=== PATIENT | male | born 1950 | race Caucasian/White ===

== ENCOUNTER → 2019-10-29 08:24 | Outpatient (BNVA) | payer MEDICARE, SELFPAY | PROVIDERS: Family Provider Nurse Practitioner Family; Visit Provider Nurse Practitioner | DX: F33.41 Major depressive disorder, recurrent, in partial remission (principal); G25.0 Essential tremor | CPT/HCPCS: 99213 ==

== ENCOUNTER → 2020-03-30 08:12 | Outpatient (BNVA) | payer MEDICARE, SELFPAY | PROVIDERS: Family Provider Nurse Practitioner Family; Visit Provider Psychiatry & Neurology Psychiatry | DX: G25.0 Essential tremor (principal); F33.41 Major depressive disorder, recurrent, in partial remission | CPT/HCPCS: 99213 ==

== ENCOUNTER → 2020-05-26 08:34 | Outpatient (BNVA) | payer MEDICARE, SELFPAY | PROVIDERS: Family Provider Nurse Practitioner Family; Visit Provider Nurse Practitioner | DX: G25.0 Essential tremor (principal); F33.41 Major depressive disorder, recurrent, in partial remission | CPT/HCPCS: 99213 ==

== ENCOUNTER → 2020-07-13 14:18 | Outpatient (BNVA) | payer MEDICARE, SELFPAY | PROVIDERS: Family Provider Nurse Practitioner Family; Referring Provider Physician Assistant Medical; Visit Provider Podiatrist Foot & Ankle Surgery | DX: M79.89 Other specified soft tissue disorders (principal) | CPT/HCPCS: 73630 ==

== ENCOUNTER 2020-07-13 15:03 | Outpatient (CLI) | payer MEDICARE, SELFPAY | END 2020-07-13 15:04 | disposition home or self-care (01) | LOC: SPT 15:04 | PROVIDERS: Family Provider Nurse Practitioner Family; Visit Provider Podiatrist Foot & Ankle Surgery | DX: Z46.89 Encounter for fitting and adjustment of other specified devices (principal); L97.514 Non-pressure chronic ulcer of other part of right foot with necrosis of bone | CPT/HCPCS: 97760; L4361 ==

== ENCOUNTER 2020-07-13 15:06 | Inpatient (IN) | payer MEDICARE, SELFPAY ==
[2020-07-13] VITALS (9 sets, daily range): BP systolic 120–195; BP diastolic 78–88; PULSE 54–76; RESP 14–18; TEMP 36.5–36.6; O2SAT 97–99; BMI 38.5
--- NOTE | 2020-07-13 16:00 | MR_ITS ---
WS: [id number] MRI RIGHT FOOT, NONCONTRAST COMPARISON: RIGHT foot radiograph 07/13/2020 Multiplanar, multisequence imaging is performed without contrast. Evaluation of the RIGHT foot is performed without IV contrast. There is extensive soft tissue edema s urrounding the distal ankle and RIGHT foot. Edema is predominantly over the dorsal surface of the toma t. Focal soft tissue protrusion along the dorsal surface of the foot at the level of proximal lateral metatarsals. Focal protrusion is edema. There is small amount of increased soft tissue edema along t he plantar surface of the proximal phalanges of the second and third toes. There is no focal collecti on or abscess identified. Marrow signal remains normal with no edema. On the T1 sequences the cortex is intact. No widening of the joint spaces. Distal Achilles tendon is normal. Plantar aponeurosis is normal. No osteochondral lesions along the t ibial plateau. There is no joint effusion at the ankle. Peroneus brevis and longus and the posterior tibialis tendon are negative. MR/MR foot RT wo con* [id number] IMPRESSION: 1. No evidence for osteomyelitis on this unenhanced study. Normal marrow signa l within the bones. Sensitivity is decreased without IV contrast. 2. Marked amount of soft tissue edema and cellulitis surrounding the foot. Gre atest along the dorsal surface of the foot. No focal abscess or collection.
--- NOTE | 2020-07-13 16:16 | W.ED.EXTPRO ---
HPI - Extremity Problem General: Chief complaint: Extremity Problem,Nontraumatic Stated complaint: POSS GANGRENE IN R FOOT/DR BAUM Time Seen by Provider: 07/13/20 15:47 History of Present Illness: HPI Narrative: Patient is a very pleasant 69-year-old male seen for worsening right foot infection. He was seen in the podiatry clinic earlier today where it was deemed necessary for him to be admitted and receive IV antibiotics in preparation for incision and drainage in the operating room. He states that he started to have a twinge of pain on the bottom of his right foot just proximal to the third and fourth toes roughly 1 week ago which has since extended to the dorsum of the foot and run proximally to the ankle. He was started on oral clindamycin, but this does not seem to be effective against his infection. He denies fever, shortness of breath, lightheadedness, confusion, and has no other acute complaints. Review of Systems General: Reports: 10 or more systems reviewed and unremarkable except in HPI and below PFSH ED PFSH: Medical History (Updated 07/13/20 @ 16:00 by Forest Acuña MD) Familial tremor GERD (gastroesophageal reflux disease) Hypertension Hyperthyroidism Major depressive disorder, recurrent, in partial remission Type 2 diabetes mellitus Surgical History (Updated 07/13/20 @ 14:48 by Brian Baum DPM) History of hernia surgery Social History (Updated 07/13/20 @ 14:07 by Chauncey Ayoub LPN) Smoking and tobacco status: never smoked Alcohol intake: never Current occupational status: retired Physical Exam Const: COMMON NORMALS: no acute distress, patient oriented x3 and alert HENMT: COMMON NORMALS: normocephalic and atraumatic HEAD & SCALP: normocephalic and atraumatic Eye: COMMON NORMALS: Equal, round and reactive pupils present, EOMs intact bilaterally and no scleral icterus PUPIL: Yes Equal, round and reactive pupils present Resp: COMMON NORMALS: normal respiratory effort and No retractions Cardio: COMMON NORMALS: regular rate, regular rhythm and No murmurs present (Cardio) RATE: regular rate RHYTHM: regular rhythm GI: COMMON NORMALS: Normal to inspection, nondistended, normoactive bowel sounds present, Soft to palpation and non-tender PALPATION: Yes Soft to palpation Extremity: OTHER: Right foot is red and swollen and tender consistent with infection. Neuro: COMMON NORMALS: patient oriented x3 SENSORIUM/ORIENTATION: Yes alert Skin: COMMON NORMALS: no rashes or lesions noted GENERAL SKIN EXAM: no rashes or lesions noted Course Vital Signs: Vital signs: Vital Signs Temperature 97.7 F 07/13/20 15:19 Pulse Rate 55 L 07/13/20 17:13 Respiratory Rate 18 07/13/20 16:44 Blood Pressure 160/82 07/13/20 16:44 Pulse Oximetry 97 07/13/20 16:44 MDM - Extremity (Nontraumatic) MDM Narrative: Medical decision making narrative: Patient was seen earlier in the day by podiatry. X-ray was performed at that time showing some gas concerning for advanced infection and muscle involvement. At podiatry's request, MRI of the foot with and without contrast was ordered. He will be started on IV vancomycin, metronidazole, and cefepime. He will be admitted to the hospitalist service for further observation and definitive care. Patient agrees the plan will be taken upstairs in stable condition. Lab Data: Labs: Lab Results 07/13/20 07/13/20 07/13/20 Range/Units 16:07 16:07 16:07 WBC 8.5 (4.0-10.0) 10^3/ uL RBC 4.30 (4.1-5.3) 10^6/u L Hgb 13.1 (11.7-16.6) g/dL Hct 38.7 L (42.0-52.0) % MCV 90.0 (80-94) fL MCH 30.5 (28.0-34.0) pg MCHC 33.9 (30.0-36.0) g/dL RDW 12.5 (12.1-15.1) % Plt Count 355 (130-400) 10^3/c mm MPV 9.1 (7.4-10.4) fL Neut % (Auto) 73.8 % Lymph % (Auto) 11.5 % [place] % (Auto) 8.9 % Eos % (Auto) 4.4 % Baso % (Auto) 0.9 % Neut # (Auto) 6.27 (1.8-7.7) 10^3/u L Lymph # (Auto) 1.0 (0.8-4.8) 10^3/u L [place] # (Auto) 0.8 (0.2-0.9) 10^3/u L Eos # (Auto) 0.4 (0.0-0.8) 10^3/u L Baso # (Auto) 0.1 (0.0-0.1) 10^3/u L Nucleated RBC % (a uto) 0 % Nucleated RBCs # 0.0 /100WBC ESR 74 H (0-10) mm/hr Sodium 140 (136-145) mmol/L Potassium 4.2 (3.5-5.1) mmol/L Chloride 102 (98-107) mmol/L Carbon Dioxide 28 (22-29) mmol/L Anion Gap 14.2 (5-19) Glucose 71 (65-115) mg/dL POC Glucose (70-110) mg/dL Lactic Acid (0.5-2.2) mmol/L Calcium 9.0 (8.5-10.5) mg/dL Total Bilirubin 0.4 (0.15-1.2) mg/dL AST 15 (0-40) U/L ALT 14 (0-41) U/L Alkaline Phosphata se 92 (40-130) IU/L Albumin 3.9 (3.5-5.2) g/dL Globulin 2.4 (1.3-4.6) g/dL 07/13/20 07/13/20 Range/Units 16:07 16:16 WBC (4.0-10.0) 10^3/ uL RBC (4.1-5.3) 10^6/u L Hgb (11.7-16.6) g/dL Hct (42.0-52.0) % MCV (80-94) fL MCH (28.0-34.0) pg MCHC (30.0-36.0) g/dL RDW (12.1-15.1) % Plt Count (130-400) 10^3/c mm MPV (7.4-10.4) fL Neut % (Auto) % Lymph % (Auto) % [place] % (Auto) % Eos % (Auto) % Baso % (Auto) % Neut # (Auto) (1.8-7.7) 10^3/u L Lymph # (Auto) (0.8-4.8) 10^3/u L [place] # (Auto) (0.2-0.9) 10^3/u L Eos # (Auto) (0.0-0.8) 10^3/u L Baso # (Auto) (0.0-0.1) 10^3/u L Nucleated RBC % (a uto) % Nucleated RBCs # /100WBC ESR (0-10) mm/hr Sodium (136-145) mmol/L Potassium (3.5-5.1) mmol/L Chloride (98-107) mmol/L Carbon Dioxide (22-29) mmol/L Anion Gap (5-19) Glucose (65-115) mg/dL POC Glucose 72 (70-110) mg/dL Lactic Acid 1.2 (0.5-2.2) mmol/L Calcium (8.5-10.5) mg/dL Total Bilirubin (0.15-1.2) mg/dL AST (0-40) U/L ALT (0-41) U/L Alkaline Phosphata se (40-130) IU/L Albumin (3.5-5.2) g/dL Globulin (1.3-4.6) g/dL Discharge Plan Discharge Patient Disposition: Admitted As Inpatient Clinical Impression: Non-pressure chronic ulcer of other part of right foot with necrosis of muscle, Diabetic peripheral neuropathy associated with type 2 diabetes mellitus, Gas gangrene Condition: Stable Coding Level of Care Code ED Ux Developer for Avis Fwd Exam Detailed
[2020-07-13 16:17] LABS: Basophils # 0.1 10^3/uL (0.0-0.1); Basophils % 0.9 %; Eosinophils # 0.4 10^3/uL (0.0-0.8); Eosinophils % 4.4 %; Hematocrit 38.7 % (42.0-52.0); Hemoglobin 13.1 g/dL (11.7-16.6); Lymphocytes % 11.5 %; Mean Corpuscular HGB Conc 33.9 g/dL (30.0-36.0); Mean Corpuscular Hemoglobin 30.5 pg (28.0-34.0); Mean Platelet Volume 9.1 fL (7.4-10.4); Monocytes # 0.8 10^3/uL (0.2-0.9); Monocytes % 8.9 %; Neutrophils # 6.27 10^3/uL (1.8-7.7); Neutrophils % 73.8 %; Nucleated Red Blood Cells % 0 %; Platelet Count 355 10^3/cmm (130-400); Red Cell Distribution Width 12.5 % (12.1-15.1); White Blood Count 8.5 10^3/uL (4.0-10.0)
[2020-07-13 16:20] LABS: Glucose Point of Care 72 mg/dL (70-110)
[2020-07-13] MEDS: cefepime 2,000 MG in sodium chloride 0.9% (plus) 50 ML 100 MG IV (16:20)
[2020-07-13] MEDS: metroNIDAZOLE IV 500 MG/100 ML PREMIX 100 MG IV (16:23)
[2020-07-13] MEDS: vancomycin 1,500 MG/300 ML PIGGYBACK 200 MG IV (16:31)
[2020-07-13 16:51] LABS: Lactic Sepsis W/Reflex 1.2 mmol/L (0.5-2.2)
[2020-07-13 17:25] LABS: Erythrocyte Sedimentation Rate 74 mm/hr (0-10)
[2020-07-13 17:38] LABS: Alanine Aminotransferase 14 U/L (0-41); Albumin Level 3.9 g/dL (3.5-5.2); Alkaline Phosphatase 92 IU/L (40-130); Anion Gap 14.2 (5-19); Aspartate Amino Transferase 15 U/L (0-40); Carbon Dioxide 28 mmol/L (22-29); Chloride 102 mmol/L (98-107); Globulin 2.4 g/dL (1.3-4.6); Glucose 71 mg/dL (65-115); Potassium 4.2 mmol/L (3.5-5.1); Sodium 140 mmol/L (136-145); Total Bilirubin 0.4 mg/dL (0.15-1.2)
[2020-07-13 17:55] LABS: Blood Urea Nitrogen 45 mg/dL (8-23); C Reactive Protein 89.5 mg/L (0.0-4.9); Glomerular Filtration Rate 25.8 mL/min (90-130); Osmolality Calculated 300 mOsm/kg (285-295)
[2020-07-13 17:56] LABS: Total Protein 6.3 g/dL (6.6-8.7)
--- NOTE | 2020-07-13 19:04 | PM.HP ---
Providers/Chief Complaint Admitting Physician: Joey Lemus MD Primary Care Provider: Rafa Call Chief Complaint: POSS GANGRENE IN R FOOT/DR BAUM History of Present Illness Brittny Londono is a 69 year old male with PMH of HTN,DM ,Hypothyroidism, MDD under remision was sent in by from Podiatry clinic his PCP referred him to podiatry clinic due to cellulitis of the right foot had a puncture wound approximately 1.5 weeks ago and approximately 4 days ago was started on clindamycin he has cellulitis at the foot and streaking to the level of the ankle. Patient is afebrile in clinic. Denies any nausea or vomiting. States he is taking clindamycin without difficulty. Does have some tenderness to the right foot. Patient denies any subjective nausea, vomiting, fever, chills, shortness of breath or chest pain. ECA Course : Xray : XR foot RT : No fractures or dislocations are seen. No bone destruction or erosion is noted. The joint spaces and soft tissues are normal. There is a plantar spur and an Achilles spur. MRI Rt feet ordered Patient was started on cefepime Review of Systems Const: Denies: fever(s), chills, body aches, change in appetite or diaphoresis Card: Denies: palpitations, dyspnea on exertion or orthopnea Resp: Denies: dyspnea, productive cough, wheezing or pain on inspiration GI: Denies: abdominal pain, nausea, vomiting, diarrhea or constipation : Denies: flank pain or difficulty urinating Musc: Denies: back pain, extremity pain or extremity swelling Neuro: Denies: headache(s) or confusion Medications/Allergies Home Medications Medication Instructions Recorded Confirmed Last Taken Type aspirin 325 mg tablet 325 mg PO DAILY@0000 10/28/19 07/13/20 07/13/20 History insulin degludec 100 unit/mL 60 unit SUBCUT BID@12,00 ml 05/26/20 07/13/20 07/13/20 History subcutaneous solution lorazepam 2 mg tablet See Rx Instructions PO DAILY PRN 05/26/20 07/13/20 07/13/20 Rx #35 tab CAM walker #1 ea 07/13/20 07/13/20 Unknown Rx Seroquel 200 mg PO BEDTIME@00 07/13/20 07/13/20 07/13/20 History clindamycin HCl 300 mg capsule 300 mg PO QID@12,18,00,06 07/13/20 07/13/20 07/13/20 History famotidine 40 mg PO DAILY@00 07/13/20 07/13/20 07/13/20 History furosemide 20 mg PO DAILY@00 07/13/20 07/13/20 07/13/20 History lansoprazole 15 mg capsule,delayed 15 mg PO DAILY@1200 07/13/20 07/13/20 Unknown History release levothyroxine 25 mcg capsule 25 mcg PO DAILY@00 07/13/20 07/13/20 07/13/20 History primidone 50 mg PO BID@00,12 07/13/20 07/13/20 07/13/20 History Allergies Allergy/AdvReac Type Severity Reaction Status Date / Time Penicillins Allergy Intermediate rash Verified 07/13/20 14:01 PFSH Acute PFSH: Medical History (Updated 07/13/20 @ 22:20 by Joey Lemus MD) Familial tremor GERD (gastroesophageal reflux disease) Hypertension Hyperthyroidism Major depressive disorder, recurrent, in partial remission Type 2 diabetes mellitus Surgical History (Updated 07/13/20 @ 14:48 by Brian Baum DPM) History of hernia surgery Social History (Updated 07/13/20 @ 14:07 by Chauncey Ayoub LPN) Smoking and tobacco status: never smoked Alcohol intake: never Current occupational status: retired Vitals/I&O/Wt Last Vital Signs Temp 97.7 F 07/13/20 15:19 Pulse 71 07/13/20 17:52 Resp 18 07/13/20 17:52 BP 169/88 07/13/20 17:52 Pulse Ox 99 07/13/20 17:52 07/13/20 07/13/20 07/13/20 06:59 14:59 22:59 Intake Total 150 / 150 Balance 150 / 150 Weight last 48 hrs Weight 136.078 kg Physical Exam Const: COMMON NORMALS: patient oriented x3 HENMT: COMMON NORMALS: normocephalic, atraumatic, hearing grossly normal bilaterally and external ears normal HEAD & SCALP: normocephalic and atraumatic EXTERNAL EAR: Yes external ears normal Eye: COMMON NORMALS: no scleral icterus GENERAL EYE: appearance normal, both eyes and all related structures Chest: COMMONS NORMALS: normal inspection of the chest and normal palpation of entire chest wall CHEST: Yes Symmetrical chest wall rise Resp: COMMON NORMALS: normal respiratory effort, No retractions, No use of accessory muscles and clear to auscultation bilaterally EFFORT & INSPECTION: Yes symmetric chest movement AUSCULTATION: clear to auscultation bilaterally Cardio: COMMON NORMALS: regular rate, regular rhythm, S1 normal heart sound present, S2 normal heart sound present, No gallops present (Cardio), No murmurs present (Cardio), No rub (Cardio) and Peripheral pulses 2+ throughout RATE: regular rate RHYTHM: regular rhythm HEART SOUNDS: S1 normal heart sound present and S2 normal heart sound present PERIPHERAL PULSES: Peripheral pulses 2+ throughout GI: COMMON NORMALS: Normal to inspection, nondistended, normoactive bowel sounds present, Soft to palpation, non-tender, No hepatosplenomegaly present and no masses AUSCULTATION: Yes normoactive bowel sounds PALPATION: Yes Soft to palpation and Yes No hepatosplenomegaly present RECTAL EXAM: Yes deferred Extremity: NARRATIVE EXTREMITY EXAM: Rt feet Dressing clean Neuro: COMMON NORMALS: patient oriented x3 Data : 07/13/20 16:07 07/13/20 16:07 A&P Assessment and plan (1) Cellulitis of right foot: Cellulitis of rt feet r/o osteomyelitis ESR : 74 MRI of the rt feet Follow wound culture Currently on Van and Imipenam Status: Acute (2) KINSEY (acute kidney injury): KINSEY V/S KINSEY ON CKD Current SCR: 2.5 Baseline SCR :Unknown Random urine:Na and Creatinine Hold Lasix Renal U/S I.V Hydration N.S @ 125 CC/HR Monitor BMP Status: Acute (3) Diabetic peripheral neuropathy associated with type 2 diabetes mellitus: Status: Acute (4) Hypertension: Status: Acute (5) Hypothyroidism: Status: Acute (6) Diabetes: Status: Acute (7) Major depressive disorder, recurrent, in partial remission: Status: Acute Additional A&P Information DVT PPX: On Heparin 5000 sc q12 h daily Code Status :Full code Disposition :Home Attestations Medical Necessity Statement*: Patinet needs to be in hospital for the management of RT Feet cellulitis r/o osteo.Anticipated LOS greater then 2 midnights Coding Level of Care Code Acute Experimental Machinist for g Fwd Diagnoses Cellulitis of right foot L03.115 KINSEY (acute kidney injury) N17.9 Diabetic peripheral neuropathy associated with type 2 diabetes mellitus E11.42 Hypertension I10 Hypothyroidism E03.9 Diabetes E11.9 Major depressive disorder, recurrent, in partial remission F33.41
--- NOTE | 2020-07-13 20:31 | PC.PHAR ---
Vancomycin is continued at 1500mg IVPB every 24 hours to produce a predicted trough level of 13.84 (population based pharmacokinetic analysis). A trough level has been ordered from the lab to be obtained before the fourth dose to confirm and adjust if needed.
[2020-07-13] MEDS: famotidine 20 mg/2 mL INJ IVP (20:54)
[2020-07-13] MEDS: sodium chloride 0.9% 1,000 ML 125 ML IV (20:54)
[2020-07-13] MEDS: heparin 5,000 unit/mL INJ 1 mL 5000 UNIT SUBCUT (20:55)
[2020-07-13] MEDS: quetiapine 100 mg Tablet 200 MG PO (23:05)
[2020-07-13] MEDS: famotidine 20 mg Tablet 40 MG PO (23:05)
[2020-07-13] MEDS: primidone 50 mg Tablet PO (23:05)
[2020-07-13] MEDS: LORazepam 2 mg Tablet PO (23:06)
--- NOTE | 2020-07-13 23:18 | PC.NURSE ---
Ativan/Seroquel Patient requested only 1mg of ativan, and 100mg of seroquel. Would not let me advance with less than ordered dose. Patient was given 1mg of ativan and 100mg of seroquel. Waste of ativan and return of 100mg of seroquel witnessed by charge nurse, JOVANNY Zaidi.
[2020-07-14] VITALS (20 sets, daily range): BP systolic 136–230; BP diastolic 60–100; PULSE 40–89; RESP 16–20; TEMP 36.4–37.4; O2SAT 94–99
[2020-07-14] MEDS: sodium chloride 0.9% 1,000 ML 125 ML IV (00:53)
[2020-07-14] MEDS: acetaminophen 325 mg Tablet 650 MG PO (05:07)
[2020-07-14 05:45] LABS: Basophils # 0.1 10^3/uL (0.0-0.1); Basophils % 0.8 %; Eosinophils # 0.4 10^3/uL (0.0-0.8); Eosinophils % 5.6 %; Hematocrit 36.2 % (42.0-52.0); Hemoglobin 12.1 g/dL (11.7-16.6); Lymphocytes # 1.3 10^3/uL (0.8-4.8); Lymphocytes % 17.4 %; Mean Corpuscular HGB Conc 33.4 g/dL (30.0-36.0); Mean Corpuscular Hemoglobin 30.6 pg (28.0-34.0); Mean Corpuscular Volume 91.6 fL (80-94); Mean Platelet Volume 8.9 fL (7.4-10.4); Monocytes # 0.7 10^3/uL (0.2-0.9); Monocytes % 9.3 %; Neutrophils # 4.77 10^3/uL (1.8-7.7); Neutrophils % 66.3 %; Nucleated Red Blood Cells % 0 %; Platelet Count 335 10^3/cmm (130-400); Red Blood Count 3.95 10^6/uL (4.1-5.3); Red Cell Distribution Width 12.6 % (12.1-15.1); White Blood Count 7.2 10^3/uL (4.0-10.0)
[2020-07-14] MEDS: dextrose 5%-sod chloride 0.9% 1,000 ML 125 ML IV ×2 (06:06→13:42)
[2020-07-14] MEDS: famotidine 20 mg/2 mL INJ IVP ×2 (06:07→17:07)
[2020-07-14] MEDS: heparin 5,000 unit/mL INJ 1 mL 5000 UNIT SUBCUT ×2 (06:08→17:07)
[2020-07-14 06:11] LABS: INR 1.03 (0.8-1.2)
[2020-07-14 06:23] LABS: Alanine Aminotransferase 11 U/L (0-41); Albumin Level 3.3 g/dL (3.5-5.2); Alkaline Phosphatase 77 IU/L (40-130); Anion Gap 13.9 (5-19); Aspartate Amino Transferase 13 U/L (0-40); Blood Urea Nitrogen 38 mg/dL (8-23); Calcium 9.1 mg/dL (8.5-10.5); Carbon Dioxide 27 mmol/L (22-29); Chloride 104 mmol/L (98-107); Globulin 3.1 g/dL (1.3-4.6); Glomerular Filtration Rate 31.6 mL/min (90-130); Glucose 90 mg/dL (65-115); Magnesium 2.2 mg/dL (1.7-2.3); Osmolality Calculated 301 mOsm/kg (285-295); Phosphorus 3.7 mg/dL (2.5-4.5); Potassium 3.9 mmol/L (3.5-5.1); Sodium 141 mmol/L (136-145); Total Bilirubin 0.3 mg/dL (0.15-1.2); Total Protein 6.4 g/dL (6.6-8.7)
[2020-07-14 06:24] LABS: Procalcitonin 0.11 ng/mL (0-0.5)
[2020-07-14 06:28] LABS: Lactic Sepsis W/Reflex 0.8 mmol/L (0.5-2.2)
[2020-07-14 06:41] LABS: Estmated Average Glucose 203; Hemoglobin A1C 8.7 % (4.0-6.0)
--- NOTE | 2020-07-14 07:00 | USCV_ITS ---
Bry Brittny Age: 69 Gender: M : 1950 Exam Date: 07/14/2020 06:05 Ordering Phys: Brian Gomez DPM Technologist: Exam Location: [facility] [place]_ Indication: PRE OP PLANNING RIGHT LEFT Brachial 169.00 mmHg Brachial 153.00 mmHg Pressure (mmHg) Waveform Pressure (mmHg) Waveform 196.00 DPA 169.00 1.16 Ankle/Brachial Index 1.00 147.00 Pre-Exercise Toe Pressure 162.00 0.87 Pre-Exercise Toe/Brachial Index 0.96 FINDINGS Could not obtain pressures above the RT and LT ankles. Normal resting ABIs and TBIs bilaterally Normal PVR waveforms CONCLUSIONS No evidence of any significant arterial obstruction, based on the above findings. Dr Len Jansen MD [facility] (Electronically Signed) Final Date: 14 July 2020 17:02 S
--- NOTE | 2020-07-14 07:00 | US_ITS ---
WS: [id number] RENAL ULTRASOUND HISTORY: KINSEY COMPARISON: None available. TECHNIQUE: 2-D and color Doppler imaging of the kidney submitted. Right kidney: 9.7 cm x 4.9 cm x 5.2 cm. Normal echogenicity with no hydronephrosis or mass. Left kidney: 12.1 cm x 4.3 cm x 5.3 cm. Normal size kidney. There is very slight dilatation of the LEFT renal pelvis. May be an extrarenal pe lvis. No calyceal dilatation. Aorta: Normal. Urinary Bladder: Minimally distended bladder. Increased soft tissue in the floor the bladder may be p rostate. US/US renal BI* [id number] IMPRESSION: 1. No renal obstruction or mass. 2. Increased soft tissue in the floor the urinary bladder. Consider dedicated follow-up bladder ultrasound with better distention to evaluate for possible ma ss.
--- NOTE | 2020-07-14 07:51 | P.CONIM_ITS ---
Providers/Reason For Consult Consulting Physican/Specialty*: Brian Gomez D.P.M. Reason for Consult*: Diabetic foot infection right foot Attending Physician: Joey Lemus MD Primary Care Provider: Rafa Call History of Present Illness History of Present Illness Patient is a 69-year-old diabetic male he reports A1c was drawn yesterday and was 8.9. His primary care provider is Kary Mejia who referred him to podiatry clinic due to cellulitis of the right foot had a puncture wound approximately 1.5 weeks ago and approximately 4 days ago was started on clindamycin he has cellulitis at the foot and streaking to the level of the ankle. Patient is afebrile in clinic. Denies any nausea or vomiting. States he is taking clindamycin without difficulty. Does have some tenderness to the right foot. Patient denies any subjective nausea, vomiting, fever, chills, shortness of breath or chest pain. Review of Systems Const: Denies: fever(s) or chills Card: Denies: chest pain or dyspnea on exertion Resp: Denies: dyspnea or productive cough GI: Denies: abdominal pain, nausea or vomiting Musc: Reports: extremity pain and extremity swelling; Denies: limited range of motion Skin/Breast: Reports: erythema, skin pain, skin tenderness, skin swelling, sores and nail changes; Denies: changes in skin color or dry skin Neuro: Denies: numbness in extremities or weakness in extremities Psych: Denies: anxiety Ryne/Lymph: Denies: easy bruising or easy bleeding Meds/Allergies Home Medications and Allergies Home Medications Medication Instructions Recorded Confirmed Last Taken Type aspirin 325 mg tablet 325 mg PO DAILY@0000 10/28/19 07/13/20 07/13/20 History insulin degludec 100 unit/mL 60 unit SUBCUT BID@12,00 ml 05/26/20 07/13/20 07/13/20 History subcutaneous solution lorazepam 2 mg tablet See Rx Instructions PO DAILY PRN 05/26/20 07/13/20 07/13/20 Rx #35 tab CAM walker #1 ea 07/13/20 07/13/20 Unknown Rx Seroquel 200 mg PO BEDTIME@00 07/13/20 07/13/20 07/13/20 History clindamycin HCl 300 mg capsule 300 mg PO QID@12,18,00,06 07/13/20 07/13/20 07/13/20 History famotidine 40 mg PO DAILY@00 07/13/20 07/13/20 07/13/20 History furosemide 20 mg PO DAILY@00 07/13/20 07/13/20 07/13/20 History lansoprazole 15 mg capsule,delayed 15 mg PO DAILY@1200 07/13/20 07/13/20 Unknown History release levothyroxine 25 mcg capsule 25 mcg PO DAILY@00 07/13/20 07/13/20 07/13/20 History primidone 50 mg PO BID@00,12 07/13/20 07/13/20 07/13/20 History Allergies Allergy/AdvReac Type Severity Reaction Status Date / Time Penicillins Allergy Intermediate rash Verified 07/13/20 14:01 Current Medications Current Medications Generic Name Dose Route Start Last Admin Trade Name Freq PRN Reason Stop Dose Admin Acetaminophen 650 mg 07/13/20 18:53 07/14/20 05:07 Acetaminophen 325 Mg Tablet PO 650 mg Q6H PRN Administration Mild/Mod Pain Or Temp >/= 101 Famotidine 20 mg 07/13/20 19:00 07/14/20 06:07 Famotidine 20 Mg/2 Ml Inj IVP 20 mg Q12H SPEEDY Administration Famotidine 40 mg 07/14/20 00:00 07/13/20 23:05 Famotidine 20 Mg Tablet PO 40 mg DAILY@00 SPEEDY Administration Heparin Sodium (Beef Lung) 5,000 unit 07/13/20 19:00 07/14/20 06:08 Heparin 5,000 Unit/Ml Inj 1 Ml SUBCUT 5,000 unit Q12H SPEEDY Administration Imipenem/Cilastatin Sodium 500 100 mls @ 200 mls/hr 07/13/20 19:00 07/14/20 06:08 mg/ Sodium Chloride IV 200 mls/hr Q6H SPEEDY Administration Protocol Dextrose/Sodium Chloride 1,000 mls @ 125 mls/hr 07/14/20 05:30 07/14/20 06:06 Dextrose 5%-Sod Chloride 0.9% IV 125 mls/hr .Q8H SPEEDY Administration Insulin Aspart 0 unit 07/13/20 21:00 07/13/20 23:10 Insulin Aspart 100 Unit/1 Ml SUBCUT Not Given WM&BEDTIME SPEEDY Protocol Insulin Aspart 0 unit 07/13/20 21:00 07/13/20 23:10 Insulin Aspart 100 Unit/1 Ml SUBCUT Not Given WM&BEDTIME SPEEDY Protocol Lorazepam 2 mg 07/13/20 18:59 07/13/20 23:06 Lorazepam 2 Mg Tablet PO 2 mg BID@0800,2100 PRN Administration anxiety Primidone 50 mg 07/14/20 00:00 07/13/20 23:05 Primidone 50 Mg Tablet PO 50 mg BID@00,12 SPEEDY Administration Quetiapine Fumarate 200 mg 07/14/20 00:00 07/13/20 23:05 Quetiapine 100 Mg Tablet PO 200 mg BEDTIME@00 SPEEDY Administration PFSH Acute PFSH: Medical History (Updated 07/13/20 @ 22:20 by Joey Lemus MD) Familial tremor GERD (gastroesophageal reflux disease) Hypertension Hyperthyroidism Major depressive disorder, recurrent, in partial remission Type 2 diabetes mellitus Surgical History (Updated 07/13/20 @ 14:48 by Brian Gomez DPM) History of hernia surgery Social History (Updated 07/13/20 @ 14:07 by Chauncey Ayoub LPN) Smoking and tobacco status: never smoked Alcohol intake: never Current occupational status: retired Vitals/I&O/Wt Last Vital Signs Temp 97.9 F 07/14/20 07:26 Pulse 47 L 07/14/20 07:26 Resp 18 07/14/20 07:26 BP 194/97 07/14/20 07:26 Pulse Ox 99 07/14/20 07:26 07/13/20 07/14/20 07/14/20 22:59 06:59 14:59 Intake Total 250 / 250 597.917 / 847.917 Balance 250 / 250 597.917 / 847.917 Weight last 48 hrs Weight 300 lb Physical Exam Narrative: EXAM NARRATIVE: Patient is alert and oriented ?3 and in no acute distress. The following is a focused bilateral lower extremity exam. Patient is accompanied by his ambulates without assistance. VASCULAR: Dorsalis pedis +2 posterior tibial arteries +2. Capillary refill time less than 3 seconds to the distal hallux bilaterally. Calf is supple and nontender proximally and distally. Pedal hair growth present to the level of the toes this is diminished. Edema to the right foot. Bilateral lower extremity edema +2 pitting. NEUROLOGICAL: Protective sensation intact 6/10 sites, tested with [facility] monofilament to bilateral feet. DERMATOLOGICAL: Puncture wound x2 right plantar forefoot. More proximal wound is subsecond metatarsal is limited to breakdown of skin. Puncture wound subthird metatarsal head at the right plantar forefoot probes 3 cm deep and is 3 mm x 3 mm portal of entry. Wound probes dorsally and is tenting the dorsum of the third toe base. There is erythema streaking to the level of the anterior right ankle. MUSCULOSKELETAL: Tenderness to palpation and with debridement. Muscle strength 5 out of 5 in all 3 cardinal planes of bilateral foot and ankle. A&P Assessment and plan (1) Diabetic peripheral neuropathy associated with type 2 diabetes mellitus: Status: Acute (2) Non-pressure chronic ulcer of other part of right foot with necrosis of muscle: Status: Acute (3) Gas gangrene: Status: Acute Additional A&P Information 69-year-old diabetic male with puncture wound to the right plantar forefoot and soft tissue emphysema at the right second webspace. -Soft tissue emphysema on right foot x-ray at the right third toe and second webspace -No obvious osteomyelitis on x-ray, no fracture or dislocation. -Aerobic and anaerobic wound culture taken of deep penetrating wound down to the level of muscle and fascial layer this will be sent to microbiology for Gram stain and culture with sensitivities. -Wound was packed with iodoform and dressed with Betadine wet-to-dry offload with cam boot. -I recommend no CT scan emergency department, MRI would be preferred, MRI with and without contrast of the right foot would be the diagnostic imaging of choice for acute early osteomyelitis to be ruled out. -Ordered LUIS/TBI/PVR, ordered Covid screening in preparation for I&D. -Patient scheduled for I&D of the right foot today at noon he is n.p.o. since midnight. This will likely be a staged procedure, will await MRI to rule out acute osteomyelitis. Coding Level of Care Code Acute Macadam Raker for Avis Orellana Diagnoses Diabetic peripheral neuropathy associated with type 2 diabetes mellitus E11.42 Non-pressure chronic ulcer of other part of right foot with necrosis of muscle L97.513 Gas gangrene A48.0
[2020-07-14] MEDS: levothyroxine 25 mcg Tablet PO (08:45)
--- NOTE | 2020-07-14 08:46 | PC.NURSE ---
patient took fingerstick at bedside with this nurse watching on personal accucheck result was 96.
--- NOTE | 2020-07-14 09:58 | PC.CHAP ---
Pastoral Care Encounter/Spiritual Assessment Type of Contact [] Declined roving department end finder visit [] Patient/Family/Request visit [] Outpatient visit [] Follow-up visit [] Physician referral [] Code/Alert [] Routine visit [] Staff referral [] Actively dying [] Patient sleeping [] Family support [] [] Out of room [] Palliative care [] [] Receiving care in room [] Pre-surgical visit [] Trauma [] Long length of stay [] ICU visit [x] Other:cCovid 19 Relational/Emotional Strength [] Patient feels connected with others/family/visitors/staff [] Distress [] Loneliness/isolation [] Abandonment Spirituality of Patient [] Person of Minnie [] Attends Yarsani of their Minnie [] Believes in Prayer [] Reads Bible or Caodaism materials [] There are Spiritual issues to be addressed Porcelain Enamel Repairer Interventions [] Prayer [] Active listening [] Non-anxious presence [] Spiritual/emotional support [] Crisis/trauma care [] Spiritual counseling [] Bereavement support [] Provided bereavement packet [] Provided Bible/devotional materials [] Provided toy/stuffed animal, coloring book to patient or family member [] Provided Communion [] Anointing/[place] [] Salvation [] Completed spiritual assessment [] Other: Impact on Illness or Injury [] Angry [] Fearful [] Anxious [] Often cries [] Exhaustion [] Unable to work [] Unable to attend gnosticist [] Unable to walk/stand [] Unable to read [] Unable to drive [] Unable to eat/drink [] Unable to sleep [] Unable to be with family [] Patient intubated [] Other: Summary Covid 19 Time spent with patient 5 mins
--- NOTE | 2020-07-14 11:12 | P.PN_ITS ---
Subjective Subjective: Interval history: S/P I.D with debridement of nonviable muscle, tendon and deep fascia of the right foot. Patient tolerated the procedure well. Vitals and labs reviewed Medications: Reviewed: Yes Vitals/I&O/Wt Last Vital Signs Temp 97.9 F 07/14/20 07:26 Pulse 47 L 07/14/20 07:26 Resp 18 07/14/20 07:26 BP 140/82 07/14/20 07:26 Pulse Ox 99 07/14/20 07:26 07/13/20 07/14/20 07/14/20 22:59 06:59 14:59 Intake Total 250 / 250 597.917 / 847.917 Balance 250 / 250 597.917 / 847.917 Weight last 48 hrs Weight 136.078 kg Physical Exam Const: COMMON NORMALS: patient oriented x3 HENMT: COMMON NORMALS: normocephalic, atraumatic, hearing grossly normal bilaterally and external ears normal HEAD & SCALP: normocephalic and atraumatic EXTERNAL EAR: Yes external ears normal Eye: COMMON NORMALS: no scleral icterus GENERAL EYE: appearance normal, both eyes and all related structures Chest: COMMONS NORMALS: normal inspection of the chest and normal palpation of entire chest wall CHEST: Yes Symmetrical chest wall rise Resp: COMMON NORMALS: normal respiratory effort, No retractions, No use of accessory muscles and clear to auscultation bilaterally EFFORT & INSPECTION: Yes symmetric chest movement AUSCULTATION: clear to auscultation bilaterally Cardio: COMMON NORMALS: regular rate, regular rhythm, S1 normal heart sound present, S2 normal heart sound present, No gallops present (Cardio), No murmurs present (Cardio), No rub (Cardio) and Peripheral pulses 2+ throughout RATE: regular rate RHYTHM: regular rhythm HEART SOUNDS: S1 normal heart sound present and S2 normal heart sound present PERIPHERAL PULSES: Peripheral pulses 2+ throughout GI: COMMON NORMALS: Normal to inspection, nondistended, normoactive bowel sounds present, Soft to palpation, non-tender, No hepatosplenomegaly present and no masses AUSCULTATION: Yes normoactive bowel sounds PALPATION: Yes Soft to palpation and Yes No hepatosplenomegaly present RECTAL EXAM: Yes deferred Extremity: NARRATIVE EXTREMITY EXAM: Rt feet Dressing clean Neuro: COMMON NORMALS: patient oriented x3 Data : 07/14/20 05:26 07/14/20 05:26 A&P Assessment and plan (1) Gas gangrene: Gas gangrene of the rt feet.Osteo r/o S/P I.D with debridement of nonviable muscle, tendon and deep fascia of the right foot. ESR : 74 Procal:0.11 Lactic acid: 0.8 MRI of the rt feet: No evidence for osteomyelitis on this unenhanced study. Normal marrow signal within the bones. Sensitivity is decreased without IV contrast.Marked amount of soft tissue edema and cellulitis surrounding the foot. Greatest along the dorsal surface of the foot. No focal abscess or collection. CV segpressure LE BI:No evidence of any significant arterial obstruction, wound culture : GNR Currently on Van and Imipenam Status: Acute (2) KINSEY (acute kidney injury): KINSEY V/S KINSEY ON CKD SCR: 2.5--> 2.1 Baseline SCR :Unknown Random urine:Na: Random Urine Creatinine: Renal US : No renal obstruction or mass Hold Lasix I.V Hydration N.S @ 125 CC/HR Monitor BMP Avoid Nephrotoxics medications Status: Acute (3) Diabetic peripheral neuropathy associated with type 2 diabetes mellitus: Status: Acute (4) Hypertension: Status: Acute (5) Hypothyroidism: Status: Acute (6) Diabetes: Status: Acute (7) Major depressive disorder, recurrent, in partial remission: Status: Acute Additional A&P Information DVT PPX: On Heparin 5000 sc q12 h daily Code Status :Full code Disposition :Home Attestations Medical Necessity Statement*: Patient needs to be in hospital for the management of gas gangrene. Coding Level of Care Code Acute [facility] for [facility] Fwd Exam Detailed Diagnoses Gas gangrene A48.0 KINSEY (acute kidney injury) N17.9 Diabetic peripheral neuropathy associated with type 2 diabetes mellitus E11.42 Hypertension I10 Hypothyroidism E03.9 Diabetes E11.9 Major depressive disorder, recurrent, in partial remission F33.41
[2020-07-14 11:46] LABS: Glucose Point of Care 67 mg/dL (70-110)
[2020-07-14] MEDS: dextrose 50% syringe 50 mL 25 ML IVP (11:51)
--- NOTE | 2020-07-14 11:54 | PC.NURSE ---
Dr. Lemus notified of decreased heart rate 40 checked by this nurse by auscultation, patient reports this is a normal finding for him, fingerstick 67, Dr. Lemus notified and new orders for 1/2 amp d50, see MAR for further details, given by this nurse and surgical nurse at bedside, report given, patient taken to surgery via stretcher. no distress noted.
--- NOTE | 2020-07-14 12:05 | P.ANESASSM_ITS ---
Pre-Anesthetic Assessment Pre-Anesthetic Assessment: Height/Weight: Height 1.88 m Weight 136.078 kg Temp Pulse Resp BP Pulse Ox 97.5 F L 40 L 18 136/80 99 07/14/20 11:44 07/14/20 11:44 07/14/20 11:44 07/14/20 11:44 07/14/20 07:26 Preop Diagnosis: gas gangrene Proposed Procedure: Operation Date: 07/14/20 12:00 Proposed Procedures p Incision And Drainage(Right) - Brian Gomez DPM Familial anesthetic complications: None Was Beta Cristopher taken within 24 hours: N/A Last intake: Intake Last Liquid Date 07/12/20 Last Liquid Time 00:00 Last Solid Date 07/12/20 Last Solid Time 00:00 Social: Social History: No alcohol and No tobacco Exam: Pre-Anes Outpt Exam: alert, oriented x 3, clear to auscultation bilaterally and regular rate & rhythm Airway: Cervical ROM: WNL MP: 4 Dentition: Other (missing teeth) CV/HEM: CV/HEM: HTN Comments: states he has skipped beats, asymptomatic, slow HR GI: GI: GERD Metabolic: Metabolic: DM, Morbid obesity and Thyroid Anesthetic Plan: ASA status: 3 Anesthesia: MAC Other: Patient prefers as little sedation as possible Risk of > 500 ml blood loss (7ml/kg in children): No Meds/Allergies Current Medications: Current Medications Generic Name Dose Route Start Last Admin Trade Name Freq PRN Reason Stop Dose Admin Acetaminophen 650 mg 07/13/20 18:53 07/14/20 05:07 Acetaminophen 32 5 Mg Tablet PO 650 mg Q6H PRN Administration Mild/Mod Pain Or Temp >/= 101 Aspirin 325 mg 07/14/20 09:00 07/14/20 08:46 Aspirin 325 Mg T ablet PO Not Given DAILY SPEEDY Dextrose 25 ml 07/13/20 19:00 07/14/20 11:51 Dextrose 50% Syr french 50 Ml IVP 25 ml ONCE PRN Administration hypoglycemia prot ocol Protocol Famotidine 20 mg 07/13/20 19:00 07/14/20 06:07 Famotidine 20 Mg /2 Ml Inj IVP 20 mg Q12H SPEEDY Administration Famotidine 40 mg 07/14/20 00:00 07/13/20 23:05 Famotidine 20 Mg Tablet PO 40 mg DAILY@00 SPEEDY Administration Heparin Sodium (Be ef Lung) 5,000 unit 07/13/20 19:00 07/14/20 06:08 Heparin 5,000 Un it/Ml Inj 1 Ml SUBCUT 5,000 unit Q12H SPEEDY Administration Imipenem/Cilastati n Sodium 500 100 mls @ 200 mls /hr 07/13/20 19:00 07/14/20 06:08 mg/ Sodium Chlor mati IV 200 mls/hr Q6H SPEEDY Administration Protocol Dextrose/Sodium Ch loride 1,000 mls @ 125 m ls/hr 07/14/20 05:30 07/14/20 06:06 Dextrose 5%-Sod Chloride 0.9% IV 125 mls/hr .Q8H SPEEDY Administration Insulin Aspart 0 unit 07/13/20 21:00 07/14/20 11:54 Insulin Aspart 1 00 Unit/1 Ml SUBCUT Not Given WM&BEDTIME SPEEDY Protocol Insulin Aspart 0 unit 07/13/20 21:00 07/14/20 11:54 Insulin Aspart 1 00 Unit/1 Ml SUBCUT Not Given WM&BEDTIME SPEEDY Protocol Levothyroxine Sodi um 25 mcg 07/14/20 09:00 07/14/20 08:45 Levothyroxine 25 Mcg Tablet PO 25 mcg DAILY SPEEDY Administration Lorazepam 2 mg 07/13/20 18:59 07/13/20 23:06 Lorazepam 2 Mg T ablet PO 2 mg BID@0800,2100 PRN Administration anxiety Primidone 50 mg 07/14/20 00:00 07/13/20 23:05 Primidone 50 Mg Tablet PO 50 mg BID@00,12 SPEEDY Administration Quetiapine Fumarat e 200 mg 07/14/20 00:00 07/13/20 23:05 Quetiapine 100 M g Tablet PO 200 mg BEDTIME@00 SPEEDY Administration PFSH Anesthesia PFSH: Medical History (Updated 07/13/20 @ 22:20 by Joey Lemus MD) Familial tremor GERD (gastroesophageal reflux disease) Hypertension Hyperthyroidism Major depressive disorder, recurrent, in partial remission Type 2 diabetes mellitus Surgical History (Updated 07/13/20 @ 14:48 by Brian Gomez DPM) History of hernia surgery Social History (Updated 07/13/20 @ 14:07 by Chauncey Ayoub LPN) Smoking and tobacco status: never smoked Alcohol intake: never Current occupational status: retired Data Anesthesia CBC & Chem 7: 07/14/20 05:26 07/14/20 05:26 Other Labs: Laboratory Results - last 48 hr 07/13/20 07/13/20 07/13/20 16:07 16:07 16:07 WBC 8.5 RBC 4.30 Hgb 13.1 Hct 38.7 L MCV 90.0 MCH 30.5 MCHC 33.9 RDW 12.5 Plt Count 355 MPV 9.1 Neut % (Auto) 73.8 Lymph % (Auto) 11.5 [place] % (Auto) 8.9 Eos % (Auto) 4.4 Baso % (Auto) 0.9 Neut # (Auto) 6.27 Lymph # (Auto) 1.0 [place] # (Auto) 0.8 Eos # (Auto) 0.4 Baso # (Auto) 0.1 Nucleated RBC % (auto) 0 Nucleated RBCs # 0.0 ESR 74 H PT INR Sodium 140 Potassium 4.2 Chloride 102 Carbon Dioxide 28 Anion Gap 14.2 BUN 45 H Creatinine 2.5 H GFR Calculation 25.8 L Glucose 71 POC Glucose Estimat Average Glucose Hemoglobin A1c Calculated Osmolality 300 H Lactic Acid Calcium 9.0 Phosphorus Magnesium Total Bilirubin 0.4 AST 15 ALT 14 Alkaline Phosphatase 92 C-Reactive Protein 89.5 H Total Protein 6.3 L Albumin 3.9 Globulin 2.4 Procalcitonin 07/13/20 07/13/20 07/14/20 16:07 16:16 05:26 WBC 7.2 RBC 3.95 L Hgb 12.1 Hct 36.2 L MCV 91.6 MCH 30.6 MCHC 33.4 RDW 12.6 Plt Count 335 MPV 8.9 Neut % (Auto) 66.3 Lymph % (Auto) 17.4 [place] % (Auto) 9.3 Eos % (Auto) 5.6 Baso % (Auto) 0.8 Neut # (Auto) 4.77 Lymph # (Auto) 1.3 [place] # (Auto) 0.7 Eos # (Auto) 0.4 Baso # (Auto) 0.1 Nucleated RBC % (auto) 0 Nucleated RBCs # 0.0 ESR PT INR Sodium Potassium Chloride Carbon Dioxide Anion Gap BUN Creatinine GFR Calculation Glucose POC Glucose 72 Estimat Average Glucose Hemoglobin A1c Calculated Osmolality Lactic Acid 1.2 Calcium Phosphorus Magnesium Total Bilirubin AST ALT Alkaline Phosphatase C-Reactive Protein Total Protein Albumin Globulin Procalcitonin 07/14/20 07/14/20 07/14/20 05:26 05:26 05:26 WBC RBC Hgb Hct MCV MCH MCHC RDW Plt Count MPV Neut % (Auto) Lymph % (Auto) [place] % (Auto) Eos % (Auto) Baso % (Auto) Neut # (Auto) Lymph # (Auto) [place] # (Auto) Eos # (Auto) Baso # (Auto) Nucleated RBC % (auto) Nucleated RBCs # ESR PT 13.90 INR 1.03 Sodium 141 Potassium 3.9 Chloride 104 Carbon Dioxide 27 Anion Gap 13.9 BUN 38 H Creatinine 2.1 H GFR Calculation 31.6 L Glucose 90 POC Glucose Estimat Average Glucose 203 Hemoglobin A1c 8.7 H Calculated Osmolality 301 H Lactic Acid Calcium 9.1 Phosphorus 3.7 Magnesium 2.2 Total Bilirubin 0.3 AST 13 ALT 11 Alkaline Phosphatase 77 C-Reactive Protein Total Protein 6.4 L Albumin 3.3 L Globulin 3.1 Procalcitonin 07/14/20 07/14/20 07/14/20 05:26 05:26 11:39 WBC RBC Hgb Hct MCV MCH MCHC RDW Plt Count MPV Neut % (Auto) Lymph % (Auto) [place] % (Auto) Eos % (Auto) Baso % (Auto) Neut # (Auto) Lymph # (Auto) [place] # (Auto) Eos # (Auto) Baso # (Auto) Nucleated RBC % (auto) Nucleated RBCs # ESR PT INR Sodium Potassium Chloride Carbon Dioxide Anion Gap BUN Creatinine GFR Calculation Glucose POC Glucose 67 L Estimat Average Glucose Hemoglobin A1c Calculated Osmolality Lactic Acid 0.8 Calcium Phosphorus Magnesium Total Bilirubin AST ALT Alkaline Phosphatase C-Reactive Protein Total Protein Albumin Globulin Procalcitonin 0.11 Cardiac Studies: No Data to Display
--- NOTE | 2020-07-14 12:09 | P.HPUD_ITS ---
Surgery/Procedure H&P Update DATE OF PROCEDURE: July 14, 2020 DATE H&P PERFORMED: 07/13/20 H&P UPDATE INFORMATION: I have reviewed H&P completed within last 30 days, I have examined patient prior to procedure, No changes to prior documentation and H&P is in [facility] EMR on date indicated PREOP DIAGNOSIS: gas gangrene PLANNED PROCEDURE: Operation Date: 07/14/20 12:00 Proposed Procedures p Incision And Drainage(Right) - Brian Gomez DPM
[2020-07-14] MEDS: sodium chloride 0.9% 1,000 ML 30 ML IV (12:14)
--- NOTE | 2020-07-14 12:57 | PM.OP ---
Operative Report Date of procedure: July 14, 2020 Pre-op Diagnosis: gas gangrene, deep penetrating puncture wound right foot Post-op diagnosis: same Post-op Findings: Deep penetrating puncture wound into the right second intermetatarsal space tracks from plantar to dorsal. Procedure Done: Incision and debridement with debridement of nonviable muscle, tendon and deep fascia of the right foot. Implants: 2-0 Vicryl, quarter inch Leah drain Specimens removed/disposition: Deep subcutaneous tissue and fascia sent to microbiology as culture for Gram stain and sensitivity, right foot penetrating wound. Pathology: none sent Surgeon: Brian Gomez D.P.M. Hydroelectric Operator: Jodi Anesthesia: MAC Estimated blood loss: 50 cc Tourniquet time: See intraoperative documentation IV fluids: None Urine output: None Complications: None Findings: See report Condition: stable Disposition: floor Brief History: Patient is 1.5 weeks out from penetrating puncture wound in the plantar aspect of his right forefoot with cellulitis to the proximal ankle right lower extremity, soft tissue emphysema on plain film x-ray all 3 views visible at the second intermetatarsal space right foot. MRI is negative for abscess or acute osteomyelitis. I recommended empiric IV antibiotics and surgical debridement patient is agreeable. Discussed risk of loss of limb and some level of amputation given the extent of the underlying infection and effort for limb salvage will perform debridement today at noon patient is agreeable wishes to proceed no guarantees written, expressed or implied. He was seen preoperatively all questions answered also spoke with his Amy over the phone. Informed consent signed and initialed his right foot. Procedure: Under mild sedation the patient was brought to the operating room and placed on the operating in supine position. A timeout was performed. Anesthesia was administered by the anesthesia service. Local anesthesia injected by myself consisting of 30 cc 0.5% Marcaine plain and a right posterior tibial nerve block, deep peroneal nerve block, superficial peroneal nerve block and ray block at the second and third intermetatarsal space right foot. Well-padded pneumatic tourniquet applied to the right ankle. The right lower extremity was scrubbed, prepped and draped utilizing normal aseptic technique. No Esmarch bandage was utilized for examination. Tourniquet was inflated to 250 mmHg. Attention was directed to the right plantar forefoot where a penetrating wound was identified subsecond metatarsal head which measured 4 mm x 4 mm in diameter and probed through the the second intermetatarsal space tenting the dorsum of the foot at the second webspace dorsally. Incision was made at the area of tenting dorsally this was 2 cm in length approximately with a #15 blade. The plantar portal of entry was extended distally and proximally approximately 3 cm in length with a #15 blade. Utilizing retraction sharp and blunt dissection was carried down through epidermis, dermis, subcutaneous tissue and deep fascial layer there was significantly devitalized soft tissues at a marr dusky appearance and purulence encountered. This was sharply excised, all bleeders were ligated and cauterized as necessary. Pulsatile bleeder was tied off utilizing 2-0 Vicryl. Incision site was flushed with copious months of sterile saline solution. The wound did not penetrate directly to bone however did penetrate from plantar to dorsal within the second intermetatarsal space. Cordage Leah drain was inserted from plantar to dorsal communicating through and through the intermetatarsal space noted. Incision site was dressed with 4 x 4's, Kerlix, ABD pad and Alex wrap followed by application of postop shoe. Tourniquet was deflated and a prompt hyperemic response was noted to the distal digits of the right foot. Patient tolerated the procedure and anesthesia well and was transferred to the PACU with vital signs stable and vascular status intact. He will be monitored for period of time and then transferred back to the floor may resume diabetic diet, resume empiric IV antibiotics until soft tissue cultures yield further information. Patient may weight-bear on his right heel only with a postop shoe, full weightbearing to the left lower extremity. He is to elevate his right foot while at rest. Will likely return to the operating room for second debridement and delayed closure. Return to the operating room will likely be on Saturday or Saturday next week. Will continue with antibiotic therapy until that time.
[2020-07-14] MEDS: primidone 50 mg Tablet PO ×2 (13:42→23:59)
[2020-07-14] MEDS: pantoprazole DR 40 mg Tablet PO (13:42)
--- NOTE | 2020-07-14 13:46 | PC.NURSE ---
patient returned from surgery, orders reviewed, vitals taken and documented, stable, patient checked fingerstick on personal accucheck 87 on result, Dr. Lemus notified new order received for Consistent carb diet, provided lunch tray and orange juice, denies pain, dressing to right foot clean dry and intact.
--- NOTE | 2020-07-14 14:49 | ANE.PACU2 ---
Inpatient post-anesthesia follow up: Airway intact: Yes Vital signs: Temperature 97.7 F Pulse Rate [Left] 55 Pulse Rate 52 Respiratory Rate 16 Blood Pressure [Le ft Arm] 195/79 Blood Pressure 160/80 Pulse Oximetry 95 Oxygen Delivery Me thod Room Air Oxygen Flow Rate Fraction of Inspir ed Oxygen Hydration adequate: Yes Nausea and vomiting: No Pain level: 2 Mental status: Baseline
[2020-07-14] MEDS: vancomycin 1,500 MG/300 ML PIGGYBACK 200 MG IV (15:39)
[2020-07-14 17:11] LABS: Glucose Point of Care 220 mg/dL (70-110)
[2020-07-14] MEDS: hyDRALAzine 20 mg/mL INJ 1 mL 5 MG IVP (19:35)
[2020-07-14] MEDS: amlodipine 10 mg Tablet PO (20:32)
[2020-07-14] MEDS: hyDRALAzine 20 mg/mL INJ 1 mL 10 MG IVP (20:32)
[2020-07-14] MEDS: nitroglycerin 1 gm/inch oint Pkt 1 INCH TOPICAL (21:44)
--- NOTE | 2020-07-14 22:58 | ECG_ITS ---
[facility] Test Date: 2020-07-14 Pat Name: Brittny Londono Department: Room: 252 Gender: Male Pond Supervisor: : 1950 Requested By: Glenroy Salvador Order Number: [id number] Reading MD: Len Jansen M.D. Measurements Intervals [place] Rate: 91 P: 42 CT: 166 QRS: -15 QRSD: 91 T: 29 QT: 360 QTc: 444 Interpretive Statements SINUS RHYTHM WITH FREQUENT VENTRICULAR PREMATURE COMPLEXES WITH OCCASIONAL SUPRAVENTRICULAR PREMATURE COMPLEXES ABNORMAL RHYTHM ECG No previous ECG available for comparison Electronically Signed On 07-15-2020 19:10:10 DEPUTY BUILDING GUARD by Len Jansen M.D. [email or web address]
[2020-07-14] MEDS: nitroglycerin drip 50 MG/250 ML PREMIX 10 MG IV (23:04)
[2020-07-14] MEDS: famotidine 20 mg Tablet 40 MG PO (23:59)
[2020-07-14] MEDS: quetiapine 100 mg Tablet 200 MG PO (23:59)
[2020-07-15] VITALS (28 sets, daily range): BP systolic 105–200; BP diastolic 49–103; PULSE 72–106; RESP 10–30; TEMP 36.7–37.6; O2SAT 92–100
--- NOTE | 2020-07-15 01:37 | PC.NURSE ---
When the HYDROMETEOROLOGICAL TECHNICIAN obtained 2200 vitals. She informed this nurse of the patients BP being elevated. This nurse verified BP and obtained orders from hospitalist. At first, the patient received Hydralazine 5mg, did not work. Then Hydralazine 10mg and Amlodipine, which didn't work. Then nitropaste 1 inch, which didn't work. By this time the patients BP was 236/100. At this time, hospitalist ordered a nitroglycerin drip of 10mcg/min. This brought the patient's BP down between 180-200. Hospitalist was informed of patient's drip needed to be titrated up and orders were given to transfer the patient in house to CSU. Patient will be transported to [facility].
--- NOTE | 2020-07-15 02:06 | PC.NURSE ---
Dr Salvador on the floor. Clarified orders with Dr Salvador. Received order to stop Nitro patch and fluids. Also to change Nitro drip to [facility]SU protocol for needed titration.
[2020-07-15] MEDS: nitroglycerin drip 50 MG/250 ML PREMIX 6 MG IV (02:18)
--- NOTE | 2020-07-15 02:22 | PC.NURSE ---
Addendum entered by Sharita Ramos RN 07/15/20 02:31: Informed Dr Salvador of current blood pressure and rate of nitro gtt which is at 20mcg/hr (6m/hr) Original Note: Patient received to 106 via wheelchair. Increased Nitro drip to 6ml/hr. BP on arrival to floor 155/83. Patient denies pain to right foot. Patient is s/p I&D to right foot. Boot in place. Patient denies any needs or complaints. No distress observed. Patient reports feeling much better with BP returning closer to his normal.
--- NOTE | 2020-07-15 03:03 | PC.NURSE ---
Patient current BP 121/54. Nitro gtt has been turn off. Dr Salvador has been informed.
[2020-07-15 05:50] LABS: Basophils # 0.1 10^3/uL (0.0-0.1); Basophils % 1.3 %; Eosinophils # 0.4 10^3/uL (0.0-0.8); Eosinophils % 5.4 %; Hematocrit 34.2 % (42.0-52.0); Hemoglobin 11.4 g/dL (11.7-16.6); Lymphocytes # 1.5 10^3/uL (0.8-4.8); Lymphocytes % 18.8 %; Mean Corpuscular HGB Conc 33.3 g/dL (30.0-36.0); Mean Platelet Volume 8.8 fL (7.4-10.4); Monocytes # 0.8 10^3/uL (0.2-0.9); Neutrophils # 5.06 10^3/uL (1.8-7.7); Neutrophils % 63.9 %; Nucleated Red Blood Cells % 0 %; Platelet Count 310 10^3/cmm (130-400); Red Cell Distribution Width 12.6 % (12.1-15.1); White Blood Count 7.9 10^3/uL (4.0-10.0)
[2020-07-15] MEDS: famotidine 20 mg/2 mL INJ IVP (06:06)
[2020-07-15] MEDS: heparin 5,000 unit/mL INJ 1 mL 5000 UNIT SUBCUT ×2 (06:06→19:14)
[2020-07-15 06:10] LABS: Alanine Aminotransferase 13 U/L (0-41); Albumin Level 3.1 g/dL (3.5-5.2); Alkaline Phosphatase 76 IU/L (40-130); Anion Gap 12.4 (5-19); Aspartate Amino Transferase 14 U/L (0-40); Blood Urea Nitrogen 30 mg/dL (8-23); Calcium 9.1 mg/dL (8.5-10.5); Carbon Dioxide 24 mmol/L (22-29); Chloride 105 mmol/L (98-107); Globulin 2.8 g/dL (1.3-4.6); Glomerular Filtration Rate 33.4 mL/min (90-130); Glucose 112 mg/dL (65-115); Osmolality Calculated 291 mOsm/kg (285-295); Potassium 4.4 mmol/L (3.5-5.1); Sodium 137 mmol/L (136-145); Total Bilirubin 0.3 mg/dL (0.15-1.2); Total Protein 5.9 g/dL (6.6-8.7)
[2020-07-15] MEDS: acetaminophen 325 mg Tablet 650 MG PO ×2 (06:13→15:02)
[2020-07-15 07:18] LABS: Glucose Point of Care 82 mg/dL (70-110)
[2020-07-15] MEDS: amlodipine 10 mg Tablet PO (09:19)
[2020-07-15] MEDS: aspirin 325 mg Tablet PO (09:19)
[2020-07-15] MEDS: levothyroxine 25 mcg Tablet PO (09:19)
[2020-07-15 10:51] LABS: Glucose Point of Care 100 mg/dL (70-110)
--- NOTE | 2020-07-15 12:08 | P.PN_ITS ---
Subjective Subjective: Interval history: Patient went into hypertensive urgency last night.Deny any complain,no chest pain, sob, nausea, vomitting, headache, dizziness, focal weakness in any body part. His vitals and labs have been reviewed. Medications: Reviewed: Yes Vitals/I&O/Wt Last Vital Signs Temp 98.2 F 07/15/20 10:00 Pulse 72 07/15/20 10:00 Resp 15 07/15/20 10:00 BP 123/82 07/15/20 10:00 Pulse Ox 100 07/15/20 10:00 07/14/20 07/15/20 07/15/20 22:59 06:59 14:59 Intake Total 1083.75 / 3033.75 102.975 / 3136.725 120 / 120 Output Total 400 / 405 400 / 805 Balance 683.75 / 2628.75 -297.025 / 2331.725 120 / 120 Weight last 48 hrs Weight 136.078 kg Physical Exam Const: COMMON NORMALS: patient oriented x3 HENMT: COMMON NORMALS: normocephalic, atraumatic, hearing grossly normal bilaterally and external ears normal HEAD & SCALP: normocephalic and atraumatic EXTERNAL EAR: Yes external ears normal Eye: COMMON NORMALS: no scleral icterus GENERAL EYE: appearance normal, both eyes and all related structures Chest: COMMONS NORMALS: normal inspection of the chest and normal palpation of entire chest wall CHEST: Yes Symmetrical chest wall rise Resp: COMMON NORMALS: normal respiratory effort, No retractions, No use of accessory muscles and clear to auscultation bilaterally EFFORT & INSPECTION: Yes symmetric chest movement AUSCULTATION: clear to auscultation bilaterally Cardio: COMMON NORMALS: regular rate, regular rhythm, S1 normal heart sound present, S2 normal heart sound present, No gallops present (Cardio), No murmurs present (Cardio), No rub (Cardio) and Peripheral pulses 2+ throughout RATE: regular rate RHYTHM: regular rhythm HEART SOUNDS: S1 normal heart sound present and S2 normal heart sound present PERIPHERAL PULSES: Peripheral pulses 2+ throughout GI: COMMON NORMALS: Normal to inspection, nondistended, normoactive bowel sounds present, Soft to palpation, non-tender, No hepatosplenomegaly present and no masses AUSCULTATION: Yes normoactive bowel sounds PALPATION: Yes Soft to palpation and Yes No hepatosplenomegaly present RECTAL EXAM: Yes deferred Extremity: NARRATIVE EXTREMITY EXAM: Rt feet Dressing clean Neuro: COMMON NORMALS: patient oriented x3 Data : 07/15/20 05:43 07/15/20 05:43 Micro: Microbiology 07/14/20 12:36 Gram Stain - Final Foot - #1 Tissue Culture - Preliminary Gram Negative Rods A&P Assessment and plan (1) Hypertensive urgency: Patient B/P shot upto 210/85 and was to be started on Nitro drip briefly.Which was later stopped. He was also started on Amlodipine 10 mg po daily. Blood Pressure is pretty well controlled in the morning Status: Acute (2) Gas gangrene: Gas gangrene of the rt feet.Osteo r/o S/P I.D with debridement of nonviable muscle, tendon and deep fascia of the right foot. ESR : 74 Procal:0.11 Lactic acid: 0.8 MRI of the rt feet: No evidence for osteomyelitis on this unenhanced study. Normal marrow signal within the bones. Sensitivity is decreased without IV contrast.Marked amount of soft tissue edema and cellulitis surrounding the foot. Greatest along the dorsal surface of the foot. No focal abscess or collection. CV segpressure LE BI:No evidence of any significant arterial obstruction, wound culture : GNR, Aeromonas Caviae (Singleton Sensitive ) Currently on Van and Imipenam Status: Acute (3) KINSEY (acute kidney injury): KINSEY V/S KINSEY ON CKD SCR: 2.5--> 2.1 -->2 Baseline SCR :Unknown Random urine:Na: Random Urine Creatinine: Renal US : No renal obstruction or mass Hold Lasix I.V Hydration N.S @ 125 CC/HR Monitor BMP Avoid Nephrotoxics medications Status: Acute (4) Diabetic peripheral neuropathy associated with type 2 diabetes mellitus: Status: Acute (5) Hypertension: Status: Acute (6) Hypothyroidism: Status: Acute (7) Diabetes: Status: Acute (8) Major depressive disorder, recurrent, in partial remission: Status: Acute Additional A&P Information DVT PPX: On Heparin 5000 sc q12 h daily Code Status :Full code Disposition :Home Attestations Medical Necessity Statement*: Patient needs to be in hospital for the management of HTN Urgency, KINSEY, Gas gangrene. Coding Level of Care Code Acute Slice Cutting Machine Operator for g Fwd Diagnoses Hypertensive urgency I16.0 Gas gangrene A48.0 KINSEY (acute kidney injury) N17.9 Diabetic peripheral neuropathy associated with type 2 diabetes mellitus E11.42 Hypertension I10 Hypothyroidism E03.9 Diabetes E11.9 Major depressive disorder, recurrent, in partial remission F33.41
[2020-07-15] MEDS: primidone 50 mg Tablet PO (12:56)
[2020-07-15] MEDS: sodium chloride 0.9% 1,000 ML 125 ML IV (12:57)
[2020-07-15 14:24] LABS: Coronavirus Test Green County Not Detected
--- NOTE | 2020-07-15 16:05 | PM.PN ---
Subjective Subjective: Interval history: Patient is 1 day status post I&D right foot doing well postoperatively. Denies any pain to the right foot. He did have an episode of hypertension postoperatively responding to medical intervention. He is afebrile, no leukocytosis. Patient denies any subjective nausea, vomiting, fever, chills, shortness of breath or chest pain. Vitals/I&O/Wt Last Vital Signs Temp 98.2 F 07/15/20 15:39 Pulse 85 07/15/20 15:39 Resp 10 L 07/15/20 15:39 BP 165/93 07/15/20 15:39 Pulse Ox 96 07/15/20 15:39 07/15/20 07/15/20 07/15/20 06:59 14:59 22:59 Intake Total 202.975 / 3236.725 120 / 120 100 / 220 Output Total 400 / 805 Balance -197.025 / 2431.725 120 / 120 100 / 220 Physical Exam Narrative: EXAM NARRATIVE: Patient is alert and oriented ?3 and in no acute distress. The following is a focused bilateral lower extremity exam. Patient is accompanied by his ambulates without assistance. VASCULAR: Dorsalis pedis +2 posterior tibial arteries +2. Capillary refill time less than 3 seconds to the distal hallux bilaterally. Calf is supple and nontender proximally and distally. Pedal hair growth present to the level of the toes this is diminished. Edema to the right foot. Bilateral lower extremity edema +2 pitting. NEUROLOGICAL: Protective sensation intact 6/10 sites, tested with [place] Erasto monofilament to bilateral feet. DERMATOLOGICAL: Subsided erythema at the line of demarcation this is improving. There is no purulence at the drain placed in the right forefoot. No strikethrough bleeding to the postoperative dressing. MUSCULOSKELETAL: Tenderness to palpation and with debridement. Muscle strength 5 out of 5 in all 3 cardinal planes of bilateral foot and ankle. Data : 07/15/20 05:43 07/15/20 05:43 Micro: Microbiology 07/14/20 12:36 Gram Stain - Final Foot - #1 Tissue Culture - Preliminary Gram Negative Rods A&P Assessment and plan (1) Diabetic peripheral neuropathy associated with type 2 diabetes mellitus: Status: Acute (2) Non-pressure chronic ulcer of other part of right foot with necrosis of muscle: Status: Acute (3) Gas gangrene: Status: Acute Additional A&P Information 69-year-old diabetic male with puncture wound to the right plantar forefoot and soft tissue emphysema at the right second webspace. -1 day status post I&D right forefoot doing well, patient is afebrile, no leukocytosis, improved cellulitis. -Aerobic and anaerobic cultures taken in clinic 07/13/2020 post debridement prior to being sent to the emergency department growing Aeromonas caviae, intraoperative culture taken of deep tissue 121 demonstrating gram-negative rods, these results are preliminary. -Recommend continuation of empiric IV antibiotics during this hospitalization will await finalized tissue cultures, plan for repeat debridement and primary delayed closure likely in the next 2 to 3 days. Will continue to monitor on a daily basis. -Patient may weight-bear with postop shoe heel touch on the right lower extremity for transfers. -Appreciate medical team management, podiatry will follow. I do not anticipate PICC line on discharge. Attestations Medical Necessity Statement*: Soft tissue emphysema right foot with deep puncture wound and diabetic foot infection Coding Level of Care Code Acute Lard Tub Washer for [facility] Fwd Diagnoses Diabetic peripheral neuropathy associated with type 2 diabetes mellitus E11.42 Non-pressure chronic ulcer of other part of right foot with necrosis of muscle L97.513 Gas gangrene A48.0
--- NOTE | 2020-07-15 16:10 | PC.NURSE ---
Placed call to Dr beck in regards to patients pressures elevating to 165/93 at this time instructions received to stop IV fluids encourage PO fluids; Hydralazine PO 25mg Q8H starting now
[2020-07-15] MEDS: hyDRALAzine 25 mg Tablet PO (16:17)
--- NOTE | 2020-07-15 16:26 | PC.NURSE ---
Dr. Gomez at bedside for assessment and discussion of plan of care with patient verbal instructions given to DC Isolation
[2020-07-15 16:39] LABS: Glucose Point of Care 65 mg/dL (70-110)
[2020-07-15] MEDS: vancomycin 1,500 MG/300 ML PIGGYBACK 200 MG IV (16:55)
[2020-07-15 20:16] LABS: Glucose Point of Care 132 mg/dL (70-110)
[2020-07-15] MEDS: oxyCODONE-APAP 5-325 mg Tablet 1 TAB PO (21:44)
[2020-07-15] MEDS: LORazepam 2 mg Tablet PO (22:36)
[2020-07-16] VITALS (9 sets, daily range): BP systolic 143–182; BP diastolic 64–96; PULSE 76–90; RESP 13–20; TEMP 36.2–37.1; O2SAT 96–99
[2020-07-16] MEDS: primidone 50 mg Tablet PO ×2 (00:29→11:41)
[2020-07-16] MEDS: hyDRALAzine 25 mg Tablet PO ×2 (00:29→08:37)
[2020-07-16] MEDS: quetiapine 100 mg Tablet 200 MG PO (00:29)
[2020-07-16] MEDS: oxyCODONE-APAP 5-325 mg Tablet 1 TAB PO ×2 (01:10→06:33)
[2020-07-16 03:50] LABS: Basophils # 0.1 10^3/uL (0.0-0.1); Basophils % 1.2 %; Eosinophils # 0.5 10^3/uL (0.0-0.8); Eosinophils % 7.1 %; Hematocrit 33.8 % (42.0-52.0); Hemoglobin 11.3 g/dL (11.7-16.6); Lymphocytes # 1.8 10^3/uL (0.8-4.8); Lymphocytes % 25.9 %; Mean Corpuscular HGB Conc 33.4 g/dL (30.0-36.0); Mean Corpuscular Volume 89.7 fL (80-94); Mean Platelet Volume 8.7 fL (7.4-10.4); Monocytes # 0.7 10^3/uL (0.2-0.9); Neutrophils # 3.79 10^3/uL (1.8-7.7); Neutrophils % 54.8 %; Nucleated Red Blood Cells % 0 %; Platelet Count 316 10^3/cmm (130-400); Red Blood Count 3.77 10^6/uL (4.1-5.3); Red Cell Distribution Width 12.3 % (12.1-15.1); White Blood Count 6.9 10^3/uL (4.0-10.0)
[2020-07-16 04:19] LABS: Alanine Aminotransferase 16 U/L (0-41); Albumin Level 3.1 g/dL (3.5-5.2); Alkaline Phosphatase 74 IU/L (40-130); Anion Gap 12.3 (5-19); Aspartate Amino Transferase 20 U/L (0-40); Blood Urea Nitrogen 25 mg/dL (8-23); Calcium 9.1 mg/dL (8.5-10.5); Carbon Dioxide 24 mmol/L (22-29); Chloride 105 mmol/L (98-107); Globulin 2.7 g/dL (1.3-4.6); Glomerular Filtration Rate 35.4 mL/min (90-130); Glucose 57 mg/dL (65-115); Osmolality Calculated 286 mOsm/kg (285-295); Potassium 4.3 mmol/L (3.5-5.1); Sodium 137 mmol/L (136-145); Total Bilirubin 0.3 mg/dL (0.15-1.2); Total Protein 5.8 g/dL (6.6-8.7)
[2020-07-16] MEDS: heparin 5,000 unit/mL INJ 1 mL 5000 UNIT SUBCUT ×2 (06:30→17:57)
[2020-07-16 07:13] LABS: Glucose Point of Care 47 mg/dL (70-110)
[2020-07-16 07:39] LABS: Glucose Point of Care 51 mg/dL (70-110)
[2020-07-16] MEDS: aspirin 325 mg Tablet PO (08:36)
[2020-07-16] MEDS: famotidine 20 mg Tablet 40 MG PO (08:36)
[2020-07-16] MEDS: amlodipine 10 mg Tablet PO (08:37)
[2020-07-16] MEDS: levothyroxine 25 mcg Tablet PO (08:37)
[2020-07-16 09:07] LABS: Glucose Point of Care 112 mg/dL (70-110)
--- NOTE | 2020-07-16 09:11 | P.PN_ITS ---
Subjective Subjective: Interval history: Patient denies any subjective nausea, vomiting, fever, chills, shortness of breath or chest pain. Vitals and labs have been reviewed. Medications: Reviewed: Yes Vitals/I&O/Wt Last Vital Signs Temp 97.6 F 07/16/20 07:31 Pulse 82 07/16/20 07:31 Resp 14 07/16/20 07:31 BP 170/87 07/16/20 07:31 Pulse Ox 99 07/16/20 07:31 07/15/20 07/16/20 07/16/20 22:59 06:59 14:59 Intake Total 860 / 980 100 / 1080 460 / 460 Balance 860 / 980 100 / 1080 460 / 460 Physical Exam Const: COMMON NORMALS: patient oriented x3 HENMT: COMMON NORMALS: normocephalic, atraumatic, hearing grossly normal bilaterally and external ears normal HEAD & SCALP: normocephalic and atraumatic EXTERNAL EAR: Yes external ears normal Eye: COMMON NORMALS: no scleral icterus GENERAL EYE: appearance normal, both eyes and all related structures Chest: COMMONS NORMALS: normal inspection of the chest and normal palpation of entire chest wall CHEST: Yes Symmetrical chest wall rise Resp: COMMON NORMALS: normal respiratory effort, No retractions, No use of accessory muscles and clear to auscultation bilaterally EFFORT & INSPECTION: Yes symmetric chest movement AUSCULTATION: clear to auscultation bilaterally Cardio: COMMON NORMALS: regular rate, regular rhythm, S1 normal heart sound present, S2 normal heart sound present, No gallops present (Cardio), No murmurs present (Cardio), No rub (Cardio) and Peripheral pulses 2+ throughout RATE: regular rate RHYTHM: regular rhythm HEART SOUNDS: S1 normal heart sound present and S2 normal heart sound present PERIPHERAL PULSES: Peripheral pulses 2+ throughout GI: COMMON NORMALS: Normal to inspection, nondistended, normoactive bowel sounds present, Soft to palpation, non-tender, No hepatosplenomegaly present and no masses AUSCULTATION: Yes normoactive bowel sounds PALPATION: Yes Soft to palpation and Yes No hepatosplenomegaly present RECTAL EXAM: Yes deferred Extremity: NARRATIVE EXTREMITY EXAM: Rt feet Dressing clean Neuro: COMMON NORMALS: patient oriented x3 Data : 07/16/20 03:28 07/16/20 03:28 Micro: Microbiology 07/14/20 12:36 Gram Stain - Final Foot - #1 Tissue Culture - Preliminary Gram Negative Rods A&P Assessment and plan (1) Hypertensive urgency: Resolved : Patient B/P shot upto 210/85 and was to be started on Nitro drip briefly.Which was later stopped. Currently on Nifedipine 60 mg po daily Hydralazine 50 mg po q8 h daily Status: Acute (2) Gas gangrene: Gas gangrene of the rt feet.Osteo r/o S/P I.D with debridement of nonviable muscle, tendon and deep fascia of the right foot. ESR : 74 Procal:0.11 Lactic acid: 0.8 MRI of the rt feet: No evidence for osteomyelitis on this unenhanced study. Normal marrow signal within the bones. Sensitivity is decreased without IV contrast.Marked amount of soft tissue edema and cellulitis surrounding the foot. Greatest along the dorsal surface of the foot. No focal abscess or collection. CV segpressure LE BI:No evidence of any significant arterial obstruction, wound culture : GNR, Aeromonas Caviae (Singleton Sensitive ) Currently on Van and Imipenam. is planning for primary delayed closure on 07/18/2020 patient likely ready for discharge after delayed closure or oral Abxs.He will prefer Levo and doxy for possibly 2 weeks. Status: Acute (3) KINSEY (acute kidney injury): KINSEY V/S KINSEY ON CKD SCR: 2.5--> 2.1 -->2-->1.9 Baseline SCR :Unknown Random urine:Na: Random Urine Creatinine: Renal US : No renal obstruction or mass Hold Lasix Promote oral intake Monitor BMP Avoid Nephrotoxics medications Status: Acute (4) Diabetic peripheral neuropathy associated with type 2 diabetes mellitus: Status: Acute (5) Hypertension: Status: Acute (6) Hypothyroidism: Status: Acute (7) Diabetes: Status: Acute (8) Major depressive disorder, recurrent, in partial remission: Status: Acute Additional A&P Information DVT PPX: On Heparin 5000 sc q12 h daily Code Status :Full code Disposition :Home Attestations Medical Necessity Statement*: patient needs to be in hospital for the management of gas gangrene rt feet. Coding Level of Care Code Acute Asphalt Tamper for [facility] Fwd Diagnoses Hypertensive urgency I16.0 Gas gangrene A48.0 KINSEY (acute kidney injury) N17.9 Diabetic peripheral neuropathy associated with type 2 diabetes mellitus E11.42 Hypertension I10 Hypothyroidism E03.9 Diabetes E11.9 Major depressive disorder, recurrent, in partial remission F33.41
[2020-07-16] MEDS: hyDRALAzine 50 mg Tablet PO ×2 (09:55→17:26)
--- NOTE | 2020-07-16 10:22 | P.PN_ITS ---
Subjective Subjective: Interval history: Patient is 2 days status post I&D right foot doing well postoperatively. Denies any pain to the right foot. He did have an episode of hypertension postoperatively responding to medical intervention. He is afebrile, no leukocytosis. Patient denies any subjective nausea, vomiting, fever, chills, shortness of breath or chest pain. Vitals/I&O/Wt Last Vital Signs Temp 97.6 F 07/16/20 07:31 Pulse 82 07/16/20 07:31 Resp 14 07/16/20 07:31 BP 170/87 07/16/20 07:31 Pulse Ox 99 07/16/20 07:31 07/15/20 07/16/20 07/16/20 22:59 06:59 14:59 Intake Total 860 / 980 100 / 1080 460 / 460 Balance 860 / 980 100 / 1080 460 / 460 Physical Exam Narrative: EXAM NARRATIVE: Patient is alert and oriented ?3 and in no acute distress. The following is a focused bilateral lower extremity exam. Patient is accompanied by his ambulates without assistance. VASCULAR: Dorsalis pedis +2 posterior tibial arteries +2. Capillary refill time less than 3 seconds to the distal hallux bilaterally. Calf is supple and nontender proximally and distally. Pedal hair growth present to the level of the toes this is diminished. Edema to the right foot. Bilateral lower extremity edema +2 pitting. NEUROLOGICAL: Protective sensation intact 6/10 sites, tested with [place] Erasto monofilament to bilateral feet. DERMATOLOGICAL: Improving cellulitis to the right foot and ankle. No purulent drainage from Leah dorsal or plantar site, maceration plantarly, serosanguineous drainage present no foul-smelling odor. MUSCULOSKELETAL: Tenderness to palpation and with debridement. Muscle strength 5 out of 5 in all 3 cardinal planes of bilateral foot and ankle. Data : 07/16/20 03:28 07/16/20 03:28 Micro: Microbiology 07/14/20 12:36 Gram Stain - Final Foot - #1 Tissue Culture - Preliminary Aeromonas caviae A&P Additional A&P Information 69-year-old diabetic male with puncture wound to the right plantar forefoot and soft tissue emphysema at the right second webspace. 2 days status post I&D to the right foot. - 2 days status post I&D right forefoot doing well, patient is afebrile, no leukocytosis, improved cellulitis. -Aerobic and anaerobic cultures taken in clinic 07/13/2020 post debridement prior to being sent to the emergency department growing Aeromonas caviae, intraoperative culture taken of deep tissue 07/14/2020 demonstrating finalized growth of Aeromonas caviae as well. -Patient may weight-bear with postop shoe heel touch on the right lower extremity for transfers. -Recommend continuing IV antibiotics during inpatient planning for primary delayed closure on 07/18/2020 patient likely ready for discharge after delayed closure. I am okay with oral antibiotics on discharge single organism growing on both cultures I still with the medical history of diabetes and a deep puncturing wound through and through at the forefoot would prefer expanded coverage with antibiotics combination of Levaquin and doxycycline would be a good option. Will discuss with hospitalist. Attestations Medical Necessity Statement*: Soft tissue emphysema right foot with deep puncture wound and diabetic foot infection Coding Level of Care Code Acute Back Wedger for Avis Orellana
[2020-07-16 11:23] LABS: Glucose Point of Care 189 mg/dL (70-110)
[2020-07-16 16:21] LABS: Vancomycin Trough 11.9 ug/mL (10-15)
[2020-07-16 17:09] LABS: Glucose Point of Care 209 mg/dL (70-110)
[2020-07-16] MEDS: vancomycin 1,500 MG/300 ML PIGGYBACK 200 MG IV (17:20)
[2020-07-16 20:14] LABS: Glucose Point of Care 219 mg/dL (70-110)
[2020-07-17] MEDS: hyDRALAzine 50 mg Tablet PO ×2 (00:16→09:20)
[2020-07-17] MEDS: LORazepam 2 mg Tablet PO (00:16)
[2020-07-17] MEDS: quetiapine 100 mg Tablet 200 MG PO (00:16)
[2020-07-17] MEDS: primidone 50 mg Tablet PO ×2 (00:16→13:11)
[2020-07-17 02:58] VITALS: RESP 18; O2SAT 96
[2020-07-17] MEDS: oxyCODONE-APAP 5-325 mg Tablet 1 TAB PO (02:58)
[2020-07-17 04:00] VITALS: BP 117/51; PULSE 88; RESP 18; TEMP 36.9; O2SAT 98
[2020-07-17] MEDS: heparin 5,000 unit/mL INJ 1 mL 5000 UNIT SUBCUT (06:14)
[2020-07-17 07:14] LABS: Glucose Point of Care 81 mg/dL (70-110)
--- NOTE | 2020-07-17 07:36 | PM.PN ---
Subjective Subjective: Interval history: Patient is 3 days status post I&D right foot doing well postoperatively. Denies any pain to the right foot. He did have an episode of hypertension postoperatively responding to medical intervention. He is afebrile, no leukocytosis. Patient denies any subjective nausea, vomiting, fever, chills, shortness of breath or chest pain. Vitals/I&O/Wt Last Vital Signs Temp 98.4 F 07/17/20 04:00 Pulse 88 07/17/20 04:00 Resp 18 07/17/20 04:00 BP 117/51 07/17/20 04:00 Pulse Ox 98 07/17/20 04:00 07/16/20 07/17/20 07/17/20 22:59 06:59 14:59 Intake Total 640 / 1320 100 / 1420 Balance 640 / 1320 100 / 1420 Physical Exam Narrative: EXAM NARRATIVE: Patient is alert and oriented ?3 and in no acute distress. The following is a focused bilateral lower extremity exam. Patient is accompanied by his ambulates without assistance. VASCULAR: Dorsalis pedis +2 posterior tibial arteries +2. Capillary refill time less than 3 seconds to the distal hallux bilaterally. Calf is supple and nontender proximally and distally. Pedal hair growth present to the level of the toes this is diminished. Edema to the right foot. Bilateral lower extremity edema +2 pitting. NEUROLOGICAL: Protective sensation intact 6/10 sites, tested with [place] Erasto monofilament to bilateral feet. DERMATOLOGICAL: No cellulitis to the right lower extremity at this time. No purulence from packing at the plantar aspect of the right forefoot, very mild periwound erythema without proximal streaking. MUSCULOSKELETAL: Mild tenderness with repacking to the right forefoot. Muscle strength 5 out of 5 in all 3 cardinal planes of bilateral foot and ankle. Full strength and range of motion in all 3 cardinal planes to the right foot and ankle. No pain with right posterior or left posterior calf squeeze. Data : 07/16/20 03:28 07/16/20 03:28 Micro: Microbiology 07/14/20 12:36 Gram Stain - Final Foot - #1 Tissue Culture - Preliminary Aeromonas caviae A&P Additional A&P Information 69-year-old diabetic male with puncture wound to the right plantar forefoot and soft tissue emphysema at the right second webspace. 3 days status post I&D to the right foot. -3 days status post I&D right forefoot doing well, patient is afebrile, no leukocytosis, improved cellulitis. -Post debridement cultures taken in clinic as well as intraoperative deep tissue cultures taken both grew Aeromonas caviae -Patient may weight-bear with postop shoe heel touch on the right lower extremity for transfers. -Significant improvement clinically, no further plans for surgical debridement at this time will allow healing by secondary intention -Patient would benefit from home health discussed this with Yulisa she will contact social studies department chair to get this set up. -He will need twice daily dressing change to the right foot with: 1/4 iodoform packing into the plantar wound, sterile 4 x 4 gauze, 4 to Kerlix and 4 inch Alex wrap. -Will discuss discharge oral antibiotic regimen with hospitalist -Patient okay for discharge from podiatry standpoint, follow up at [facility] wound care next week. Attestations Medical Necessity Statement*: Diabetic foot infection with soft tissue emphysema right foot Coding Level of Care Code Acute Auth Specialist for Avis Orellana
[2020-07-17 07:46] VITALS: BP 155/91; PULSE 78; RESP 18; TEMP 37.1; O2SAT 98
[2020-07-17] MEDS: levothyroxine 25 mcg Tablet PO (09:19)
[2020-07-17] MEDS: aspirin 325 mg Tablet PO (09:19)
[2020-07-17] MEDS: famotidine 20 mg Tablet 40 MG PO (09:19)
[2020-07-17] MEDS: NIFEdipine ER (24 hr) 30 mg Tablet 60 MG PO (09:20)
[2020-07-17] MEDS: acetaminophen 325 mg Tablet 650 MG PO (09:20)
[2020-07-17 10:52] VITALS: BP 159/78; PULSE 83; RESP 18; TEMP 36.8; O2SAT 96
--- NOTE | 2020-07-17 10:58 | P.DS_ITS ---
Discharge Providers Date of Admission: 07/13/20 16:34 Date of Discharge: July 17, 2020 Attending Provider at Admission: Joey Lemus MD Attending Provider at Discharge: Joey Lemus MD Primary Care Provider: Rafa Call Diagnoses at Discharge Discharge Diagnosis (1) Gas gangrene: Status: Resolved (2) KINSEY (acute kidney injury): Status: Acute Permanent problem details: IMPROVING (3) Diabetic peripheral neuropathy associated with type 2 diabetes mellitus: Status: Chronic (4) Hypertension: Status: Chronic (5) Hypothyroidism: Status: Chronic (6) Diabetes: Status: Chronic (7) Major depressive disorder, recurrent, in partial remission: Status: Chronic Reason for Visit Reason for Visit: POSS GANGRENE IN R FOOT/DR BAUM Hospital Course Hospital Course Brittny Londono is a 69 year old male with PMH of HTN,DM ,Hypothyroidism, MDD under remision was sent in by from Podiatry clinic his PCP referred him to podiatry clinic due to cellulitis of the right foot had a puncture wound approximately 1.5 weeks ago and approximately 4 days ago was started on clindamycin he has cellulitis at the foot and streaking to the level of the ankl e. Patient was seen by in his clinic and he was admitted from the clinic or the management of gas gangrene of rt feet. He underwent I.D with debridement of nonviable muscle, tendon and deep fascia of the right foot and was also kept on Van and imipenam. ESR : 74, Procal:0.11 , Lactic acid: 0.8. MRI of the rt feet: No evidence for osteomyelitis on this unenhanced study. Normal marrow signal within the bones. Sensitivity is decreased without IV contrast.Marked amount of soft tissue edema and cellulitis surrounding the foot. Greatest along the dorsal surface of the foot. No focal abscess or collection. CV segpressure LE BI:No evidence of any significant arterial obstruction, wound culture : GNR, Aeromonas Caviae (Singleton Sensitive ).He is being discharged on Levofloxacin as well as doxycycline for 2 weeks and he follow as outpatient. He also had KINSEY likely 2/2 to excess diuresis which is improving on discharge his SCR is 1.9 as compared to admission SCR of 2.5.He was kept on I.V fluids.He will continue to hold lasix on discharge and will follow with his PCP as outpatient with repeat BMP. Physical Exam Const: COMMON NORMALS: patient oriented x3 HENMT: COMMON NORMALS: normocephalic, atraumatic, hearing grossly normal bilaterally and external ears normal HEAD & SCALP: normocephalic and atraumatic EXTERNAL EAR: Yes external ears normal Eye: COMMON NORMALS: no scleral icterus GENERAL EYE: appearance normal, both eyes and all related structures Chest: COMMONS NORMALS: normal inspection of the chest and normal palpation of entire chest wall CHEST: Yes Symmetrical chest wall rise Resp: COMMON NORMALS: normal respiratory effort, No retractions, No use of accessory muscles and clear to auscultation bilaterally EFFORT & INSPECTION: Yes symmetric chest movement AUSCULTATION: clear to auscultation bilaterally Cardio: COMMON NORMALS: regular rate, regular rhythm, S1 normal heart sound present, S2 normal heart sound present, No gallops present (Cardio), No murmurs present (Cardio), No rub (Cardio) and Peripheral pulses 2+ throughout RATE: regular rate RHYTHM: regular rhythm HEART SOUNDS: S1 normal heart sound present and S2 normal heart sound present PERIPHERAL PULSES: Peripheral pulses 2+ throughout GI: COMMON NORMALS: Normal to inspection, nondistended, normoactive bowel sounds present, Soft to palpation, non-tender, No hepatosplenomegaly present and no masses AUSCULTATION: Yes normoactive bowel sounds PALPATION: Yes Soft to palpation and Yes No hepatosplenomegaly present RECTAL EXAM: Yes deferred Extremity: NARRATIVE EXTREMITY EXAM: Rt feet Dressing clean Neuro: COMMON NORMALS: patient oriented x3 Discharge Data Data Completed and Pending: Completed Studies During Hospitalization Category Date Time Status MR foot RT wo con * [id number] Urgent MRI 07/13/20 16:00 [place] [id number] Rout ine Ultrasound 07/14/20 07:00 Completed US renal BI* [id number] Routine Ultrasound 07/14/20 07:00 Completed Labs from last 24 hours 07/17/20 07/16/20 07/16/20 07:10 20:05 17:04 POC Glucose 81 219 H 209 H Vancomycin Trough 07/16/20 07/16/20 15:13 11:15 POC Glucose 189 H Vancomycin Trough 11.9 Vitals: Last Vital Signs Temp 98.3 F 07/17/20 10:52 Pulse 83 07/17/20 10:52 Resp 18 07/17/20 10:52 BP 159/78 07/17/20 10:52 Pulse Ox 96 07/17/20 10:52 Discharge Plan Discharge Patient Disposition: Home Condition: Stable Prescriptions: New levofloxacin 750 mg tablet 750 mg PO DAILY 14 Days RF: 0 doxycycline hyclate 200 mg tablet,delayed release (DR/EC) 100 mg PO BID Qty: 30 RF: 0 nifedipine 60 mg tablet extended release 24hr 60 mg PO DAILY Qty: 30 RF: 0 hydralazine 50 mg tablet 50 mg PO TID Qty: 90 RF: 0 Continued Tresiba U-100 Insulin 100 unit/mL solution 60 unit SUBCUT BID@12,00 RF: 0 lorazepam [Ativan] 2 mg tablet See Rx Instructions PO DAILY PRN (Reason: anxiety) Qty: 35 RF: 5 aspirin 325 mg tablet 325 mg PO DAILY@0000 RF: 0 levothyroxine 25 mcg capsule 25 mcg PO DAILY@00 RF: 0 lansoprazole [Prevacid] 15 mg capsule,delayed release(DR/EC) 15 mg PO DAILY@1200 RF: 0 famotidine 40 mg tablet 40 mg PO DAILY@00 RF: 0 primidone 50 mg tablet 50 mg PO BID@00,12 RF: 0 Seroquel 200 mg tablet 200 mg PO BEDTIME@00 RF: 0 Held furosemide 20 mg tablet 20 mg PO DAILY@00 RF: 0 Hold Instructions: Resume on 07/31/20. Discontinued clindamycin HCl 300 mg capsule 300 mg PO QID@12,18,00,06 RF: 0 No Action (DME) JANET cole See Rx Instructions .Route .MEDSUPPLY Qty: 1 RF: 0 Discharge Orders: Discharge Order (Routine); Ordered 07/17/20 Ordered By: Joey Lemus Referrals: Rafa Call [Primary Care Provider] - ([facility] will contact you to schedule an follow-up appointment in 4 to 7 days. If you haven't heard from them by Saturday afternoon. Please call ) WOUND CARE CLINIC, [Staff Physician] - ([facility] will contact you to schedule and follow-up appointment in 1 to 3 days. If you haven't heard from them by Saturday afternoon. Please call ) Discharge Diet: Diabetic Discharge Activity: Increase activity as tolerated Patient Instructions: Doxycycline (By mouth), Levofloxacin (By mouth), Acute Kidney Injury (DC), Cellulitis (DC), Hypertensive Crisis (DC) Activity Restrictions/Additional Instructions: Patient will follow with his PCP in a week with repeat BMP to monitor his SCR Level.He will continue to hold taking lasix till the time it is cleared by his PCP.Given Improving KINSEY Discharge Attestations Time Spent in Discharge Care*: greater than 30 min Specific Discharge Activities: educating patient, educating and/or supporting family/caregiver, discussing with pcp/other providers, discussing with telephonic case manager/social workers/dc planners, documenting/other paperwork and evaluating patient/reviewing data Status at Discharge: Cognitive status at discharge: cognitively intact , Behavioral status at discharge: cooperative , Functional status at discharge: independent ambulation Overall status at discharge: patient is back to baseline Quality Metrics Clinical Quality Measures During this hospital stay, did patient experience: None Coding Level of Care Code Acute Ec Teacher for [facility] Fwd Exam Detailed Diagnoses Gas gangrene A48.0 KINSEY (acute kidney injury) N17.9 Diabetic peripheral neuropathy associated with type 2 diabetes mellitus E11.42 Hypertension I10 Hypothyroidism E03.9 Diabetes E11.9 Major depressive disorder, recurrent, in partial remission F33.41
[2020-07-17 11:17] LABS: Glucose Point of Care 131 mg/dL (70-110)
[2020-07-17 11:18] VITALS: BP 159/78; PULSE 83; RESP 18; TEMP 36.8; O2SAT 96
[2020-07-17 12:56] VITALS: TEMP 36.8
== END 2020-07-17 13:44 | disposition home or self-care (01) | DRG 264 ==
LOC: ER 16:00 → MEDSURG 18:34 → CSU 07-15 02:05
PROVIDERS: Podiatrist Foot & Ankle Surgery; Admitting Provider Internal Medicine; Emergency Provider Student in an Organized Health Care Education/Training Program; PCP Physician Assistant Medical; Visit Provider Internal Medicine
PROC: 0JBQ0ZZ Excision of Right Foot Subcutaneous Tissue and Fascia, Open Approach (ICD-10-PCS; principal; 2020-07-14 12:00)
DX: E11.52 Type 2 diabetes mellitus with diabetic peripheral angiopathy with gangrene (principal); A48.0 Gas gangrene; L03.115 Cellulitis of right lower limb; N17.9 Acute kidney failure, unspecified; E03.9 Hypothyroidism, unspecified; E11.42 Type 2 diabetes mellitus with diabetic polyneuropathy; F33.41 Major depressive disorder, recurrent, in partial remission; L97.513 Non-pressure chronic ulcer of other part of right foot with necrosis of muscle; Z79.82 Long term (current) use of aspirin; K21.9 Gastro-esophageal reflux disease without esophagitis; N18.9 Chronic kidney disease, unspecified; E11.22 Type 2 diabetes mellitus with diabetic chronic kidney disease; I12.9 Hypertensive chronic kidney disease with stage 1 through stage 4 chronic kidney disease, or unspecified chronic kidney disease
CPT/HCPCS: 12345; 36415; 36416; 73630; 73718; 76770; 80053; 80202; 82962; 83036; 83605; 83735; 84100; 84145; 85025; 85610; 85651; 86140; 87070; 87075; 87077; 87176; 87186; 87205; 87635; 93005; 93923; 96372; 97760; 99283; J0360; J0692; J0743; J1644; J1815; J2704; J3010; J3370; J3490; J7030; L4361; S0030

== ENCOUNTER 2020-07-22 08:21 | Outpatient (CLI) | payer MEDICARE, SELFPAY ==
[2020-07-22 11:18] LABS: Prealbumin 33.2 mg/dL (20-40)
== END 2020-07-22 08:22 | disposition home or self-care (01) ==
PROVIDERS: PCP Physician Assistant Medical; Visit Provider Surgery
DX: E11.621 Type 2 diabetes mellitus with foot ulcer (principal); L97.412 Non-pressure chronic ulcer of right heel and midfoot with fat layer exposed
CPT/HCPCS: 11043; 84134; G0463

== ENCOUNTER 2020-07-29 08:36 | Outpatient (CLI) | payer MEDICARE, SELFPAY | END 2020-07-29 08:37 | disposition home or self-care (01) | LOC: WOUND 08:37 | PROVIDERS: PCP Physician Assistant Medical; Visit Provider Surgery | DX: E11.621 Type 2 diabetes mellitus with foot ulcer (principal); L97.413 Non-pressure chronic ulcer of right heel and midfoot with necrosis of muscle | CPT/HCPCS: 11043 ==

== ENCOUNTER 2020-08-05 08:42 | Outpatient (CLI) | payer MEDICARE, SELFPAY | END 2020-08-05 08:43 | disposition home or self-care (01) | LOC: WOUND 08:42 | PROVIDERS: PCP Physician Assistant Medical; Visit Provider Surgery | DX: E11.621 Type 2 diabetes mellitus with foot ulcer (principal); L97.413 Non-pressure chronic ulcer of right heel and midfoot with necrosis of muscle | CPT/HCPCS: 11043 ==

== ENCOUNTER 2020-08-12 09:00 | Outpatient (CLI) | payer MEDICARE, SELFPAY | END 2020-08-12 09:01 | disposition home or self-care (01) | LOC: WOUND 09:02 | PROVIDERS: PCP Physician Assistant Medical; Visit Provider Surgery | DX: E11.621 Type 2 diabetes mellitus with foot ulcer (principal); L97.412 Non-pressure chronic ulcer of right heel and midfoot with fat layer exposed | CPT/HCPCS: 11043 ==

== ENCOUNTER 2020-08-19 09:31 | Outpatient (CLI) | payer MEDICARE, SELFPAY | END 2020-08-19 09:32 | disposition home or self-care (01) | LOC: WOUND 09:32 | PROVIDERS: PCP Physician Assistant Medical; Visit Provider Surgery | DX: E11.621 Type 2 diabetes mellitus with foot ulcer (principal); L97.412 Non-pressure chronic ulcer of right heel and midfoot with fat layer exposed; L03.115 Cellulitis of right lower limb | CPT/HCPCS: 11043; 93971 ==

== ENCOUNTER 2020-08-19 15:03 | Outpatient (CLI) | payer MEDICARE, OTHER, SELFPAY ==
--- NOTE | 2020-08-19 15:14 | USCV_ITS ---
GarlandBrittny reynoso Age: 70 Gender: M : 1950 Exam Date: 08/19/2020 15:26 Ordering Phys: Michael Miller MD Technologist: Aure Carcamo [place] [facility] [place]ication: RT FOOT ULCER HISTORY: Lower extremity swelling. PROCEDURES: Venous duplex imaging was performed in only the right lower extremity. The following venous structures were evaluated: common femoral vein, profunda vein, proximal portion of the greater saphenous vein, superficial femoral vein, and the popliteal vein. In addition, the posterior tibial and peroneal trunk were evaluated. FINDINGS: Normal 2-D Doppler and augmentation and compressibility throughout the lower extremity venous structures. Additional imaging through the proximal calf veins also reveals no thrombus. Limited evaluation of the greater saphenous vein is patent with no thrombus.. CONCLUSIONS No evidence of right lower extremity DVT. Babak Sauer MD (Electronically Signed) Final Date: 19 August 2020 17:32 S
== END 2020-08-19 15:04 | disposition home or self-care (01) ==
LOC: RAD 15:10
PROVIDERS: PCP Physician Assistant Medical; Visit Provider Surgery
DX: E11.621 Type 2 diabetes mellitus with foot ulcer (principal)
CPT/HCPCS: 93971

== ENCOUNTER 2020-08-26 09:22 | Outpatient (CLI) | payer MEDICARE, SELFPAY | END 2020-08-26 09:23 | disposition home or self-care (01) | LOC: WOUND 09:23 | PROVIDERS: PCP Physician Assistant Medical; Visit Provider Surgery | DX: E11.621 Type 2 diabetes mellitus with foot ulcer (principal); L97.512 Non-pressure chronic ulcer of other part of right foot with fat layer exposed | CPT/HCPCS: 11043 ==

== ENCOUNTER 2020-09-02 09:19 | Outpatient (CLI) | payer MEDICARE, SELFPAY | END 2020-09-02 09:20 | disposition home or self-care (01) | LOC: WOUND 09:20 | PROVIDERS: PCP Physician Assistant Medical; Visit Provider Nurse Practitioner Family | DX: E11.621 Type 2 diabetes mellitus with foot ulcer (principal); L97.412 Non-pressure chronic ulcer of right heel and midfoot with fat layer exposed | CPT/HCPCS: 11042 ==

== ENCOUNTER 2020-09-09 10:26 | Outpatient (CLI) | payer MEDICARE, SELFPAY | END 2020-09-09 10:27 | disposition home or self-care (01) | LOC: WOUND 10:26 | PROVIDERS: PCP Physician Assistant Medical; Visit Provider Nurse Practitioner Family | DX: E11.621 Type 2 diabetes mellitus with foot ulcer (principal); L97.412 Non-pressure chronic ulcer of right heel and midfoot with fat layer exposed | CPT/HCPCS: 11042 ==

== ENCOUNTER 2020-09-16 10:19 | Outpatient (CLI) | payer MEDICARE, SELFPAY | END 2020-09-16 10:20 | disposition home or self-care (01) | LOC: WOUND 10:20 | PROVIDERS: PCP Physician Assistant Medical; Visit Provider Surgery | DX: E11.621 Type 2 diabetes mellitus with foot ulcer (principal); L97.412 Non-pressure chronic ulcer of right heel and midfoot with fat layer exposed | CPT/HCPCS: 11042 ==

== ENCOUNTER 2020-09-23 10:06 | Outpatient (CLI) | payer MEDICARE, SELFPAY | END 2020-09-23 10:07 | disposition home or self-care (01) | LOC: WOUND 10:08 | PROVIDERS: PCP Physician Assistant Medical; Visit Provider Surgery | DX: E11.621 Type 2 diabetes mellitus with foot ulcer (principal); L97.512 Non-pressure chronic ulcer of other part of right foot with fat layer exposed | CPT/HCPCS: 11042 ==

== ENCOUNTER 2020-09-30 10:28 | Outpatient (CLI) | payer MEDICARE, SELFPAY | END 2020-09-30 10:29 | disposition home or self-care (01) | LOC: WOUND 10:31 | PROVIDERS: PCP Physician Assistant Medical; Visit Provider Surgery | DX: E11.621 Type 2 diabetes mellitus with foot ulcer (principal); L97.512 Non-pressure chronic ulcer of other part of right foot with fat layer exposed | CPT/HCPCS: 11042 ==

== ENCOUNTER 2020-10-07 10:13 | Outpatient (CLI) | payer MEDICARE, SELFPAY | END 2020-10-07 10:14 | disposition home or self-care (01) | LOC: WOUND 10:14 | PROVIDERS: PCP Physician Assistant Medical; Visit Provider Surgery | DX: E11.621 Type 2 diabetes mellitus with foot ulcer (principal); L97.512 Non-pressure chronic ulcer of other part of right foot with fat layer exposed | CPT/HCPCS: 99212 ==

== ENCOUNTER 2020-10-07 14:57 | Outpatient (CLI) | payer MEDICARE, SELFPAY ==
--- NOTE | 2020-10-07 15:00 | USCV_ITS ---
Brittny Londono Age: 70 Gender: M : 1950 Exam Date: 10/07/2020 15:12 Ordering Phys: Martita Srivastava MD ([email or web address]) Technologist: Merissa Khan Exam Location: [facility] [place] Indication: Frequent PVC's BP: 157 / 80 HR: 88 Rhythm: Sinus Technical Quality: Adequate MEASUREMENTS (Male / Female) Normal Values 2D ECHO LV Diastolic Diameter PLAX 5.1 cm 4.2 - 5.9 / 3.9 - 5.3 cm LV Systolic Diameter PLAX 3.5 cm IVS Diastolic Thickness 1.2 cm 0.6 - 1.0 / 0.6 - 0.9 cm IVS Systolic Thickness 1.8 cm LVPW Diastolic Thickness 1.4 cm 0.6 - 1.0 / 0.6 - 0.9 cm LVPW Systolic Thickness 2.4 cm LVOT Diameter 2.1 cm LV Ejection Fraction 2D Teich 58.5 % LV Ejection Fraction MOD 2C 63.0 % LV Ejection Fraction 2C AL 65.3 % LA Diameter 4.3 cm LA Width 2.1 cm LA Height 4.5 cm RA Width 5.1 cm RA Height 3.7 cm Aorta at Sinotubular Diameter 3.3 cm M-MODE LV Diastolic Diameter MM 5.6 cm 4.2 - 5.9 / 3.9 - 5.3 cm LV Systolic Diameter MM 3.7 cm LV Ejection Fraction MM Teich 61.5 % IVS Diastolic Thickness MM 1.3 cm 0.6 - 1.0 / 0.6 - 0.9 cm IVS Systolic Thickness MM 1.7 cm LVPW Diastolic Thickness MM 1.1 cm 0.6 - 1.0 / 0.6 - 0.9 cm LVPW Systolic Thickness MM 1.8 cm RV Diastolic Diameter MM 1.7 cm Aortic Annulus Diameter 4.3 cm LA Ao Ratio MM 1.0 MV E Point Septal Separation 0.9 cm DOPPLER AV Peak Velocity 165.0 cm/s LVOT Peak Velocity 87.0 cm/s AV Area Cont Eq vti 2.0 cm squared AV Area Cont Eq pk 1.8 cm squared MV Area PHT 5.9 cm squared Mitral E to A Ratio 0.7 MV E' Velocity 40.0 cm/s Mitral E to MV E' Ratio 9.7 Mitral E to LV E' Lateral Ratio 8.7 Mitral E to LV E' Septal Ratio 11.1 TR Peak Velocity 163.7 cm/s TR Peak Gradient 10.7 mmHg TR Mean Velocity 115.5 cm/s TR Mean Gradient 5.8 mmHg TR Velocity Time Integral 32.7 cm TV Peak E Velocity 64.0 cm/s Right Atrial Pressure 3.0 mmHg Pulmonary Artery Systolic Pressu 13.7 mmHg PV Peak Velocity 74.0 cm/s RV Acceleration Time 0.1 s RV Ejection Time 0.4 s RV AcT/ET 0.4 FINDINGS Left Ventricle Normal left ventricular size, systolic function and mildly increased wall thickness, with no regional wall motion abnormalities. Mild concentric left ventricular hypertrophy. Left ventricular ejection fraction is estimated at 55-60 %. Grade I diastolic dysfunction (abnormal relaxation filling pattern), normal to mildly elevated filling pressures. Right Ventricle Normal right ventricular size and systolic function. Right ventricular systolic pressure 13.7 mmHg. Right Atrium Normal right atrial size. Left Atrium Normal left atrial size. Mitral Valve Structurally normal mitral valve. No mitral valve stenosis. Trace mitral valve regurgitation. Aortic Valve Structurally normal trileaflet aortic valve. No aortic valve stenosis. No aortic valve regurgitation. Tricuspid Valve Structurally normal tricuspid valve. Trace to mild tricuspid valve regurgitation. Pulmonic Valve Pulmonic valve not well visualized. Trace pulmonary valve regurgitation. Pericardium No pericardial effusion. Aorta Normal size aortic root and proximal ascending aorta. CONCLUSIONS 1. Normal left ventricular size, systolic function and mildly increased wall thickness, with no regional wall motion abnormalities. Mild concentric left ventricular hypertrophy. Left ventricular ejection fraction is estimated at 55-60 %. Grade I diastolic dysfunction (abnormal relaxation filling pattern), normal to mildly elevated filling pressures. 2. Normal right ventricular size and systolic function. 3. Normal pulmonary artery pressure. 4. Trace to mild tricuspid valve regurgitation. 5. No prior similar studies to compare. Martita Srivastava MD (Electronically Signed) Final Date: 10 October 2020 21:30 S
== END 2020-10-07 14:58 | disposition home or self-care (01) ==
LOC: RAD 15:04
PROVIDERS: PCP Physician Assistant Medical; Visit Provider Internal Medicine Cardiovascular Disease
DX: I49.3 Ventricular premature depolarization (principal); I07.1 Rheumatic tricuspid insufficiency
CPT/HCPCS: 93306

== ENCOUNTER → 2021-01-05 14:08 | Outpatient (BNVA) | payer MEDICARE, SELFPAY | PROVIDERS: PCP Physician Assistant Medical; Visit Provider Nurse Practitioner | DX: G25.0 Essential tremor (principal); F33.41 Major depressive disorder, recurrent, in partial remission | CPT/HCPCS: 99214 ==

== ENCOUNTER → 2021-08-04 12:48 | Outpatient (BNVA) | payer MEDICARE, SELFPAY | PROVIDERS: PCP Physician Assistant Medical; Visit Provider Nurse Practitioner | DX: F33.41 Major depressive disorder, recurrent, in partial remission (principal); G25.0 Essential tremor | CPT/HCPCS: 99214 ==

== ENCOUNTER → 2021-11-16 14:46 | Outpatient (BNVA) | payer MEDICARE, SELFPAY | PROVIDERS: PCP Physician Assistant Medical; Visit Provider Nurse Practitioner | DX: F33.41 Major depressive disorder, recurrent, in partial remission (principal); G25.0 Essential tremor | CPT/HCPCS: 99214 ==

== ENCOUNTER → 2022-05-01 11:00 | Outpatient (BNVA) | payer MEDICARE, SELFPAY | PROVIDERS: PCP Physician Assistant Medical; Referring Provider Nurse Practitioner Family; Visit Provider Surgery | DX: K92.1 Melena (principal) | CPT/HCPCS: 99203 ==

== ENCOUNTER 2022-06-23 19:29 | Inpatient (IN) | payer MEDICARE, SELFPAY ==
[2022-06-23 19:32] VITALS: BP 221/108; PULSE 101; RESP 18; TEMP 37.6; O2SAT 90; BMI 38.5
[2022-06-23 19:43] LABS: Glucose Point of Care 166 mg/dL (70-110)
--- NOTE | 2022-06-23 19:50 | ECG_ITS ---
[facility] Test Date: 2022-06-23 Pat Name: Brittny Londono Department: Room: Gender: Male Nursing Faculty: : 1950 Requested By: Kelvin Marin Order Number: [id number] Anoop MD: Len Jansen M.D. Measurements Intervals [place] Rate: 103 P: 39 NE: 182 QRS: -29 QRSD: 88 T: 52 QT: 330 QTc: 434 Interpretive Statements SINUS TACHYCARDIA POSSIBLE LEFT ATRIAL ENLARGEMENT [-0.1mV P-WAVE IN V1/V2] BORDERLINE LEFT AXIS DEVIATION [QRS AXIS < -20] MODERATE ST DEPRESSION [0.05+ mV ST DEPRESSION] Compared to ECG 07/14/2020 23:10:31 ST (T wave) deviation now present Sinus rhythm no longer present Ventricular premature complex(es) no longer present Electronically Signed On 06-24-2022 20:16:49 AIR CONDITIONING SPECIALIST by Len Jansen M.D. [email or web address]
--- NOTE | 2022-06-23 19:50 | XRR_ITS ---
PROCEDURE INFORMATION: Exam: XR Chest Exam date and time: 06/23/2022 8:28 PM Age: 71 years old Clinical indication: Cough and dyspnea; Additional info: Dyspnea/cough TECHNIQUE: Imaging protocol: Radiologic exam of the chest. Views: 1 view. COMPARISON: No relevant prior studies available. FINDINGS: Lungs: Minimal lung base atelectasis or scarring. No consolidation. Pleural spaces: Unremarkable. No pleural effusion. No pneumothorax. Heart/Mediastinum: The heart is large. Diaphragm: Moderate right hemidiaphragm elevation. Bones/joints: Previous likely costosternal vs sternal postop changes. XR/XR chest 1V portable [id number] IMPRESSION: 1. No acute finding. 2. Large heart with a few other chronic findings above.
--- NOTE | 2022-06-23 19:50 | CTR_ITS ---
PROCEDURE INFORMATION: Exam: CT Head Without Contrast Exam date and time: 06/23/2022 8:11 PM Age: 71 years old Clinical indication: Altered mental status/memory loss TECHNIQUE: Imaging protocol: Computed tomography of the head without contrast. Radiation optimization: All CT scans at this facility use at least one of these dose optimization techniques: automated exposure control; mA and/or kV adjustment per patient size (includes targeted exams where dose is matched to clinical indication); or iterative reconstruction. COMPARISON: CT head wo con* [id number] 08/11/2021 8:10 AM RADIATION DOSE METRICS: Total DLP (mGy-cm): 1414.1 FINDINGS: Brain: No focal hemorrhage or midline shift is identified. The ventricles and parenchyma show mild atrophy and chronic bicerebral white matter ischemic change. Cerebral ventricles: No ventriculomegaly or evidence of hydrocephalus. Paranasal sinuses: No evidence of acute sinusitis. Mastoid air cells: Visualized mastoid air cells are well aerated. Bones/joints: No displaced skull fracture is noted. Soft tissues: Unremarkable. Vasculature: Advanced diffuse vascular calcification noted. CT/CT head wo con* [id number] IMPRESSION: 1. No acute intracranial abnormality. 2. Mild age-related changes. Findings are similar to 08/11/2021.
[2022-06-23 20:07] LABS: Ketone (Acetest) Serum Negative (Negative)
[2022-06-23 20:10] LABS: Hematocrit 41.6 % (42.0-52.0); Hemoglobin 14.2 g/dL (11.7-16.6); Mean Corpuscular HGB Conc 34.1 g/dL (30.0-36.0); Mean Corpuscular Volume 90.8 fl (80-94); Mean Platelet Volume 9.6 fL (7.4-10.4); Platelet Count 237 10^3/cmm (130-400); Red Blood Count 4.58 10^6/uL (4.1-5.3); Red Cell Distribution Width 13.1 % (12.1-15.1); White Blood Count 10.9 10^3/uL (4.0-10.0)
--- NOTE | 2022-06-23 20:12 | ED_ITS ---
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 Type 2 diabetes mellitus Surgical History History of colonoscopy History of hand surgery History of hernia surgery Family History Father Palpitations Stroke Denies family history of Diabetes CAD (coronary artery disease) Hypertension Social History Smoking and tobacco status: never smoked Alcohol intake: current Alcohol intake frequency: holidays/special occasions only Current occupational status: retired Course Vital Signs: Vital signs: Vital Signs Temperature 99.7 F H 06/23/22 19:32 Pulse Rate 101 H 06/23/22 19:32 Respiratory Rate 18 06/23/22 19:32 Blood Pressure 221/108 06/23/22 19:32 Pulse Oximetry 90 06/23/22 19:32 Oxygen Delivery Me thod 06/23/22 19:32 MDM - Altered Mental Status Lab Data 06/23/22 19:40 06/23/22 19:40 Radiology Impressions Chest X-Ray 06/23/22 19:50 IMPRESSION: 1. No acute finding. 2. Large heart with a few other chronic findings above. Head CT 06/23/22 19:50 IMPRESSION: 1. No acute intracranial abnormality. 2. Mild age-related changes. Findings are similar to 08/11/2021. Laboratory Results WBC 10.9 10^3/uL (4.0-10.0) H 06/23/22 19:40 RBC 4.58 10^6/uL (4.1-5.3) 06/23/22 19:40 Hgb 14.2 g/dL (11.7-16.6) 06/23/22 19:40 Hct 41.6 % (42.0-52.0) L 06/23/22 19:40 MCV 90.8 fl (80-94) 06/23/22 19:40 MCH 31.0 pg (28.0-34.0) 06/23/22 19:40 MCHC 34.1 g/dL (30.0-36.0) 06/23/22 19:40 RDW 13.1 % (12.1-15.1) 06/23/22 19:40 Plt Count 237 10^3/cmm (130-400) 06/23/22 19:40 MPV 9.6 fL (7.4-10.4) 06/23/22 19:40 Lymph % (Auto) Not Reportable 06/23/22 19:40 [place] % (Auto) Not Reportable 06/23/22 19:40 Lymph # (Auto) Not Reportable 06/23/22 19:40 [place] # (Auto) Not Reportable 06/23/22 19:40 Total Counted 100 (0-100) 06/23/22 19:40 Atypical Lymphs % 0.0 % (0-5) 06/23/22 19:40 Absolute Neutrophils 10.2 10^3/cmm (1.4-6.5) H 06/23/22 19:40 Segmented Neutrophils 69 % 06/23/22 19:40 Abs Segm Neuts (Man) 7.5 10/cmm (1.6-7.1) H 06/23/22 19:40 Band Neutrophils 25.0 % 06/23/22 19:40 Abs Band Neuts (Man) 2.7 10^3/cmm (0.0-1.2) H 06/23/22 19:40 Absolute Lymphocytes 0.2 10^3/cmm (1.2-3.4) L 06/23/22 19:40 Lymphocytes (Manual) 2 % 06/23/22 19:40 Monocytes (Manual) 2.0 % 06/23/22 19:40 Absolute Monocytes 0.2 10^3/cmm (0.1-0.6) 06/23/22 19:40 Eosinophils (Manual) 0 % 06/23/22 19:40 Absolute Eosinophils 0.0 10^3/cmm (0.0-0.7) 06/23/22 19:40 Basophils (Manual) 0.0 % 06/23/22 19:40 Absolute Basophils 0.0 10^3/cmm (0.0-0.2) 06/23/22 19:40 Metamyelocytes 2.0 % 06/23/22 19:40 Platelet Estimate Normal (Normal) 06/23/22 19:40 Specimen Type Arterial 06/23/22 20:51 Sample Site Radial, right 06/23/22 20:51 ABG pH 7.45 (7.35-7.45) 06/23/22 20:51 ABG pCO2 35.1 mmHg (35-45) 06/23/22 20:51 ABG pO2 54.9 mmHg (80.0-100.0) L 06/23/22 20:51 ABG HCO3 24.4 mmol/L (22-26) 06/23/22 20:51 ABG O2 Saturation 91.8 06/23/22 20:51 ABG Base Excess 0.7 mmol/L (-2.0-2.0) 06/23/22 20:51 Remi Test Pos 06/23/22 20:51 A-a O2 Gradient 6.6 mmHg (5-10) 06/23/22 20:51 Hematocrit 43.1 % (42-52) 06/23/22 20:51 Hgb O2 Saturation 91.7 % (95-100) L 06/23/22 20:51 Carboxyhemoglobin 1.0 %THgb (0.4-20.1) 06/23/22 20:51 Methemoglobin < 0.0 % (0.4-1.5) L 06/23/22 20:51 Total Hemoglobin 14.1 g/dL (14-18) 06/23/22 20:51 Sodium 141.0 mmol/L (131-143) 06/23/22 20:51 Potassium 4.4 mmol/L (3.5-5.0) 06/23/22 20:51 Glucose 150.0 mg/dL (70-115) H 06/23/22 20:51 Ionized Calcium 1.1 mmol/L (1.1-1.4) 06/23/22 20:51 O2 Delivery Device None 06/23/22 20:51 FiO2 21.0 % 06/23/22 20:51 Oil Well Perforator Operator ID Alewe 06/23/22 20:51 Sodium 138 mmol/L (136-145) 06/23/22 19:40 Potassium 4.9 mmol/L (3.5-5.1) 06/23/22 19:40 Chloride 103 mmol/L (98-107) 06/23/22 19:40 Carbon Dioxide 24 mmol/L (22-29) 06/23/22 19:40 Anion Gap 15.9 (5-19) 06/23/22 19:40 BUN 39 mg/dL (8-23) H 06/23/22 19:40 Creatinine 2.1 mg/dL (0.7-1.2) H 06/23/22 19:40 GFR Calculation 31.4 mL/min (90-130) L 06/23/22 19:40 Glucose 151 mg/dL (65-115) H 06/23/22 19:40 POC Glucose 166 mg/dL (70-110) H 06/23/22 19:33 Calculated Osmolality 298 mOsm/kg (285-295) H 06/23/22 19:40 Lactic Acid 2.6 mmol/L (0.5-2.2) H 06/23/22 19:40 Calcium 9.3 mg/dL (8.5-10.5) 06/23/22 19:40 Total Bilirubin 0.9 mg/dL (0.15-1.2) 06/23/22 19:40 AST 29 U/L (0-40) 06/23/22 19:40 ALT 17 U/L (0-41) 06/23/22 19:40 Alkaline Phosphatase 79 U/L (40-130) 06/23/22 19:40 Creatine Kinase 652 U/L (39-308) H* 06/23/22 19:40 Troponin T Baseline 88 ng/L (0-15) H 06/23/22 19:40 Total Protein 6.5 g/dL (6.6-8.7) L 06/23/22 19:40 Albumin 4.0 g/dL (3.5-5.2) 06/23/22 19:40 Globulin 2.5 g/dL (1.3-4.6) 06/23/22 19:40 Lipase 6 U/L (13-60) L 06/23/22 19:40 Lipase Cancelled 06/23/22 19:40 Serum Ketones Negative (Negative) 06/23/22 19:40 Discharge Plan Discharge Condition: Stable Prescriptions: No Action Tresiba U-100 Insulin 100 unit/mL solution 60 unit SUBCUT BID@12,00 cholecalciferol (vitamin D3) PO cyanocobalamin (vitamin B-12) PO aspirin 325 mg tablet 325 mg PO DAILY@0000 levothyroxine 25 mcg capsule 25 mcg PO DAILY@00 lansoprazole [Prevacid] 15 mg capsule,delayed release(DR/EC) 15 mg PO DAILY@1200 Seroquel 200 mg tablet 200 mg PO BEDTIME@00 Qty: 30 2RF paroxetine HCl [Paxil] 10 mg tablet 10 mg PO DAILY Qty: 30 2RF lorazepam [Ativan] 1 mg tablet 1 mg PO .HS PRN (Reason: anxiety) Qty: 35 2RF Rx Instructions: 1 tablets at bedtime and 1 tablets daily as needed for severe anxiety. A quantity of 35/ month. furosemide 40 mg tablet 40 mg PO DAILY Qty: 30 4RF potassium chloride 20 mEq tablet,ER particles/crystals 20 meq PO DAILY Qty: 30 3RF carvedilol 3.125 mg tablet 3.125 mg PO BID Qty: 180 1RF Rx Instructions: must administer with a meal/food primidone 50 mg tablet 50 mg PO BID@00,12 Qty: 60 5RF famotidine 40 mg tablet 40 mg PO DAILY@00 doxycycline hyclate 200 mg tablet,delayed release (DR/EC) 100 mg PO BID Qty: 30 0RF nifedipine 60 mg tablet extended release 24hr 60 mg PO DAILY Qty: 30 0RF hydralazine 50 mg tablet 50 mg PO TID Qty: 90 0RF Referrals: Rafa Call [Primary Care Provider] - Coding Level of Care Code ED Change Room Attendant for Avis Orellana
[2022-06-23 20:19] LABS: Alanine Aminotransferase 17 U/L (0-41); Alkaline Phosphatase 79 U/L (40-130); Aspartate Amino Transferase 29 U/L (0-40); Blood Urea Nitrogen 39 mg/dL (8-23); Calcium 9.3 mg/dL (8.5-10.5); Carbon Dioxide 24 mmol/L (22-29); Chloride 103 mmol/L (98-107); Globulin 2.5 g/dL (1.3-4.6); Glomerular Filtration Rate 31.4 mL/min (90-130); Glucose 151 mg/dL (65-115); Lipase 6 U/L (13-60); Potassium 4.9 mmol/L (3.5-5.1); Total Bilirubin 0.9 mg/dL (0.15-1.2); Total Protein 6.5 g/dL (6.6-8.7)
[2022-06-23 20:20] LABS: Lactic Sepsis W/Reflex 2.6 mmol/L (0.5-2.2)
[2022-06-23 20:22] LABS: Troponin(5th) Baseline 88 ng/L (0-15)
[2022-06-23 20:28] LABS: Creatine Phosphokinase 652 U/L (39-308)
[2022-06-23 20:41] LABS: Anion Gap 15.9 (5-19); Osmolality Calculated 298 mOsm/kg (285-295); Sodium 138 mmol/L (136-145)
[2022-06-23 20:51] LABS: Absolute Neutrophil 10.2 10^3/cmm (1.4-6.5); Absolute Segmented Neutrophil 7.5 10/cmm (1.6-7.1); Band Neutrophils Absolute 2.7 10^3/cmm (0.0-1.2); Eosinophils 0 %; Lymphocytes 2 %; Lymphocytes Absolute 0.2 10^3/cmm (1.2-3.4); Monocytes Absolute 0.2 10^3/cmm (0.1-0.6); Platelet Estimate Normal (Normal); Segmented Neutrophils 69 %; Slide Review Slide Review Perform; Total Cells Counted 100 (0-100)
[2022-06-23 20:58] LABS: ABG PCO2 35.1 mmHg (35-45); ABG PH Result 7.45 (7.35-7.45); Alveolar-Arterial Oxygen Gradi 6.6 mmHg (5-10); Arterial Blood Gas Hematocrit 43.1 % (42-52); Base Excess ABG 0.7 mmol/L (-2.0-2.0); Blood Gas Allen Test Pos; Blood Gas Sample Site Radial, right; Blood Gas Sample Type Arterial; HCO3 ABG 24.4 mmol/L (22-26); HGB O2 Sat 91.7 % (95-100); Ionized Calcium Level - ABG 1.1 mmol/L (1.1-1.4); Methemoglobin < 0.0 % (0.4-1.5); Oxygen Saturation ABG 91.8; PO2 ABG 54.9 mmHg (80.0-100.0); Potassium Level - ABG 4.4 mmol/L (3.5-5.0); Total Hemoglobin 14.1 g/dL (14-18)
--- NOTE | 2022-06-23 21:40 | CTR_ITS ---
PROCEDURE INFORMATION: Exam: CT Abdomen And Pelvis Without Contrast Exam date and time: 06/23/2022 9:52 PM Age: 71 years old Clinical indication: Abdominal pain; Generalized TECHNIQUE: Imaging protocol: Computed tomography of the abdomen and pelvis without contrast. Radiation optimization: All CT scans at this facility use at least one of these dose optimization techniques: automated exposure control; mA and/or kV adjustment per patient size (includes targeted exams where dose is matched to clinical indication); or iterative reconstruction. COMPARISON: US renal BI* [id number] 07/14/2020 6:16 AM RADIATION DOSE METRICS: Total DLP (mGy-cm): 1416.53 FINDINGS: Lungs: Lung base atelectasis or scarring. Heart: The heart is mildly enlarged. Diaphragm: Small hiatal hernia. Liver: Mild hepatic steatosis. Gallbladder and bile ducts: No calcified gallstones or biliary dilation identified. Pancreas: Unremarkable with no suspicious mass. No ductal dilation. Spleen: The spleen is not enlarged. No suspicious mass is noted. Adrenal glands: Normal. No mass. Kidneys and ureters: No solid renal mass or hydronephrosis. Stomach and bowel: Moderately fecal filled colon. No small bowel obstruction, abscess or free air. Severe sigmoid diverticulosis. Appendix: No evidence of appendicitis. Intraperitoneal space: See Stomach and bowel finding. Vasculature: Mild vascular calcification. No evidence of triple a. Lymph nodes: A few slightly enlarged left groin nodes may be reactive. No necrotic lymphadenopathy. Urinary bladder: Unremarkable as visualized. Reproductive: Large prostate. Bones/joints: Partially assessed sternotomy. Moderate lumbar spine degenerative change. Soft tissues: Small fat in left inguinal ring. There is mild diffuse anasarca likely. Other findings: A large amount of motion. CT/CT abdomen pelvis wo con [id number] IMPRESSION: 1. No small bowel obstruction, abscess or free air. No strong evidence of diverticulitis. 2. Small hiatal hernia, constipation, and extensive diverticulosis. Other chronic and incidental findings above. A few left groin nodes may be reassessed in 1 year.
[2022-06-23 21:43] LABS: Reflex Lactate Order REFLEX LACTIC ORDERD
--- NOTE | 2022-06-23 21:50 | ECG_ITS ---
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 Measurements Intervals [place] Rate: 120 P: 71 IA: 196 QRS: -22 QRSD: 89 T: 60 QT: 314 QTc: 445 Interpretive Statements SINUS TACHYCARDIA POSSIBLE ANTERIOR MYOCARDIAL INFARCTION , OF INDETERMINATE AGE [30 ms Q WAVE IN V3/V4, OR R < 0.2 mV IN V4] Compared to ECG 06/23/2022 19:36:39 Myocardial infarct finding now present ST (T wave) deviation no longer present Electronically Signed On 06-24-2022 20:24:12 SUGAR CANE PLANTER by Len Jansen M.D. [id number]
[2022-06-23 22:13] VITALS: TEMP 39.6
[2022-06-23 22:36] VITALS: BP 182/88; PULSE 111; RESP 29; O2SAT 91
[2022-06-23] MEDS: acetaminophen 1,000 MG/100 ML PIGGYBACK 400 MG IV (22:36)
[2022-06-23] MEDS: hyDRALAzine 20 mg/mL INJ 1 mL 10 MG IVP (22:36)
[2022-06-23 22:46] LABS: Add Urine Microscopic? YES; Bilirubin Urine Neg (Negative); Blood Urine 3+ (Negative); Glucose Urine UA 1+ (Normal); Ketones Urine 1+ (Negative); Leukocyte Esterase Urine Trace (Negative); Nitrate Urine Negative (Negative); Protein Urine 2+ (Negative); Urine Appearance Clear (CLEAR); Urine Color Dark Yellow (Yellow); Urobilinogen Urine 1 mg/dL (Negative); pH Urine 5 (5-7)
[2022-06-23 22:46] LABS: Troponin 5 2HR 82.23 ng/L (0-15)
[2022-06-23 22:47] LABS: Troponin 5 2HR Delta -5.77 ABS# (0-10)
[2022-06-23 22:47] LABS: D Dimer 1.29 ug/mIFEU (0-0.59)
[2022-06-23 22:47] LABS: Add Urine Culture? No; Amorphous Sediment Urine 2+ /hpf; Bacteria Urine TRACE /hpf
[2022-06-23 22:52] LABS: Influenza A by IFA negative (Negative); Influenza B by IFA negative (Negative)
[2022-06-23] MEDS: ketorolac 30 mg/mL INJ 15 MG IVP (23:27)
--- NOTE | 2022-06-23 23:33 | CTR_ITS ---
PROCEDURE INFORMATION: Exam: CT Chest Without Contrast; Diagnostic Exam date and time: 06/23/2022 11:40 PM Age: 71 years old Clinical indication: Other: Hypoxia; Additional info: Hyoxia TECHNIQUE: Imaging protocol: Diagnostic computed tomography of the chest without contrast. Radiation optimization: All CT scans at this facility use at least one of these dose optimization techniques: automated exposure control; mA and/or kV adjustment per patient size (includes targeted exams where dose is matched to clinical indication); or iterative reconstruction. COMPARISON: CR (CHEST, ) 06/23/2022 8:28 PM RADIATION DOSE METRICS: Total DLP (mGy-cm): 820.08 FINDINGS: Lungs: Mild areas of bilateral mid to lower lung atelectasis or scarring. Pleural spaces: No pneumothorax. No pleural effusion. Heart: The heart is large. No pericardial effusion. Lymph nodes: No bulky mediastinal or hilar lymphadenopathy noted. Vasculature: Mild venous congestion. Diaphragm: Small hiatal hernia. Liver: Borderline hepatic steatosis. Kidneys and ureters: Few small possible left renal peripelvic cysts. Bones/joints: Sternotomy postop changes. Moderate spine DJD. Mild scoliosis. A few old right rib deformities. Soft tissues: Unremarkable. CT/CT chest wo con [id number] IMPRESSION: 1. Large heart with mild venous congestion. 2. Lung base atelectasis, scarring, or vague edema. No consolidation or effusion. 3. Small hiatal hernia and other chronic findings above.
--- NOTE | 2022-06-23 23:33 | USR_ITS ---
PROCEDURE INFORMATION: Exam: US Duplex Left Lower Extremity Veins, Limited Exam date and time: 06/23/2022 11:53 PM Age: 71 years old Clinical indication: Edema, localized; Lower extremity, left; Additional info: Dvt TECHNIQUE: Imaging protocol: Real-time Duplex ultrasound of the Left Lower Extremity with 2-D marr scale, color Doppler flow and spectral waveform analysis with image documentation. Limited exam focused on the left lower extremity veins. COMPARISON: US renal BI* [id number] 07/14/2020 6:16 AM FINDINGS: Left deep veins: Unremarkable. The common femoral, femoral, proximal profunda femoral and popliteal veins are patent without thrombus. Normal Doppler waveforms. Normal compressibility and/or augmentation response. Left superficial veins: Unremarkable. Saphenofemoral junction is patent without thrombus. Soft tissues: Unremarkable. US/CV venous duplex [facility] [id number] IMPRESSION: No evidence of deep vein thrombosis.
--- NOTE | 2022-06-23 23:39 | P.HP_ITS ---
Providers/Chief Complaint Primary Care Provider: Rafa Call Chief Complaint: unresponsive History of Present Illness Brittny Londono is a 71 year old male with a past medical history of type 2 diabetes mellitus, insulin-dependent, hypothyroidism, hypertension, history of diabetic ulcers, anxiety, major depressive disorder, who presents [facility] due to altered mental status. Currently patient is alert, not to person, not place, to time, he awakens to sternal rub, at times he lifts his hand towards me, but falls back asleep, blood pressure 182/80, pulse 110, respiratory rate 20, temperature 103.2 on 3 L. Patient is is at bedside. Patient tells me that patient has been complaining of some sinus congestion may be a viral infection for the last few days of breath, but nothing out of the ordinary. Patient's last known well normal was roughly at 5 AM when she left for work. She had called at roughly noon or so and patient did not seed cone picker the phone, so she was worried about him, after work at roughly 5 PM or so she came home and found his bed covered in his urine, and also vomit on his pillow. He was nonresponsive, would not wake wake up, no facial droop, no slurring of his words, he was not acting appropriately, his blood sugar was 60, EMS was called out to his home. Here his mentation has slightly improved, he is a bit more responsive according to , but there is has been a significant change in his mentation. No history of UTIs, no history of recent falls, he does have some redness along his left leg which is a bit unusual, she also thinks that he stubbed his left foot second digit, he has some eschar over the area. In the emergency room, CT scanning the abdomen pelvis did not show any acute findings. His CT head was within normal limits. White blood cell count 10.9, requiring 3 L, creatinine 2.1 which is at baseline, blood sugar 151, lactic acid 2.6, CPK 652, he is requiring 3 L, UA possibly could be indicator of a UTI as leukocyte esterase is positive, does have WBCs and RBCs, flu negative, COVID pending, chest x-ray no focal infection, CT head within normal limits. On examination no head no neck stiffness, Kernig's and Brudzinski's sign negative, pupils equal round reactive to light, Review of Systems General: Reports: ROS unobtainable due to medical condition and ROS unobt ainable due to mental status Medications/Allergies Home Medications Medication Instructions Recorded Confirmed Last Taken Type aspirin 325 mg tablet 325 mg PO DAILY@0000 10/28/19 05/03/22 07/13/20 History insulin degludec 100 unit/mL 60 unit SUBCUT BID@12,00 05/26/20 05/03/22 07/13/20 History subcutaneous solution (Tresiba U-100 Insulin) famotidine 40 mg tablet 40 mg PO DAILY@00 07/13/20 05/03/22 07/13/20 History lansoprazole 15 mg capsule,delayed 15 mg PO DAILY@1200 07/13/20 05/03/22 Unknown History release (Prevacid) levothyroxine 25 mcg capsule 25 mcg PO DAILY@07/13/20 05/03/22 07/13/20 History doxycycline hyclate 200 mg 100 mg PO BID #30 tabs 07/17/20 05/03/22 Unknown Rx tablet,delayed release hydralazine 50 mg tablet 50 mg PO TID #90 tabs 07/17/20 05/03/22 Unknown Rx nifedipine 60 mg tablet,extended 60 mg PO DAILY #30 tabs 07/17/20 05/03/22 Unknown Rx release 24 hr cholecalciferol (vitamin D3) PO 09/21/20 05/03/22 Unknown History cyanocobalamin (vitamin B-12) PO 09/21/20 05/03/22 Unknown History furosemide 40 mg tablet 40 mg PO DAILY #30 tabs 03/14/21 05/03/22 Unknown Rx potassium chloride 20 mEq 20 meq PO DAILY #30 tabs 03/14/21 05/03/22 Unknown Rx tablet,extended release(part/cryst) carvedilol 3.125 mg tablet 3.125 mg PO BID #180 tabs 04/12/21 05/03/22 Unknown Rx primidone 50 mg tablet 50 mg PO BID@00,12 #60 tabs 09/11/21 05/03/22 Unknown Rx lorazepam 1 mg tablet (Ativan) 1 mg PO .HS PRN anxiety #35 tabs 05/03/22 05/03/22 Unknown Rx paroxetine HCl 10 mg tablet (Paxil) 10 mg PO DAILY #30 tabs 05/03/22 05/03/22 Unknown Rx quetiapine 200 mg tablet (Seroquel) 200 mg PO BEDTIME@00 #30 tabs 05/03/22 05/03/22 Unknown Rx Allergies Allergy/AdvReac Type Severity Reaction Status Date / Time Penicillins Allergy Intermediate rash Verified 05/03/22 13:11 PFSH Acute PFSH: Medical History KINSEY (acute kidney injury) IMPROVING Cellulitis of right foot Diabetes Diabetic peripheral neuropathy associated with type 2 diabetes mellitus Familial tremor Gas gangrene Gas gangrene GERD (gastroesophageal reflux disease) Hypertension Hypertensive urgency Hyperthyroidism Hypothyroidism Major depressive disorder, recurrent, 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 Type 2 diabetes mellitus Surgical History History of colonoscopy History of hand surgery History of hernia surgery Family History Father Palpitations Stroke Denies family history of Diabetes CAD (coronary artery disease) Hypertension Social History Smoking and tobacco status: never smoked Alcohol intake: current Alcohol intake frequency: holidays/special occasions only Current occupational status: retired Vitals/I&O/Wt Last Vital Signs Temp 103.2 F H 06/23/22 22:13 Pulse 111 H 06/23/22 22:36 Resp 29 H 06/23/22 22:36 BP 182/88 06/23/22 22:36 Pulse Ox 91 06/23/22 22:36 O2 Del Method 06/23/22 22:36 O2 Flow Rate 3 06/23/22 22:36 06/23/22 06/23/22 06/24/22 14:59 22:59 06:59 Intake Total 100 / 100 Balance 100 / 100 Weight last 48 hrs Weight 136.078 kg Physical Exam Const: COMMON NORMALS: no acute distress EXAM LIMITATIONS: altered mental s tatus ORIENTATION/CONSCIOUSNESS: Yes awake and Yes confused; not oriented to person, not oriented to place and not oriented to time HENMT: COMMON NORMALS: normocephalic HEAD & SCALP: normocephalic Eye: COMMON NORMALS: Equal, round and reactive pupils present and EOMs intact bilaterally Neck/C-Spine: COMMON NORMALS: no JVD Lymph: LYMPHATIC: lymphadenopathy Chest: COMMONS NORMALS: normal inspection of the chest Resp: COMMON NORMALS: normal respiratory effort, No retractions, No use of accessory muscles and clear to auscultation bilaterally AUSCULTATION: clear to auscultation bilaterally Cardio: COMMON NORMALS: no JVD, regular rate, regular rhythm, S1 normal heart sound present and S2 normal heart sound present RATE: tachycardic RHYTHM: regular rhythm HEART SOUNDS: S1 normal heart sound present and S2 normal heart sound present GI: COMMON NORMALS: Normal to inspection, nondistended, normoactive bowel sounds present, Soft to palpation, non-tender, no masses and no bruits PALPATION: Yes Soft to palpation and Yes No hepatosplenomegaly present Extremity: COMMON NORMALS: capillary refill normal, no clubbing, cyanosis or edema, no calf tenderness and no pedal edema NARRATIVE EXTREMITY EXAM: Has left leg swelling and erythema, left leg erythema starts at the mid quadriceps, and extends down to the forefoot Urinary Catheter Management: Austin Latex: Cath Placed During This Visit: yes Urinary Catheter Date of Insertion: 06/23/22 Urinary Catheter Time of Insertion: 22:28 Data 06/23/22 19:40 06/23/22 19:40 Micro: Microbiology 06/23/22 20:38 Blood Culture - Preliminary Blood SPECIMEN COLLECTED 06/23/22 19:40 Blood Culture - Preliminary Blood SPECIMEN COLLECTED A&P Assessment and plan (1) Altered mental status: (2) Hypothyroidism: Qualifiers: Hypothyroidism type: unspecified Qualified Code(s): E03.9 - Hypothyroidism, unspecified (3) Hypertension: Qualifiers: Hypertension type: essential hypertension Qualified Code(s): I10 - Essential (primary) hypertension (4) CHF (congestive heart failure), NYHA class III: Qualifiers: Congestive heart failure type: unspecified Qualified Code(s): I50.9 - Heart failure, unspecified Plan Altered mental status, fevers -Possible aspiration event, as he was found with vomit on his pillow -Will order CT of the chest, Pro-Marcus, CRP, Sputum Cultures respiratory viral panel -COVID pending -Possible UTI although CT scan abdomen pelvis does not show any obstructive uropathy, no kidney stones -There is certainly possibility of meningitis, however Kernig sign, Brudzinski sign is negative, no neck stiffness -CT head within normal limits -Will cover him with broad-spectrum antibacterial coverage with vancomycin, Rocephin, add doxycycline for possible tickborne illness, add acyclovir for possible viral encephalitis -Will start him on Decadron -We will monitor him for the next 24 hours -If his mentation does not improve we will consider lumbar puncture -MRI of the brain if his mentation does not improve -Ordered antifungal studies including Aspergillus, glucan, cmv -Monitor blood sugars closely, low-dose sliding scale -Does have rhabdomyolysis, IV fluids monitor urine output monitor creatinine -Is hypertensive, will have nursing staff put in a NG tube, resume his home medications likely withdrawal from not taking his medications -Full code -Lovenox for DVT prophylaxis Attestations Medical Necessity Statement*: Patient requires hospitalization, inpatient, greater than 2 midnights, for altered mental status, fevers Coding Level of Care Code Acute Coroner'S Juror for [facility] Reyna Diagnoses Altered mental status R41.82 Hypothyroidism E03.9 Hypothyroidism type: unspecified Hypertension I10 Hypertension type: essential hypertension CHF (congestive heart failure), NYHA class III I50.9 Congestive heart failure type: unspecified
[2022-06-24] VITALS (46 sets, daily range): BP systolic 110–185; BP diastolic 58–84; PULSE 62–132; RESP 17–32; TEMP 36.4–37.2; O2SAT 89–96; BMI 38.6
[2022-06-24 00:01] LABS: Lactic Acid level (Lactate) 3.5 mmol/L (0.5-2.2)
[2022-06-24 00:06] LABS: C Reactive Protein 182.9 mg/L (0.0-4.9)
[2022-06-24 00:10] LABS: Procalcitonin 12.47 ng/mL (0-0.5)
[2022-06-24] MEDS: dexamethasone 10 mg/mL INJ IVP ×4 (00:19→21:31)
[2022-06-24 00:26] LABS: Erythrocyte Sedimentation Rate 9 mm/hr (0-10)
[2022-06-24 00:39] LABS: Ammonia 16 umol/L (16-60)
[2022-06-24 01:22] LABS: Adenovirus Not Detected (NOT DETECT); Chlamydia Pneumoniae Not Detected (NOT DETECT); Coronavirus 229E,HKU1,NL63,OC4 Not Detected (NOT DETECT); Human Metapneumovirus Not Detected (NOT DETECT); Human Rhinovirus/Enterovirus Not Detected (NOT DETECT); Influenza A Not Detected (NOT DETECT); Influenza A H1 Not Detected (NOT DETECT); Influenza A H1-2009 Not Detected (NOT DETECT); Influenza A H3 Not Detected (NOT DETECT); Influenza B Not Detected (NOT DETECT); Mycoplasma Pneumoniae Not Detected (NOT DETECT); Parainfluenza Virus Type 1 Not Detected (NOT DETECT); Parainfluenza Virus Type 2 Not Detected (NOT DETECT); Parainfluenza Virus Type 3 Not Detected (NOT DETECT); Parainfluenza Virus Type 4 Not Detected (NOT DETECT); Respiratory Syncytial Virus A Not Detected (NOT DETECT); Respiratory Syncytial Virus B Not Detected (NOT DETECT); SARS-COV-2 Not Detected (NOT DETECT)
--- NOTE | 2022-06-24 01:50 | ECG_ITS ---
[facility] Test Date: 2022-06-24 Pat Name: Brittny Londono Department: Room: [facility] [place] Gender: Male Loading Manager: : 1950 Requested By: Kelvin Marin Order Number: [id number] Anoop MD: Len Jansen M.D. Measurements Intervals [place] Rate: 91 P: 46 DC: 183 QRS: -23 QRSD: 91 T: 25 QT: 357 QTc: 441 Interpretive Statements SINUS RHYTHM WITH OCCASIONAL VENTRICULAR PREMATURE COMPLEXES BORDERLINE LEFT AXIS DEVIATION [QRS AXIS < -20] Compared to ECG 06/23/2022 22:24:27 Ventricular premature complex(es) now present Sinus tachycardia no longer present Myocardial infarct finding no longer present Electronically Signed On 06-24-2022 20:24:30 HANDBAG DESIGNER by Len Jansen M.D. [id number]
[2022-06-24 02:10] LABS: Basophils % 0.3 %; Eosinophils % 0.2 %; Hematocrit 38.7 % (42.0-52.0); Hemoglobin 13.1 g/dL (11.7-16.6); Lymphocytes # 0.2 10^3/uL (0.8-4.8); Lymphocytes % 1.4 %; Mean Corpuscular HGB Conc 33.9 g/dL (30.0-36.0); Mean Corpuscular Hemoglobin 30.9 pg (28.0-34.0); Mean Corpuscular Volume 91.3 fl (80-94); Mean Platelet Volume 9.7 fL (7.4-10.4); Monocytes # 0.2 10^3/uL (0.2-0.9); Monocytes % 1.9 %; Neutrophils # 11.83 10^3/uL (1.8-7.7); Neutrophils % 95.1 %; Nucleated Red Blood Cells % 0 %; Platelet Count 203 10^3/cmm (130-400); Red Blood Count 4.24 10^6/uL (4.1-5.3); Red Cell Distribution Width 13.1 % (12.1-15.1); White Blood Count 12.4 10^3/uL (4.0-10.0)
[2022-06-24 02:17] LABS: Troponin 5 6HR 101.2 ng/L (0-15)
[2022-06-24 02:18] LABS: Troponin 5 6HR Delta 13.2 ng/L (0-12)
[2022-06-24 02:18] LABS: Slide Review Slide Review Perform
[2022-06-24 02:27] LABS: Alanine Aminotransferase 19 U/L (0-41); Albumin Level 3.2 g/dL (3.5-5.2); Alkaline Phosphatase 67 U/L (40-130); Anion Gap 13.5 (5-19); Aspartate Amino Transferase 35 U/L (0-40); Blood Urea Nitrogen 44 mg/dL (8-23); Calcium 8.9 mg/dL (8.5-10.5); Carbon Dioxide 26 mmol/L (22-29); Chloride 102 mmol/L (98-107); Globulin 2.7 g/dL (1.3-4.6); Glomerular Filtration Rate 26.9 mL/min (90-130); Glucose 133 mg/dL (65-115); Lactic Sepsis W/Reflex 2.2 mmol/L (0.5-2.2); Osmolality Calculated 297 mOsm/kg (285-295); Potassium 4.5 mmol/L (3.5-5.1); Sodium 137 mmol/L (136-145); Total Bilirubin 0.9 mg/dL (0.15-1.2); Total Protein 5.9 g/dL (6.6-8.7)
--- NOTE | 2022-06-24 02:36 | PC.PHAR ---
Pharmacokinetic dosing service Date: 06/24/22 Time: 235 Objective: Patient: Brittny Londono Floor: ICU-3 Age: 71 yo Serum creatinine: 2.1 mg/dL Height: 74.0 Inches Weight (kg): 136.5 Diagnosis: Relevant medical/social history: Cultures and sensitivities: Other labs: Assessment: IBW (kg): 82.20 Dosing wt(kg): 136.5 Estimated Creatinine clearance (ml/min): 38.1 CRCL method: Cockcroft and Gault using ibw(default). Drug selected: Vancomycin Loading dose (mg): 0 Vd (liters): 122.9 (factor used: 0.9 L/kg) Thom (hr-1): 0.036 Half life (hrs): 19.25 Recommended dose: 1500 mg Interval: 24 hrs Infusion time (hrs): 1.5 Predicted peak (mcg/mL): 20.5 Predicted trough (mcg/mL): 9.12 Total body weight is being used for vancomycin dosing. Renal function is stable [ ] /unstable [ ] Recommendations: Give Vancomycin 1500 mg q 24 hrs with an expected Cpeak of 20.5 mcg/ml and an expected Ctrough of 9.12 mcg/ml Renal dosing of other antibiotics (review renal dosing of other medications and list guidelines here): Thank you for the consult, will continue to follow. Signature: Angeli English [facility]
[2022-06-24] MEDS: carvedilol 3.125 mg Tablet PO ×2 (03:04→11:47)
[2022-06-24 03:06] LABS: Thyroid Stimulating Hormone 1.64 uIU/mL (0.27-4.20)
[2022-06-24] MEDS: dextrose 5%-sod chloride 0.9% 1,000 ML 100 ML IV ×3 (03:06→23:36)
[2022-06-24] MEDS: pantoprazole 40 mg SDV IVP ×2 (03:08→14:21)
[2022-06-24] MEDS: cefTRIAXone 2,000 MG in sodium chloride 0.9% (plus) 50 ML 100 MG IV (03:10)
[2022-06-24] MEDS: acyclovir 1,000 MG in sodium chloride 0.9% (100 ml) 100 ML 120 MG IV (03:11)
[2022-06-24] MEDS: hyDRALAzine 50 mg Tablet PO ×3 (03:12→17:02)
[2022-06-24] MEDS: enoxaparin 40 mg/0.4 mL Syringe SUBCUT (03:12)
[2022-06-24 03:32] LABS: Estmated Average Glucose 212
[2022-06-24] MEDS: primidone 50 mg Tablet PO ×2 (03:36→11:47)
[2022-06-24 03:50] LABS: Reflex Lactate Order REFLEX LACTIC ORDERD
[2022-06-24] MEDS: vancomycin 1,500 MG/300 ML PIGGYBACK 200 MG IV (04:30)
[2022-06-24] MEDS: doxycycline 100 MG in sodium chloride 0.9% (plus) 100 ML IV ×2 (04:45→14:21)
[2022-06-24 06:24] LABS: Lactic Acid level (Lactate) 1.7 mmol/L (0.5-2.2)
[2022-06-24 07:45] LABS: Glucose Point of Care 137 mg/dL (70-110)
[2022-06-24] MEDS: NIFEdipine ER (24 hr) 30 mg Tablet 60 MG PO (08:35)
[2022-06-24] MEDS: PARoxetine 20 mg Tablet 10 MG PO (08:35)
[2022-06-24] MEDS: levothyroxine 100 mcg SDV 12.5 MCG IVP (08:35)
--- NOTE | 2022-06-24 10:25 | PC.SLP ---
TWISTER TENDER visited patient in ICU per order. Pt states that he feel like throwing up. Nurse notified and feeding trial withheld at this time. Therapist will follow up tomorrow.
[2022-06-24] MEDS: topiramate 100 mg Tablet PO (10:30)
--- NOTE | 2022-06-24 10:50 | PM.PN ---
Subjective Subjective: Patient is complaining of headache, he cannot recall any events from yesterday Brudzinski and Kernig signs negative Will request CSF panel Continue antibiotics I will adjust the dose of antibiotics according to his kidney function We will give him Tylenol for headache Patient is stating he has history of migraine and this seems like another episode of migraine to him Denying any blurry vision He is awake and alert pleasant and cooperative Vitals/I&O/Wt Last Vital Signs Temp 98.3 F 06/24/22 04:00 Pulse 97 06/24/22 09:00 Resp 21 H 06/24/22 09:00 BP 135/72 06/24/22 09:00 Pulse Ox 93 06/24/22 08:00 O2 Del Method 06/24/22 01:48 O2 Flow Rate 2 06/24/22 01:48 06/23/22 06/24/22 06/24/22 22:59 06:59 14:59 Intake Total 790 / 790 Output Total 75 / 75 Balance 715 / 715 Weight last 48 hrs Weight 136.5 kg Weight 136.078 kg Physical Exam Narrative: NIH 0 Able to follow commands Awake and alert Complaining of headache Distended abdomen nontender Lower extremity trace edema S1, S2 Currently on 2 L nasal cannula Saturating 94% On room air he dips down to 90% because of shallow breathing No audible stridor or wheezing Coarse essential tremors Urinary Catheter Management: Austin Latex: Cath Placed During This Visit: yes Reason for Continuing Indwelling Catheter: Accurate Measurement of Urinary Output in Critically Ill Patients Urinary Catheter Date of Insertion: 06/23/22 Urinary Catheter Time of Insertion: 22:28 Data 06/24/22 02:00 06/24/22 02:00 Micro: Microbiology 06/23/22 20:38 Blood Culture - Preliminary Blood SPECIMEN COLLECTED 06/23/22 19:40 Blood Culture - Preliminary Blood SPECIMEN COLLECTED A&P Assessment and plan (1) Altered mental status: (2) Major depressive disorder, recurrent, in partial remission: (3) Hypothyroidism: Qualifiers: Hypothyroidism type: unspecified Qualified Code(s): E03.9 - Hypothyroidism, unspecified (4) Hypertension: Qualifiers: Hypertension type: essential hypertension Qualified Code(s): I10 - Essential (primary) hypertension (5) CHF (congestive heart failure), NYHA class III: Qualifiers: Congestive heart failure type: unspecified Qualified Code(s): I50.9 - Heart failure, unspecified (6) Diabetes: Qualifiers: Diabetes mellitus type: type 2 Diabetes mellitus long wall mining machine tender insulin use: with residential use Diabetes mellitus complication status: with kidney complications (7) Familial tremor: (8) Metabolic encephalopathy: (9) Febrile: Plan Metabolic encephalopathy: Improved No signs of UTI, pneumonia or acute abdominal pathology, high D-dimer, patient not a candidate for CTA chest, he is requiring oxygen related to shallow breaths, signs of tachycardia present And episode of emesis at home, CT abdomen pelvis unremarkable, no need of NG tube Concern for meningoencephalitis Complaining of headache Kernig's and Brudzinski's sign negative Will request CSF panel Continue antibiotics Antibiotics to be adjusted according to current creatinine clearance I will change the dose of acyclovir, continue ceftriaxone 2 g daily along doxycycline and vancomycin Febrile event noted overnight Patient is awake and alert oriented x3 GCS 15 No signs of stroke I will let him eat Request CSF panel tomorrow For hypertensive urgency added antihypertensive regimen Hold DVT prophylaxis of Lovenox for lumbar puncture tomorrow He does not need to stay n.p.o. for lumbar puncture tomorrow Leakage of troponin :-no active chest pain, will request echo , EKG without ischemic or infarct or changes Attestations Medical Necessity Statement*: Continue ICU management Time Spent in Patient Care: 40 Coding Level of Care Code Acute Mobile Marketing Specialist for [facility] Fwd Diagnoses Altered mental status R41.82 Major depressive disorder, recurrent, in partial remission F33.41 Hypothyroidism E03.9 Hypothyroidism type: unspecified Hypertension I10 Hypertension type: essential hypertension CHF (congestive heart failure), NYHA class III I50.9 Congestive heart failure type: unspecified Diabetes E11.9 Diabetes mellitus type: type 2 Diabetes mellitus residential insulin use: with long wall mining machine tender use Diabetes mellitus complication status: with kidney complications Familial tremor G25.0 Metabolic encephalopathy G93.41 Febrile R50.9
--- NOTE | 2022-06-24 10:57 | USCV_ITS ---
Brittny Londono Age: 71 Gender: M : 1950 Exam Date: 06/24/2022 12:03 Ordering Phys: Glenroy Salvador MD Technologist: MARC Exam Location: [facility] [place] Indication: TROP LEAK BP: 166 / 83 HR: 101 Rhythm: Sinus Technical Quality: Suboptimal MEASUREMENTS (Male / Female) Normal Values 2D ECHO LVOT Diameter 2.0 cm LV Ejection Fraction MOD 2C 76.1 % LV Ejection Fraction 2C AL 76.5 % LA Diameter 3.8 cm LA Width 3.1 cm LA Height 4.6 cm RA Width 3.6 cm RA Height 4.2 cm Aorta at Sinotubular Diameter 2.2 cm M-MODE Aortic Annulus Diameter 3.6 cm LA Ao Ratio MM 1.1 MV E Point Septal Separation 0.8 cm DOPPLER AV Peak Velocity 134.0 cm/s LVOT Peak Velocity 97.0 cm/s AV Area Cont Eq vti 3.4 cm squared AV Area Cont Eq pk 2.4 cm squared MV Peak Velocity 119.0 cm/s MV Area PHT 4.0 cm squared Mitral E to A Ratio 0.6 MV E' Velocity 36.5 cm/s Mitral E to MV E' Ratio 9.7 Mitral E to LV E' Lateral Ratio 8.9 Mitral E to LV E' Septal Ratio 10.6 TR Peak Velocity 147.3 cm/s TR Peak Gradient 8.7 mmHg TR Mean Velocity 113.9 cm/s TR Mean Gradient 5.5 mmHg TR Velocity Time Integral 33.2 cm TV Peak E Velocity 41.0 cm/s Right Atrial Pressure 8.0 mmHg Pulmonary Artery Systolic Pressu 16.7 mmHg PV Peak Velocity 105.0 cm/s RV Acceleration Time 0.1 s RV Ejection Time 0.3 s RV AcT/ET 0.4 FINDINGS Left Ventricle Normal left ventricular size and systolic function, EF 71 %. No regional wall motion abnormalities. Grade I/IV diastolic dysfunction (abnormal relaxation filling pattern), normal to mildly elevated filling pressures. No regional wall motion abnormalities. Right Ventricle The right ventricle is normal in size and function. Right Atrium The right atrium is normal in size. Left Atrium The left atrium is normal in size. Mitral Valve Structurally normal mitral valve without significant stenosis or prolapse. There is no mitral regurgitation. Aortic Valve No gross abnormalities noted Tricuspid Valve No gross abnormalities noted Pulmonic Valve Thickened pulmonic valve. Pericardium Normal pericardium without effusion. Aorta Appears to be of normal size IVC The inferior vena cava appears normal. CONCLUSIONS Normal left ventricular size and systolic function, EF 71 %. No regional wall motion abnormalities. Grade I/IV diastolic dysfunction (abnormal relaxation filling pattern), normal to mildly elevated filling pressures. No regional wall motion abnormalities. (Echo contrast - Optison was used to delineate the endocardium and to estimate the LV ejection fraction) No obvious valvular abnormalities Possibly normal chamber sizes There is no pericardial effusion. There are no intracardiac masses. Compared to the previous study from 10/07/2020, there may not be significant change Dr Len Jansen MD FACC (Electronically Signed) Final Date: 24 June 2022 17:29 S
[2022-06-24 11:27] LABS: NT Pro B Type Natriuretic Pept 8311 pg/mL (0-125)
[2022-06-24] MEDS: insulin lispro 100 unit/1 mL SUBCUT ×2 (11:47→17:02)
[2022-06-24] MEDS: perflutren protein-a microsphr 0.22 mg/mL SDV 3 mL IV (12:35)
[2022-06-24 14:01] LABS: Prolactin 17.77 ng/mL (4.0-15.2)
[2022-06-24] MEDS: oxyCODONE-APAP 5-325 mg Tablet 1 TAB PO ×2 (14:35→19:46)
[2022-06-24 15:12] LABS: Glucose Point of Care 194 mg/dL (70-110)
[2022-06-24 16:58] LABS: Glucose Point of Care 199 mg/dL (70-110)
[2022-06-24 22:05] LABS: Glucose Point of Care 215 mg/dL (70-110)
[2022-06-25] VITALS (24 sets, daily range): BP systolic 106–230; BP diastolic 62–129; PULSE 74–105; RESP 15–43; TEMP 36.6–37.4; O2SAT 90–95
[2022-06-25 00:21] LABS: Adenovirus Not Detected (NOT DETECT); Chlamydia Pneumoniae Not Detected (NOT DETECT); Coronavirus 229E,HKU1,NL63,OC4 Not Detected (NOT DETECT); Human Metapneumovirus Not Detected (NOT DETECT); Human Rhinovirus/Enterovirus Not Detected (NOT DETECT); Influenza A Not Detected (NOT DETECT); Influenza A H1 Not Detected (NOT DETECT); Influenza A H1-2009 Not Detected (NOT DETECT); Influenza A H3 Not Detected (NOT DETECT); Influenza B Not Detected (NOT DETECT); Mycoplasma Pneumoniae Not Detected (NOT DETECT); Parainfluenza Virus Type 1 Not Detected (NOT DETECT); Parainfluenza Virus Type 2 Not Detected (NOT DETECT); Parainfluenza Virus Type 3 Not Detected (NOT DETECT); Parainfluenza Virus Type 4 Not Detected (NOT DETECT); Respiratory Syncytial Virus A Not Detected (NOT DETECT); Respiratory Syncytial Virus B Not Detected (NOT DETECT); SARS-COV-2 Not Detected (NOT DETECT)
[2022-06-25] MEDS: primidone 50 mg Tablet PO ×2 (00:43→13:29)
[2022-06-25] MEDS: carvedilol 3.125 mg Tablet PO ×2 (00:43→13:29)
[2022-06-25] MEDS: hyDRALAzine 50 mg Tablet PO ×3 (00:43→17:49)
[2022-06-25] MEDS: pantoprazole 40 mg SDV IVP ×2 (00:45→13:10)
[2022-06-25] MEDS: cefTRIAXone 2,000 MG in sodium chloride 0.9% (plus) 50 ML 100 MG IV (00:48)
--- NOTE | 2022-06-25 01:49 | PC.NURSE ---
Addendum entered by Vivian Benedict RN 06/25/22 02:06: Pt will not leave NC on. SpO2 93% RA, RR 23. Original Note: Pt is unable to answer any orientation questions correctly. Pt keeps repeating, I don't know when asked questions. Pt is attempting to get out of bed, pulling at lines. Pt put the TV remote in his mouth and said he wanted a drink. At this time pt can be redirected w/ some difficulty. At this time RN is sitting at bedside to redirect pt. Bed alarm on, socks on.
[2022-06-25] MEDS: dexamethasone 10 mg/mL INJ IVP ×3 (02:19→15:00)
[2022-06-25] MEDS: acyclovir 1,000 MG in sodium chloride 0.9% (100 ml) 100 ML 120 MG IV ×2 (02:24→16:52)
[2022-06-25] MEDS: doxycycline 100 MG in sodium chloride 0.9% (plus) 100 ML IV ×2 (02:41→15:00)
[2022-06-25 03:12] LABS: Basophils % 0.3 %; Hematocrit 34.3 % (42.0-52.0); Hemoglobin 11.6 g/dL (11.7-16.6); Lymphocytes # 0.5 10^3/uL (0.8-4.8); Lymphocytes % 3.6 %; Mean Corpuscular HGB Conc 33.8 g/dL (30.0-36.0); Mean Corpuscular Hemoglobin 30.9 pg (28.0-34.0); Mean Corpuscular Volume 91.2 fl (80-94); Mean Platelet Volume 10.4 fL (7.4-10.4); Monocytes # 0.5 10^3/uL (0.2-0.9); Monocytes % 3.2 %; Neutrophils # 13.53 10^3/uL (1.8-7.7); Neutrophils % 91.7 %; Nucleated Red Blood Cells % 0 %; Platelet Count 170 10^3/cmm (130-400); Red Blood Count 3.76 10^6/uL (4.1-5.3); White Blood Count 14.7 10^3/uL (4.0-10.0)
[2022-06-25] MEDS: vancomycin 1,500 MG/300 ML PIGGYBACK 200 MG IV (03:34)
[2022-06-25 03:41] LABS: Blood Urea Nitrogen 53 mg/dL (8-23); Calcium 8.2 mg/dL (8.5-10.5); Carbon Dioxide 22 mmol/L (22-29); Chloride 106 mmol/L (98-107); Glomerular Filtration Rate 28.3 mL/min (90-130); Glucose 247 mg/dL (65-115); Osmolality Calculated 313 mOsm/kg (285-295); Sodium 140 mmol/L (136-145)
[2022-06-25 04:12] LABS: Slide Review Slide Review Perform
[2022-06-25] MEDS: acetaminophen 325 mg Tablet 650 MG PO ×2 (04:58→21:37)
[2022-06-25] MEDS: acyclovir 500 MG in sodium chloride 0.9% (100 ml) 100 ML 110 MG IV (05:07)
--- NOTE | 2022-06-25 08:09 | MR_ITS ---
WS: [id number] MR VENOGRAPHY HEAD 3-D noncontrast imaging performed through the cerebral veins. All imaging is reviewed. HISTORY: AMS FEVER COMPARISON: None available. Mild motion artifact. Nonocclusive linear filling defect in the RIGHT transverse and sigmoid sinus. T his is asymmetric to the LEFT. The RIGHT venous sinuses are larger than the LEFT. Highly suspicious f or nonocclusive thrombus. No abnormality was noted on the recent CT or MRI in this region. There is n o venous infarct identified. MR/[place] [id number] IMPRESSION: 1. Quality of this examination is compromised by patient motion. 2. Nonocclusive filling defects in the RIGHT transverse and sigmoid sinus. Susp icious for nonocclusive cerebral venous thrombosis.
--- NOTE | 2022-06-25 08:09 | MR_ITS ---
WS: [id number] MRI BRAIN WITHOUT CONTRAST HISTORY: AMS FEVER COMPARISON: Prior head CT 06/23/2022. TECHNIQUE: Diffusion imaging, multiplanar T1, T2 and FLAIR imaging obtained. No evidence for acute infarct or hemorrhage. Marinelli-white matter differentiation is normal. Mild bilateral symmetric atrophy. No prior infarct and minimal small vessel ischemic disease. Ventricles and extra-axial spaces are mildly prominent on the basis of atrophy. No inferior displacement of cerebellar tonsils. The sella turcica and pituitary gland are unremarkabl e. Dural venous sinuses and [place] demonstrate no abnormality on this unenhanced studies. Paranasal sinuses: Clear. Mastoid air cells: Normal. Calvarium and scalp: Intact. MR/MR head wo con* [id number] IMPRESSION: 1. No acute infarct or cerebral edema. 2. Mild symmetric cerebral atrophy.
[2022-06-25] MEDS: dextrose 5%-sod chloride 0.9% 1,000 ML 100 ML IV ×2 (08:13→21:20)
[2022-06-25 08:48] LABS: Glucose Point of Care 298 mg/dL (70-110)
[2022-06-25 08:49] LABS: Glucose Point of Care 309 mg/dL (70-110)
--- NOTE | 2022-06-25 09:00 | P.PN_ITS ---
Subjective Subjective: This is a late entry note I have requested MRI MRV to rule out cerebral venous thrombosis No fever in last 24 hours updated Vitals/I&O/Wt Last Vital Signs Temp 98.9 F 06/26/22 05:17 Pulse 69 06/26/22 06:00 Resp 26 H 06/26/22 00:00 BP 115/69 06/26/22 00:00 Pulse Ox 90 06/26/22 00:00 O2 Del Method 06/25/22 17:00 O2 Flow Rate 2 06/24/22 01:48 FiO2 21 06/24/22 23:10 06/25/22 06/26/22 06/26/22 22:59 06:59 14:59 Intake Total 1301.667 / 2601.667 1056.442 / 3658.109 60.588 / 60.588 Output Total 850 / 850 750 / 1600 Balance 451.667 / 1751.667 306.442 / 2058.109 60.588 / 60.588 Physical Exam Narrative: Alert oriented x2 Following commands On antibiotics Hemodynamically stable No fever Complaining of headache No blurry vision Abdomen soft Edema of legs noted Doing well on room air Able to tell me his name and date of Short attention span He takes time to answer the questions Urinary Catheter Management: Austin Latex: Cath Placed During This Visit: yes Reason for Continuing Indwelling Catheter: Accurate Measurement of Urinary Output in Critically Ill Patients Urinary Catheter Date of Insertion: 06/23/22 Urinary Catheter Time of Insertion: 22:28 Data 06/25/22 15:20 06/25/22 02:30 Micro: Microbiology 06/25/22 15:20 Blood Culture - Preliminary Blood SPECIMEN COLLECTED 06/25/22 15:15 Blood Culture - Preliminary Blood SPECIMEN COLLECTED 06/25/22 11:45 Gram Stain - Final Cerebrospinal Fluid 06/23/22 19:40 Blood Culture - Preliminary Blood Strep species, alpha hemolytic 06/23/22 22:23 Urine Culture - Preliminary Urine Catheterized A&P Assessment and plan (1) Metabolic encephalopathy: (2) Febrile: (3) Altered mental status: (4) Cerebral venous thrombosis: (5) Hypothyroidism: (6) CHF (congestive heart failure), NYHA class III: (7) Diabetes: (8) Familial tremor: Plan Lumbar puncture by radiology today Requested MRI head and MRV without contrast Cerebral venous thrombosis diagnosed on MRV updated Dr. Peterson recommended anticoagulation, no need to transfer for thrombectomy as this is nonocclusive Patient will be started on heparin drip 4 hours after lumbar puncture Started him on heparin drip No signs of active infection on CSF panel I would keep him on current antibiotics as his cerebral venous thrombosis could be related to aseptic meningitis Acyclovir to be dosed renally No signs of intracranial hypertension or seizures MRI head unremarkable No signs of stroke Tolerating diet Attestations Medical Necessity Statement*: Continue ICU management Time Spent in Patient Care: 40 Critical Care Time: 40 Coding Level of Care Code Acute Math And Sciences Department Chair for Chg Fwd Diagnoses Metabolic encephalopathy G93.41 Febrile R50.9 Altered mental status R41.82 Cerebral venous thrombosis G08 Hypothyroidism E03.9 CHF (congestive heart failure), NYHA class III I50.9 Diabetes E11.9 Familial tremor G25.0
--- NOTE | 2022-06-25 09:00 | FL_ITS ---
WS: [id number] LUMBAR PUNCTURE UNDER FLUOROSCOPY: OBTAIN CSF FOR ANALYSIS HISTORY: Metabolic encephalopathy COMPARISON: None available. FLUOROSCOPY TIME: 1min [id number] # of spot films: 1 Procedure, complications, and risk and benefits explained to the patient. Consent was obtained. Recen t laboratory work and medication are reviewed prior to procedure. Skin over the lumbar is cleansed with ChloraPrep and anesthetized with 1% buffered lidocaine. Access into the thecal sac is achieved. CSF is removed in a sterile manner and placed in the sterile tubes. Approximately 10 ml is removed. Very slow acquisition of the CSF. It took several minutes to achieve sufficient amount of CSF. No complications are encountered. Patient tolerated procedure. CSF this into the laboratory for analysis as requested. FL/FL guided lumbarpunc dx* [id number] IMPRESSION: Uncomplicated lumbar puncture for CSF. CSF collected and sent for analysis as r equested.
[2022-06-25] MEDS: insulin lispro 100 unit/1 mL SUBCUT ×3 (09:11→17:49)
[2022-06-25] MEDS: levothyroxine 100 mcg SDV 12.5 MCG IVP (09:12)
[2022-06-25] MEDS: NIFEdipine ER (24 hr) 30 mg Tablet 60 MG PO (09:13)
--- NOTE | 2022-06-25 10:16 | PC.NURSE ---
Patient in care of MRI staff at 1009.
--- NOTE | 2022-06-25 12:32 | PC.SLP ---
Multiple attempts made to assess patient per orders. Patient is unable to be aroused to participate in an evaluation. Will continue to monitor and assess when appropriate.
[2022-06-25 12:57] LABS: Cyto Order Verification No Order
[2022-06-25] MEDS: hyDRALAzine 20 mg/mL INJ 1 mL 10 MG IVP (13:08)
[2022-06-25 14:22] LABS: CSF Mononuclear # 0.003 10^3/uL (50-90); Mononuclear WBC CSF % 100 % (50-90); Polynuclear WBC CSF % 0 % (0-10); Red Blood Cell CSF 0 10^3/uL (0-0); White Blood Cell CSF 3 /uL (0-5)
[2022-06-25] MEDS: ondansetron 2 mg/ML SDV 2 mL 4 MG IVP (14:23)
[2022-06-25 14:31] LABS: Appearance CSF CLEAR (CLEAR); Color CSF COLORLESS (COLORLESS)
[2022-06-25 14:32] LABS: Pathology Referral Yes
[2022-06-25 14:45] LABS: Glucose CSF 145 mg/dL (40-70); Total Protein CSF 42 mg/dL (15-45)
[2022-06-25] MEDS: ziprasidone 20 mg/mL SDV 10 MG IM (15:03)
[2022-06-25 15:40] LABS: Platelet Count 167 10^3/cmm (130-400)
[2022-06-25 16:53] LABS: Glucose Point of Care 282 mg/dL (70-110)
[2022-06-25] MEDS: heparin drip 25,000 UNIT/500 ML PREMIX 36 UNIT IV (16:53)
[2022-06-25 17:31] LABS: Glucose Point of Care 312 mg/dL (70-110)
[2022-06-25] MEDS: dexmedetomidine 400 MCG in sodium chloride 0.9% (100 ml) 100 ML IV (17:50)
[2022-06-25] MEDS: quetiapine 25 mg Tablet PO (21:18)
[2022-06-25 21:48] LABS: Glucose Point of Care 332 mg/dL (70-110)
[2022-06-25 23:23] LABS: Partial Thromboplastin Time 78.2 SECONDS (23.9-36.7)
[2022-06-26] VITALS (26 sets, daily range): BP systolic 115–170; BP diastolic 59–96; PULSE 69–113; RESP 12–41; TEMP 36.7–37.2; O2SAT 88–94
[2022-06-26] MEDS: primidone 50 mg Tablet PO ×2 (00:58→12:08)
[2022-06-26] MEDS: hyDRALAzine 50 mg Tablet PO ×3 (00:59→17:29)
[2022-06-26] MEDS: carvedilol 3.125 mg Tablet PO ×2 (00:59→14:10)
[2022-06-26] MEDS: pantoprazole 40 mg SDV IVP ×2 (01:01→14:10)
[2022-06-26] MEDS: cefTRIAXone 2,000 MG in sodium chloride 0.9% (plus) 50 ML 100 MG IV (01:12)
[2022-06-26] MEDS: doxycycline 100 MG in sodium chloride 0.9% (plus) 100 ML IV ×2 (01:55→14:10)
[2022-06-26] MEDS: vancomycin 1,500 MG/300 ML PIGGYBACK 200 MG IV (02:11)
[2022-06-26] MEDS: acyclovir 1,000 MG in sodium chloride 0.9% (100 ml) 100 ML 120 MG IV ×2 (04:09→15:36)
[2022-06-26 05:43] LABS: Partial Thromboplastin Time 87.4 SECONDS (23.9-36.7)
--- NOTE | 2022-06-26 06:33 | ED_ITS ---
HPI - General Adult General: Chief complaint: Altered Mental Status Stated complaint: unresponsive Time Seen by Provider: 06/23/22 19:46 Source: patient Mode of arrival: EMS History of Present Illness: 71-year-old male arrives by EMS. Patient was found to be mildly hypoglycemic with a blood glucose of 56 he was given glucose and his blood sugar responded well well over 300. Despite this patient remains encephalopathic on arrival here is difficult to get him to respond he does move facial muscles and extremities symmetrically there is no evidence of any weakness suggestive of stroke. He denies chest pain although his review of system is suspected because of his level of consciousness. He does have a low- grade fever. And he was hypertensive on arrival. Repeat temp after dinnertime was as high as 103 he was given IV acetaminophen. Patient recently had an injection for diabetic retinopathy. Around 0100 this morning the had found him sitting in a coat in his chair in the living room shivering. She brought a heater later found him sweating significantly. She had brought him back to bed around 5 or 6 in the morning and she went to work. She called to check on him several times in the afternoon when he did respond she went home to check on him and around 430 found him unresponsive EMS was called. Last known well time would be greater than 18 hours at this point. Onset (ago): hour(s) Relieving factors: none Exacerbating factors: none Associated symptoms: Reports confusion, diaphoresis, fevers/chills and malaise; Deny chest pain Review of Systems General: Reports: ROS unobtainable due to mental status (Limited due to mental status mostly from patient's ) Const: Reports: malaise and diaphoresis; Denies: fever(s) or chills Card: Denies: chest pain GI: Denies: abdominal pain : Denies: flank pain, dysuria, urinary frequency or urinary urgency Neuro: Reports: confusion PFSH ED PFSH: Medical History KINSEY (acute kidney injury) IMPROVING Cellulitis of right foot Diabetes Diabetic peripheral neuropathy associated with type 2 diabetes mellitus Familial tremor Gas gangrene Gas gangrene GERD (gastroesophageal reflux disease) Hypertension Hypertensive urgency Hyperthyroidism Hypothyroidism Major depressive disorder, recurrent, 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 Type 2 diabetes mellitus Surgical History History of colonoscopy History of hand surgery History of hernia surgery Family History Father Palpitations Stroke Denies family history of Diabetes CAD (coronary artery disease) Hypertension Social History Smoking and tobacco status: never smoked Alcohol intake: current Alcohol intake frequency: holidays/special occasions only Current occupational status: retired Physical Exam HENMT: COMMON NORMALS: normocephalic, atraumatic, hearing grossly normal bilaterally, external ears normal, EAC's normal, TM's normal bilaterally, Normal nasal mucous membranes and turbinates present, moist oral mucous membranes and oropharynx normal HEAD & SCALP: normocephalic and atraumatic NOSE: Normal nasal mucous membranes and turbinates present EXTERNAL EAR: Yes external ears normal EXTERNAL AUDITORY CANAL: EAC's normal TYMPANIC MEMBRANE: TM's normal bilaterally Eye: COMMON NORMALS: Equal, round and reactive pupils present, conjunctivae normal and no scleral icterus CONJUNCTIVA: Yes conjunctivae normal PUPIL: Yes Equal, round and reactive pupils present Neck/C-Spine: COMMON NORMALS: full ROM, no lymphadenopathy, supple and no JVD Resp: COMMON NORMALS: normal respiratory effort, No retractions, No use of accessory muscles and clear to auscultation bilaterally AUSCULTATION: clear to auscultation bilaterally Cardio: COMMON NORMALS: no JVD, regular rate, regular rhythm and No murmurs present (Cardio) RATE: regular rate RHYTHM: regular rhythm GI: COMMON NORMALS: Soft to palpation and No hepatosplenomegaly present AUSCULTATION: Yes normoactive bowel sounds PALPATION: Yes Soft to palpation, No Tenderness to palpation present (GI), No Guarding due to palpation present (GI) and Yes No hepatosplenomegaly present Extremity: COMMON NORMALS: capillary refill normal, no clubbing, cyanosis or edema, no calf tenderness and no pedal edema OTHER: Mild erythema without induration on the medial aspect of the left proximal thigh. No drainage no open wounds. Examination of the foot there is a dry eschar on the medial aspect of the left great toe with no drainage erythema or induration. Findings not consistent with degree of encephalopathy. Skin: COMMON NORMALS: no rashes or lesions noted GENERAL SKIN EXAM: no rashes or lesions noted Course Vital Signs: Vital signs: Vital Signs Temperature 98.9 F 06/26/22 05:17 Pulse Rate 69 06/26/22 06:00 Respiratory Rate 26 H 06/26/22 00:00 Blood Pressure 115/69 06/26/22 00:00 Pulse Oximetry 90 06/26/22 00:00 Oxygen Delivery Me thod 06/25/22 17:00 Oxygen Flow Rate 2 06/24/22 01:48 Fraction of Inspir ed Oxygen 21 06/24/22 23:10 MDM - General Adult Medical Decision Making Patient severely encephalopathic. CT head is negative. I do not find any meningeal signs on him on exam. Limited imaging due to his acute kidney injury. There is a small amount of redness on the proximal medial left thigh and a dry eschar with no sign of acute infection on his left great toe neither of which I would suspect clinically would correlate with the degree of encephalopathy he has at this time. Discussed with hospitalist will initiate antibiotics. Patient will need to be admitted await cultures fluids to improve kidney function ongoing evaluation. Medical Records I reviewed the patient's medical records. Lab Data I reviewed the patient's lab results. 06/25/22 15:20 06/25/22 02:30 Radiology Impressions Chest X-Ray 06/23/22 19:50 IMPRESSION: 1. No acute finding. 2. Large heart with a few other chronic findings above. Head CT 06/23/22 19:50 IMPRESSION: 1. No acute intracranial abnormality. 2. Mild age-related changes. Findings are similar to 08/11/2021. Abdomen/Pelvis CT 06/23/22 21:40 IMPRESSION: 1. No small bowel obstruction, abscess or free air. No strong evidence of diverticulitis. 2. Small hiatal hernia, constipation, and extensive diverticulosis. Other chronic and incidental findings above. A few left groin nodes may be reassessed in [address] 06/23/22 23:33 IMPRESSION: 1. Large heart with mild venous congestion. 2. Lung base atelectasis, scarring, or vague edema. No consolidation or effusion. 3. Small hiatal hernia and other chronic findings above. Venous Duplex 06/23/22 23:33 IMPRESSION: No evidence of deep vein thrombosis. Head MRI 06/25/22 08:09 IMPRESSION: 1. No acute infarct or cerebral edema. 2. Mild symmetric cerebral atrophy. Head/Brain Mag Res Venography 06/25/22 08:09 IMPRESSION: 1. Quality of this examination is compromised by patient motion. 2. Nonocclusive filling defects in the RIGHT transverse and sigmoid sinus. Suspicious for nonocclusive cerebral venous thrombosis. Lumbar Puncture Fluoroscopy 06/25/22 09:00 IMPRESSION: Uncomplicated lumbar puncture for CSF. CSF collected and sent for analysis as requested. Laboratory Results WBC 10.9 10^3/uL (4.0-10.0) H 06/23/22 19:40 RBC 4.58 10^6/uL (4.1-5.3) 06/23/22 19:40 Hgb 14.2 g/dL (11.7-16.6) 06/23/22 19:40 Hct 41.6 % (42.0-52.0) L 06/23/22 19:40 MCV 90.8 fl (80-94) 06/23/22 19:40 MCH 31.0 pg (28.0-34.0) 06/23/22 19:40 MCHC 34.1 g/dL (30.0-36.0) 06/23/22 19:40 RDW 13.1 % (12.1-15.1) 06/23/22 19:40 Plt Count 237 10^3/cmm (130-400) 06/23/22 19:40 MPV 9.6 fL (7.4-10.4) 06/23/22 19:40 Lymph % (Auto) Not Reportable 06/23/22 19:40 [place] % (Auto) Not Reportable 06/23/22 19:40 Lymph # (Auto) Not Reportable 06/23/22 19:40 [place] # (Auto) Not Reportable 06/23/22 19:40 Total Counted 100 (0-100) 06/23/22 19:40 Atypical Lymphs % 0.0 % (0-5) 06/23/22 19:40 Absolute Neutrophils 10.2 10^3/cmm (1.4-6.5) H 06/23/22 19:40 Segmented Neutrophils 69 % 06/23/22 19:40 Abs Segm Neuts (Man) 7.5 10/cmm (1.6-7.1) H 06/23/22 19:40 Band Neutrophils 25.0 % 06/23/22 19:40 Abs Band Neuts (Man) 2.7 10^3/cmm (0.0-1.2) H 06/23/22 19:40 Absolute Lymphocytes 0.2 10^3/cmm (1.2-3.4) L 06/23/22 19:40 Lymphocytes (Manual) 2 % 06/23/22 19:40 Monocytes (Manual) 2.0 % 06/23/22 19:40 Absolute Monocytes 0.2 10^3/cmm (0.1-0.6) 06/23/22 19:40 Eosinophils (Manual) 0 % 06/23/22 19:40 Absolute Eosinophils 0.0 10^3/cmm (0.0-0.7) 06/23/22 19:40 Basophils (Manual) 0.0 % 06/23/22 19:40 Absolute Basophils 0.0 10^3/cmm (0.0-0.2) 06/23/22 19:40 Metamyelocytes 2.0 % 06/23/22 19:40 Platelet Estimate Normal (Normal) 06/23/22 19:40 D-Dimer 1.29 ug/mIFEU (0-0.59) H 06/23/22 19:41 Specimen Type Arterial 06/23/22 20:51 Sample Site Radial, right 06/23/22 20:51 ABG pH 7.45 (7.35-7.45) 06/23/22 20:51 ABG pCO2 35.1 mmHg (35-45) 06/23/22 20:51 ABG pO2 54.9 mmHg (80.0-100.0) L 06/23/22 20:51 ABG HCO3 24.4 mmol/L (22-26) 06/23/22 20:51 ABG O2 Saturation 91.8 06/23/22 20:51 ABG Base Excess 0.7 mmol/L (-2.0-2.0) 06/23/22 20:51 Remi Test Pos 06/23/22 20:51 A-a O2 Gradient 6.6 mmHg (5-10) 06/23/22 20:51 Hematocrit 43.1 % (42-52) 06/23/22 20:51 Hgb O2 Saturation 91.7 % (95-100) L 06/23/22 20:51 Carboxyhemoglobin 1.0 %THgb (0.4-20.1) 06/23/22 20:51 Methemoglobin < 0.0 % (0.4-1.5) L 06/23/22 20:51 Total Hemoglobin 14.1 g/dL (14-18) 06/23/22 20:51 Sodium 141.0 mmol/L (131-143) 06/23/22 20:51 Potassium 4.4 mmol/L (3.5-5.0) 06/23/22 20:51 Glucose 150.0 mg/dL (70-115) H 06/23/22 20:51 Ionized Calcium 1.1 mmol/L (1.1-1.4) 06/23/22 20:51 O2 Delivery Device None 06/23/22 20:51 FiO2 21.0 % 06/23/22 20:51 Christmas Tree Grader ID Alewe 06/23/22 20:51 Sodium 138 mmol/L (136-145) 06/23/22 19:40 Potassium 4.9 mmol/L (3.5-5.1) 06/23/22 19:40 Chloride 103 mmol/L (98-107) 06/23/22 19:40 Carbon Dioxide 24 mmol/L (22-29) 06/23/22 19:40 Anion Gap 15.9 (5-19) 06/23/22 19:40 BUN 39 mg/dL (8-23) H 06/23/22 19:40 Creatinine 2.1 mg/dL (0.7-1.2) H 06/23/22 19:40 GFR Calculation 31.4 mL/min (90-130) L 06/23/22 19:40 Glucose 151 mg/dL (65-115) H 06/23/22 19:40 POC Glucose 166 mg/dL (70-110) H 06/23/22 19:33 Calculated Osmolality 298 mOsm/kg (285-295) H 06/23/22 19:40 Lactic Acid 2.6 mmol/L (0.5-2.2) H 06/23/22 19:40 Lactic Acid (Sepsis) 3.5 mmol/L (0.5-2.2) H 06/23/22 22:07 Calcium 9.3 mg/dL (8.5-10.5) 06/23/22 19:40 Total Bilirubin 0.9 mg/dL (0.15-1.2) 06/23/22 19:40 AST 29 U/L (0-40) 06/23/22 19:40 ALT 17 U/L (0-41) 06/23/22 19:40 Alkaline Phosphatase 79 U/L (40-130) 06/23/22 19:40 Creatine Kinase 652 U/L (39-308) H* 06/23/22 19:40 Troponin T Baseline 88 ng/L (0-15) H 06/23/22 19:40 Troponin T 120 Minute 82.23 ng/L (0-15) H 06/23/22 22:07 Delta Troponin T -5.77 ABS# (0-10) L 06/23/22 22:07 C-Reactive Protein 182.9 mg/L (0.0-4.9) H 06/23/22 19:40 Total Protein 6.5 g/dL (6.6-8.7) L 06/23/22 19:40 Albumin 4.0 g/dL (3.5-5.2) 06/23/22 19:40 Globulin 2.5 g/dL (1.3-4.6) 06/23/22 19:40 Lipase 6 U/L (13-60) L 06/23/22 19:40 Lipase Cancelled 06/23/22 19:40 Procalcitonin 12.47 ng/mL (0-0.5) H 06/23/22 19:40 Urine Color Dark yellow (Yellow) 06/23/22 22:23 Urine Appearance Clear (CLEAR) 06/23/22 22:23 Urine pH 5 (5-7) 06/23/22 22:23 Ur Specific Guild 1.020 (1.005-1.030) 06/23/22 22:23 Urine Protein 2+ (Negative) H 06/23/22 22:23 Urine Glucose (UA) 1+ (Normal) H 06/23/22 22:23 Urine Ketones 1+ (Negative) H 06/23/22 22:23 Urine Blood 3+ (Negative) H 06/23/22 22:23 Urine Nitrate Negative (Negative) 06/23/22 22:23 Urine Bilirubin Neg (Negative) 06/23/22 22:23 Urine Urobilinogen 1 mg/dL (Negative) H 06/23/22 22:23 Ur Leukocyte Esterase Trace (Negative) H 06/23/22 22:23 Urine RBC 5-10 /hpf (0-2) H 06/23/22 22:23 Urine WBC 5-10 /hpf (0-5) H 06/23/22 22:23 Ur Squamous Epith Cells 5-10 /hpf (0-5) H 06/23/22 22:23 Amorphous Sediment 2+ /hpf 06/23/22 22:23 Urine Bacteria Trace /hpf (NONE) 06/23/22 22:23 Serum Ketones Negative (Negative) 06/23/22 19:40 Coronavirus 229E (PCR) Not detected (NOT DETECT) 06/23/22 23:22 Influenza Type A Ag negative (Negative) 06/23/22 22:23 Influenza Type B Ag negative (Negative) 06/23/22 22:23 SARS-CoV-2 (PCR) Not detected (NOT DETECT) 06/23/22 23:22 Discharge Plan Discharge Patient Disposition: Admitted As Inpatient Admit Provider: Jb Chaney Clinical Impression: Metabolic encephalopathy, Febrile, Altered mental status, CHF (congestive heart failure), NYHA class III, Hypothyroidism, Hypertension, Diabetes Condition: Stable Coding Level of Care Code ED Optical Instrument Specialist for Avis Orellana
[2022-06-26] MEDS: heparin drip 25,000 UNIT/500 ML PREMIX 28 UNIT IV (07:03)
[2022-06-26 07:28] LABS: Glucose Point of Care 394 mg/dL (70-110)
[2022-06-26] MEDS: insulin lispro 100 unit/1 mL SUBCUT ×3 (08:22→17:29)
[2022-06-26] MEDS: NIFEdipine ER (24 hr) 30 mg Tablet 60 MG PO (08:23)
[2022-06-26] MEDS: levothyroxine 100 mcg SDV 12.5 MCG IVP (08:23)
[2022-06-26] MEDS: FUROsemide 10 mg/mL SDV 2mL 20 MG IVP (09:13)
[2022-06-26] MEDS: sennosides-docusate Tablet 1 TAB PO ×2 (09:13→17:29)
[2022-06-26 12:01] LABS: Partial Thromboplastin Time 54.6 SECONDS (23.9-36.7)
[2022-06-26 12:05] LABS: Alanine Aminotransferase 19 U/L (0-41); Albumin Level 2.8 g/dL (3.5-5.2); Alkaline Phosphatase 71 U/L (40-130); Aspartate Amino Transferase 16 U/L (0-40); Blood Urea Nitrogen 55 mg/dL (8-23); Calcium 7.8 mg/dL (8.5-10.5); Carbon Dioxide 18 mmol/L (22-29); Chloride 102 mmol/L (98-107); Globulin 2.8 g/dL (1.3-4.6); Glomerular Filtration Rate 33.2 mL/min (90-130); Glucose 407 mg/dL (65-115); Osmolality Calculated 306 mOsm/kg (285-295); Sodium 132 mmol/L (136-145); Total Bilirubin 0.3 mg/dL (0.15-1.2); Total Protein 5.6 g/dL (6.6-8.7)
[2022-06-26] MEDS: dexmedetomidine 400 MCG in sodium chloride 0.9% (100 ml) 100 ML IV (12:08)
[2022-06-26] MEDS: heparin 5,000 unit/mL INJ 1 mL IV ×2 (12:21→19:24)
--- NOTE | 2022-06-26 12:21 | PC.CHAP ---
Pastoral Care Encounter/Spiritual Assessment Type of Contact [] Declined lead sales consultant visit [] Patient/Family/Request visit [] Outpatient visit [] Follow-up visit [] Physician referral [] Code/Alert [x] Routine visit [] Staff referral [] Actively dying [] Patient sleeping [x] Family support [] [] Out of room [] Palliative care [] [] Receiving care in room [] Pre-surgical visit [] Trauma [] Long length of stay [x] ICU visit [] Other: Relational/Emotional Strength [] Patient feels connected with others/family/visitors/staff [] Distress [] Loneliness/isolation [] Abandonment Spirituality of Patient [] Person of Minnie [] Attends Yazidism of their Minnie [] Believes in Prayer [] Reads Bible or Latter-Day materials [] There are Spiritual issues to be addressed Collar Tailor Interventions [x] Prayer [] Active listening [] Non-anxious presence [] Spiritual/emotional support [] Crisis/trauma care [] Spiritual counseling [] Bereavement support [] Provided bereavement packet [] Provided Bible/devotional materials [] Provided toy/stuffed animal, coloring book to patient or family member [] Provided Communion [] Anointing/[place] [] Salvation [x] Completed spiritual assessment [] Other: Impact on Illness or Injury [] Angry [] Fearful [] Anxious [] Often cries [] Exhaustion [] Unable to work [] Unable to attend anabaptist [] Unable to walk/stand [] Unable to read [] Unable to drive [] Unable to eat/drink [] Unable to sleep [] Unable to be with family [] Patient intubated [] Other: Summary Time spent with patient
--- NOTE | 2022-06-26 12:43 | PC.NURSE ---
Patient seems more alert today. Disoriented to place and time. Attempts to get out of bed without intent on where he is going. Planning to work with physical therapy today and sit in recliner at bedside. Eating 75% of breakfast and lunch by himself.
--- NOTE | 2022-06-26 12:47 | PM.PN ---
Subjective Subjective: Continue D5 fluids Hyperglycemia Added Lantus I did speak with the plastics engineering teacher Dr. Membreno, Dr. Membreno does not think this is related to anti-VEGF because this was given as a very low-dose and in his experience he never experienced any clot related issues however history of stroke CO, venous thrombosis is one of the side effects listed for the medication I have requested UA along CBC and BMP this morning Patient was stating his headache has improved to some extent, he is constipated Vitals/I&O/Wt Last Vital Signs Temp 98.1 F 06/26/22 12:00 Pulse 75 06/26/22 12:00 Resp 23 H 06/26/22 12:00 BP 121/65 06/26/22 12:00 Pulse Ox 91 06/26/22 12:00 O2 Del Method 06/26/22 12:00 O2 Flow Rate 2 06/26/22 08:31 FiO2 21 06/24/22 23:10 06/25/22 06/26/22 06/26/22 22:59 06:59 14:59 Intake Total 1301.667 / 2601.667 1056.442 / 3658.109 1747.095 / 1747.095 Output Total 850 / 850 750 / 1600 800 / 800 Balance 451.667 / 1751.667 306.442 / 2058.109 947.095 / 947.095 Physical Exam Narrative: Patient has been experiencing waxing and waning mentation At the time of my evaluation he is awake and alert reciprocating, is at the bedside Clinical signs of fluid overload Abdomen soft Hemodynamically stable Currently on room air saturating 92% Complaining of mild headache Significant vision change S1, S2 Urinary Catheter Management: Austin Latex: Cath Placed During This Visit: yes Reason for Continuing Indwelling Catheter: Accurate Measurement of Urinary Output in Critically Ill Patients Urinary Catheter Date of Insertion: 06/23/22 Urinary Catheter Time of Insertion: 22:28 Data 06/25/22 15:20 06/26/22 11:40 Micro: Microbiology 06/25/22 11:45 Gram Stain - Final Cerebrospinal Fluid CSF Culture - Preliminary 06/23/22 22:23 Urine Culture - Final Urine Catheterized 06/25/22 15:20 Blood Culture - Preliminary Blood SPECIMEN COLLECTED 06/25/22 15:15 Blood Culture - Preliminary Blood SPECIMEN COLLECTED 06/23/22 19:40 Blood Culture - Preliminary Blood Strep species, alpha hemolytic A&P Assessment and plan (1) Cerebral venous thrombosis: (2) Metabolic encephalopathy: (3) Altered mental status: (4) Major depressive disorder, recurrent, in partial remission: (5) Hypothyroidism: (6) Hypertension: (7) Frequent PVCs: (8) Diabetes: (9) Familial tremor: Plan Cerebral venous thrombosis: Heparin started yesterday 4 hours after lumbar puncture Dr. Peterson recommended anticoagulation for now No need of transfer Did not show any signs of stroke, no signs of seizure Hemodynamic stable CSF panel unremarkable Aseptic meningitis? Patient will need long-term anticoagulation, I have updated his plastics engineering teacher as well I am not sure whether this is anti-VEGF side effect related, patient symptoms started 3 hours after getting his anti-VEGF eye injection Requested UA to rule out any signs of UTI Chronic kidney disease: Creatinine seems to be getting better than baseline I will continue his antibiotics until he is discharged from the hospital Intermittent headache Related to cerebral venous thrombosis He can only get Tylenol No signs of intracranial hypertension, stroke updated Added Lantus, hyperglycemia noted, discontinue D5 Full code Attestations Medical Necessity Statement*: Continue ICU management Time Spent in Patient Care: 40 Critical Care Time: 40 including updating , calling the plastics engineering teacher at [place] Coding Level of Care Code Acute Journalist for g Fwd Diagnoses Cerebral venous thrombosis G08 Metabolic encephalopathy G93.41 Altered mental status R41.82 Major depressive disorder, recurrent, in partial remission F33.41 Hypothyroidism E03.9 Hypertension I10 Frequent PVCs I49.3 Diabetes E11.9 Familial tremor G25.0
[2022-06-26 12:53] LABS: Glucose Point of Care 430 mg/dL (70-110)
[2022-06-26 12:53] LABS: Glucose Point of Care 414 mg/dL (70-110)
--- NOTE | 2022-06-26 13:09 | PC.SOCIAL ---
Pg 2 IMM Explained to pt & family Pg 2 IMM. No questions voiced. Provided pt a copy. Initialed, dated, & timed a copy & placed in chart.
[2022-06-26] MEDS: insulin lispro 100 unit/1 mL 10 UNIT SUBCUT (14:09)
[2022-06-26] MEDS: acetaminophen 325 mg Tablet 650 MG PO (14:52)
[2022-06-26 15:06] LABS: Urine Appearance Hazy (CLEAR); Urine Color Yellow (Yellow); pH Urine 5 (5-7)
[2022-06-26 15:07] LABS: Add Urine Microscopic? YES; Bacteria Urine 4+ /hpf; Bilirubin Urine Neg (Negative); Blood Urine 2+ (Negative); Glucose Urine UA 2+ (Normal); Ketones Urine Negative (Negative); Leukocyte Esterase Urine Negative (Negative); Nitrate Urine Negative (Negative); Protein Urine Neg (Negative); RBC Urine 0-4 /hpf (0-2); Squamous Epithelial Cell Urine 0-4 /hpf (0-5); Urobilinogen Urine Neg (Negative); WBC Urine 0-4 /hpf (0-5)
[2022-06-26 15:08] LABS: Add Urine Culture? Yes; Hyaline Casts Urine 0-4 /lpf
[2022-06-26] MEDS: FUROsemide 10 mg/mL SDV 4mL 40 MG IVP (16:20)
[2022-06-26 17:13] LABS: Glucose Point of Care 394 mg/dL (70-110)
[2022-06-26 17:23] LABS: Glucose Point of Care 300 mg/dL (70-110)
[2022-06-26] MEDS: oxyCODONE-APAP 5-325 mg Tablet 1 TAB PO (17:33)
[2022-06-26 18:35] LABS: Partial Thromboplastin Time 49.4 SECONDS (23.9-36.7)
[2022-06-26] MEDS: insulin glargine 100 units/1 mL 20 UNIT SUBCUT (20:54)
[2022-06-26] MEDS: quetiapine 25 mg Tablet PO (20:54)
[2022-06-26] MEDS: heparin drip 25,000 UNIT/500 ML PREMIX 34 UNIT IV (22:45)
[2022-06-26 23:46] LABS: Glucose Point of Care 275 mg/dL (70-110)
[2022-06-27] VITALS (29 sets, daily range): BP systolic 123–176; BP diastolic 47–114; PULSE 62–88; RESP 19–32; TEMP 36.6–36.8; O2SAT 90–95
[2022-06-27] MEDS: carvedilol 3.125 mg Tablet PO ×2 (00:43→12:47)
[2022-06-27] MEDS: hyDRALAzine 50 mg Tablet PO ×3 (00:43→16:40)
[2022-06-27] MEDS: primidone 50 mg Tablet PO ×3 (00:43→23:20)
[2022-06-27 00:45] LABS: Basophils % 0.2 %; Hemoglobin 11.6 g/dL (11.7-16.6); Lymphocytes # 1.1 10^3/uL (0.8-4.8); Lymphocytes % 5.4 %; Mean Corpuscular HGB Conc 34.1 g/dL (30.0-36.0); Mean Corpuscular Hemoglobin 30.6 pg (28.0-34.0); Mean Corpuscular Volume 89.7 fl (80-94); Mean Platelet Volume 10.6 fL (7.4-10.4); Monocytes # 1.1 10^3/uL (0.2-0.9); Monocytes % 5.8 %; Neutrophils # 16.93 10^3/uL (1.8-7.7); Neutrophils % 87.7 %; Nucleated Red Blood Cells % 0 %; Platelet Count 167 10^3/cmm (130-400); Red Blood Count 3.79 10^6/uL (4.1-5.3); Red Cell Distribution Width 12.9 % (12.1-15.1); White Blood Count 19.3 10^3/uL (4.0-10.0)
[2022-06-27] MEDS: oxyCODONE-APAP 5-325 mg Tablet 1 TAB PO ×2 (00:46→09:03)
[2022-06-27] MEDS: pantoprazole 40 mg SDV IVP ×2 (00:49→12:47)
[2022-06-27] MEDS: cefTRIAXone 2,000 MG in sodium chloride 0.9% (plus) 50 ML 100 MG IV (00:50)
[2022-06-27 00:56] LABS: Vancomycin Trough 15.2 ug/mL (10-15)
[2022-06-27 00:59] LABS: Anion Gap 17.2 (5-19); Blood Urea Nitrogen 64 mg/dL (8-23); Calcium 8.1 mg/dL (8.5-10.5); Carbon Dioxide 18 mmol/L (22-29); Chloride 100 mmol/L (98-107); Glomerular Filtration Rate 28.3 mL/min (90-130); Glucose 277 mg/dL (65-115); Osmolality Calculated 300 mOsm/kg (285-295); Potassium 4.2 mmol/L (3.5-5.1); Sodium 131 mmol/L (136-145)
[2022-06-27 01:06] LABS: Procalcitonin 2.03 ng/mL (0-0.5)
[2022-06-27 01:39] LABS: Partial Thromboplastin Time 91.9 SECONDS (23.9-36.7)
[2022-06-27] MEDS: doxycycline 100 MG in sodium chloride 0.9% (plus) 100 ML IV ×2 (02:11→15:22)
[2022-06-27] MEDS: vancomycin 1,500 MG/300 ML PIGGYBACK 200 MG IV (02:15)
[2022-06-27] MEDS: acyclovir 1,000 MG in sodium chloride 0.9% (100 ml) 100 ML 120 MG IV (04:03)
[2022-06-27 08:11] LABS: Partial Thromboplastin Time 47.7 SECONDS (23.9-36.7)
[2022-06-27] MEDS: levothyroxine 100 mcg SDV 12.5 MCG IVP (09:03)
[2022-06-27] MEDS: metoprolol tartrate 25 mg Tablet 12.5 MG PO ×2 (09:03→17:09)
[2022-06-27] MEDS: sennosides-docusate Tablet 1 TAB PO ×2 (09:05→17:09)
[2022-06-27] MEDS: NIFEdipine ER (24 hr) 30 mg Tablet 60 MG PO (09:05)
[2022-06-27] MEDS: potassium chloride ER 20 mEq Tablet PO (09:05)
[2022-06-27] MEDS: insulin lispro 100 unit/1 mL SUBCUT ×3 (09:16→17:15)
--- NOTE | 2022-06-27 10:37 | PC.CHAP ---
Pastoral Care Encounter/Spiritual Assessment Type of Contact [] Declined sod stripper visit [] Patient/Family/Request visit [] Outpatient visit [] Follow-up visit [] Physician referral [] Code/Alert [x] Routine visit [] Staff referral [] Actively dying [] Patient sleeping [x] Family support [] [] Out of room [] Palliative care [] [] Receiving care in room [] Pre-surgical visit [] Trauma [] Long length of stay [x] ICU visit [x] Other: concerned for his having to take care of him Relational/Emotional Strength [] Patient feels connected with others/family/visitors/staff [] Distress [] Loneliness/isolation [] Abandonment Spirituality of Patient [] Person of Minnie [] Attends Mormonism of their Minnie [] Believes in Prayer [] Reads Bible or Jew materials [] There are Spiritual issues to be addressed Cvt Rn Interventions [x] Prayer [] Active listening [] Non-anxious presence [] Spiritual/emotional support [] Crisis/trauma care [] Spiritual counseling [] Bereavement support [] Provided bereavement packet [] Provided Bible/devotional materials [] Provided toy/stuffed animal, coloring book to patient or family member [] Provided Communion [] Anointing/[place] [] Salvation [x] Completed spiritual assessment [] Other: Impact on Illness or Injury [] Angry [] Fearful [] Anxious [] Often cries [] Exhaustion [] Unable to work [] Unable to attend synagogue [] Unable to walk/stand [] Unable to read [] Unable to drive [] Unable to eat/drink [] Unable to sleep [] Unable to be with family [] Patient intubated [] Other: Summary Time spent with patient
[2022-06-27 11:34] LABS: Glucose Point of Care 315 mg/dL (70-110)
--- NOTE | 2022-06-27 12:01 | PM.PN ---
Subjective Subjective: This morning patient stating his headache is 4/10 he is feeling much better, much more awake and alert and energetic as compared to yesterday No BM yet pt is ready to be discharged from the hospital will request midline placement for 3 weeks of ceftriaxone 2 g daily for Streptococcus mitis in his blood repeat cultures negative He has not spiked fever however leukocytosis morning additionally he can be transferred out of ICU to [facility] Vitals/I&O/Wt Last Vital Signs Temp 98.3 F 06/27/22 01:13 Pulse 85 06/27/22 09:29 Resp 22 H 06/27/22 09:03 BP 153/73 06/27/22 08:00 Pulse Ox 92 06/27/22 09:29 O2 Del Method 06/27/22 09:29 O2 Flow Rate 2 06/27/22 01:48 FiO2 21 06/24/22 23:10 06/26/22 06/27/22 06/27/22 22:59 06:59 14:59 Intake Total 1065.133 / 2948.181 669.167 / 3617.348 400 / 400 Output Total 450 / 1250 Balance 1065.133 / 2148.181 219.167 / 2367.348 400 / 400 Physical Exam Narrative: Patient is laying supine without any active discomfort Saturating well on room air Abdomen soft Lower extremity edema Austin catheter draining dilute urine Abdomen soft Bowel sound present No bowel movement since admission EOMI, PERRLA Nonfocal no signs of confusion S1, S2 Urinary Catheter Management: Austin Latex: Cath Placed During This Visit: yes Reason for Continuing Indwelling Catheter: Accurate Measurement of Urinary Output in Critically Ill Patients Urinary Catheter Date of Insertion: 06/23/22 Urinary Catheter Time of Insertion: 22:28 Data 06/27/22 00:30 06/27/22 00:30 Micro: Microbiology 06/25/22 11:45 Gram Stain - Final Cerebrospinal Fluid CSF Culture - Preliminary 06/26/22 14:21 Urine Culture - Preliminary Urine,Clean Catch 06/25/22 15:20 Blood Culture - Preliminary Blood NEGATIVE TO DATE 06/25/22 15:15 Blood Culture - Preliminary Blood NEGATIVE TO DATE 06/23/22 19:40 Blood Culture - Preliminary Blood Streptococcus mitis oralis#2 06/23/22 22:23 Urine Culture - Final Urine Catheterized A&P Assessment and plan (1) Streptococcal bacteremia: (2) Cerebral venous thrombosis: (3) Febrile: (4) Metabolic encephalopathy: (5) Altered mental status: (6) Hypothyroidism: (7) Hypertension: (8) CHF (congestive heart failure), NYHA class III: (9) Frequent PVCs: (10) Diabetes: (11) Familial tremor: (12) Constipation: Plan Streptococcus mitis in his blood / from 06/23, repeat cultures negative Will request midline or PICC line placement for 3 weeks of ceftriaxone 2 g daily I will discontinue acyclovir I will discontinue doxycycline as well Leukocytosis without any fever Mentation has improved Transfer out of ICU Patient to work with PT Hemodynamically stable Remove Austin catheter before discharge and do voiding trial Patient most likely need senior care placement Cerebral venous thrombosis Discontinue heparin today, switch to Eliquis low-dose Chronic kidney disease without acute worsening, positive fluid balance continue IV diuresis Frequent PVCs, added low-dose metoprolol Full code Attestations Medical Necessity Statement*: Transfer to [facility], will need senior care placement Critical Care Time: 30 Coding Level of Care Code Acute Siding Mechanic for [facility] Fwd Diagnoses Streptococcal bacteremia R78.81; B95.5 Cerebral venous thrombosis G08 Febrile R50.9 Metabolic encephalopathy G93.41 Altered mental status R41.82 Hypothyroidism E03.9 Hypertension I10 CHF (congestive heart failure), NYHA class III I50.9 Frequent PVCs I49.3 Diabetes E11.9 Familial tremor G25.0 Constipation K59.00
[2022-06-27 12:20] LABS: Glucose Point of Care 412 mg/dL (70-110)
[2022-06-27 13:50] LABS: Lyme AB Screen <0.90 index
[2022-06-27 14:25] LABS: Cytomegalovirus Antibody (IGG) <0.60 U/mL; Cytomegalovirus Antibody (IGM) <30.00 AU/mL
--- NOTE | 2022-06-27 14:53 | PC.NURSE ---
Midline cath placed to right basilic vein without difficulty. 15 cm inserted with 0 cm external length noted. Dressing due to be changed 06/28/22. Arm circumference noted at 35 cm measured 10 cm from AC space. Pt tolerated well.
[2022-06-27] MEDS: FUROsemide 10 mg/mL SDV 4mL 40 MG IVP (15:40)
[2022-06-27] MEDS: acyclovir 1,000 MG in sodium chloride 0.9% (100 ml) 100 ML 1 MG IV (15:40)
[2022-06-27] MEDS: heparin drip 25,000 UNIT/500 ML PREMIX 32 UNIT IV (16:39)
[2022-06-27 16:59] LABS: Glucose Point of Care 321 mg/dL (70-110)
[2022-06-27 17:50] LABS: Partial Thromboplastin Time 59.9 SECONDS (23.9-36.7)
--- NOTE | 2022-06-27 18:35 | PC.NURSE ---
Shift summary: Patient AO x4 throughout shift, Midline placed to JEANCARLOS, plan to D/C tomorrow
[2022-06-27] MEDS: apixaban 5 mg Tablet 2.5 MG PO (20:27)
[2022-06-27] MEDS: quetiapine 25 mg Tablet PO (20:27)
[2022-06-27] MEDS: insulin glargine 100 units/1 mL 20 UNIT SUBCUT (20:47)
[2022-06-27 21:04] LABS: Glucose Point of Care 354 mg/dL (70-110)
[2022-06-27 22:12] LABS: Partial Thromboplastin Time 31.3 SECONDS (23.9-36.7)
[2022-06-28] VITALS (11 sets, daily range): BP systolic 126–173; BP diastolic 61–95; PULSE 66–88; RESP 17–32; TEMP 37; O2SAT 84–95
[2022-06-28] MEDS: pantoprazole 40 mg SDV IVP (01:11)
[2022-06-28] MEDS: carvedilol 3.125 mg Tablet PO (01:12)
[2022-06-28] MEDS: cefTRIAXone 2,000 MG in sodium chloride 0.9% (plus) 50 ML 100 MG IV (01:12)
[2022-06-28] MEDS: hyDRALAzine 50 mg Tablet PO ×2 (01:12→08:34)
[2022-06-28] MEDS: oxyCODONE-APAP 5-325 mg Tablet 1 TAB PO ×2 (02:53→08:24)
[2022-06-28 03:16] LABS: Basophils % 0.2 %; Eosinophils # 0.1 10^3/uL (0.0-0.8); Eosinophils % 0.4 %; Hematocrit 33.8 % (42.0-52.0); Hemoglobin 11.7 g/dL (11.7-16.6); Lymphocytes # 1.2 10^3/uL (0.8-4.8); Lymphocytes % 10.4 %; Mean Corpuscular HGB Conc 34.6 g/dL (30.0-36.0); Mean Corpuscular Hemoglobin 30.7 pg (28.0-34.0); Mean Corpuscular Volume 88.7 fl (80-94); Mean Platelet Volume 11.4 fL (7.4-10.4); Monocytes # 1.1 10^3/uL (0.2-0.9); Monocytes % 9.4 %; Neutrophils # 8.53 10^3/uL (1.8-7.7); Neutrophils % 74.6 %; Nucleated Red Blood Cells % 0 %; Platelet Count 171 10^3/cmm (130-400); Red Blood Count 3.81 10^6/uL (4.1-5.3); Red Cell Distribution Width 12.6 % (12.1-15.1); White Blood Count 11.4 10^3/uL (4.0-10.0)
[2022-06-28 03:54] LABS: Anion Gap 17.3 (5-19); Blood Urea Nitrogen 75 mg/dL (8-23); Carbon Dioxide 19 mmol/L (22-29); Chloride 100 mmol/L (98-107); Glomerular Filtration Rate 31.4 mL/min (90-130); Glucose 319 mg/dL (65-115); Osmolality Calculated 309 mOsm/kg (285-295); Potassium 4.3 mmol/L (3.5-5.1); Sodium 132 mmol/L (136-145)
[2022-06-28 08:00] LABS: Glucose Point of Care 270 mg/dL (70-110)
[2022-06-28] MEDS: insulin lispro 100 unit/1 mL SUBCUT (08:20)
[2022-06-28] MEDS: apixaban 5 mg Tablet 2.5 MG PO (08:20)
[2022-06-28] MEDS: levothyroxine 100 mcg SDV 12.5 MCG IVP (08:21)
[2022-06-28] MEDS: NIFEdipine ER (24 hr) 30 mg Tablet 60 MG PO (08:21)
[2022-06-28] MEDS: sennosides-docusate Tablet 1 TAB PO (08:21)
[2022-06-28] MEDS: metoprolol tartrate 25 mg Tablet 12.5 MG PO (08:21)
[2022-06-28] MEDS: potassium chloride ER 20 mEq Tablet PO (08:21)
--- NOTE | 2022-06-28 08:31 | USCV_ITS ---
Brittny Londono Age: 71 Gender: M : 1950 Exam Date: 06/28/2022 08:44 Ordering Phys: Glenroy Salvador MD Technologist: Norberto Morgan Exam Location: [facility] [place] Indication: bilat edema PROCEDURES: The venous duplex Doppler examination of both lower extremities was performed in the standard fashion. The following venous structures were evaluated: common femoral vein, profunda vein, proximal portion of the greater saphenous vein, superficial femoral vein, and the popliteal vein. In addition, the posterior tibial and peroneal trunk were evaluated. FINDINGS: Normal 2-D Doppler and augmentation and compressibility throughout the lower extremity venous structures. Additional imaging through the proximal calf veins also reveals no thrombus. Limited evaluation of the greater saphenous vein is patent with no thrombus.. CONCLUSIONS No evidence of right lower extremity DVT. No evidence of left lower extremity DVT. Babak Sauer MD (Electronically Signed) Final Date: 28 June 2022 15:00 S
--- NOTE | 2022-06-28 09:24 | PM.DCS ---
Discharge Providers Date of Admission: 06/23/22 23:43 Date of Discharge: June 28, 2022 Attending Provider at Admission: Jb Chaney MD Attending Provider at Discharge: Glenroy Salvador MD Primary Care Provider: Rafa Call Diagnoses at Discharge Discharge Diagnosis (1) Streptococcal bacteremia: Status: Acute (2) Cerebral venous thrombosis: Status: Acute (3) Febrile: Status: Acute (4) Metabolic encephalopathy: Status: Acute (5) Altered mental status: Status: Acute (6) Hypothyroidism: Status: Acute (7) Hypertension: Status: Acute (8) CHF (congestive heart failure), NYHA class III: Status: Acute (9) Frequent PVCs: Status: Acute (10) Diabetes: Status: Acute (11) Familial tremor: Status: Acute (12) Constipation: Status: Acute Reason for Visit Reason for Visit: unresponsive Hospital Course Hospital Course Brittny Londono is a 71 year old male with a past medical history of type 2 diabetes mellitus with retinopathy, insulin-dependent, hypothyroidism, hypertension, history of diabetic ulcers, anxiety, major depressive disorder, who presents [facility] due to altered mental status.? Patient was started on meningitis empirical regimen for febrile events and metabolic encephalopathy. Infectious work-up in the ER was unremarkable. CSF panel was requested in the ICU which was unremarkable as well, antibiotics were continued for possible aseptic meningitis. Patient was complaining of persistent headache that prompted me to do MRV along MRI head. MRI head did not show any stroke however MRV showed cerebral venous thrombosis. Dr. Peterson recommended anticoagulation, since it was a nonocclusive defect patient did not require transfer to tertiary level center for endovascular procedure. He did very well with the use of heparin which was transitioned to low-dose Eliquis at the time of discharge because of chronic kidney disease. Patient will continue Eliquis for at least 6 months. Of note, was concerned that his symptoms started roughly 3 hours after he got his anti-VEGF retinal injection I did speak with lead press operator at [place], he is stating that he has not seen complications due to this injection, he has only used a low-dose, however there is a potential side effect of clot formation, OK and stroke listed for anti-VEGF medication. Blood culture from day of admission returned positive for Streptococcus oralis, repeat cultures negative. I did not have a very good explanation of spontaneous cerebral venous thrombosis, hence decision was made to place a midline and treat him with ceftriaxone 2 g daily for next 3 weeks that was finished 4 weeks of IV antibiotics. Patient is being discharged to alf Patient did not show any signs of stroke, seizure, intracranial hypertension throughout his hospitalization. However he has been experiencing visual hallucination and spells of confusion which would resolve spontaneously, he only required Geodon once. Patient is constipated, I have given him a suppository on 06/28, he is passing flatus, not endorsing constipation, he is not complaining abdominal pain, tolerating his diet very well, would not try enema . Physical Exam Narrative: Patient is laying supine without any active discomfort Saturating well on room air Abdomen soft Lower extremity edema Austin catheter draining dilute urine, which will be removed before discharge Abdomen soft Bowel sound present No bowel movement since admission EOMI, PERRLA Nonfocal no signs of confusion S1, S2 Urinary Catheter Management: Austin Latex: Cath Placed During This Visit: yes Reason for Continuing Indwelling Catheter: Accurate Measurement of Urinary Output in Critically Ill Patients Urinary Catheter Date of Insertion: 06/23/22 Urinary Catheter Time of Insertion: 22:28 Discharge Data Studies Completed and Pending Completed Studies During Hospitalization Category Date Time Status CT abdomen pelvis wo con [id number] Stat Cat Scan 06/23/22 21:[address] chest wo con [id number] Stat Cat Scan 06/23/22 23:[address] head wo con* [id number] Stat Cat Scan 06/23/22 19:50 Completed FL guided lumbarpunc dx* [id number] Routine Exams 06/25/22 09:00 Completed XR chest 1V portable [id number] Stat Exams 06/23/22 19:50 Completed MR head wo con* [id number] Routine MRI 06/25/22 08:09 [place] [id number] Routine MRI 06/25/22 08:09 Completed CV. echo wo/w contrast [id number] Routine Ultrasound 06/24/22 10:57 Completed US venous duplex lower extremity LT [CV venous duplex Ultrasound 06/23/22 23:33 [place] [id number]] Stat Pending at discharge Category Date Time Status 1-3 Beta D Glucan [Fungitell Glucan Assay (Blood)] Lab 06/24/22 01:50 Received Routine Aspergillus AG,EIA,Serum Stat Lab 06/23/22 23:33 Received BLASTOMYCES AG [MVista Blastomyces AG Quant] Routine Lab 06/24/22 01:50 Received Blood Culture Stat Lab 06/25/22 15:20 Results Blood Culture Stat Lab 06/23/22 20:38 Results COVID [SARS Covid-2 Antigen] Routine Lab 06/28/22 08:52 Uncollected CSF Culture & Gram Stain Routine Lab 06/25/22 11:45 Results Herpes Simplex Virus DNA Routine Lab 06/24/22 11:39 Received Histoplasma Quantitative AG Routine Lab 06/24/22 01:50 Received Lymes Disease Antibodies CSF Routine Lab 06/24/22 11:39 Received Sputum Culture and Gram Stain Stat Lab 06/23/22 23:36 Uncollected Haring Enceph.Virus IFA CSF Routine Lab 06/24/22 11:39 Received Tick Panel Stat Lab 06/23/22 23:36 Results Urine Culture Routine Lab 06/26/22 14:21 Results US venous duplex lower extremity bilat [CV venous Ultrasound 06/28/22 08:31 [place] [id number]] Routine Radiology Impressions Chest X-Ray 06/23/22 19:50 IMPRESSION: 1. No acute finding. 2. Large heart with a few other chronic findings above. Head CT 06/23/22 19:50 IMPRESSION: 1. No acute intracranial abnormality. 2. Mild age-related changes. Findings are similar to 08/11/2021. Abdomen/Pelvis CT 06/23/22 21:40 IMPRESSION: 1. No small bowel obstruction, abscess or free air. No strong evidence of diverticulitis. 2. Small hiatal hernia, constipation, and extensive diverticulosis. Other chronic and incidental findings above. A few left groin nodes may be reassessed in [address] 06/23/22 23:33 IMPRESSION: 1. Large heart with mild venous congestion. 2. Lung base atelectasis, scarring, or vague edema. No consolidation or effusion. 3. Small hiatal hernia and other chronic findings above. Venous Duplex 06/23/22 23:33 IMPRESSION: No evidence of deep vein thrombosis. Head MRI 06/25/22 08:09 IMPRESSION: 1. No acute infarct or cerebral edema. 2. Mild symmetric cerebral atrophy. Head/Brain Mag Res Venography 06/25/22 08:09 IMPRESSION: 1. Quality of this examination is compromised by patient motion. 2. Nonocclusive filling defects in the RIGHT transverse and sigmoid sinus. Suspicious for nonocclusive cerebral venous thrombosis. Lumbar Puncture Fluoroscopy 06/25/22 09:00 IMPRESSION: Uncomplicated lumbar puncture for CSF. CSF collected and sent for analysis as requested. Laboratory Results WBC 11.4 10^3/uL (4.0-10.0) H 06/28/22 01:48 RBC 3.81 10^6/uL (4.1-5.3) L 06/28/22 01:48 Hgb 11.7 g/dL (11.7-16.6) 06/28/22 01:48 Hct 33.8 % (42.0-52.0) L 06/28/22 01:48 MCV 88.7 fl (80-94) 06/28/22 01:48 MCH 30.7 pg (28.0-34.0) 06/28/22 01:48 MCHC 34.6 g/dL (30.0-36.0) 06/28/22 01:48 RDW 12.6 % (12.1-15.1) 06/28/22 01:48 Plt Count 171 10^3/cmm (130-400) 06/28/22 01:48 MPV 11.4 fL (7.4-10.4) H 06/28/22 01:48 Neut % (Auto) 74.6 % 06/28/22 01:48 Lymph % (Auto) 10.4 % 06/28/22 01:48 [place] % (Auto) 9.4 % 06/28/22 01:48 Eos % (Auto) 0.4 % 06/28/22 01:48 Baso % (Auto) 0.2 % 06/28/22 01:48 Neut # (Auto) 8.53 10^3/uL (1.8-7.7) H 06/28/22 01:48 Lymph # (Auto) 1.2 10^3/uL (0.8-4.8) 06/28/22 01:48 [place] # (Auto) 1.1 10^3/uL (0.2-0.9) H 06/28/22 01:48 Eos # (Auto) 0.1 10^3/uL (0.0-0.8) 06/28/22 01:48 Baso # (Auto) 0.0 10^3/uL (0.0-0.1) 06/28/22 01:48 Nucleated RBC % (auto) 0 % 06/28/22 01:48 Total Counted 100 (0-100) 06/23/22 19:40 Atypical Lymphs % 0.0 % (0-5) 06/23/22 19:40 Absolute Neutrophils 10.2 10^3/cmm (1.4-6.5) H 06/23/22 19:40 Segmented Neutrophils 69 % 06/23/22 19:40 Abs Segm Neuts (Man) 7.5 10/cmm (1.6-7.1) H 06/23/22 19:40 Band Neutrophils 25.0 % 06/23/22 19:40 Abs Band Neuts (Man) 2.7 10^3/cmm (0.0-1.2) H 06/23/22 19:40 Absolute Lymphocytes 0.2 10^3/cmm (1.2-3.4) L 06/23/22 19:40 Lymphocytes (Manual) 2 % 06/23/22 19:40 Monocytes (Manual) 2.0 % 06/23/22 19:40 Absolute Monocytes 0.2 10^3/cmm (0.1-0.6) 06/23/22 19:40 Eosinophils (Manual) 0 % 06/23/22 19:40 Absolute Eosinophils 0.0 10^3/cmm (0.0-0.7) 06/23/22 19:40 Basophils (Manual) 0.0 % 06/23/22 19:40 Absolute Basophils 0.0 10^3/cmm (0.0-0.2) 06/23/22 19:40 Metamyelocytes 2.0 % 06/23/22 19:40 Nucleated RBCs # 0.0 /100WBC 06/28/22 01:48 Platelet Estimate Normal (Normal) 06/23/22 19:40 ESR 9 mm/hr (0-10) 06/24/22 00:16 APTT 31.3 SECONDS (23.9-36.7) 06/27/22 21:31 D-Dimer 1.29 ug/mIFEU (0-0.59) H 06/23/22 19:41 Specimen Type Arterial 06/23/22 20:51 Sample Site Radial, right 06/23/22 20:51 ABG pH 7.45 (7.35-7.45) 06/23/22 20:51 ABG pCO2 35.1 mmHg (35-45) 06/23/22 20:51 ABG pO2 54.9 mmHg (80.0-100.0) L 06/23/22 20:51 ABG HCO3 24.4 mmol/L (22-26) 06/23/22 20:51 ABG O2 Saturation 91.8 06/23/22 20:51 ABG Base Excess 0.7 mmol/L (-2.0-2.0) 06/23/22 20:51 Remi Test Pos 06/23/22 20:51 A-a O2 Gradient 6.6 mmHg (5-10) 06/23/22 20:51 Hematocrit 43.1 % (42-52) 06/23/22 20:51 Hgb O2 Saturation 91.7 % (95-100) L 06/23/22 20:51 Carboxyhemoglobin 1.0 %THgb (0.4-20.1) 06/23/22 20:51 Methemoglobin < 0.0 % (0.4-1.5) L 06/23/22 20:51 Total Hemoglobin 14.1 g/dL (14-18) 06/23/22 20:51 Sodium 141.0 mmol/L (131-143) 06/23/22 20:51 Potassium 4.4 mmol/L (3.5-5.0) 06/23/22 20:51 Glucose 150.0 mg/dL (70-115) H 06/23/22 20:51 Ionized Calcium 1.1 mmol/L (1.1-1.4) 06/23/22 20:51 O2 Delivery Device None 06/23/22 20:51 FiO2 21.0 % 06/23/22 20:51 Ends Breakage Clerk ID Alewe 06/23/22 20:51 Sodium 132 mmol/L (136-145) L 06/28/22 01:48 Potassium 4.3 mmol/L (3.5-5.1) 06/28/22 01:48 Chloride 100 mmol/L (98-107) 06/28/22 01:48 Carbon Dioxide 19 mmol/L (22-29) L 06/28/22 01:48 Anion Gap 17.3 (5-19) 06/28/22 01:48 BUN 75 mg/dL (8-23) H 06/28/22 01:48 Creatinine 2.1 mg/dL (0.7-1.2) H 06/28/22 01:48 GFR Calculation 31.4 mL/min (90-130) L 06/28/22 01:48 Glucose 319 mg/dL (65-115) H 06/28/22 01:48 POC Glucose 270 mg/dL (70-110) H 06/28/22 07:44 Estimat Average Glucose 212 06/24/22 02:00 Hemoglobin A1c 9.0 % (4.0-6.0) H 06/24/22 02:00 Calculated Osmolality 309 mOsm/kg (285-295) H 06/28/22 01:48 Lactic Acid 2.2 mmol/L (0.5-2.2) 06/24/22 02:00 Lactic Acid (Sepsis) 1.7 mmol/L (0.5-2.2) 06/24/22 05:41 Calcium 8.0 mg/dL (8.5-10.5) L 06/28/22 01:48 Magnesium 2.0 mg/dL (1.7-2.3) 06/27/22 00:30 Total Bilirubin 0.3 mg/dL (0.15-1.2) 06/26/22 11:40 AST 16 U/L (0-40) 06/26/22 11:40 ALT 19 U/L (0-41) 06/26/22 11:40 Alkaline Phosphatase 71 U/L (40-130) 06/26/22 11:40 Ammonia 16 umol/L (16-60) 06/24/22 00:16 Creatine Kinase 652 U/L (39-308) H* 06/23/22 19:40 Troponin T Baseline 88 ng/L (0-15) H 06/23/22 19:40 Troponin T 120 Minute 82.23 ng/L (0-15) H 06/23/22 22:07 Delta Troponin T -5.77 ABS# (0-10) L 06/23/22 22:07 Troponin T Hi Sens 6Hr 101.2 ng/L (0-15) H 06/24/22 01:50 Troponin T Hi Sens 6Hr Delta 13.2 ng/L (0-12) H* 06/24/22 01:50 C-Reactive Protein 182.9 mg/L (0.0-4.9) H 06/23/22 19:40 NT-Pro-B Natriuret Pep 8311 pg/mL (0-125) H 06/24/22 02:00 Total Protein 5.6 g/dL (6.6-8.7) L 06/26/22 11:40 Albumin 2.8 g/dL (3.5-5.2) L 06/26/22 11:40 Globulin 2.8 g/dL (1.3-4.6) 06/26/22 11:40 Lipase 6 U/L (13-60) L 06/23/22 19:40 Lipase Cancelled 06/23/22 19:40 Procalcitonin 2.03 ng/mL (0-0.5) H 06/27/22 00:30 TSH 1.64 uIU/mL (0.27-4.20) 06/24/22 02:00 Prolactin 17.77 ng/mL (4.0-15.2) H 06/24/22 02:00 Urine Color Yellow (Yellow) 06/26/22 14:21 Urine Appearance Hazy (CLEAR) A 06/26/22 14:21 Urine pH 5 (5-7) 06/26/22 14:21 Ur Specific [place] 1.020 (1.005-1.030) 06/26/22 14:21 Urine Protein Neg (Negative) 06/26/22 14:21 Urine Glucose (UA) 2+ (Normal) H 06/26/22 14:21 Urine Ketones Negative (Negative) 06/26/22 14:21 Urine Blood 2+ (Negative) H 06/26/22 14:21 Urine Nitrate Negative (Negative) 06/26/22 14:21 Urine Bilirubin Neg (Negative) 06/26/22 14:21 Urine Urobilinogen Neg mg/dL (Negative) 06/26/22 14:21 Ur Leukocyte Esterase Negative (Negative) 06/26/22 14:21 Urine RBC 0-4 /hpf (0-2) H 06/26/22 14:21 Urine WBC 0-4 /hpf (0-5) H 06/26/22 14:21 Ur Squamous Epith Cells 0-4 /hpf (0-5) H 06/26/22 14:21 Amorphous Sediment Not Reportable 06/26/22 14:21 Urine Bacteria 4+ /hpf (NONE) H 06/26/22 14:21 Hyaline Casts 0-4 /lpf H 06/26/22 14:21 CSF Appearance Clear (CLEAR) 06/25/22 11:45 CSF Color Colorless (COLORLESS) 06/25/22 11:45 CSF WBC 3 /uL (0-5) 06/25/22 11:45 CSF RBC 0 10^3/uL (0-0) 06/25/22 11:45 CSF Mononuclear # Auto 0.003 10^3/uL (50-90) L 06/25/22 11:45 CSF Mononuclear WBCs % 100 % (50-90) H 06/25/22 11:45 CSF Polynuclear WBCs # 0.000 10^3/uL (0-10) 06/25/22 11:45 CSF Polynuclear WBCs % 0 % (0-10) 06/25/22 11:45 CSF Diff Comment Yes 06/25/22 11:45 CSF Glucose 145 mg/dL (40-70) H 06/25/22 11:45 CSF Total Protein 42 mg/dL (15-45) 06/25/22 11:45 Nasal Influ A H1 2008 PCR Not detected (NOT DETECT) 06/24/22 22:04 Vancomycin Trough 15.2 ug/mL (10-15) H 06/27/22 00:30 Serum Ketones Negative (Negative) 06/23/22 19:40 Adenovirus (PCR) Not detected (NOT DETECT) 06/24/22 22:04 Lyme Ab (Western Blot) <0.90 index 06/24/22 00:16 C. pneumoniae DNA (PCR) Not detected (NOT DETECT) 06/24/22 22:04 Coronavirus 229E (PCR) Not detected (NOT DETECT) 06/24/22 22:04 CMV IgG Ab <0.60 U/mL 06/24/22 00:16 CMV IgM Ab <30.00 AU/mL 06/24/22 00:16 Human Metapneumovir PCR Not detected (NOT DETECT) 06/24/22 22:04 Influenza A (H1) PCR Not detected (NOT DETECT) 06/24/22 22:04 Influenza A (H3) PCR Not detected (NOT DETECT) 06/24/22 22:04 Influenza Type A Ag negative (Negative) 06/23/22 22:23 Influenza Type A (PCR) Not detected (NOT DETECT) 06/24/22 22:04 Influenza Type B Ag negative (Negative) 06/23/22 22:23 Influenza Type B (PCR) Not detected (NOT DETECT) 06/24/22 22:04 M. pneumoniae (PCR) Not detected (NOT DETECT) 06/24/22 22:04 Parainfluenza 1 (PCR) Not detected (NOT DETECT) 06/24/22 22:04 Parainfluenza 2 (PCR) Not detected (NOT DETECT) 06/24/22 22:04 Parainfluenza 3 (PCR) Not detected (NOT DETECT) 06/24/22 22:04 Parainfluenza 4 (PCR) Not detected (NOT DETECT) 06/24/22 22:04 RSV Type A (PCR) Not detected (NOT DETECT) 06/24/22 22:04 RSV Type B (PCR) Not detected (NOT DETECT) 06/24/22 22:04 Entero/Rhino (PCR) Not detected (NOT DETECT) 06/24/22 22:04 SARS-CoV-2 (PCR) Not detected (NOT DETECT) 06/24/22 22:04 Vitals Last Vital Signs Temp 98.6 F 06/28/22 05:00 Pulse 88 06/28/22 09:05 Resp 19 H 06/28/22 08:24 BP 156/80 06/28/22 08:00 Pulse Ox 92 06/28/22 09:05 O2 Del Method 06/28/22 09:05 O2 Flow Rate 2 06/27/22 01:48 FiO2 21 06/24/22 23:10 Discharge Plan Discharge Patient Disposition: Xfer SNF Condition: Fair Prescriptions: [place] Glycerin (Adult) Suppository [address] DAILY PRN (Reason: Constipation) Qty: 5 0RF Eliquis 5 mg Tablet 2.5 mg PO BID@0900,2100 Qty: 180 3RF Seroquel 25 mg tablet 25 mg PO BEDTIME Qty: 30 0RF Continued Tresiba U-100 Insulin 100 unit/mL solution 85 unit SUBCUT BID@12,00 levothyroxine 25 mcg capsule 25 mcg PO DAILY@00 lansoprazole [Prevacid] 15 mg capsule,delayed release(DR/EC) 15 mg PO DAILY@1200 paroxetine HCl [Paxil] 10 mg tablet 10 mg PO DAILY Qty: 30 2RF lorazepam [Ativan] 1 mg tablet 1 mg PO .HS PRN (Reason: anxiety) Qty: 35 2RF Rx Instructions: 1 tablets at bedtime and 1 tablets daily as needed for severe anxiety carvedilol 3.125 mg tablet 3.125 mg PO BID Qty: 180 1RF Rx Instructions: must administer with a meal/food primidone 50 mg tablet 50 mg PO BID@00,12 Qty: 60 5RF famotidine 40 mg tablet 40 mg PO DAILY@00 nifedipine 60 mg tablet extended release 24hr 60 mg PO DAILY Qty: 30 0RF hydralazine 50 mg tablet 50 mg PO TID Qty: 90 0RF Novolog Flexpen U-100 Insulin 100 unit/mL (3 mL) insulin pen See Rx Instructions .ROUTE .COMPLEX Rx Instructions: per sliding scale Vitamin B-12 50 mcg Tablet 50 mcg PO DAILY Vitamin D3 25 mcg (1,000 unit) Capsule 25 mcg PO DAILY furosemide 40 mg tablet 40 mg PO DAILY Qty: 60 2RF Discontinued aspirin 325 mg tablet 325 mg PO DAILY@0000 Seroquel 200 mg tablet 200 mg PO BEDTIME@00 Qty: 30 2RF gabapentin 100 mg Capsule 100 mg PO TID Discharge Orders: Discharge Order (Routine); Ordered 06/28/22 Ordered By: Glenroy Salvador Referrals: Rafa Call [Primary Care Provider] - Discharge Diet: Cardiac Discharge Activity: Increase activity as tolerated, Use walker/crutches as instructed and As per PT/OT instructions Discharge Attestations Time Spent in Discharge Care*: less than 30 min Status at Discharge: Cognitive status at discharge: cognitively intact, Behavioral status at discharge: cooperative, Quality Metrics Clinical Quality Measures [ No reported AMI, CVA or VTE this stay] Coding Level of Care Code Acute Chg FW DC note Diagnoses Streptococcal bacteremia R78.81; B95.5 Cerebral venous thrombosis G08 Febrile R50.9 Metabolic encephalopathy G93.41 Altered mental status R41.82 Hypothyroidism E03.9 Hypertension I10 CHF (congestive heart failure), NYHA class III I50.9 Frequent PVCs I49.3 Diabetes E11.9 Familial tremor G25.0 Constipation K59.00
--- NOTE | 2022-06-28 10:55 | PC.SOCIAL ---
IMM Update pg 2 of IMM updated and reviewed w/ patient. Copy provided and copy in chart dated and initialed.
[2022-06-28 11:56] LABS: Adenovirus Not Detected (NOT DETECT); Chlamydia Pneumoniae Not Detected (NOT DETECT); Coronavirus 229E,HKU1,NL63,OC4 Not Detected (NOT DETECT); Human Metapneumovirus Not Detected (NOT DETECT); Human Rhinovirus/Enterovirus Not Detected (NOT DETECT); Influenza A Not Detected (NOT DETECT); Influenza A H1 Not Detected (NOT DETECT); Influenza A H1-2009 Not Detected (NOT DETECT); Influenza A H3 Not Detected (NOT DETECT); Influenza B Not Detected (NOT DETECT); Mycoplasma Pneumoniae Not Detected (NOT DETECT); Parainfluenza Virus Type 1 Not Detected (NOT DETECT); Parainfluenza Virus Type 2 Not Detected (NOT DETECT); Parainfluenza Virus Type 3 Not Detected (NOT DETECT); Parainfluenza Virus Type 4 Not Detected (NOT DETECT); Respiratory Syncytial Virus A Not Detected (NOT DETECT); Respiratory Syncytial Virus B Not Detected (NOT DETECT); SARS-COV-2 Not Detected (NOT DETECT)
--- NOTE | 2022-06-28 12:50 | PC.NURSE ---
Report called to [facility], all D/C instructions educated to patient, patient transported by . [place] and peripheral IV removed
[2022-06-29 18:41] LABS: Blastomyces Antigen Interpret NEGATIVE; Blastomyces Antigen Result NONE DETECTED; Histoplasma Antigen (Quant) NONE DETECTED; Histoplasma Antigen Interpreta NEGATIVE; Histoplasma Antigen Specimen SERUM
[2022-06-30 18:14] LABS: Fungitell 1-3-B Glucan Assay <31 pg/mL; Interpretation NEGATIVE
[2022-06-30 19:39] LABS: Lyme Disease AB (IGG),IBL NO BANDS DETECTED; Lyme Disease AB (IGM), IBL NO BANDS DETECTED
[2022-07-01 09:39] LABS: HSV 1 DNA NOT DETECTED; HSV 2 DNA NOT DETECTED; HSV Source CEREBROSPINAL FLUID
[2022-07-01 16:35] LABS: Aspergillus AG,EIA,Serum NOT DETECTED; Aspergillus Galactomannan Inde <0.50
[2022-07-01 17:30] LABS: St. Louis Enceph.Virus IGG CSF <1:1; St. Louis Enceph.Virus IGM CSF <1:1
[2022-07-02 17:19] LABS: E. Chaffeensis AB IGG <1:64; E. Chaffeensis AB IGM <1:20
[2022-07-03 21:25] LABS: RMSF IGG NOT DETECTED; RMSF IGM NOT DETECTED
== END 2022-06-28 12:54 | disposition skilled nursing facility (03) | DRG 70 ==
LOC: ER 21:15 → ICU 23:43
PROVIDERS: Internal Medicine; Admitting Provider Family Medicine; Emergency Provider Family Medicine; PCP Physician Assistant Medical; Visit Provider Internal Medicine
DX: G93.41 Metabolic encephalopathy (principal); G03.0 Nonpyogenic meningitis; G08 Intracranial and intraspinal phlebitis and thrombophlebitis; I13.0 Hypertensive heart and chronic kidney disease with heart failure and stage 1 through stage 4 chronic kidney disease, or unspecified chronic kidney disease; M62.82 Rhabdomyolysis; E11.319 Type 2 diabetes mellitus with unspecified diabetic retinopathy without macular edema; I16.0 Hypertensive urgency; E03.9 Hypothyroidism, unspecified; E11.22 Type 2 diabetes mellitus with diabetic chronic kidney disease; N18.9 Chronic kidney disease, unspecified; I50.9 Heart failure, unspecified; F41.9 Anxiety disorder, unspecified; E11.51 Type 2 diabetes mellitus with diabetic peripheral angiopathy without gangrene; F33.41 Major depressive disorder, recurrent, in partial remission; G25.0 Essential tremor; E11.65 Type 2 diabetes mellitus with hyperglycemia; K59.00 Constipation, unspecified; Z86.31 Personal history of diabetic foot ulcer; Z79.4 Long term (current) use of insulin; Z86.69 Personal history of other diseases of the nervous system and sense organs
CPT/HCPCS: 36415; 36416; 36569; 36600; 51702; 62328; 70450; 70544; 70551; 71045; 71250; 74176; 80048; 80051; 80053; 80202; 80503; 81001; 82009; 82140; 82330; 82550; 82805; 82945; 82962; 83036; 83605; 83690; 83735; 83880; 84145; 84146; 84157; 84443; 84484; 85007; 85025; 85049; 85378; 85651; 85730; 86140; 86617; 86618; 86653; 86666; 86757; 87040; 87070; 87075; 87077; 87086; 87186; 87205; 87305; 87385; 87449; 87486; 87530; 87581; 87633; 87635; 87804; 89050; 92523; 92610; 93005; 93970; 93971; 94660; 94664; 96372; 96374; 96375; 97110; 97116; 97161; 97530; 99285; C1751; C8929; C9113; J0131; J0133; J0360; J0696; J1100; J1644; J1650; J1815; J1885; J1940; J2405; J3370; J3486; J3490; J7042; Q9956

== ENCOUNTER 2022-08-20 11:04 | Inpatient (IN) | payer MEDICARE, SELFPAY ==
[2022-08-20] VITALS (10 sets, daily range): BP systolic 164–190; BP diastolic 79–90; PULSE 64–77; RESP 14–18; TEMP 36.5–36.7; O2SAT 96–99; BMI 38.5
--- NOTE | 2022-08-20 11:19 | ECG_ITS ---
[facility] Test Date: 2022-08-20 Pat Name: Brittny Londono Department: Room: Gender: Male Pinmaker: : [id number] Requested By: Kelvin Marin Order Number: [id number] Anoop MD: Rudi Del Cid M.D. Measurements Intervals [place] Rate: 68 P: 50 IN: 183 QRS: -25 QRSD: 101 T: 37 QT: 388 QTc: 415 Interpretive Statements SINUS RHYTHM WITH OCCASIONAL VENTRICULAR PREMATURE COMPLEXES LOW QRS VOLTAGE IN PRECORDIAL LEADS [QRS DEFLECTION < 1.0 mV IN CHEST LEADS] POSSIBLE ANTERIOR MYOCARDIAL INFARCTION , OF INDETERMINATE AGE [30 ms Q WAVE IN V3/V4, OR R < 0.2 mV IN V4] Compared to ECG 06/24/2022 02:53:29 Low QRS voltage now present Myocardial infarct finding now present Electronically Signed On 08-20-2022 17:30:04 LEASING REPRESENTATIVE by Rudi Del Cid M.D. [id number]
--- NOTE | 2022-08-20 12:15 | XR_ITS ---
WS: [id number] Portable AP upright chest, 08/20/2022 Clinical Data: cp Comparison: Portable chest, 06/23/2022 Findings: No nodules, masses or effusions are seen. The heart is normal. The pulmonary vascularity is not increased. No pneumonia or pneumothorax is seen. There is a surgical plate which is on the lower sternum. The aortic arch shows tortuosity. There are monitor leads on the chest wall. XR/XR chest 1V portable [id number] Impression: Atherosclerosis.
[2022-08-20 12:34] LABS: Basophils # 0.1 10^3/uL (0.0-0.1); Basophils % 1.3 %; Eosinophils # 0.3 10^3/uL (0.0-0.8); Eosinophils % 5.6 %; Hematocrit 30.5 % (42.0-52.0); Hemoglobin 9.3 g/dL (11.7-16.6); Lymphocytes # 0.8 10^3/uL (0.8-4.8); Lymphocytes % 15.8 %; Mean Corpuscular HGB Conc 30.5 g/dL (30.0-36.0); Mean Corpuscular Hemoglobin 29.8 pg (28.0-34.0); Mean Corpuscular Volume 97.8 fl (80-94); Mean Platelet Volume 8.7 fL (7.4-10.4); Monocytes # 0.5 10^3/uL (0.2-0.9); Monocytes % 11.3 %; Neutrophils # 3.15 10^3/uL (1.8-7.7); Neutrophils % 65.6 %; Nucleated Red Blood Cells % 0 %; Platelet Count 298 10^3/cmm (130-400); Red Blood Count 3.12 10^6/uL (4.1-5.3); Red Cell Distribution Width 14.6 % (12.1-15.1); White Blood Count 4.8 10^3/uL (4.0-10.0)
[2022-08-20] MEDS: morphine 4 mg/mL SDV 1 mL IVP (12:39)
--- NOTE | 2022-08-20 12:45 | ED_ITS ---
HPI - Chest Pain General: Chief Complaint: Chest Pain Stated Complaint: Chest Pain, Numbness in hands Time Seen by Provider: 08/20/22 12:14 History of Present Illness: 72-year-old male with history of longstanding insulin requiring diabetes presents to the emergency department with chest pain and intermittent shortness of breath. The pain has caused him to be a little lightheaded and radiated up into his neck but not his back. The patient denies any previous history of coronary artery disease or any sort of heart problems. The patient's never had a coronary artery stent or heart attack. Patient reports that he had some mild symptoms yesterday but today has increased signif icantly. The patient also reports over the past several days to weeks he has noticed an increased exercise intolerance that he is related to some of his previous medical problems but is certainly out of the ordinary for him. Associated symptoms: Reports dyspnea; Deny palpitations or syncope Review of Systems General: Reports: 10 or more systems reviewed and unremarkable except in HPI a nd below Card: Reports: chest pain, lightheadedness and dyspnea on exertion; Denies: palpitations, irregular heart rhythm, edema, swelling of feet/ankles, syncope or acrocyanosis Resp: Reports: dyspnea; Denies: productive cough, non-productive cough, pain on inspiration, change in phlegm color, hemoptysis or chest congestion : Denies: flank pain, difficulty urinating, urinary frequency or urinary urgency PFSH ED PFSH: Medical History KINSEY (acute kidney injury) IMPROVING Altered mental status Cellulitis of right foot Cerebral venous thrombosis CHF (congestive heart failure), NYHA class III Constipation Diabetes Diabetes Diabetic peripheral neuropathy associated with type 2 diabetes mellitus Familial tremor Febrile Frequent PVCs Gas gangrene Gas gangrene GERD (gastroesophageal reflux disease) Hypertension Hypertensive urgency Hyperthyroidism Hypothyroidism Major depressive disorder, recurrent, in partial remission Metabolic encephalopathy Non-pressure chronic ulcer of other part of right foot with necrosis of muscle Streptococcal bacteremia Type 2 diabetes mellitus Surgical History History of colonoscopy History of hand surgery History of hernia surgery Family History Father Palpitations Stroke Denies family history of Diabetes CAD (coronary artery disease) Hypertension Social History Smoking and tobacco status: never smoked Alcohol intake: current Alcohol intake frequency: holidays/special occasions only Current occupational status: retired Physical Exam Const: COMMON NORMALS: no acute distress, patient oriented x3, alert and well nourished HENMT: COMMON NORMALS: normocephalic HEAD & SCALP: normocephalic Chest: COMMONS NORMALS: normal inspection of the chest and normal palpation of entire chest wall Resp: COMMON NORMALS: normal respiratory effort, No retractions, No use of accessory muscles, clear to auscultation bilaterally and percussion normal AUSCULTATION: clear to auscultation bilaterally PERCUSSION: percussion normal GI: COMMON NORMALS: Normal to inspection, nondistended, normoactive bowel sounds present, Soft to palpation, non-tender, No hepatosplenomegaly present, no masses and no bruits PALPATION: Yes Soft to palpation and Yes No hepa tosplenomegaly present Extremity: COMMON NORMALS: normal to inspection, full ROM, capillary refill normal, no joint enlargement, no clubbing, cyanosis or edema, no calf tenderness and no pedal edema Neuro: COMMON NORMALS: patient oriented x3 SENSORIUM/ORIENTATION: Yes alert Skin: COMMON NORMALS: no rashes or lesions noted, turgor normal and no jaundice GENERAL SKIN EXAM: no rashes or lesions noted and turgor normal Course Vital Signs: Vital signs: Vital Signs Temperature 98.0 F 08/20/22 11:08 Pulse Rate 65 08/20/22 12:40 Respiratory Rate 16 08/20/22 12:40 Blood Pressure 183/90 08/20/22 12:40 Pulse Oximetry 98 08/20/22 12:40 Oxygen Delivery Me thod 08/20/22 12:40 MDM - Chest Pain Medical Decision Making 72-year-old male in with chest pain, shortness of breath and dizziness. Differential is broad but leading to the differential diagnosis would be acute coronary syndrome. I have recommended patient have EKG, troponin and standard work-up. Chest x-ray revealed concerns of atherosclerosis but no acute findings. EKG showed some nonspecific changes but no ST elevation and had normal intervals and axis. The troponin came back elevated and I called and talked with cardiology Dr. Jansen who recommended the patient be loaded with Plavix and given Nitropaste and admitted to the hospitalist. I then talked to the hospitalist who is agreeable with excepting the patient and standard bridge admit orders were written. Differential Diagnosis Likely acute myocardial infarction Lab Data 08/20/22 12:20 08/20/22 12:20 Radiology Impressions Chest X-Ray 08/20/22 12:15 Impression: Atherosclerosis. Laboratory Results WBC 4.8 10^3/uL (4.0-10.0) 08/20/22 12:20 RBC 3.12 10^6/uL (4.1-5.3) L 08/20/22 12:20 Hgb 9.3 g/dL (11.7-16.6) L 08/20/22 12:20 Hct 30.5 % (42.0-52.0) L 08/20/22 12:20 MCV 97.8 fl (80-94) H 08/20/22 12:20 MCH 29.8 pg (28.0-34.0) 08/20/22 12:20 MCHC 30.5 g/dL (30.0-36.0) 08/20/22 12:20 RDW 14.6 % (12.1-15.1) 08/20/22 12:20 Plt Count 298 10^3/cmm (130-400) 08/20/22 12:20 MPV 8.7 fL (7.4-10.4) 08/20/22 12:20 Neut % (Auto) 65.6 % 08/20/22 12:20 Lymph % (Auto) 15.8 % 08/20/22 12:20 [place] % (Auto) 11.3 % 08/20/22 12:20 Eos % (Auto) 5.6 % 08/20/22 12:20 Baso % (Auto) 1.3 % 08/20/22 12:20 Neut # (Auto) 3.15 10^3/uL (1.8-7.7) 08/20/22 12:20 Lymph # (Auto) 0.8 10^3/uL (0.8-4.8) 08/20/22 12:20 [place] # (Auto) 0.5 10^3/uL (0.2-0.9) 08/20/22 12:20 Eos # (Auto) 0.3 10^3/uL (0.0-0.8) 08/20/22 12:20 Baso # (Auto) 0.1 10^3/uL (0.0-0.1) 08/20/22 12:20 Nucleated RBC % (auto) 0 % 08/20/22 12:20 Nucleated RBCs # 0.0 /100WBC 08/20/22 12:20 APTT 38.0 SECONDS (23.9-36.7) H 08/20/22 12:20 Sodium 134 mmol/L (136-145) L 08/20/22 12:20 Potassium 5.6 mmol/L (3.5-5.1) H 08/20/22 12:20 Chloride 102 mmol/L (98-107) 08/20/22 12:20 Carbon Dioxide 24 mmol/L (22-29) 08/20/22 12:20 Anion Gap 13.6 (5-19) 08/20/22 12:20 BUN 21 mg/dL (8-23) 08/20/22 12:20 Creatinine 2.0 mg/dL (0.7-1.2) H 08/20/22 12:20 GFR Calculation Not Reportable 08/20/22 12:20 Glucose 277 mg/dL (65-115) H 08/20/22 12:20 Calculated Osmolality 291 mOsm/kg (285-295) 08/20/22 12:20 Calcium 9.0 mg/dL (8.5-10.5) 08/20/22 12:20 Total Bilirubin 0.2 mg/dL (0.15-1.2) 08/20/22 12:20 AST 14 U/L (0-40) 08/20/22 12:20 ALT 11 U/L (0-41) 08/20/22 12:20 Alkaline Phosphatase 110 U/L (40-130) 08/20/22 12:20 Troponin T Baseline 137 ng/L (0-15) H* 08/20/22 12:20 Troponin T 120 Minute 122.6 ng/L (0-15) H 08/20/22 14:28 Delta Troponin T -14.4 ABS# (0-10) L 08/20/22 14:28 NT-Pro-B Natriuret Pep 316 pg/mL (0-125) H 08/20/22 12:20 Total Protein 6.3 g/dL (6.6-8.7) L 08/20/22 12:20 Albumin 3.4 g/dL (3.5-5.2) L 08/20/22 12:20 Globulin 2.9 g/dL (1.3-4.6) 08/20/22 12:20 Discharge Plan Discharge Patient Disposition: Admitted As Inpatient Clinical Impression: Non-ST elevated myocardial infarction (non-STEMI) Condition: Stable Coding Level of Care Code ED Setter Automatic Spinning Lathe for Avis Orellana
[2022-08-20 12:55] LABS: Troponin(5th) Baseline 137 ng/L (0-15)
[2022-08-20 13:01] LABS: Alanine Aminotransferase 11 U/L (0-41); Albumin Level 3.4 g/dL (3.5-5.2); Alkaline Phosphatase 110 U/L (40-130); Anion Gap 13.6 (5-19); Aspartate Amino Transferase 14 U/L (0-40); Blood Urea Nitrogen 21 mg/dL (8-23); Carbon Dioxide 24 mmol/L (22-29); Chloride 102 mmol/L (98-107); Globulin 2.9 g/dL (1.3-4.6); Glucose 277 mg/dL (65-115); NT Pro B Type Natriuretic Pept 316 pg/mL (0-125); Osmolality Calculated 291 mOsm/kg (285-295); Potassium 5.6 mmol/L (3.5-5.1); Sodium 134 mmol/L (136-145); Total Bilirubin 0.2 mg/dL (0.15-1.2); Total Protein 6.3 g/dL (6.6-8.7)
[2022-08-20] MEDS: nitroglycerin 1 gm/inch oint Pkt 1 INCH TOPICAL (13:50)
[2022-08-20] MEDS: aspirin 81 mg Chew Tablet 324 MG PO (13:50)
[2022-08-20] MEDS: clopidogrel 300 mg Tablet PO (13:50)
[2022-08-20] MEDS: heparin drip 25,000 UNIT/500 ML PREMIX 36 UNIT IV (13:50)
[2022-08-20] MEDS: heparin drip 25,000 UNIT/500 ML PREMIX 36.01 UNIT IV (14:00)
--- NOTE | 2022-08-20 14:08 | PC.NURSE ---
Heparin drip started @ 1400. Rate 36 mls/hr. Per provider no bolus.
--- NOTE | 2022-08-20 14:15 | ECG_ITS ---
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 Measurements Intervals [place] Rate: 64 P: 48 [place]: 191 QRS: -16 QRSD: 87 T: 24 QT: 382 QTc: 395 Interpretive Statements SINUS RHYTHM POSSIBLE ANTERIOR MYOCARDIAL INFARCTION , OF INDETERMINATE AGE [30 ms Q WAVE IN V3/V4, OR R < 0.2 mV IN V4] Compared to ECG 08/20/2022 11:19:26 Ventricular premature complex(es) no longer present Myocardial infarct finding still present Electronically Signed On 08-20-2022 17:32:08 [employer]W EYE [employer]SEMBLER by Rudi Del Cid M.D. [email or web address]
[2022-08-20 14:57] LABS: Troponin 5 2HR 122.6 ng/L (0-15); Troponin 5 2HR Delta -14.4 ABS# (0-10)
--- NOTE | 2022-08-20 15:10 | P.HP_ITS ---
Providers/Chief Complaint Admitting Physician: Linda Frost MD Primary Care Provider: Reggie Bowles Chief Complaint: Chest Pain, Numbness in hands History of Present Illness Brittny Londono is a 72 year old male who presented to the emergency room with chief complaint of chest pain began a couple of days ago. He first noticed it on Saturday. He had moved some things around in the house and initially thought that the discomfort was possibly a pulled muscle from this. Pain was located in the left side of his chest. It was fairly continuous throughout the day. It would radiate into his back at times. He had some shortness of breath and nausea. No diaphoresis. He has a history of frequent PVCs that was demonstrated on prior Holter monitoring and noted that he was not experiencing as many PVCs as he usually does. He also experienced significant tunnel vision which is a symptom he has never had previously. It made it where he was not able to do much yesterday. The chest pain was unlike anything he had ever experienced before. It stopped around 10 PM last night. It then recurred today and was even more severe. He described it as feeling like an elephant sitting on his chest when he awakened today. His made him come into the emergency room. On arrival here EKG showed nonspecific changes. No ST elevation. His pain was severe. He was given aspirin, Nitropaste and morphine and is currently chest pain-free. He has no personal history of coronary artery disease but has risk factors including diabetes, hypertension, diastolic CHF, chronic kidney disease and BMI of 38. He was hospitalized here in late May and June of this year. At that time he was found to have cerebral vein thrombosis and Streptococcus mitis oralis bacteremia. He was started on Eliquis and was treated with antibiotics. He was discharged to [facility]. He later developed an ulceration to the back of his left calf. He was hospitalized at [facility] for approximately 4 days at the beginning of this month and underwent debridement and has been on Bactrim lately and going to wound care. The wound is healing. He denies recent fever or chills. No recent upper respiratory symptoms. He has known chronic reflux disease but it has been well managed lately. Denies any difficulty swallowing or acid taste in his mouth. He has not noted any blood in his stools or black tarry stools. He does report difficulty initiating his stream of urine but no blood in his urine or dysuria. He has chronic edema in both lower extremities and has had cellulitis in the left lower extremity to some degree dating back to June though it is overall improved. It continues to be red. The weakness in his left side that he was experiencing when the cerebral vein thrombosis was identified has resolved. He has some memory issues and does report increased emotionality and depression symptoms over the last couple of months, particularly around the missing few days he had because of his acute illness at the time. Denies significant gross blood loss. No constipation or diarrhea. Review of Systems General: Reports: Other (ROS as per HPI or as otherwise noted here) Medications/Allergies Home Medications Medication Instructions Recorded Confirmed Last Taken Type insulin degludec 100 unit/mL 45 unit SUBCUT BID@12,05/26/20 08/20/22 08/19/22 History subcutaneous solution (Tresiba U-100 Insulin) famotidine 40 mg tablet 40 mg PO DAILY@00 07/13/20 08/20/22 08/19/22 History lansoprazole 15 mg capsule,delayed 15 mg PO DAILY@1200 07/13/20 08/20/22 08/19/22 History release (Prevacid) levothyroxine 25 mcg capsule 25 mcg PO DAILY@00 07/13/20 08/20/22 08/19/22 History hydralazine 50 mg tablet 50 mg PO TID #90 tabs 07/17/20 08/20/22 08/19/22 Rx nifedipine 60 mg tablet,extended 60 mg PO DAILY #30 tabs 07/17/20 08/20/22 08/19/22 Rx release 24 hr carvedilol 3.125 mg tablet 3.125 mg PO BID #180 tabs 04/12/21 08/20/22 08/19/22 Rx primidone 50 mg tablet 50 mg PO BID@12 #60 tabs 09/11/21 08/20/22 08/19/22 Rx cholecalciferol (vitamin D3) 25 25 mcg PO DAILY 06/24/22 08/20/22 08/19/22 History mcg (1,000 unit) capsule (Vitamin D3) cyanocobalamin (vitamin B-12) 50 50 mcg PO DAILY 06/24/22 08/20/22 08/19/22 History mcg tablet (Vitamin B-12) insulin aspart U-100 100 unit/mL See Rx Instructions .Route .COMPLEX 06/24/22 08/20/22 Unknown History (3 mL) subcutaneous pen (Novolog FlexPen U-100 Insulin aspart) apixaban 5 mg tablet (Eliquis) 2.5 mg PO BID@0900,2100 #180 tabs 06/28/22 08/20/22 08/19/22 Rx furosemide 40 mg tablet 40 mg PO DAILY #60 tabs 06/28/22 08/20/22 08/19/22 Rx paroxetine HCl 10 mg tablet (Paxil) 10 mg PO DAILY #30 tabs 08/09/22 08/20/22 08/19/22 Rx quetiapine 25 mg tablet (Seroquel) 25 mg PO BEDTIME #30 tabs 08/09/22 08/20/22 08/19/22 Rx gabapentin 100 mg capsule 200 mg PO DAILY 08/20/22 08/20/22 08/19/22 History hydrocodone 10 mg-acetaminophen 1 tab PO Q8H PRN Pain 08/20/22 08/20/22 08/19/22 History 325 mg tablet lorazepam 1 mg tablet (Ativan) 1 mg PO BEDTIME PRN anxiety 08/20/22 08/20/22 Unknown History sulfamethoxazole 800 1 tab PO BID 08/20/22 08/20/22 08/19/22 History mg-trimethoprim 160 mg tablet (Bactrim DS) Allergies Allergy/AdvReac Type Severity Reaction Status Date / Time Penicillins Allergy Intermediate rash Verified 08/09/22 11:47 PFSH Acute PFSH: Medical History (Updated 08/20/22 @ 16:48 by Linda Frost MD) Anxiety Cerebral venous thrombosis Identified on MRV 06/2022, nonocclusive, right transverse and sigmoid sinus, started on anticoagulation with eliquis with plan for 6 months of treatment. Symptoms (AMS, headache, fever, vomiting) started ~ 3 hrs after anti-VEGF retinal injection. CHF (congestive heart failure), NYHA class III CKD (chronic kidney disease) stage 3, GFR 30-59 ml/min Diabetic peripheral neuropathy Diabetic retinopathy Familial tremor 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 GERD (gastroesophageal reflux disease) with hiatal hernia History of echocardiogram 06/2022 EF 71%, normal LV size and function, grade I/IV diastolic dysfunction, no wall motion abnormalities History of Holter monitoring 09/2020 predominant rhythm sinus rhythm to sinus tachycardia with frequent ventricular ectopy, range 60-163 bpm Hypertension Hypothyroidism Major depressive disorder HAZEL on CPAP Sigmoid diverticulosis Streptococcal bacteremia 06/2022, streptococcus mitis oralis, treated with 4 weeks IV ceftriaxone Type 2 diabetes mellitus Surgical History (Updated 08/20/22 @ 15:28 by Linda Frost MD) History of colonoscopy History of hand surgery History of hernia surgery Status post excisional debridement (06/2020) for right foot gas gangrene, followed at wound care until healed Family History Father Palpitations Stroke Denies family history of Diabetes CAD (coronary artery disease) Hypertension Social History (Updated 08/20/22 @ 16:49 by Linda Frost MD) Smoking and tobacco status: never smoked Alcohol intake: current Alcohol intake frequency: holidays/special occasions only Substance/Drug Use: never Household members: spouse Marital status: Current occupational status: retired Vitals/I&O/Wt Last Vital Signs Temp 98.0 F 08/20/22 11:08 Pulse 65 08/20/22 12:40 Resp 16 08/20/22 12:40 BP 183/90 08/20/22 12:40 Pulse Ox 98 08/20/22 12:40 O2 Del Method 08/20/22 12:40 Weight last 48 hrs Weight 136.078 kg Physical Exam Narrative: Awake and alert, able to provide history. Normocephalic, pupils are equal reactive, extraocular movements are grossly intact, nasopharynx is clear, oropharynx with moist mucous membranes. He has some dentition left lower but edentulous otherwise. Neck is large but supple. Lungs are clear to auscultation bilaterally without any rales rhonchi or wheezes noted cardiovascu lar exam reveals a regular rate and rhythm. No murmurs gallops or rubs. Abdomen is soft, nontender with positive bowel sounds. Extremities with 3+ edema left slightly larger than right. Left lower extremity is erythematous and slightly warm to touch compared to right. There is an approximately 4 cm x 3 cm healing wound to the posterior calf on the left with yellow exudate versus Medihoney application. Nonodorous, no purulent drainage. Chronic stasis changes appreciated with some scratch cisneros. Scattered other minor abrasions in different stages of healing. Skin is dry. Some mild thenar wasting is noted. Handgrip is equal. Speech is clear. Normal affect. Data 08/20/22 12:20 08/20/22 12:20 Other Labs: PREVIOUS Laboratory Tests 06/24/22 02:00 Hemoglobin A1c 9.0 H 06/23/22 19:40 Troponin T Baseline 88 H Current Radiology Impressions Chest X-Ray 08/20/22 12:15 Impression: Atherosclerosis. Current Laboratory Results WBC 4.8 10^3/uL (4.0-10.0) 08/20/22 12:20 RBC 3.12 10^6/uL (4.1-5.3) L 08/20/22 12:20 Hgb 9.3 g/dL (11.7-16.6) L 08/20/22 12:20 Hct 30.5 % (42.0-52.0) L 08/20/22 12:20 MCV 97.8 fl (80-94) H 08/20/22 12:20 MCH 29.8 pg (28.0-34.0) 08/20/22 12:20 MCHC 30.5 g/dL (30.0-36.0) 08/20/22 12:20 RDW 14.6 % (12.1-15.1) 08/20/22 12:20 Plt Count 298 10^3/cmm (130-400) 08/20/22 12:20 MPV 8.7 fL (7.4-10.4) 08/20/22 12:20 Neut % (Auto) 65.6 % 08/20/22 12:20 Lymph % (Auto) 15.8 % 08/20/22 12:20 [place] % (Auto) 11.3 % 08/20/22 12:20 Eos % (Auto) 5.6 % 08/20/22 12:20 Baso % (Auto) 1.3 % 08/20/22 12:20 Neut # (Auto) 3.15 10^3/uL (1.8-7.7) 08/20/22 12:20 Lymph # (Auto) 0.8 10^3/uL (0.8-4.8) 08/20/22 12:20 [place] # (Auto) 0.5 10^3/uL (0.2-0.9) 08/20/22 12:20 Eos # (Auto) 0.3 10^3/uL (0.0-0.8) 08/20/22 12:20 Baso # (Auto) 0.1 10^3/uL (0.0-0.1) 08/20/22 12:20 Nucleated RBC % (auto) 0 % 08/20/22 12:20 Nucleated RBCs # 0.0 /100WBC 08/20/22 12:20 APTT 38.0 SECONDS (23.9-36.7) H 08/20/22 12:20 Sodium 134 mmol/L (136-145) L 08/20/22 12:20 Potassium 5.6 mmol/L (3.5-5.1) H 08/20/22 12:20 Chloride 102 mmol/L (98-107) 08/20/22 12:20 Carbon Dioxide 24 mmol/L (22-29) 08/20/22 12:20 Anion Gap 13.6 (5-19) 08/20/22 12:20 BUN 21 mg/dL (8-23) 08/20/22 12:20 Creatinine 2.0 mg/dL (0.7-1.2) H 08/20/22 12:20 GFR Calculation Not Reportable 08/20/22 12:20 Glucose 277 mg/dL (65-115) H 08/20/22 12:20 Calculated Osmolality 291 mOsm/kg (285-295) 08/20/22 12:20 Calcium 9.0 mg/dL (8.5-10.5) 08/20/22 12:20 Total Bilirubin 0.2 mg/dL (0.15-1.2) 08/20/22 12:20 AST 14 U/L (0-40) 08/20/22 12:20 ALT 11 U/L (0-41) 08/20/22 12:20 Alkaline Phosphatase 110 U/L (40-130) 08/20/22 12:20 Troponin T Baseline 137 ng/L (0-15) H* 08/20/22 12:20 Troponin T 120 Minute 122.6 ng/L (0-15) H 08/20/22 14:28 Delta Troponin T -14.4 ABS# (0-10) L 08/20/22 14:28 NT-Pro-B Natriuret Pep 316 pg/mL (0-125) H 08/20/22 12:20 Total Protein 6.3 g/dL (6.6-8.7) L 08/20/22 12:20 Albumin 3.4 g/dL (3.5-5.2) L 08/20/22 12:20 Globulin 2.9 g/dL (1.3-4.6) 08/20/22 12:20 A&P Assessment and plan (1) Non-ST elevated myocardial infarction (non-STEMI): With primary symptom onset in the 24 to 48 hours prior to admission. No prior diagnosis of coronary artery disease though multiple risk factors as described. (2) Anemia: With drop in hemoglobin compared to prior levels in June of this year (11 Hgb). No reports of gross blood loss recently. Had negative Hemoccult when he was at [facility] in [place] earlier this month. Last fall did have some bright red blood per rectum and was originally scheduled for colonoscopy in June though it had to be postponed due to initiation of anticoagulation for cerebral vein thrombosis.. Suspect chronic inflammation related to left lower extremity wound and chronic kidney disease both contributing factors. He does have macrocytosis presently though had had normocytic parameters earlier this year. On chronic B12 replacement. (3) Cerebral venous thrombosis: Identified in June 2022. Had had teeth extraction a couple months prior and had Streptococcus mitis oralis bacteremia at the same time. Initiated on anticoagulation with Eliquis with plan for 6 months of treatment at that time. (4) Type 2 diabetes mellitus: Insulin requiring with associated chronic kidney disease stage IIIb, retinopathy and neuropathy. Hemoglobin A1c in June of this year was 9.0. (5) CKD (chronic kidney disease) stage 3, GFR 30-59 ml/min: Stage IIIb secondary to diabetes and hypertension. Recent creatinine through primary care provider during a nonacute visit was 1.5. Currently with hyperkalemia and creatinine at upper limits of recent normal range for him, likely secondary to Bactrim administration for left lower extremity wound. (6) Hypertension: Essential hypertension currently with elevated values after not having usual home medications today. Chronically on carvedilol, Lasix, hydralazine and Procardia ER. (7) CHF (congestive heart failure), NYHA class III: Chronic diastolic/preserved ejection fraction CHF at baseline, not currently decompensated though with significant lower extremity edema on exam. Is on chronic diuresis. (8) Ulcer of left calf: Followed by wound care, using Medihoney and saline plus a cleansing solution and twice daily dressing changes. Wound is significantly improved though not yet completely resolved. Present on admission. Has been on several courses of Bactrim for this wound. (9) HAZEL on CPAP: Compliant with therapy (10) GERD (gastroesophageal reflux disease): On chronic PPI and H2 ward, generally well controlled by patient report (11) Hypothyroidism: Acquired, on chronic levothyroxine (12) Major depressive disorder: On chronic paroxetine therapy along with nighttime Seroquel (13) Anxiety: Has as needed lorazepam in addition to paroxetine and Seroquel (14) Familial tremor: On chronic primidone therapy (15) Body mass index 38.0-38.9, adult: Plan Inpatient admission Telemetry monitoring Continue heparin drip Hold Eliquis Aspirin and Plavix Statin therapy Check lipid panel Continue Nitropaste Continue home carvedilol Monitor blood pressures Will continue home hydralazine, nifedipine and Lasix Hemoccult stool Check repeat hemoglobin, TIBC, B12 and folate Follow neuro exams every shift Monitor renal function Low rate of IV fluid x1 L Recheck potassium level A lower dose of long-acting insulin along with sliding scale Daily weights and strict I's and O's Wound care to left lower extremity CPAP with sleep Usual PPI Continue home levothyroxine Continue home paroxetine, Seroquel, as needed lorazepam and primidone Continue home gabapentin (for diabetic neuropathy pain) and as needed hydrocodone (takes for pain in his left lower extremity primarily) Usual home vitamins currently held Supportive care otherwise Findings, concerns and plans were discussed with patient and his and both were given an opportunity to ask questions Anticipate discharge home with outpatient follow-up to primary care provider, continuation of wound care, possibly with cardiology. Patient will need to resume Eliquis for his known cerebral vein thrombosis and may have other medic ation adjustments depending on clinical course. Full code Attestations Medical Necessity Statement*: Anticipated stay greater than two midnights in this gentleman presenting complaints of chest pain and associated symptoms along with clinical findings of non-ST elevation [place]. He has known chronic kidney disease and is currently on Eliquis due to said agreeable vein thrombosis identified in June of this year complicating management. In addition he has had left lower extremity wound and been on antibiotics that have impacted his renal function. Other comorbidities as outlined above. Will require anticoagulation, monitoring, cardiac evaluation and other care as described. At high risk of rapid clinical decline up to and including the possibility of without appropriate medical care. and High Time for a total of 75 minutes, includes reviewing past or interval history, examining/interviewing patient, placing orders, discussing plan of care with staff, communicating with other healthcare providers and documenting encounter Other Coding Information Anticipated stay greater than two midnights in this gentleman presenting complaints of chest pain and associated symptoms along with clinical findings of non-ST elevation [place]. He has known chronic kidney disease and is currently on Eliquis due to said agreeable vein thrombosis identified in June of this year complicating management. In addition he has had left lower extremity wound and been on antibiotics that have impacted his renal function. Other comorbidities as outlined above. Will require anticoagulation, monitoring, cardiac evaluation and other care as described. At high risk of rapid clinical decline up to and including the possibility of without appropriate medical care. Diagnoses Non-ST elevated myocardial infarction (non-STEMI) I21.4 Anemia D64.9 Cerebral venous thrombosis G08 Type 2 diabetes mellitus E11.9 CKD (chronic kidney disease) stage 3, GFR 30-59 ml/min N18.30 Hypertension I10 CHF (congestive heart failure), NYHA class III I50.9 Ulcer of left calf L97.229 HAZEL on CPAP G47.33; Z99.89 GERD (gastroesophageal reflux disease) K21.9 Hypothyroidism E03.9 Major depressive disorder F32.9 Anxiety F41.9 Familial tremor G25.0 Body mass index 38.0-38.9, adult Z68.38
--- NOTE | 2022-08-20 17:05 | USCV_ITS ---
Brittny Londono Age: 72 Gender: M : 1950 Exam Date: 08/20/2022 18:17 Ordering Phys: Linda Frost MD Technologist: CASANDRA Exam Location: [facility] [place] Indication: LIMITED ECHO FOR EF O N L Y. prior Jun 2022 BP: 183 / 90 HR: 68 Rhythm: Sinus Technical Quality: Adequate with [employer] MEASUREMENTS (Male / Female) Normal Values 2D ECHO LV Diastolic Diameter PLAX 4.7 cm 4.2 - 5.9 / 3.9 - 5.3 cm LV Systolic Diameter PLAX 3.5 cm IVS Diastolic Thickness 1.9 cm 0.6 - 1.0 / 0.6 - 0.9 cm IVS Systolic Thickness 2.1 cm LVPW Diastolic Thickness 1.8 cm 0.6 - 1.0 / 0.6 - 0.9 cm LVPW Systolic Thickness 2.1 cm LVOT Diameter 2.3 cm LV Ejection Fraction 2D Teich 48.4 % LV Ejection Fraction MOD 2C 58.7 % LV Ejection Fraction 2C AL 58.8 % LA Diameter 3.3 cm LA Width 4.0 cm LA Height 5.2 cm RA Width 3.5 cm RA Height 5.0 cm IVC Diameter 1.8 cm DOPPLER AV Peak Velocity 118.0 cm/s LVOT Peak Velocity 64.0 cm/s AV Area Cont Eq vti 2.5 cm squared AV Area Cont Eq pk 2.3 cm squared MV Area PHT 2.9 cm squared Mitral E to A Ratio 0.7 MV E' Velocity 67.0 cm/s TR Peak Velocity 199.0 cm/s TR Peak Gradient 15.8 mmHg Right Atrial Pressure 5.0 mmHg Pulmonary Artery Systolic Pressu 20.8 mmHg FINDINGS Left Ventricle Normal left ventricular size and systolic function, EF 65 %. No regional wall motion abnormalities. Grade I/IV diastolic dysfunction (abnormal relaxation filling pattern), normal to mildly elevated filling pressures. Right Ventricle The right ventricle is normal in size and function. Right Atrium The right atrium is normal in size. Left Atrium The left atrium is normal in size. Mitral Valve Mild mitral valve regurgitation. Aortic Valve No gross abnormalities noted Tricuspid Valve No gross abnormalities noted Pulmonic Valve No gross abnormalities noted Pericardium Trivial pericardial effusion. Aorta Normal ascending aorta dimension. IVC The inferior vena cava appears normal. CONCLUSIONS Normal left ventricular size and systolic function, EF 65 %. No regional wall motion abnormalities. Grade I/IV diastolic dysfunction (abnormal relaxation filling pattern), normal to mildly elevated filling pressures. Mild mitral valve regurgitation. Normal cardiac chamber sizes There is no pericardial effusion. There are no intracardiac masses. No similar previous studies are available for comparison Dr Len Jansen MD FAC (Electronically Signed) Final Date: 21 August 2022 10:02 S
--- NOTE | 2022-08-20 17:56 | ECG_ITS ---
[facility] Test Date: 2022-08-20 Pat Name: Brittny Londono Department: Room: 104 Gender: Male Health Information Management Director: : 1950 Requested By: Cesar Suarez Order Number: [id number] Anoop MD: Rudi Del Cid M.D. Measurements Intervals [place] Rate: 62 P: 0 NE: 182 QRS: 77 QRSD: 89 T: 23 QT: 392 QTc: 400 Interpretive Statements SINUS RHYTHM LOW QRS VOLTAGE IN PRECORDIAL LEADS [QRS DEFLECTION < 1.0 mV IN CHEST LEADS] POSSIBLE ANTERIOR MYOCARDIAL INFARCTION , OF INDETERMINATE AGE [30 ms Q WAVE IN V3/V4, OR R < 0.2 mV IN V4] Compared to ECG 08/20/2022 14:26:53 Low QRS voltage now present Myocardial infarct finding still present Electronically Signed On 08-20-2022 23:43:19 SCHEDULING ASSISTANT by Rudi Del Cid M.D. [id number]
[2022-08-20 18:11] LABS: Glucose Point of Care 184 mg/dL (70-110)
[2022-08-20] MEDS: carvedilol 3.125 mg Tablet PO (18:11)
[2022-08-20] MEDS: acetaminophen 325 mg Tablet 650 MG PO (18:11)
[2022-08-20] MEDS: insulin lispro 100 unit/1 mL SUBCUT ×2 (18:13→20:38)
[2022-08-20] MEDS: sodium chloride 0.9% 1,000 ML 50 ML IV (18:30)
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
[2022-08-20 20:13] LABS: Glucose Point of Care 171 mg/dL (70-110)
[2022-08-20 20:30] LABS: Partial Thromboplastin Time 69.6 SECONDS (23.9-36.7)
[2022-08-20] MEDS: atorvastatin 40 mg Tablet PO (20:38)
[2022-08-20] MEDS: LORazepam 1 mg Tablet 0.5 MG PO (20:38)
[2022-08-20] MEDS: hyDRALAzine 50 mg Tablet PO (20:38)
[2022-08-20] MEDS: quetiapine 25 mg Tablet PO (20:39)
[2022-08-20 21:03] LABS: Troponin 5 6HR Delta -3.9 ng/L (0-12)
[2022-08-20 21:04] LABS: Troponin 5 6HR 133.1 ng/L (0-15)
[2022-08-20] MEDS: insulin glargine 100 units/1 mL 30 UNIT SUBCUT (22:24)
[2022-08-20] MEDS: primidone 50 mg Tablet PO (22:24)
[2022-08-21] VITALS (10 sets, daily range): BP systolic 112–166; BP diastolic 55–96; PULSE 68–95; RESP 12–18; TEMP 36.6–37.5; O2SAT 96–98
[2022-08-21] MEDS: heparin drip 25,000 UNIT/500 ML PREMIX 36.01 UNIT IV (03:42)
[2022-08-21 04:10] LABS: Basophils # 0.1 10^3/uL (0.0-0.1); Basophils % 1.1 %; Eosinophils # 0.3 10^3/uL (0.0-0.8); Eosinophils % 5.5 %; Hematocrit 25.7 % (42.0-52.0); Hemoglobin 7.8 g/dL (11.7-16.6); Lymphocytes # 1.3 10^3/uL (0.8-4.8); Lymphocytes % 22.7 %; Mean Corpuscular HGB Conc 30.4 g/dL (30.0-36.0); Mean Corpuscular Hemoglobin 29.1 pg (28.0-34.0); Mean Corpuscular Volume 95.9 fl (80-94); Mean Platelet Volume 8.8 fL (7.4-10.4); Monocytes # 0.5 10^3/uL (0.2-0.9); Monocytes % 9.5 %; Neutrophils # 3.39 10^3/uL (1.8-7.7); Neutrophils % 60.7 %; Nucleated Red Blood Cells % 0 %; Platelet Count 268 10^3/cmm (130-400); Red Blood Count 2.68 10^6/uL (4.1-5.3); Red Cell Distribution Width 14.4 % (12.1-15.1); White Blood Count 5.6 10^3/uL (4.0-10.0)
[2022-08-21 04:11] LABS: Reticulocyte % 2.9 % (0.5-2.0)
[2022-08-21 04:37] LABS: Anion Gap 12.5 (5-19); Blood Urea Nitrogen 22 mg/dL (8-23); Calcium 8.5 mg/dL (8.5-10.5); Carbon Dioxide 24 mmol/L (22-29); Chloride 106 mmol/L (98-107); Chol HDL Ratio 4.97 mg/dL (1.0-5.00); Cholesterol 189 mg/dL (0-200); Glucose 97 mg/dL (65-115); HDL Cholesterol 38 mg/dL (60-100); LDL Cholesterol Calculated 124 mg/dL (50-129); LDL HDL Ratio 3.26 RATIO (0.00-3.22); Magnesium 2.1 mg/dL (1.7-2.3); Osmolality Calculated 287 mOsm/kg (285-295); Phosphorus 3.4 mg/dL (2.5-4.5); Potassium 5.5 mmol/L (3.5-5.1); Sodium 137 mmol/L (136-145); Triglycerides 133 mg/dL (0-150)
[2022-08-21 05:15] LABS: Iron 81 ug/dL (59-158); Percent Saturation 39.7 % (20-50); Total Iron Binding Capacity 204 mcg/dl; Unsaturated Iron Binding 123 ug/dL (112-347)
[2022-08-21 05:31] LABS: Vitamin B12 391 pg/mL (232-1245)
[2022-08-21 05:35] LABS: Partial Thromboplastin Time 83.7 SECONDS (23.9-36.7)
[2022-08-21] MEDS: perflutren protein-a microsphr 0.22 mg/mL SDV 3 mL IV (05:46)
[2022-08-21 05:48] LABS: Folate Level 4.1 ng/mL (4.5-32.2)
[2022-08-21] MEDS: hyDRALAzine 50 mg Tablet PO ×3 (05:52→20:09)
[2022-08-21] MEDS: levothyroxine 25 mcg Tablet PO (05:52)
[2022-08-21] MEDS: acetaminophen 325 mg Tablet 650 MG PO (05:58)
[2022-08-21 06:25] LABS: Glucose Point of Care 107 mg/dL (70-110)
[2022-08-21] MEDS: nitroglycerin 1 gm/inch oint Pkt 1 INCH TOPICAL ×2 (08:34→15:22)
[2022-08-21] MEDS: carvedilol 3.125 mg Tablet PO ×2 (08:34→13:23)
[2022-08-21] MEDS: clopidogrel 75 mg Tablet PO (08:34)
[2022-08-21] MEDS: aspirin 81 mg EC Tablet PO (08:34)
[2022-08-21] MEDS: gabapentin 100 mg Capsule 200 MG PO (08:35)
[2022-08-21] MEDS: pantoprazole DR 40 mg Tablet PO (08:35)
[2022-08-21] MEDS: NIFEdipine ER (24 hr) 30 mg Tablet 60 MG PO (08:35)
[2022-08-21] MEDS: PARoxetine 20 mg Tablet 10 MG PO (08:35)
[2022-08-21] MEDS: FUROsemide 40 mg Tablet PO (08:35)
[2022-08-21 09:10] LABS: Hemoglobin 8.7 g/dL (11.7-16.6)
--- NOTE | 2022-08-21 10:36 | PC.CHAP ---
Pastoral Care Encounter/Spiritual Assessment Type of Contact [] Declined emergency department nurse visit [] Patient/Family/Request visit [] Outpatient visit [] Follow-up visit [] Physician referral [] Code/Alert [x] Routine visit [] Staff referral [] Actively dying [] Patient sleeping [x] Family support [] [] Out of room [] Palliative care [] [] Receiving care in room [] Pre-surgical visit [] Trauma [] Long length of stay [] ICU visit [] Other: Relational/Emotional Strength [x] Patient feels connected with others/family/visitors/staff [] Distress [] Loneliness/isolation [] Abandonment Spirituality of Patient [x] Person of Minnie [] Attends [facility] of their Minnie [x] Believes in Prayer [] Reads Bible or Restorationism materials [] There are Spiritual issues to be addressed Coverstitch Binder Interventions [x] Prayer [x] Active listening [] Non-anxious presence [x] Spiritual/emotional support [] Crisis/trauma care [] Spiritual counseling [] Bereavement support [] Provided bereavement packet [] Provided Bible/devotional materials [] Provided toy/stuffed animal, coloring book to patient or family member [] Provided Communion [] Anointing/Blain [] Salvation [x] Completed spiritual assessment [] Other: Impact on Illness or Injury [] Angry [] Fearful [] Anxious [] Often cries [] Exhaustion [] Unable to work [] Unable to attend gnosticism [] Unable to walk/stand [] Unable to read [] Unable to drive [] Unable to eat/drink [] Unable to sleep [] Unable to be with family [] Patient intubated [] Other: Summary Time spent with patient 10 min
[2022-08-21] MEDS: insulin glargine 100 units/1 mL 30 UNIT SUBCUT ×2 (10:37→20:07)
[2022-08-21 11:05] LABS: Glucose Point of Care 188 mg/dL (70-110)
[2022-08-21] MEDS: primidone 50 mg Tablet PO ×2 (11:55→23:12)
[2022-08-21] MEDS: insulin lispro 100 unit/1 mL SUBCUT ×3 (11:55→20:07)
--- NOTE | 2022-08-21 12:32 | PM.PN ---
Subjective Subjective: Patient is chest pain-free Repeat H&H showed hemoglobin 8.7 No need to stop aspirin for now Patient is stating he weeks ago his FOBT came back negative No history of gastric ulcer disease Vitals/I&O/Wt Last Vital Signs Temp 97.8 F 08/21/22 12:00 Pulse 84 08/21/22 12:00 Resp 18 08/21/22 12:00 BP 166/96 08/21/22 12:00 Pulse Ox 96 08/21/22 12:00 O2 Del Method 08/21/22 12:00 08/20/22 08/21/22 08/21/22 22:59 06:59 14:59 Intake Total 462.6 / 462.6 572.559 / 1035.159 236 / 236 Output Total 500 / 500 1000 / 1500 790 / 790 Balance -37.4 / -37.4 -427.441 / -464.841 -554 / -554 Weight last 48 hrs Weight 132.131 kg Weight 136.078 kg Physical Exam Narrative: Alert Lower extremity swelling Left lower extremity wound healing well 2+ edema of legs Awake and alert S1, S2 Chest pain-free Doing well on room air Pleasant and cooperative Hypertensive Data 08/21/22 08:41 08/21/22 03:41 A&P Assessment and plan (1) Familial tremor: (2) GERD (gastroesophageal reflux disease): (3) Type 2 diabetes mellitus: (4) Hypothyroidism: (5) Hypertension: (6) CHF (congestive heart failure), NYHA class III: (7) Cerebral venous thrombosis: (8) Diabetic retinopathy: (9) Diabetic peripheral neuropathy: (10) CKD (chronic kidney disease) stage 3, GFR 30-59 ml/min: (11) Ulcer of left calf: (12) Non-ST elevated myocardial infarction (non-STEMI): Plan NSTEMI Plan for angiogram once we finished 48 hours off Eliquis Monitor H&H No need of blood transfusion as of now Check FOBT As per the patient FOBT was negative few weeks ago Cerebral venous thrombosis that was diagnosed with previous hospitalization Eliquis currently on hold currently is on heparin He will need to finish 6 months on Eliquis Left foot ulcer uses Medihoney, wet-to-dry dressing, bacitracin Diastolic CHF exacerbation lower extremity edema Continue low-dose Lasix Acute on chronic anemia, macrocytic No active bleed I will continue Protonix Keep his hemoglobin above 8 Anemia of chronic disease? low normal B12 level, iron is normal no history of gastric ulcer disease, check folic acid Chronic kidney disease creatinine at baseline Antihypertensive regimen Continue CPAP for sleep apnea Hypothyroidism: Full code Cardiac diet N.p.o. after midnight Attestations Medical Necessity Statement*: Continue medical management Diagnoses Familial tremor G25.0 GERD (gastroesophageal reflux disease) K21.9 Type 2 diabetes mellitus E11.9 Hypothyroidism E03.9 Hypertension I10 CHF (congestive heart failure), NYHA class III I50.9 Cerebral venous thrombosis G08 Diabetic retinopathy E11.319 Diabetic peripheral neuropathy E11.42 CKD (chronic kidney disease) stage 3, GFR 30-59 ml/min N18.30 Ulcer of left calf L97.229 Non-ST elevated myocardial infarction (non-STEMI) I21.4
[2022-08-21 12:35] LABS: Partial Thromboplastin Time 68.7 SECONDS (23.9-36.7)
[2022-08-21] MEDS: HYDROcodone-acetaminophen 10-325 mg Tablet 1 TAB PO ×2 (14:59→19:10)
[2022-08-21 17:01] LABS: Glucose Point of Care 173 mg/dL (70-110)
[2022-08-21] MEDS: carvedilol 6.25 mg Tablet PO (17:54)
[2022-08-21 17:59] LABS: Partial Thromboplastin Time 55.3 SECONDS (23.9-36.7)
--- NOTE | 2022-08-21 18:25 | P.PN_ITS ---
Subjective Subjective: The patient was found to have frequent PVCs on the monitor. He has a history of ventricular arrhythmia. He has palpitations and discomfort with the PVCs. However he does not have the recurrence of chest pain that he came in with. The echocardiogram revealed normal LV size and ejection fraction. No significant wall motion normalities. Medications: Medication Review Details: Current Medications Acetaminophen (Acetaminophen 325 Mg Tablet) 650 mg PO Q6H PRN PRN Reason: Mild/Mod Pain Or Temp >/= 101 Last Admin: 08/21/22 05:58 Dose: 650 mg Hydrocodone Bitart/Acetaminophen (Hydrocodone-Acetaminophen 10-325 Mg Tablet) 1 tab PO Q8H PRN PRN Reason: MODERATE PAIN Last Admin: 08/21/22 14:59 Dose: 1 tab Aspirin (Aspirin 81 Mg Ec Tablet) 81 mg PO DAILY [facility] Last Admin: 08/21/22 08:34 Dose: 81 mg Atorvastatin Calcium (Atorvastatin 40 Mg Tablet) 40 mg PO BEDTIME [facility] Last Admin: 08/20/22 20:38 Dose: 40 mg Bisacodyl (Bisacodyl 5 Mg Tablet) 10 mg PO DAILY PRN; Protocol PRN Reason: Constipation (see protocol) Carvedilol (Carvedilol 6.25 Mg Tablet) 6.25 mg PO BID [facility] Last Admin: 08/21/22 17:54 Dose: 6.25 mg Clopidogrel Bisulfate (Clopidogrel 75 Mg Tablet) 75 mg PO DAILY [facility] Last Admin: 08/21/22 08:34 Dose: 75 mg Dextrose (Dextrose 50% Syringe 50 Ml) 25 ml IVP ONCE PRN; Protocol PRN Reason: hypoglycemia protocol Dextrose (Dextrose 50% Syringe 50 Ml) 50 ml IVP PRN PRN; Protocol PRN Reason: hypoglycemia protocol Furosemide (Furosemide 40 Mg Tablet) 40 mg PO DAILY [facility] Last Admin: 08/21/22 08:35 Dose: 40 mg Gabapentin (Gabapentin 100 Mg Capsule) 200 mg PO DAILY [facility] Last Admin: 08/21/22 08:35 Dose: 200 mg Glucagon (Glucagon 1 Mg/Ml Inj 1 Ml) 1 mg IM ONCE PRN; Protocol PRN Reason: Adult Acute Hypoglycemia Prot. Heparin Sodium (Porcine) (Heparin 5,000 Unit/Ml Inj 1 Ml) 0 unit IV PRN PRN; Protocol PRN Reason: Heparin weight-base protocol Hydralazine HCl (Hydralazine 50 Mg Tablet) 50 mg PO Q8H [facility] Last Admin: 08/21/22 15:00 Dose: 50 mg Heparin Sodium/Sodium Chloride (Heparin Drip) 25,000 unit in 500 mls @ 0 mls/hr IV .Q0M [facility]; Protocol Last Titration: 08/21/22 12:00 Dose: 12.13 unit/kg/hr, 33 mls/hr Dextrose (D5w) 500 mls @ 100 mls/hr IV ONCE PRN; Protocol PRN Reason: Adult Acute Hypoglycemia Prot Insulin Glargine (Insulin Glargine 100 Units/1 Ml) 30 unit SUBCUT BID@10 [facility] Last Admin: 08/21/22 10:37 Dose: 30 unit Insulin Human Lispro (Insulin Lispro 100 Unit/1 Ml) 0 unit SUBCUT BEDTIME [facility]; Protocol Last Admin: 08/20/22 20:38 Dose: 2 unit Insulin Human Lispro (Insulin Lispro 100 Unit/1 Ml) 0 unit SUBCUT TIDWM [facility]; Protocol Last Admin: 08/21/22 17:55 Dose: 4 unit Levothyroxine Sodium (Levothyroxine 25 Mcg Tablet) 25 mcg PO QAM [facility] Last Admin: 08/21/22 05:52 Dose: 25 mcg Lorazepam (Lorazepam 1 Mg Tablet) 0.5 mg PO BEDTIME PRN PRN Reason: anxiety Last Admin: 08/20/22 20:38 Dose: 0.5 mg Morphine Sulfate (Morphine 4 Mg/Ml Sdv 1 Ml) 4 mg IVP Q4H PRN PRN Reason: SEVERE PAIN Nifedipine (Nifedipine Er (24 Hr) 30 Mg Tablet) 60 mg PO DAILY [facility] Last Admin: 08/21/22 08:35 Dose: 60 mg Nitroglycerin (Nitroglycerin 1 Gm/Inch Oint Pkt) 1 inch TOPICAL Q6H [facility] Last Admin: 08/21/22 15:22 Dose: 1 inch Ondansetron HCl (Ondansetron 2 Mg/Ml Sdv 2 Ml) 4 mg IVP Q8H PRN PRN Reason: vomiting, or N/V if npo Pantoprazole Sodium (Pantoprazole Dr 40 Mg Tablet) 40 mg PO DAILY [facility] Last Admin: 08/21/22 08:35 Dose: 40 mg Paroxetine HCl (Paroxetine 20 Mg Tablet) 10 mg PO DAILY [facility] Last Admin: 02/28/23 08:35 Dose: 10 mg Primidone (Primidone 50 Mg Tablet) 50 mg PO BID@00,12 [facility] Last Admin: 08/21/22 11:55 Dose: 50 mg Quetiapine Fumarate (Quetiapine 25 Mg Tablet) 25 mg PO BEDTIME [facility] Last Admin: 08/20/22 20:39 Dose: 25 mg Vitals/I&O/Wt Last Vital Signs Temp 97.9 F 08/21/22 16:00 Pulse 80 08/21/22 16:00 Resp 18 08/21/22 16:00 BP 112/55 08/21/22 16:00 Pulse Ox 98 08/21/22 16:00 O2 Del Method 08/21/22 16:00 08/21/22 08/21/22 08/21/22 06:59 14:59 22:59 Intake Total 572.559 / 1374.974 2245.3 / 1677.3 240 / 1917.3 Output Total 1000 / 1500 1590 / 1590 400 / 1990 Balance -427.441 / -464.841 87.3 / 87.3 -160 / -72.7 Weight last 48 hrs Weight 291 lb 4.8 oz Weight 300 lb Physical Exam Narrative: GENERAL: The patient is alert and oriented times three. Not in any acute distress. HEENT: No significant pallor, icterus or lymphadenopathy.Oral cavity: There are no mucous membrane lesions. NECK: Trachea appears to be central. No masses noted. No JVD or thyromegaly appreciated. RESPIRATORY: Chest is symmetrical. No intercostals muscle retraction or any accessory muscle activation. There is no chest wall tenderness. Breath sounds are heard bilaterally. No rales or rhonchi heard. No evidence of any consolidation. BREASTS: Deferred. HEART: The heart sounds are normal. No S3 or S4. No significant murmurs. No pericardial rub ABDOMEN: No vessel pulsations or distention. No tenderness. No organomegaly appreciated. Bowel sounds are normally heard. : Deferred. RECTAL: Deferred. LYMPHATIC: No lymphadenopathy noted in the neck. EXTREMITIES: 1-2+ edema of the left lower extremity. This is chronic and stable MUSCULOSKELETAL: No acute joint deformities or swelling SKIN: There are no significant rashes or ecchymosis NEUROPSYCHIATRIC: The patient is alert and oriented x3. Appears to be in a good mood. No tremors or rigidity noted. Data 08/21/22 08:41 08/21/22 03:41 Other Labs: Laboratory Last Values WBC 5.6 10^3/uL (4.0-10.0) 08/21/22 03:41 RBC 2.68 10^6/uL (4.1-5.3) L 08/21/22 03:41 Hgb 8.7 g/dL (11.7-16.6) L 08/21/22 08:41 Hct 28.0 % (42.0-52.0) L 08/21/22 08:41 MCV 95.9 fl (80-94) H 08/21/22 03:41 MCH 29.1 pg (28.0-34.0) 08/21/22 03:41 MCHC 30.4 g/dL (30.0-36.0) 08/21/22 03:41 RDW 14.4 % (12.1-15.1) 08/21/22 03:41 Plt Count 268 10^3/cmm (130-400) 08/21/22 03:41 MPV 8.8 fL (7.4-10.4) 08/21/22 03:41 Neut % (Auto) 60.7 % 08/21/22 03:41 Lymph % (Auto) 22.7 % 08/21/22 03:41 Winston % (Auto) 9.5 % 08/21/22 03:41 Eos % (Auto) 5.5 % 08/21/22 03:41 Baso % (Auto) 1.1 % 08/21/22 03:41 Reticulocyte % (Auto) 2.9 % (0.5-2.0) H 08/21/22 03:41 Neut # (Auto) 3.39 10^3/uL (1.8-7.7) 08/21/22 03:41 Lymph # (Auto) 1.3 10^3/uL (0.8-4.8) 08/21/22 03:41 Winston # (Auto) 0.5 10^3/uL (0.2-0.9) 08/21/22 03:41 Eos # (Auto) 0.3 10^3/uL (0.0-0.8) 08/21/22 03:41 Baso # (Auto) 0.1 10^3/uL (0.0-0.1) 08/21/22 03:41 Nucleated RBC % (auto) 0 % 08/21/22 03:41 Nucleated RBCs # 0.0 /100WBC 08/21/22 03:41 APTT 55.3 SECONDS (23.9-36.7) H 08/21/22 17:38 Sodium 137 mmol/L (136-145) 08/21/22 03:41 Potassium 5.5 mmol/L (3.5-5.1) H 08/21/22 03:41 Chloride 106 mmol/L (98-107) 08/21/22 03:41 Carbon Dioxide 24 mmol/L (22-29) 08/21/22 03:41 Anion Gap 12.5 (5-19) 08/21/22 03:41 BUN 22 mg/dL (8-23) 08/21/22 03:41 Creatinine 1.8 mg/dL (0.7-1.2) H 08/21/22 03:41 GFR Calculation Not Reportable 08/21/22 03:41 Glucose 97 mg/dL (65-115) 08/21/22 03:41 POC Glucose 173 mg/dL (70-110) H 08/21/22 16:41 Calculated Osmolality 287 mOsm/kg (285-295) 08/21/22 03:41 Calcium 8.5 mg/dL (8.5-10.5) 08/21/22 03:41 Phosphorus 3.4 mg/dL (2.5-4.5) 08/21/22 03:41 Magnesium 2.1 mg/dL (1.7-2.3) 08/21/22 03:41 Iron 81 ug/dL (59-158) 08/21/22 03:41 TIBC 204 mcg/dl 08/21/22 03:41 % Saturation 39.7 % (20-50) 08/21/22 03:41 Unsat Iron Binding 123 ug/dL (112-347) 08/21/22 03:41 Total Bilirubin 0.2 mg/dL (0.15-1.2) 08/20/22 12:20 AST 14 U/L (0-40) 08/20/22 12:20 ALT 11 U/L (0-41) 08/20/22 12:20 Alkaline Phosphatase 110 U/L (40-130) 08/20/22 12:20 Troponin T Baseline 137 ng/L (0-15) H* 08/20/22 12:20 Troponin T 120 Minute 122.6 ng/L (0-15) H 08/20/22 14:28 Delta Troponin T -14.4 ABS# (0-10) L 08/20/22 14:28 Troponin T Hi Sens 6Hr 133.1 ng/L (0-15) H 08/20/22 20:07 Troponin T Hi Sens 6Hr Delta -3.9 ng/L (0-12) L 08/20/22 20:07 NT-Pro-B Natriuret Pep 316 pg/mL (0-125) H 08/20/22 12:20 Total Protein 6.3 g/dL (6.6-8.7) L 08/20/22 12:20 Albumin 3.4 g/dL (3.5-5.2) L 08/20/22 12:20 Globulin 2.9 g/dL (1.3-4.6) 08/20/22 12:20 Triglycerides 133 mg/dL (0-150) 08/21/22 03:41 Cholesterol 189 mg/dL (0-200) 08/21/22 03:41 LDL Cholesterol, Calc 124 mg/dL (50-129) 08/21/22 03:41 HDL Cholesterol 38 mg/dL (60-100) L 08/21/22 03:41 LDL/HDL Ratio 3.26 RATIO (0.00-3.22) H 08/21/22 03:41 Cholesterol/HDL Ratio 4.97 mg/dL (1.0-5.00) 08/21/22 03:41 Vitamin B12 391 pg/mL (232-1245) 08/21/22 03:41 Folate 4.1 ng/mL (4.5-32.2) L 08/21/22 03:41 A&P Assessment and plan (1) Non-ST elevated myocardial infarction (non-STEMI): Patient is currently fairly stable pain. He has frequent ventricular arrhythmias on the monitor. He has a history of ventricular arrhythmia. I may increase the dose of the metoprolol and start him on Magtab SR 84 mg p.o. twice daily. For further evaluation of his coronary status, a cardiac catheterization would be appropriate. This was discussed with the patient in detail. The risk of bleeding, hematoma, vascular injury, myocardial infarction, myocardial perforation, malignant cardiac arrhythmias ,CVA, renal failure and other concomitant complications were explained in detail. Because of the chronic kidney disease, he has a higher chance of contrast-induced nephropathy. This also was discussed in detail. Patient and his understood the risk and is wanting to go ahead with the procedure. We may schedule this for sometime tomorrow. May continue on the heparin (2) CKD (chronic kidney disease) stage 3, GFR 30-59 ml/min: Possibly the patient may have diabetic kidney. This needs to be closely monitored. The creatinine level is coming down (3) Cerebral venous thrombosis: Patient is on Eliquis. This was held. Currently he is on IV heparin. (4) Hypertension: The blood pressure is coming down. Currently he is normotensive. (5) Type 2 diabetes mellitus: The blood glucose level seems to be slowly getting under control (6) Anemia: There is a slight drop in the hemoglobin. The Hemoccult was negative. Repeat H&H in the morning would be appropriate. (7) Diabetic peripheral neuropathy: Patient has a history of diabetic neuropathy and retinopathy. (8) Ulcer of left calf: Patient apparently developed fasciitis. He is receiving treatment at the wound care clinic. It seems to be improving. Plan The echocardiogram was reviewed. His LV ejection fraction was within normal limits. He may continue on the current medications. Possible cardiac or radi ation tomorrow Attestations Medical Necessity Statement*: Patient requires continued hospital stay for close monitoring and further management Coding Level of Care Code 54684 Diagnoses Non-ST elevated myocardial infarction (non-STEMI) I21.4 CKD (chronic kidney disease) stage 3, GFR 30-59 ml/min N18.30 Cerebral venous thrombosis G08 Hypertension I10 Type 2 diabetes mellitus E11.9 Anemia D64.9 Diabetic peripheral neuropathy E11.42 Ulcer of left calf L97.229
[2022-08-21] MEDS: atorvastatin 40 mg Tablet PO (19:09)
[2022-08-21] MEDS: heparin drip 25,000 UNIT/500 ML PREMIX 33 UNIT IV (19:10)
[2022-08-21] MEDS: quetiapine 25 mg Tablet PO (19:10)
[2022-08-21 19:40] LABS: Glucose Point of Care 182 mg/dL (70-110)
[2022-08-21] MEDS: LORazepam 1 mg Tablet 0.5 MG PO (20:09)
[2022-08-22] VITALS (15 sets, daily range): BP systolic 126–146; BP diastolic 58–81; PULSE 78–89; RESP 10–19; TEMP 36.8–37.3; O2SAT 96–99
[2022-08-22 02:03] LABS: Partial Thromboplastin Time 73.2 SECONDS (23.9-36.7)
[2022-08-22 05:11] LABS: Basophils # 0.1 10^3/uL (0.0-0.1); Basophils % 0.8 %; Eosinophils # 0.2 10^3/uL (0.0-0.8); Eosinophils % 3.6 %; Hematocrit 23.7 % (42.0-52.0); Hemoglobin 7.3 g/dL (11.7-16.6); Lymphocytes # 1.4 10^3/uL (0.8-4.8); Lymphocytes % 23.3 %; Mean Corpuscular HGB Conc 30.8 g/dL (30.0-36.0); Mean Corpuscular Hemoglobin 29.3 pg (28.0-34.0); Mean Corpuscular Volume 95.2 fl (80-94); Mean Platelet Volume 9.1 fL (7.4-10.4); Monocytes # 0.5 10^3/uL (0.2-0.9); Monocytes % 8.5 %; Neutrophils # 3.88 10^3/uL (1.8-7.7); Neutrophils % 63.3 %; Nucleated Red Blood Cells % 0 %; Platelet Count 281 10^3/cmm (130-400); Red Blood Count 2.49 10^6/uL (4.1-5.3); Red Cell Distribution Width 14.6 % (12.1-15.1); White Blood Count 6.1 10^3/uL (4.0-10.0)
[2022-08-22 05:29] LABS: Anion Gap 13.6 (5-19); Blood Urea Nitrogen 33 mg/dL (8-23); Calcium 8.9 mg/dL (8.5-10.5); Carbon Dioxide 24 mmol/L (22-29); Chloride 105 mmol/L (98-107); Glucose 86 mg/dL (65-115); Osmolality Calculated 293 mOsm/kg (285-295); Potassium 4.6 mmol/L (3.5-5.1); Sodium 138 mmol/L (136-145)
[2022-08-22] MEDS: hyDRALAzine 50 mg Tablet PO ×3 (05:37→21:16)
[2022-08-22] MEDS: levothyroxine 25 mcg Tablet PO (05:37)
[2022-08-22 05:55] LABS: Glucose Point of Care 100 mg/dL (70-110)
[2022-08-22] MEDS: nitroglycerin 1 gm/inch oint Pkt 1 INCH TOPICAL ×2 (08:15→14:34)
[2022-08-22] MEDS: FUROsemide 40 mg Tablet PO (08:18)
[2022-08-22] MEDS: PARoxetine 20 mg Tablet 10 MG PO (08:19)
[2022-08-22] MEDS: NIFEdipine ER (24 hr) 30 mg Tablet 60 MG PO (08:20)
[2022-08-22] MEDS: carvedilol 6.25 mg Tablet PO ×2 (08:20→18:16)
[2022-08-22] MEDS: gabapentin 100 mg Capsule 200 MG PO (08:20)
[2022-08-22] MEDS: pantoprazole DR 40 mg Tablet PO (08:21)
[2022-08-22 08:28] LABS: Hematocrit 22.4 % (42.0-52.0); Hemoglobin 6.8 g/dL (11.7-16.6)
--- NOTE | 2022-08-22 10:17 | PM.PN ---
Subjective Subjective: FOBT positive Repeat H&H 6.8 [address]anc[address] with Dr. Jansen Updated Dr. Dewitt for EGD Patient is agreeable Stop aspirin Plavix heparin Nurse updated Vitals/I&O/Wt Last Vital Signs Temp 99.2 F 08/22/22 04:00 Pulse 79 08/22/22 05:26 Resp 17 08/22/22 04:00 BP 146/63 08/22/22 04:00 Pulse Ox 99 08/22/22 04:00 O2 Del Method 08/22/22 08:33 08/21/22 08/22/22 08/22/22 22:59 06:59 14:59 Intake Total 459.478 / 2136.778 Output Total 700 / 2290 850 / 3140 525 / 525 Balance -240.522 / -153.222 -850 / -1003.222 -525 / -525 Weight last 48 hrs Weight 128.14 kg Weight 132.131 kg Weight 136.078 kg Physical Exam Narrative: Patient is asymptomatic Awake and alert Hemodynamically stable Abdomen soft Lower extremity 3+ edema Left calf ulcer improving In good spirits Pleasant and cooperative ANDREAS SHERIDAN S1, S2 Currently on room air Data 08/22/22 07:42 08/22/22 04:17 Micro: Microbiology 08/21/22 18:50 Occult Blood (FIT) - Final Stool Routine Collection A&P Assessment and plan (1) Familial tremor: (2) GERD (gastroesophageal reflux disease): (3) Type 2 diabetes mellitus: (4) Hypothyroidism: (5) Hypertension: (6) CHF (congestive heart failure), NYHA class III: (7) Cerebral venous thrombosis: (8) Non-ST elevated myocardial infarction (non-STEMI): (9) Diabetic retinopathy: (10) Diabetic peripheral neuropathy: (11) Chronic anticoagulation: (12) Ulcer of left calf: (13) CKD (chronic kidney disease) stage 3, GFR 30-59 ml/min: (14) Melanotic stools: (15) Acute anemia: Plan Acute anemia Hemodynamically stable Acute macrocytic anemia FOBT positive Stop aspirin Plavix heparin Protonix 40 mg IV twice daily N.p.o. EGD, Dr. Dewitt consulted NSTEMI Held angiogram for today Blood transfusion: 1 unit PRBC today Target hemoglobin above 8 Cerebral venous thrombosis, held Chris, he was on heparin for NSTEMI protocol Chronic kidney disease: Creatinine at baseline Diabetic nephropathy with ulcer on left calf: Ulcer is healing well Disposition plan Home after angiogram N.p.o. for now for EGD Full code PT prophylaxis: SCDs Attestations Medical Necessity Statement*: EGD today Diagnoses Familial tremor G25.0 GERD (gastroesophageal reflux disease) K21.9 Type 2 diabetes mellitus E11.9 Hypothyroidism E03.9 Hypertension I10 CHF (congestive heart failure), NYHA class III I50.9 Cerebral venous thrombosis G08 Non-ST elevated myocardial infarction (non-STEMI) I21.4 Diabetic retinopathy E11.319 Diabetic peripheral neuropathy E11.42 Chronic anticoagulation Z79.01 Ulcer of left calf L97.229 CKD (chronic kidney disease) stage 3, GFR 30-59 ml/min N18.30 Melanotic stools K92.1 Acute anemia D64.9
[2022-08-22 11:58] LABS: Glucose Point of Care 147 mg/dL (70-110)
[2022-08-22] MEDS: sodium chloride 0.9% 100 mL Bag 50 ML IV (11:59)
[2022-08-22] MEDS: primidone 50 mg Tablet PO ×2 (12:57→23:50)
--- NOTE | 2022-08-22 13:44 | PC.NURSE ---
Telephone orders received from Dr Dewitt- 4L Golytely prep and 4 doculax colon prep to start now. Pt may have clear liquid diet, then NPO p MN. Signed consent ordered updated to reflect procedures. EGD/Colon tomorrow tentatively at [address] Dewitt. Informed JOVANNY Ballesteros of new orders placed. Verbalized understanding.
[2022-08-22] MEDS: bisacodyl 5 mg Tablet 20 MG PO (14:34)
[2022-08-22] MEDS: peg /e-lyte soln 4,000 mL Btl 4000 ML PO (14:36)
[2022-08-22 17:26] LABS: Partial Thromboplastin Time 30.8 SECONDS (23.9-36.7)
--- NOTE | 2022-08-22 17:48 | PM.CONSULT ---
Providers/Reason For Consult Consulting Physician/Specialty*: Dr. Toney Dewitt, DO/General surgery Reason for Consult*: Anemia Attending Physician: Glenroy Salvador MD Primary Care Provider: Dulce Maria Daly MD History of Present Illness History of Present Illness Brittny Londono is a 72 year old male who is on Eliquis at home for a cerebral venous thrombus, presented to the hospital with an NSTEMI. Cardiology would like to do angiography, however his hemoglobin is below 7. He denies any blood in his stool. He denies any nausea, emesis, abdominal pain, diarrhea, constipation, hematochezia and/or melena. Hospitalist is requesting endoscopy to evaluate for possible GI bleeding. Review of Systems General: Reports: 10 or more systems reviewed and unremarkable except in HPI and below Medications/Allergies Home Medications Medication Instructions Recorded Confirmed Last Taken Type insulin degludec 100 unit/mL 45 unit SUBCUT BID@12,00 05/26/20 08/20/22 08/19/22 History subcutaneous solution (Tresiba U-100 Insulin) famotidine 40 mg tablet 40 mg PO DAILY@00 07/13/20 08/20/22 08/19/22 History lansoprazole 15 mg capsule,delayed 15 mg PO DAILY@1200 07/13/20 08/20/22 08/19/22 History release (Prevacid) levothyroxine 25 mcg capsule 25 mcg PO DAILY@00 07/13/20 08/20/22 08/19/22 History hydralazine 50 mg tablet 50 mg PO TID #90 tabs 07/17/20 08/20/22 08/19/22 Rx nifedipine 60 mg tablet,extended 60 mg PO DAILY #30 tabs 07/17/20 08/20/22 08/19/22 Rx release 24 hr carvedilol 3.125 mg tablet 3.125 mg PO BID #180 tabs 04/12/21 08/20/22 08/19/22 Rx primidone 50 mg tablet 50 mg PO BID@00,12 #60 tabs 09/11/21 08/20/22 08/19/22 Rx cholecalciferol (vitamin D3) 25 25 mcg PO DAILY 06/24/22 08/20/22 08/19/22 History mcg (1,000 unit) capsule (Vitamin D3) cyanocobalamin (vitamin B-12) 50 50 mcg PO DAILY 06/24/22 08/20/22 08/19/22 History mcg tablet (Vitamin B-12) insulin aspart U-100 100 unit/mL See Rx Instructions .Route .COMPLEX 06/24/22 08/20/22 Unknown History (3 mL) subcutaneous pen (Novolog FlexPen U-100 Insulin aspart) apixaban 5 mg tablet (Eliquis) 2.5 mg PO BID@0900,2100 #180 tabs 06/28/22 08/20/22 08/19/22 Rx furosemide 40 mg tablet 40 mg PO DAILY #60 tabs 06/28/22 08/20/22 08/19/22 Rx paroxetine HCl 10 mg tablet (Paxil) 10 mg PO DAILY #30 tabs 08/09/22 08/20/22 08/19/22 Rx quetiapine 25 mg tablet (Seroquel) 25 mg PO BEDTIME #30 tabs 08/09/22 08/20/22 08/19/22 Rx gabapentin 100 mg capsule 200 mg PO DAILY 08/20/22 08/20/22 08/19/22 History hydrocodone 10 mg-acetaminophen 1 tab PO Q8H PRN Pain 08/20/22 08/20/22 08/19/22 History 325 mg tablet lorazepam 1 mg tablet (Ativan) 1 mg PO BEDTIME PRN anxiety 08/20/22 08/20/22 Unknown History sulfamethoxazole 800 1 tab PO BID 08/20/22 08/20/22 08/19/22 History mg-trimethoprim 160 mg tablet (Bactrim DS) Allergies Allergy/AdvReac Type Severity Reaction Status Date / Time Penicillins Allergy Intermediate rash Verified 08/09/22 11:47 Current Medications Generic Name Dose Route Start Last Admin Trade Name Freq PRN Reason Stop Dose Admin Acetaminophen 650 mg 08/20/22 17:05 08/21/22 05:58 Acetaminophen 325 Mg Tablet PO 650 mg Q6H PRN Administration Mild/Mod Pain Or Temp >/= 101 Hydrocodone Bitart/Acetaminophen 1 tab 08/20/22 17:05 08/21/22 19:10 Hydrocodone-Acetaminophen 10-325 Mg Tablet PO 1 tab Q8H PRN Administration MODERATE PAIN Aspirin 81 mg 08/21/22 09:00 08/22/22 08:21 Aspirin 81 Mg Ec Tablet PO Not Given DAILY [facility] Atorvastatin Calcium 40 mg 08/20/22 21:00 08/21/22 19:09 Atorvastatin 40 Mg Tablet PO 40 mg BEDTIME [facility] Administration Carvedilol 6.25 mg 08/21/22 18:00 08/22/22 08:20 Carvedilol 6.25 Mg Tablet PO 6.25 mg BID [facility] Administration Clopidogrel Bisulfate 75 mg 08/21/22 09:00 08/22/22 08:22 Clopidogrel 75 Mg Tablet PO Not Given DAILY [facility] Furosemide 40 mg 08/21/22 09:00 08/22/22 08:18 Furosemide 40 Mg Tablet PO 40 mg DAILY [facility] Administration Gabapentin 200 mg 08/21/22 09:00 08/22/22 08:20 Gabapentin 100 Mg Capsule PO 200 mg DAILY [facility] Administration Hydralazine HCl 50 mg 08/20/22 22:00 08/22/22 14:34 Hydralazine 50 Mg Tablet PO 50 mg Q8H [facility] Administration Heparin Sodium/Sodium Chloride 25,000 unit in 500 mls @ 0 mls/hr 08/20/22 15:45 08/21/22 19:10 Heparin Drip IV 12.13 unit/kg/hr .Q0M [facility] 33 mls/hr Administration Protocol Per Protocol Insulin Glargine 30 unit 08/20/22 22:00 08/22/22 11:32 Insulin Glargine 100 Units/1 Ml SUBCUT Not Given BID@10,22 [facility] Insulin Human Lispro 0 unit 08/20/22 21:00 08/21/22 20:07 Insulin Lispro 100 Unit/1 Ml SUBCUT 3 unit BEDTIME [facility] Administration Protocol Insulin Human Lispro 0 unit 08/20/22 18:00 08/22/22 12:52 Insulin Lispro 100 Unit/1 Ml SUBCUT Not Given TIDWM [facility] Protocol Levothyroxine Sodium 25 mcg 08/21/22 06:00 08/22/22 05:37 Levothyroxine 25 Mcg Tablet PO 25 mcg QAM [facility] Administration Lorazepam 0.5 mg 08/20/22 17:05 08/21/22 20:09 Lorazepam 1 Mg Tablet PO 0.5 mg BEDTIME PRN Administration anxiety Nifedipine 60 mg 08/21/22 09:00 08/22/22 08:20 Nifedipine Er (24 Hr) 30 Mg Tablet PO 60 mg DAILY [facility] Administration Nitroglycerin 1 inch 08/20/22 20:00 08/22/22 14:34 Nitroglycerin 1 Gm/Inch Oint Pkt TOPICAL 1 inch Q6H [facility] Administration Paroxetine HCl 10 mg 08/21/22 09:00 08/22/22 08:19 Paroxetine 20 Mg Tablet PO 10 mg DAILY [facility] Administration Primidone 50 mg 08/21/22 00:00 08/22/22 12:57 Primidone 50 Mg Tablet PO 50 mg BID@00,12 [facility] Administration Quetiapine Fumarate 25 mg 08/20/22 21:00 08/21/22 19:10 Quetiapine 25 Mg Tablet PO 25 mg BEDTIME [facility] Administration Sodium Chloride 50 ml 08/22/22 09:17 08/22/22 11:59 Sodium Chloride 0.9% 100 Ml Bag IV 08/23/22 09:17 50 ml PRN PRN Administration Blood transfusion prime and flush PFSH Acute PFSH: Medical History Anxiety Cerebral venous thrombosis CHF (congestive heart failure), NYHA class III CKD (chronic kidney disease) stage 3, GFR 30-59 ml/min Diabetic peripheral neuropathy Diabetic retinopathy Familial tremor 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 GERD (gastroesophageal reflux disease) with hiatal hernia History of echocardiogram 06/2022 EF 71%, normal LV size and function, grade I/IV diastolic dysfunction, no wall motion abnormalities History of Holter monitoring 09/2020 predominant rhythm sinus rhythm to sinus tachycardia with frequent ventricular ectopy, range 60-163 bpm Hypertension Hypothyroidism Major depressive disorder HAZEL on CPAP Sigmoid diverticulosis Streptococcal bacteremia 06/2022, streptococcus mitis oralis, treated with 4 weeks IV ceftriaxone Type 2 diabetes mellitus Surgical History History of colonoscopy History of hand surgery History of hernia surgery Status post excisional debridement (06/2020) for right foot gas gangrene, followed at wound care until healed Family History Father Palpitations Stroke Denies family history of Diabetes CAD (coronary artery disease) Hypertension Social History Smoking and tobacco status: never smoked Alcohol intake: current Alcohol intake frequency: holidays/special occasions only Substance/Drug Use: never Household members: spouse Marital status: Current occupational status: retired Vitals/I&O/Wt Last Vital Signs Temp 99.2 F 08/22/22 15:55 Pulse 85 08/22/22 15:55 Resp 12 08/22/22 15:55 BP 141/78 08/22/22 15:55 Pulse Ox 96 08/22/22 15:55 O2 Del Method 08/22/22 16:04 08/22/22 08/22/22 08/22/22 06:59 14:59 22:59 Intake Total 0 / 0 7 / 7 Output Total 850 / 3140 1725 / 1725 450 / 2175 Balance -850 / -1003.222 -1725 / -1725 -443 / -2168 Weight last 48 hrs Weight 282 lb 8 oz Weight 291 lb 4.8 oz Physical Exam Narrative: General : Patient is well developed , no acute distress, oriented x3 Head : Normal cephalic, a-traumatic. Ears : Pinnae and external canal are normal. Hearing is normal. Eyes : PERRLA, Sclera and injection are normal. No conjunctival discharge. Nose : Mucous membranes are without erythema. Throat : buccal mucosa is normal, gums are without significant recession or hypertrophy. Lungs : Equal chest rise bilaterally, no use of accessory muscles, trachea is midline. Cor : Rate and rhythm are normal. Abdomen : Soft, ND, NT, no g/r/m Extremities : No edema, no cyanosis or clubbing, dorsalis pedis pulses are present bilaterally, non-tender to palpation of calves. Upper extremities are normal bilaterally. Back : non-tender to palpation, no CVA tenderness. Neuro : CN II - XII intact, Upper and lower extremities have equal and full strength Data 08/22/22 07:42 08/22/22 04:17 Micro: Microbiology 08/21/22 18:50 Occult Blood (FIT) - Final Stool Routine Collection A&P Assessment and plan (1) Acute anemia: Plan Bowel prep Clear liquid diet and then n.p.o. after midnight Going tomorrow for EGD and colonoscopy The risks and benefits of the procedure, including bleeding, infection, intestinal perforation requiring surgery, missed lesion were explained to the patient. The patient is understanding of the risks and wishes to proceed. Coding Level of Care Code Acute Code for Chg Fwd Diagnoses Acute anemia D64.9
[2022-08-22 18:11] LABS: Hemoglobin 8.3 g/dL (11.7-16.6)
[2022-08-22 18:25] LABS: Glucose Point of Care 197 mg/dL (70-110)
[2022-08-22] MEDS: pantoprazole 40 mg SDV IVP (21:15)
[2022-08-22] MEDS: atorvastatin 40 mg Tablet PO (21:16)
[2022-08-22 21:45] LABS: Glucose Point of Care 219 mg/dL (70-110)
[2022-08-22] MEDS: insulin glargine 100 units/1 mL 30 UNIT SUBCUT (21:49)
--- NOTE | 2022-08-22 23:48 | PM.PN ---
Subjective Subjective: The patient dropped the hemoglobin significantly. For this reason, the cardiac catheterization was canceled this morning. He denies any chest pain at this point. No unusual shortness of breath. Was found to have blood in the stool. Scheduled for endoscopy. Patient hemoglobin dropped to 6.8 this morning. After 2 units of blood transfusion, currently the hemoglobin is 8.3 Medications: Medication Review Details: Current Medications Acetaminophen (Acetaminophen 325 Mg Tablet) 650 mg PO Q6H PRN PRN Reason: Mild/Mod Pain Or Temp >/= 101 Last Admin: 08/21/22 05:58 Dose: 650 mg Hydrocodone Bitart/Acetaminophen (Hydrocodone-Acetaminophen 10-325 Mg Tablet) 1 tab PO Q8H PRN PRN Reason: MODERATE PAIN Last Admin: 08/21/22 19:10 Dose: 1 tab Aspirin (Aspirin 81 Mg Ec Tablet) 81 mg PO DAILY [facility] Last Admin: 08/22/22 08:21 Dose: Not Given Atorvastatin Calcium (Atorvastatin 40 Mg Tablet) 40 mg PO BEDTIME [facility] Last Admin: 08/22/22 21:16 Dose: 40 mg Bisacodyl (Bisacodyl 5 Mg Tablet) 10 mg PO DAILY PRN; Protocol PRN Reason: Constipation (see protocol) Carvedilol (Carvedilol 6.25 Mg Tablet) 6.25 mg PO BID [facility] Last Admin: 08/22/22 18:16 Dose: 6.25 mg Clopidogrel Bisulfate (Clopidogrel 75 Mg Tablet) 75 mg PO DAILY [facility] Last Admin: 08/22/22 08:22 Dose: Not Given Dextrose (Dextrose 50% Syringe 50 Ml) 25 ml IVP ONCE PRN; Protocol PRN Reason: hypoglycemia protocol Dextrose (Dextrose 50% Syringe 50 Ml) 50 ml IVP PRN PRN; Protocol PRN Reason: hypoglycemia protocol Furosemide (Furosemide 40 Mg Tablet) 40 mg PO DAILY [facility] Last Admin: 08/22/22 08:18 Dose: 40 mg Gabapentin (Gabapentin 100 Mg Capsule) 200 mg PO DAILY [facility] Last Admin: 08/22/22 08:20 Dose: 200 mg Glucagon (Glucagon 1 Mg/Ml Inj 1 Ml) 1 mg IM ONCE PRN; Protocol PRN Reason: Adult Acute Hypoglycemia Prot. Heparin Sodium (Porcine) (Heparin 5,000 Unit/Ml Inj 1 Ml) 0 unit IV PRN PRN; Protocol PRN Reason: Heparin weight-base protocol Hydralazine HCl (Hydralazine 50 Mg Tablet) 50 mg PO Q8H [facility] Last Admin: 08/22/22 21:16 Dose: 50 mg Heparin Sodium/Sodium Chloride (Heparin Drip) 25,000 unit in 500 mls @ 0 mls/hr IV .Q0M [facility]; Protocol Last Admin: 08/21/22 19:10 Dose: 12.13 unit/kg/hr, 33 mls/hr Dextrose (D5w) 500 mls @ 100 mls/hr IV ONCE PRN; Protocol PRN Reason: Adult Acute Hypoglycemia Prot Insulin Glargine (Insulin Glargine 100 Units/1 Ml) 30 unit SUBCUT BID@, [facility] Last Admin: 08/22/22 21:49 Dose: 30 unit Insulin Human Lispro (Insulin Lispro 100 Unit/1 Ml) 0 unit SUBCUT BEDTIME [facility]; Protocol Last Admin: 08/22/22 22:58 Dose: Not Given Insulin Human Lispro (Insulin Lispro 100 Unit/1 Ml) 0 unit SUBCUT TIDWM [facility]; Protocol Last Admin: 08/22/22 18:28 Dose: Not Given Levothyroxine Sodium (Levothyroxine 25 Mcg Tablet) 25 mcg PO QAM [facility] Last Admin: 08/22/22 05:37 Dose: 25 mcg Lorazepam (Lorazepam 1 Mg Tablet) 0.5 mg PO BEDTIME PRN PRN Reason: anxiety Last Admin: 08/21/22 20:09 Dose: 0.5 mg Morphine Sulfate (Morphine 4 Mg/Ml Sdv 1 Ml) 4 mg IVP Q4H PRN PRN Reason: SEVERE PAIN Nifedipine (Nifedipine Er (24 Hr) 30 Mg Tablet) 60 mg PO DAILY [facility] Last Admin: 08/22/22 08:20 Dose: 60 mg Nitroglycerin (Nitroglycerin 1 Gm/Inch Oint Pkt) 1 inch TOPICAL Q6H [facility] Last Admin: 08/22/22 21:17 Dose: Not Given Ondansetron HCl (Ondansetron 2 Mg/Ml Sdv 2 Ml) 4 mg IVP Q8H PRN PRN Reason: vomiting, or N/V if npo Pantoprazole Sodium (Pantoprazole 40 Mg Sdv) 40 mg IVP Q12H [facility] Last Admin: 08/22/22 21:15 Dose: 40 mg Paroxetine HCl (Paroxetine 20 Mg Tablet) 10 mg PO DAILY [facility] Last Admin: 08/22/22 08:19 Dose: 10 mg Primidone (Primidone 50 Mg Tablet) 50 mg PO BID@00,12 [facility] Last Admin: 08/22/22 12:57 Dose: 50 mg Quetiapine Fumarate (Quetiapine 25 Mg Tablet) 25 mg PO BEDTIME [facility] Last Admin: 08/22/22 22:59 Dose: Not Given Sodium Chloride (Sodium Chloride 0.9% 100 Ml Bag) 50 ml IV PRN PRN PRN Reason: Blood transfusion prime and flush Stop: 08/23/22 09:17 Last Admin: 08/22/22 11:59 Dose: 50 ml Vitals/I&O/Wt Last Vital Signs Temp 98.2 F 08/22/22 20:00 Pulse 88 08/22/22 20:00 Resp 14 08/22/22 20:00 BP 141/77 08/22/22 20:00 Pulse Ox 98 08/22/22 18:18 O2 Del Method 08/22/22 20:00 08/22/22 08/22/22 08/23/22 14:59 22:59 06:59 Intake Total 0 / 0 1207 / 1207 Output Total 1725 / 1725 450 / 2175 Balance -1725 / -1725 757 / -968 Weight last 48 hrs Weight 282 lb 8 oz Weight 291 lb 4.8 oz Physical Exam Narrative: GENERAL: The patient is alert and oriented times three. Not in any acute distress. HEENT: No significant pallor, icterus or lymphadenopathy.Oral cavity: There are no mucous membrane lesions. NECK: Trachea appears to be central. No masses noted. No JVD or thyromegaly appreciated. RESPIRATORY: Chest is symmetrical. No intercostals muscle retraction or any accessory muscle activation. There is no chest wall tenderness. Breath sounds are heard bilaterally. No rales or rhonchi heard. No evidence of any consolidation. BREASTS: Deferred. HEART: The heart sounds are normal. No S3 or S4. No significant murmurs. No pericardial rub ABDOMEN: No vessel pulsations or distention. No tenderness. No organomegaly appreciated. Bowel sounds are normally heard. : Deferred. RECTAL: Deferred. LYMPHATIC: No lymphadenopathy noted in the neck. EXTREMITIES: 1-2+ edema of the left lower extremity. This is chronic and stable MUSCULOSKELETAL: No acute joint deformities or swelling SKIN: There are no significant rashes or ecchymosis NEUROPSYCHIATRIC: The patient is alert and oriented x3. Appears to be in a good mood. No tremors or rigidity noted. Data 08/22/22 17:50 08/22/22 04:17 Other Labs: Laboratory Last Values WBC 6.1 10^3/uL (4.0-10.0) 08/22/22 04:17 RBC 2.49 10^6/uL (4.1-5.3) L 08/22/22 04:17 Hgb 8.3 g/dL (11.7-16.6) L 08/22/22 17:50 Hct 26.0 % (42.0-52.0) L 08/22/22 17:50 MCV 95.2 fl (80-94) H 08/22/22 04:17 MCH 29.3 pg (28.0-34.0) 08/22/22 04:17 MCHC 30.8 g/dL (30.0-36.0) 08/22/22 04:17 RDW 14.6 % (12.1-15.1) 08/22/22 04:17 Plt Count 281 10^3/cmm (130-400) 08/22/22 04:17 MPV 9.1 fL (7.4-10.4) 08/22/22 04:17 Neut % (Auto) 63.3 % 08/22/22 04:17 Lymph % (Auto) 23.3 % 08/22/22 04:17 Rains % (Auto) 8.5 % 08/22/22 04:17 Eos % (Auto) 3.6 % 08/22/22 04:17 Baso % (Auto) 0.8 % 08/22/22 04:17 Reticulocyte % (Auto) 2.9 % (0.5-2.0) H 08/21/22 03:41 Neut # (Auto) 3.88 10^3/uL (1.8-7.7) 08/22/22 04:17 Lymph # (Auto) 1.4 10^3/uL (0.8-4.8) 08/22/22 04:17 Rains # (Auto) 0.5 10^3/uL (0.2-0.9) 08/22/22 04:17 Eos # (Auto) 0.2 10^3/uL (0.0-0.8) 08/22/22 04:17 Baso # (Auto) 0.1 10^3/uL (0.0-0.1) 08/22/22 04:17 Nucleated RBC % (auto) 0 % 08/22/22 04:17 Nucleated RBCs # 0.0 /100WBC 08/22/22 04:17 APTT 30.8 SECONDS (23.9-36.7) D 08/22/22 16:25 Sodium 138 mmol/L (136-145) 08/22/22 04:17 Potassium 4.6 mmol/L (3.5-5.1) 08/22/22 04:17 Chloride 105 mmol/L (98-107) 08/22/22 04:17 Carbon Dioxide 24 mmol/L (22-29) 08/22/22 04:17 Anion Gap 13.6 (5-19) 08/22/22 04:17 BUN 33 mg/dL (8-23) H 08/22/22 04:17 Creatinine 2.0 mg/dL (0.7-1.2) H 08/22/22 04:17 GFR Calculation Not Reportable 08/22/22 04:17 Glucose 86 mg/dL (65-115) 08/22/22 04:17 POC Glucose 219 mg/dL (70-110) H 08/22/22 21:23 Calculated Osmolality 293 mOsm/kg (285-295) 08/22/22 04:17 Calcium 8.9 mg/dL (8.5-10.5) 08/22/22 04:17 Phosphorus 3.4 mg/dL (2.5-4.5) 08/21/22 03:41 Magnesium 2.1 mg/dL (1.7-2.3) 08/21/22 03:41 Iron 81 ug/dL (59-158) 08/21/22 03:41 TIBC 204 mcg/dl 08/21/22 03:41 % Saturation 39.7 % (20-50) 08/21/22 03:41 Unsat Iron Binding 123 ug/dL (112-347) 08/21/22 03:41 Total Bilirubin 0.2 mg/dL (0.15-1.2) 08/20/22 12:20 AST 14 U/L (0-40) 08/20/22 12:20 ALT 11 U/L (0-41) 08/20/22 12:20 Alkaline Phosphatase 110 U/L (40-130) 08/20/22 12:20 Troponin T Baseline 137 ng/L (0-15) H* 08/20/22 12:20 Troponin T 120 Minute 122.6 ng/L (0-15) H 08/20/22 14:28 Delta Troponin T -14.4 ABS# (0-10) L 08/20/22 14:28 Troponin T Hi Sens 6Hr 133.1 ng/L (0-15) H 08/20/22 20:07 Troponin T Hi Sens 6Hr Delta -3.9 ng/L (0-12) L 08/20/22 20:07 NT-Pro-B Natriuret Pep 316 pg/mL (0-125) H 08/20/22 12:20 Total Protein 6.3 g/dL (6.6-8.7) L 08/20/22 12:20 Albumin 3.4 g/dL (3.5-5.2) L 08/20/22 12:20 Globulin 2.9 g/dL (1.3-4.6) 08/20/22 12:20 Triglycerides 133 mg/dL (0-150) 08/21/22 03:41 Cholesterol 189 mg/dL (0-200) 08/21/22 03:41 LDL Cholesterol, Calc 124 mg/dL (50-129) 08/21/22 03:41 HDL Cholesterol 38 mg/dL (60-100) L 08/21/22 03:41 LDL/HDL Ratio 3.26 RATIO (0.00-3.22) H 08/21/22 03:41 Cholesterol/HDL Ratio 4.97 mg/dL (1.0-5.00) 08/21/22 03:41 Vitamin B12 391 pg/mL (232-1245) 08/21/22 03:41 Folate 4.1 ng/mL (4.5-32.2) L 08/21/22 03:41 Blood Type O Negative 08/22/22 10:05 Rho(D) Type Negative 08/22/22 10:05 Antibody Screen Negative 08/22/22 10:05 Crossmatch See Detail 08/22/22 10:05 Micro: Microbiology 08/21/22 18:50 Occult Blood (FIT) - Final Stool Routine Collection A&P Assessment and plan (1) Non-ST elevated myocardial infarction (non-STEMI): The ventricular arrhythmia he is improving. We will continue on the current medications. Patient seems to be fairly asymptomatic at this point. (2) CKD (chronic kidney disease) stage 3, GFR 30-59 ml/min: Possibly the patient may have diabetic kidney. This needs to be closely monitored. The BUN and creatinine seems to be fairly stable at this point. (3) Cerebral venous thrombosis: IV heparin and Plavix were held this morning, pending GI work-up (4) Hypertension: The blood pressure seems to be getting under control. Continue to optimize the antihypertensive medications. (5) Type 2 diabetes mellitus: The blood glucose level seems to be slowly getting under control (6) Anemia: Pending GI work-up. Had a blood transfusion today (7) Diabetic peripheral neuropathy: Patient has a history of diabetic neuropathy and retinopathy. (8) Ulcer of left calf: Plan The cardiac catheterization was canceled . Based on the GI work-up, further management decisions will be made. Attestations Medical Necessity Statement*: Patient requires continued hospital stay for close monitoring and further management Coding Level of Care Code 15706 Diagnoses Non-ST elevated myocardial infarction (non-STEMI) I21.4 CKD (chronic kidney disease) stage 3, GFR 30-59 ml/min N18.30 Cerebral venous thrombosis G08 Hypertension I10 Type 2 diabetes mellitus E11.9 Anemia D64.9 Diabetic peripheral neuropathy E11.42 Ulcer of left calf L97.229
[2022-08-23] VITALS (18 sets, daily range): BP systolic 133–170; BP diastolic 73–107; PULSE 60–85; RESP 13–23; TEMP 36.1–37.2; O2SAT 96–100
[2022-08-23 03:59] LABS: Basophils # 0.1 10^3/uL (0.0-0.1); Basophils % 0.9 %; Eosinophils # 0.1 10^3/uL (0.0-0.8); Eosinophils % 2.3 %; Hematocrit 23.6 % (42.0-52.0); Hemoglobin 7.5 g/dL (11.7-16.6); Lymphocytes % 18.2 %; Mean Corpuscular HGB Conc 31.8 g/dL (30.0-36.0); Mean Corpuscular Hemoglobin 29.5 pg (28.0-34.0); Mean Corpuscular Volume 92.9 fl (80-94); Mean Platelet Volume 8.9 fL (7.4-10.4); Monocytes # 0.5 10^3/uL (0.2-0.9); Monocytes % 8.3 %; Neutrophils # 3.96 10^3/uL (1.8-7.7); Neutrophils % 69.9 %; Nucleated Red Blood Cells % 0 %; Platelet Count 232 10^3/cmm (130-400); Red Blood Count 2.54 10^6/uL (4.1-5.3); Red Cell Distribution Width 15.3 % (12.1-15.1); White Blood Count 5.7 10^3/uL (4.0-10.0)
[2022-08-23 04:13] LABS: Blood Urea Nitrogen 26 mg/dL (8-23); Calcium 8.7 mg/dL (8.5-10.5); Carbon Dioxide 23 mmol/L (22-29); Chloride 104 mmol/L (98-107); Glucose 169 mg/dL (65-115); Osmolality Calculated 293 mOsm/kg (285-295); Sodium 137 mmol/L (136-145)
[2022-08-23 06:28] LABS: Glucose Point of Care 146 mg/dL (70-110)
--- NOTE | 2022-08-23 07:41 | P.ANESASSM_ITS ---
Pre-Anesthetic Assessment Height/Weight: Height 1.88 m Weight 0 g Temp Pulse Resp BP Pulse Ox O2 Del Method 98.8 F 74 13 133/77 98 08/23/22 04:00 08/23/22 06:00 08/23/22 04:00 08/23/22 04:00 08/22/22 18:18 08/23/22 04:00 Preop Diagnosis: Anemia Operation Date: 08/23/22 08:00 Proposed Procedures p EGD(Not Applicable) - Toney Dewitt DO s Colonoscopy(Not Applicable) - DO Doretha Waterman anesthetic complications: Rebound HTN Was Beta Cristopher taken within 24 hours: Yes Was Clonidine taken within 24 hours: N/A Last intake: Intake Last Liquid Date 08/23/22 Last Liquid Time 00:00 Last Solid Date 08/21/22 Last Solid Time 18:00 Social No alcohol and No tobacco Exam alert, oriented x 3 and clear to auscultation bilaterally PVCs, patient states he has had them for 15 years Airway Submandibular: within normal limits Cervical ROM: within normal limits Mallampati: Class II Dentition: false History/ROS No significant history except as noted and No significant complaints Pulmonary Cough, Exertional Dyspnea and Sleep Apnea (Wears CPAP at night) CV/HEM Anemia, Arrythmia (PVCs), Coronary Artery Disease, Congestive Heart Failure, Deep Vein Thrombosis, Hypertension, Myocardial Infarction and Palpitations Normal left ventricular size and systolic function, EF 71 %. No ?regional wall motion abnormalities. Grade I/IV diastolic ?dysfunction (abnormal relaxation filling pattern), normal to ?mildly elevated filling pressures. No regional wall motion ?abnormalities. ? (Echo contrast - Optison was used to delineate the endocardium ?and to estimate the? LV ejection fraction) ?No obvious valvular abnormalities ?Possibly normal chamber sizes ?There is no pericardial effusion. ?There are no intracardiac masses. ?Compared to the previous study from 10/07/2020, there may not be ?significant change Chronic Renal Insufficiency (Stage 3) Hepatic None reported GI Gastroesophageal Reflux Disease (None this AM) and Hiatal Hernia Metabolic Diabetes Mellitus, Hyperlipidemia, Morbid Obesity and Thyroid Disease Musc/skel Left leg ulcer present. left leg more swollen Neuropsych Anxiety, Cerebrovascular Accident (Left sided weakness, mostly resolved per patient. ), Depression and Neuropathy Anesthetic Plan ASA status: 4 Anesthesia: Anesthesia Evaluation, General and MAC Risk of > 500 ml blood loss (7ml/kg in children): No Medications/Allergies Home Medications Medication Instructions Recorded Confirmed Last Taken Type insulin degludec 100 unit/mL 45 unit SUBCUT BID@12,00 05/26/20 08/20/22 08/19/22 History subcutaneous solution (Tresiba U-100 Insulin) famotidine 40 mg tablet 40 mg PO DAILY@00 07/13/20 08/20/22 08/19/22 History lansoprazole 15 mg capsule,delayed 15 mg PO DAILY@1200 07/13/20 08/20/22 08/19/22 History release (Prevacid) levothyroxine 25 mcg capsule 25 mcg PO DAILY@00 07/13/20 08/20/22 08/19/22 History hydralazine 50 mg tablet 50 mg PO TID #90 tabs 07/17/20 08/20/22 08/19/22 Rx nifedipine 60 mg tablet,extended 60 mg PO DAILY #30 tabs 07/17/20 08/20/22 08/19/22 Rx release 24 hr carvedilol 3.125 mg tablet 3.125 mg PO BID #180 tabs 04/12/21 08/20/22 08/19/22 Rx primidone 50 mg tablet 50 mg PO BID@0012 #60 tabs 09/11/21 08/20/22 08/19/22 Rx cholecalciferol (vitamin D3) 25 25 mcg PO DAILY 06/24/22 08/20/22 08/19/22 History mcg (1,000 unit) capsule (Vitamin D3) cyanocobalamin (vitamin B-12) 50 50 mcg PO DAILY 06/24/22 08/20/22 08/19/22 History mcg tablet (Vitamin B-12) insulin aspart U-100 100 unit/mL See Rx Instructions .Route .COMPLEX 06/24/22 08/20/22 Unknown History (3 mL) subcutaneous pen (Novolog FlexPen U-100 Insulin aspart) apixaban 5 mg tablet (Eliquis) 2.5 mg PO BID@0900,2100 #180 tabs 06/28/22 08/20/22 08/19/22 Rx furosemide 40 mg tablet 40 mg PO DAILY #60 tabs 06/28/22 08/20/22 08/19/22 Rx paroxetine HCl 10 mg tablet (Paxil) 10 mg PO DAILY #30 tabs 08/09/22 08/20/22 08/19/22 Rx quetiapine 25 mg tablet (Seroquel) 25 mg PO BEDTIME #30 tabs 08/09/22 08/20/22 08/19/22 Rx gabapentin 100 mg capsule 200 mg PO DAILY 08/20/22 08/20/22 08/19/22 History hydrocodone 10 mg-acetaminophen 1 tab PO Q8H PRN Pain 08/20/22 08/20/22 08/19/22 History 325 mg tablet lorazepam 1 mg tablet (Ativan) 1 mg PO BEDTIME PRN anxiety 08/20/22 08/20/22 Unknown History sulfamethoxazole 800 1 tab PO BID 08/20/22 08/20/22 08/19/22 History mg-trimethoprim 160 mg tablet (Bactrim DS) Allergies Allergy/AdvReac Type Severity Reaction Status Date / Time Penicillins Allergy Intermediate rash Verified 08/09/22 11:47 Current Medications Generic Name Dose Route Start Last Admin Trade Name Freq PRN Reason Stop Dose Admin Acetaminophen 650 mg 08/20/22 17:05 08/21/22 05:58 Acetaminophen 325 Mg Tablet PO 650 mg Q6H PRN Administration Mild/Mod Pain Or Temp >/= 101 Hydrocodone Bitart/Acetaminophen 1 tab 08/20/22 17:05 08/21/22 19:10 Hydrocodone-Acetaminophen 10-325 Mg Tablet PO 1 tab Q8H PRN Administration MODERATE PAIN Aspirin 81 mg 08/21/22 09:00 08/22/22 08:21 Aspirin 81 Mg Ec Tablet PO Not Given DAILY [facility] Atorvastatin Calcium 40 mg 08/20/22 21:00 08/22/22 21:16 Atorvastatin 40 Mg Tablet PO 40 mg BEDTIME [facility] Administration Carvedilol 6.25 mg 08/21/22 18:00 08/22/22 18:16 Carvedilol 6.25 Mg Tablet PO 6.25 mg BID [facility] Administration Clopidogrel Bisulfate 75 mg 08/21/22 09:00 08/22/22 08:22 Clopidogrel 75 Mg Tablet PO Not Given DAILY [facility] Furosemide 40 mg 08/21/22 09:00 08/22/22 08:18 Furosemide 40 Mg Tablet PO 40 mg DAILY [facility] Administration Gabapentin 200 mg 08/21/22 09:00 08/22/22 08:20 Gabapentin 100 Mg Capsule PO 200 mg DAILY [facility] Administration Hydralazine HCl 50 mg 08/20/22 22:00 08/23/22 07:06 Hydralazine 50 Mg Tablet PO Not Given Q8H [facility] Heparin Sodium/Sodium Chloride 25,000 unit in 500 mls @ 0 mls/hr 08/20/22 15:45 08/21/22 19:10 Heparin Drip IV 12.13 unit/kg/hr .Q0M [facility] 33 mls/hr Administration Protocol Per Protocol Insulin Glargine 30 unit 08/20/22 22:00 08/22/22 21:49 Insulin Glargine 100 Units/1 Ml SUBCUT 30 unit BID@10,22 [facility] Administration Insulin Human Lispro 0 unit 08/20/22 21:00 08/22/22 22:58 Insulin Lispro 100 Unit/1 Ml SUBCUT Not Given BEDTIME [facility] Protocol Insulin Human Lispro 0 unit 08/20/22 18:00 08/23/22 07:38 Insulin Lispro 100 Unit/1 Ml SUBCUT Not Given TIDWM [facility] Protocol Levothyroxine Sodium 25 mcg 08/21/22 06:00 08/23/22 07:07 Levothyroxine 25 Mcg Tablet PO Not Given QAM [facility] Lorazepam 0.5 mg 08/20/22 17:05 08/21/22 20:09 Lorazepam 1 Mg Tablet PO 0.5 mg BEDTIME PRN Administration anxiety Nifedipine 60 mg 08/21/22 09:00 08/22/22 08:20 Nifedipine Er (24 Hr) 30 Mg Tablet PO 60 mg DAILY [facility] Administration Nitroglycerin 1 inch 08/20/22 20:00 08/23/22 02:08 Nitroglycerin 1 Gm/Inch Oint Pkt TOPICAL Not Given Q6H [facility] Pantoprazole Sodium 40 mg 08/22/22 21:00 08/22/22 21:15 Pantoprazole 40 Mg Sdv IVP 40 mg Q12H [facility] Administration Paroxetine HCl 10 mg 08/21/22 09:00 08/22/22 08:19 Paroxetine 20 Mg Tablet PO 10 mg DAILY [facility] Administration Primidone 50 mg 08/21/22 00:00 08/22/22 23:50 Primidone 50 Mg Tablet PO 50 mg BID@00,12 [facility] Administration Quetiapine Fumarate 25 mg 08/20/22 21:00 08/22/22 22:59 Quetiapine 25 Mg Tablet PO Not Given BEDTIME [facility] Sodium Chloride 50 ml 08/22/22 09:17 08/22/22 11:59 Sodium Chloride 0.9% 100 Ml Bag IV 08/23/22 09:17 50 ml PRN PRN Administration Blood transfusion prime and flush [facility] Anesthesia Medical History Anxiety Cerebral venous thrombosis CHF (congestive heart failure), NYHA class III CKD (chronic kidney disease) stage 3, GFR 30-59 ml/min Diabetic peripheral neuropathy Diabetic retinopathy Familial tremor 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 GERD (gastroesophageal reflux disease) with hiatal hernia History of echocardiogram 06/2022 EF 71%, normal LV size and function, grade I/IV diastolic dysf unction, no wall motion abnormalities History of Holter monitoring 09/2020 predominant rhythm sinus rhythm to sinus tachycardia with frequent ventricular ectopy, range 60-163 bpm Hypertension Hypothyroidism Major depressive disorder HAZEL on CPAP Sigmoid diverticulosis Streptococcal bacteremia 06/2022, streptococcus mitis oralis, treated with 4 weeks IV ceftriaxone Type 2 diabetes mellitus Surgical History History of colonoscopy History of hand surgery History of hernia surgery Status post excisional debridement (06/2020) for right foot gas gangrene, followed at wound care until healed Family History Father Palpitations Stroke Denies family history of Diabetes CAD (coronary artery disease) Hypertension Social History Smoking and tobacco status: never smoked Alcohol intake: current Alcohol intake frequency: holidays/special occasions only Substance/Drug Use: never Household members: spouse Marital status: Current occupational status: retired Data Anesthesia 08/23/22 03:34 08/23/22 03:34 Short CBC 08/21/22 08/22/22 08/22/22 Range/Units 08:41 04:17 07:42 WBC 6.1 (4.0-10.0) 10^3/uL Hgb 8.7 L 7.3 L 6.8 L (11.7-16.6) g/dL Hct 28.0 L 23.7 L 22.4 L (42.0-52.0) % MCV 95.2 H (80-94) fl Plt Count 281 (130-400) 10^3/cmm Neut % (Auto) 63.3 % Neut # (Auto) 3.88 (1.8-7.7) 10^3/uL 08/22/22 08/23/22 Range/Units 17:50 03:34 WBC 5.7 (4.0-10.0) 10^3/uL Hgb 8.3 L 7.5 L (11.7-16.6) g/dL Hct 26.0 L 23.6 L (42.0-52.0) % MCV 92.9 (80-94) fl Plt Count 232 (130-400) 10^3/cmm Neut % (Auto) 69.9 % Neut # (Auto) 3.96 (1.8-7.7) 10^3/uL BMP 08/22/22 08/23/22 04:17 03:34 Sodium 138 137 Potassium 4.6 4.0 Chloride 105 104 Carbon Dioxide 24 23 BUN 33 H 26 H Creatinine 2.0 H 1.6 H Glucose 86 169 H Calcium 8.9 8.7 Blood Bank 08/22/22 10:05 Blood Type O Negative Rho(D) Type Negative Antibody Screen Negative Coags 08/21/22 08/21/22 08/21/22 11:56 17:38 23:52 APTT 68.7 H 55.3 H 73.2 H 08/22/22 16:25 APTT 30.8 D Cardiac Studies: Echocardiogram 06/24/22 Echocardiogram Limited Views 08/20/22 Echocardiogram Ultrasound 10/07/20 Holter Monitor 09/22/20
[2022-08-23] MEDS: sodium chloride 0.9% 1,000 ML 30 ML IV (07:59)
--- NOTE | 2022-08-23 09:08 | W.PM.OPSUD ---
Surgery/Procedure H&P Update DATE OF PROCEDURE: August 23, 2022 DATE H&P PERFORMED: 08/22/22 H&P UPDATE INFORMATION: I have reviewed H&P completed within last 30 days, I have examined patient prior to procedure and No changes to prior documentation PREOP DIAGNOSIS: Anemia PLANNED PROCEDURE: Operation Date: 08/23/22 08:00 Proposed Procedures p EGD(Not Applicable) - DO vandana Waterman Colonoscopy(Not Applicable) - Toney Dewitt DO
--- NOTE | 2022-08-23 10:11 | PM.PN ---
Subjective Subjective: Gastric ulcers found on EGD, diverticulosis without active bleeding Added sucralfate Hemoglobin noted Give him second unit of PRBC today to keep his hemoglobin above 8 We will test with the cardiology to see if they have plan for angiogram today versus tomorrow Patient is still n.p.o. Spoke with Dr. Dewitt Vitals/I&O/Wt Last Vital Signs Temp 97.0 F L 08/23/22 09:56 Pulse 79 08/23/22 10:08 Resp 18 08/23/22 10:08 BP 145/83 08/23/22 10:08 Pulse Ox 99 08/23/22 10:08 O2 Del Method 08/23/22 10:08 08/22/22 08/23/22 08/23/22 22:59 06:59 14:59 Intake Total 1507 / 1507 0 / 1507 Output Total 450 / 2175 250 / 2425 Balance 1057 / -668 -250 / -918 Weight last 48 hrs Weight 0 g Weight 128.14 kg Physical Exam Narrative: Awake and alert Signs of fluid overload legs 3+ edema Left calf ulcer healing S1, S2 variable Abdomen distended soft Currently doing well on room air Pleasant and cooperative GCS 15 at the bedside Data 08/23/22 03:34 08/23/22 03:34 A&P Assessment and plan (1) Acute anemia: (2) Melanotic stools: (3) Familial tremor: (4) GERD (gastroesophageal reflux disease): (5) Type 2 diabetes mellitus: (6) Hypothyroidism: (7) Hypertension: (8) CHF (congestive heart failure), NYHA class III: (9) Cerebral venous thrombosis: (10) Non-ST elevated myocardial infarction (non-STEMI): (11) Diabetic retinopathy: (12) Chronic anticoagulation: (13) CKD (chronic kidney disease) stage 3, GFR 30-59 ml/min: (14) Ulcer of left calf: Plan 72-year-old male who presented to hospital with chest pain, he was diagnosed with NSTEMI, he was on Eliquis for cerebral venous thrombosis which was diagnosed pretty recently, he was put on ACS protocol, however during hospitalization he became anemic, hemoglobin dropped to 6.8, general surgery was consulted once we found positive FOBT, EGD showed gastric ulcers nonbleeding, they were clipped by Dr. Dewitt, diverticulosis, colon prep was not adequate, patient has received 1 unit PRBC, second unit will be given on 08/23/2022, awaiting cardiology to plan his angiogram He has chronic kidney disease creatinine improved to 1.6 NSTEMI: Heparin discontinued Aspirin Plavix held as well for concern of bleeding ulcer For now I would put him on Plavix Plan for angiogram on 08/24 Dr. Jansen notified me about angiogram planned for tomorrow Cerebral venous thrombosis Patient should not take any Eliquis for at least 4 to 6 weeks before his gastric ulcers he will For cerebral venous thrombosis he was asked to finish 6 months of anticoagulation he was diagnosed in June of this year He was also given IV antibiotics for Streptococcus oralis Headache improved Chronic kidney disease: Creatinine better than baseline Planning for angiogram tomorrow Diastolic CHF: Low-dose Lasix to be continued Left calf ulcer: Healing well good relation tissue Acute GI blood loss anemia: Macrocytic Patient will get second unit PRBC today to keep his hemoglobin above 8 Full code Cardiac diet N.p.o. after midnight DVT prophylaxis: Contraindicated Attestations Medical Necessity Statement*: Likely discharge over the weekend Diagnoses Acute anemia D64.9 Melanotic stools K92.1 Familial tremor G25.0 GERD (gastroesophageal reflux disease) K21.9 Type 2 diabetes mellitus E11.9 Hypothyroidism E03.9 Hypertension I10 CHF (congestive heart failure), NYHA class III I50.9 Cerebral venous thrombosis G08 Non-ST elevated myocardial infarction (non-STEMI) I21.4 Diabetic retinopathy E11.319 Chronic anticoagulation Z79.01 CKD (chronic kidney disease) stage 3, GFR 30-59 ml/min N18.30 Ulcer of left calf L97.229
--- NOTE | 2022-08-23 10:30 | ANE.PACU2 ---
Inpatient post-anesthesia follow up: Airway intact: Yes Vital signs: Temperature 97.0 F Pulse Rate 79 Respiratory Rate 18 Blood Pressure 145/83 Pulse Oximetry 99 Oxygen Delivery Me thod Room Air Oxygen Flow Rate Fraction of Inspir ed Oxygen Hydration adequate: Yes Nausea and vomiting: No Pain level: 2 Mental status: Baseline
--- NOTE | 2022-08-23 11:19 | PC.SOCIAL ---
IMM Update pg 2 of IMM updated and reviewed w/ patient. Copy provided and Copy in chart dated, and initialed.
[2022-08-23] MEDS: sucralfate 1 gm/10 mL Oral Liq UDC PO ×3 (11:45→21:04)
[2022-08-23] MEDS: HYDROcodone-acetaminophen 10-325 mg Tablet 1 TAB PO (11:45)
[2022-08-23] MEDS: primidone 50 mg Tablet PO ×2 (11:46→23:56)
[2022-08-23 12:05] LABS: Glucose Point of Care 175 mg/dL (70-110)
[2022-08-23] MEDS: insulin lispro 100 unit/1 mL SUBCUT ×3 (12:16→21:05)
[2022-08-23] MEDS: hyDRALAzine 50 mg Tablet PO ×2 (13:26→21:04)
[2022-08-23] MEDS: nitroglycerin 1 gm/inch oint Pkt 1 INCH TOPICAL (13:26)
[2022-08-23] MEDS: sodium chloride 0.9% (100 ml) 100 ML 75 ML (13:27)
[2022-08-23] MEDS: HYDROmorphone 1 mg/mL INJ 1 mL 0.5 MG IVP (16:55)
[2022-08-23] MEDS: carvedilol 6.25 mg Tablet PO (17:11)
[2022-08-23 17:21] LABS: Glucose Point of Care 221 mg/dL (70-110)
[2022-08-23 20:37] LABS: Glucose Point of Care 183 mg/dL (70-110)
--- NOTE | 2022-08-23 20:59 | P.PN_ITS ---
Subjective Subjective: Patient had endoscopy and colonoscopy today. 2 prepyloric ulcers with clipped. No active bleeding was noted. Hemoglobin again dropped to 7.5.. No chest pain or shortness of breath. The blood pressure seems to be elevated to stage II. Medications: Medication Review Details: Current Medications Acetaminophen (Acetaminophen 325 Mg Tablet) 650 mg PO Q6H PRN PRN Reason: Mild/Mod Pain Or Temp >/= 101 Last Admin: 08/21/22 05:58 Dose: 650 mg Hydrocodone Bitart/Acetaminophen (Hydrocodone-Acetaminophen 10-325 Mg Tablet) 1 tab PO Q8H PRN PRN Reason: MODERATE PAIN Last Admin: 08/23/22 11:45 Dose: 1 tab Aspirin (Aspirin 325 Mg Tablet) 325 mg PO ONCE ONE Stop: 08/23/22 20:57 Atorvastatin Calcium (Atorvastatin 40 Mg Tablet) 40 mg PO BEDTIME [facility] Last Admin: 08/22/22 21:16 Dose: 40 mg Benzocaine (Cetylpyridinium Lozenge) 1 each MUCOUS MEM ONCE PRN PRN Reason: SORE THROAT Bisacodyl (Bisacodyl 5 Mg Tablet) 10 mg PO DAILY PRN; Protocol PRN Reason: Constipation (see protocol) Carvedilol (Carvedilol 6.25 Mg Tablet) 6.25 mg PO BID [facility] Last Admin: 08/23/22 17:11 Dose: 6.25 mg Clopidogrel Bisulfate (Clopidogrel 75 Mg Tablet) 75 mg PO DAILY [facility] Last Admin: 08/22/22 08:22 Dose: Not Given Dextrose (Dextrose 50% Syringe 50 Ml) 25 ml IVP ONCE PRN; Protocol PRN Reason: hypoglycemia protocol Dextrose (Dextrose 50% Syringe 50 Ml) 50 ml IVP PRN PRN; Protocol PRN Reason: hypoglycemia protocol Diphenhydramine HCl (Diphenhydramine 50 Mg Capsule) 50 mg PO ONCE ONE Stop: 08/23/22 20:57 Fentanyl (Fentanyl 50 Mcg/Ml Inj 2ml) 50 mcg IVP ONCE PRN PRN Reason: Preop or postop pain Furosemide (Furosemide 40 Mg Tablet) 40 mg PO DAILY [facility] Last Admin: 08/22/22 08:18 Dose: 40 mg Gabapentin (Gabapentin 100 Mg Capsule) 200 mg PO DAILY [facility] Last Admin: 08/22/22 08:20 Dose: 200 mg Glucagon (Glucagon 1 Mg/Ml Inj 1 Ml) 1 mg IM ONCE PRN; Protocol PRN Reason: Adult Acute Hypoglycemia Prot. Hydralazine HCl (Hydralazine 50 Mg Tablet) 50 mg PO Q8H [facility] Last Admin: 08/23/22 13:26 Dose: 50 mg Hydromorphone HCl (Hydromorphone 1 Mg/Ml Inj 1 Ml) 0.5 mg IVP ONCE PRN PRN Reason: PAIN Last Admin: 08/23/22 16:55 Dose: 0.5 mg Dextrose (D5w) 500 mls @ 100 mls/hr IV ONCE PRN; Protocol PRN Reason: Adult Acute Hypoglycemia Prot Sodium Chloride (Sodium Chloride 0.9%) 1,000 mls @ 50 mls/hr IV .Q20H ONE Stop: 08/24/22 16:55 Insulin Glargine (Insulin Glargine 100 Units/1 Ml) 30 unit SUBCUT BID@10,22 [facility] Last Admin: 08/22/22 21:49 Dose: 30 unit Insulin Human Lispro (Insulin Lispro 100 Unit/1 Ml) 0 unit SUBCUT BEDTIME [facility]; Protocol Last Admin: 08/22/22 22:58 Dose: Not Given Insulin Human Lispro (Insulin Lispro 100 Unit/1 Ml) 0 unit SUBCUT TIDWM [facility]; Protocol Last Admin: 08/23/22 17:23 Dose: 8 unit Levothyroxine Sodium (Levothyroxine 25 Mcg Tablet) 25 mcg PO QAM [facility] Last Admin: 08/23/22 07:07 Dose: Not Given Lorazepam (Lorazepam 1 Mg Tablet) 0.5 mg PO BEDTIME PRN PRN Reason: anxiety Last Admin: 08/21/22 20:09 Dose: 0.5 mg Morphine Sulfate (Morphine 4 Mg/Ml Sdv 1 Ml) 4 mg IVP Q4H PRN PRN Reason: SEVERE PAIN Nifedipine (Nifedipine Er (24 Hr) 30 Mg Tablet) 60 mg PO DAILY [facility] Last Admin: 08/22/22 08:20 Dose: 60 mg Nitroglycerin (Nitroglycerin 1 Gm/Inch Oint Pkt) 1 inch TOPICAL Q6H [facility] Last Admin: 08/23/22 13:26 Dose: 1 inch Non-Formulary Medication (Cyanocobalamin (Vitamin B-12) [Vitamin B-12]) 50 mcg PO DAILY [facility] Ondansetron HCl (Ondansetron 2 Mg/Ml Sdv 2 Ml) 4 mg IVP Q8H PRN PRN Reason: vomiting, or N/V if npo Ondansetron HCl (Ondansetron 2 Mg/Ml Sdv 2 Ml) 4 mg IVP ONCE PRN PRN Reason: NAUSEA AND VOMITING Ondansetron HCl (Ondansetron 2 Mg/Ml Sdv 2 Ml) 4 mg IVP Q15M PRN PRN Reason: Nausea/Vomiting PACU PHASE II Pantoprazole Sodium (Pantoprazole 40 Mg Sdv) 40 mg IVP Q12H [facility] Last Admin: 08/22/22 21:15 Dose: 40 mg Paroxetine HCl (Paroxetine 20 Mg Tablet) 10 mg PO DAILY [facility] Last Admin: 08/22/22 08:19 Dose: 10 mg Primidone (Primidone 50 Mg Tablet) 50 mg PO BID@00,12 [facility] Last Admin: 08/23/22 11:46 Dose: 50 mg Quetiapine Fumarate (Quetiapine 25 Mg Tablet) 25 mg PO BEDTIME [facility] Last Admin: 08/22/22 22:59 Dose: Not Given Sucralfate (Sucralfate 1 Gm/10 Ml Oral Liq Udc) 1 gm PO AC&BEDTIME [facility] Last Admin: 08/23/22 17:11 Dose: 1 gm Vitals/I&O/Wt Last Vital Signs Temp 98.8 F 08/23/22 16:28 Pulse 78 08/23/22 16:28 Resp 14 08/23/22 16:55 BP 152/79 08/23/22 16:28 Pulse Ox 98 08/23/22 16:55 O2 Del Method 08/23/22 16:00 08/23/22 08/23/22 08/23/22 06:59 14:59 22:59 Intake Total 0 / 1507 1240 / 1240 450 / 1690 Output Total 250 / 2425 650 / 650 Balance -250 / -918 590 / 590 450 / 1040 Weight last 48 hrs Weight 0 oz Weight 282 lb 8 oz Physical Exam Narrative: GENERAL: The patient is alert and oriented times three. Not in any acute distress. HEENT: No significant pallor, icterus or lymphadenopathy.Oral cavity: There are no mucous membrane lesions. NECK: Trachea appears to be central. No masses noted. No JVD or thyromegaly appreciated. RESPIRATORY: Chest is symmetrical. No intercostals muscle retraction or any accessory muscle activation. There is no chest wall tenderness. Breath sounds are heard bilaterally. No rales or rhonchi heard. No evidence of any consolidation. BREASTS: Deferred. HEART: The heart sounds are normal. No S3 or S4. No significant murmurs. No pericardial rub ABDOMEN: No vessel pulsations or distention. No tenderness. No organomegaly appreciated. Bowel sounds are normally heard. : Deferred. RECTAL: Deferred. LYMPHATIC: No lymphadenopathy noted in the neck. EXTREMITIES: 1-2+ edema of the left lower extremity. This is chronic and stable MUSCULOSKELETAL: No acute joint deformities or swelling SKIN: There are no significant rashes or ecchymosis NEUROPSYCHIATRIC: The patient is alert and oriented x3. Appears to be in a good mood. No tremors or rigidity noted. Data 08/23/22 03:34 08/23/22 03:34 Other Labs: Laboratory Last Values WBC 5.7 10^3/uL (4.0-10.0) 08/23/22 03:34 RBC 2.54 10^6/uL (4.1-5.3) L 08/23/22 03:34 Hgb 7.5 g/dL (11.7-16.6) L 08/23/22 03:34 Hct 23.6 % (42.0-52.0) L 08/23/22 03:34 MCV 92.9 fl (80-94) 08/23/22 03:34 MCH 29.5 pg (28.0-34.0) 08/23/22 03:34 MCHC 31.8 g/dL (30.0-36.0) 08/23/22 03:34 RDW 15.3 % (12.1-15.1) H 08/23/22 03:34 Plt Count 232 10^3/cmm (130-400) 08/23/22 03:34 MPV 8.9 fL (7.4-10.4) 08/23/22 03:34 Neut % (Auto) 69.9 % 08/23/22 03:34 Lymph % (Auto) 18.2 % 08/23/22 03:34 Taylor % (Auto) 8.3 % 08/23/22 03:34 Eos % (Auto) 2.3 % 08/23/22 03:34 Baso % (Auto) 0.9 % 08/23/22 03:34 Reticulocyte % (Auto) 2.9 % (0.5-2.0) H 08/21/22 03:41 Neut # (Auto) 3.96 10^3/uL (1.8-7.7) 08/23/22 03:34 Lymph # (Auto) 1.0 10^3/uL (0.8-4.8) 08/23/22 03:34 Taylor # (Auto) 0.5 10^3/uL (0.2-0.9) 08/23/22 03:34 Eos # (Auto) 0.1 10^3/uL (0.0-0.8) 08/23/22 03:34 Baso # (Auto) 0.1 10^3/uL (0.0-0.1) 08/23/22 03:34 Nucleated RBC % (auto) 0 % 08/23/22 03:34 Nucleated RBCs # 0.0 /100WBC 08/23/22 03:34 APTT 30.8 SECONDS (23.9-36.7) D 08/22/22 16:25 Sodium 137 mmol/L (136-145) 08/23/22 03:34 Potassium 4.0 mmol/L (3.5-5.1) 08/23/22 03:34 Chloride 104 mmol/L (98-107) 08/23/22 03:34 Carbon Dioxide 23 mmol/L (22-29) 08/23/22 03:34 Anion Gap 14.0 (5-19) 08/23/22 03:34 BUN 26 mg/dL (8-23) H 08/23/22 03:34 Creatinine 1.6 mg/dL (0.7-1.2) H 08/23/22 03:34 GFR Calculation Not Reportable 08/23/22 03:34 Glucose 169 mg/dL (65-115) H 08/23/22 03:34 POC Glucose 183 mg/dL (70-110) H 08/23/22 20:34 Calculated Osmolality 293 mOsm/kg (285-295) 08/23/22 03:34 Calcium 8.7 mg/dL (8.5-10.5) 08/23/22 03:34 Phosphorus 3.4 mg/dL (2.5-4.5) 08/21/22 03:41 Magnesium 2.1 mg/dL (1.7-2.3) 08/21/22 03:41 Iron 81 ug/dL (59-158) 08/21/22 03:41 TIBC 204 mcg/dl 08/21/22 03:41 % Saturation 39.7 % (20-50) 08/21/22 03:41 Unsat Iron Binding 123 ug/dL (112-347) 08/21/22 03:41 Total Bilirubin 0.2 mg/dL (0.15-1.2) 08/20/22 12:20 AST 14 U/L (0-40) 08/20/22 12:20 ALT 11 U/L (0-41) 08/20/22 12:20 Alkaline Phosphatase 110 U/L (40-130) 08/20/22 12:20 Troponin T Baseline 137 ng/L (0-15) H* 08/20/22 12:20 Troponin T 120 Minute 122.6 ng/L (0-15) H 08/20/22 14:28 Delta Troponin T -14.4 ABS# (0-10) L 08/20/22 14:28 Troponin T Hi Sens 6Hr 133.1 ng/L (0-15) H 08/20/22 20:07 Troponin T Hi Sens 6Hr Delta -3.9 ng/L (0-12) L 08/20/22 20:07 NT-Pro-B Natriuret Pep 316 pg/mL (0-125) H 08/20/22 12:20 Total Protein 6.3 g/dL (6.6-8.7) L 08/20/22 12:20 Albumin 3.4 g/dL (3.5-5.2) L 08/20/22 12:20 Globulin 2.9 g/dL (1.3-4.6) 08/20/22 12:20 Triglycerides 133 mg/dL (0-150) 08/21/22 03:41 Cholesterol 189 mg/dL (0-200) 08/21/22 03:41 LDL Cholesterol, Calc 124 mg/dL (50-129) 08/21/22 03:41 HDL Cholesterol 38 mg/dL (60-100) L 08/21/22 03:41 LDL/HDL Ratio 3.26 RATIO (0.00-3.22) H 08/21/22 03:41 Cholesterol/HDL Ratio 4.97 mg/dL (1.0-5.00) 08/21/22 03:41 Vitamin B12 391 pg/mL (232-1245) 08/21/22 03:41 Folate 4.1 ng/mL (4.5-32.2) L 08/21/22 03:41 Blood Type O Negative 08/22/22 10:05 Rho(D) Type Negative 08/22/22 10:05 Antibody Screen Negative 08/22/22 10:05 Crossmatch See Detail 08/22/22 10:05 A&P Assessment and plan (1) Acute blood loss anemia: Patient is status post blood transfusion x3. We will repeat the H&H in the [facility]. Based on the results, further management decisions will be made (2) Non-ST elevated myocardial infarction (non-STEMI): The ventricular arrhythmia he is improving. We will continue on the current medications. Patient seems to be fairly asymptomatic at this point. Requires a cardiac catheterization, to further evaluate the coronary status. We will wait till the hemoglobin/hematocrit is stable (3) CKD (chronic kidney disease) stage 3, GFR 30-59 ml/min: The kidney function seems to be fairly stable. (4) Cerebral venous thrombosis: IV heparin and Plavix were held this morning, pending GI work-up (5) Hypertension: Blood pressure is a stage II. We will continue to optimize the antihypertensive medications. (6) Type 2 diabetes mellitus: The blood glucose level seems to be slowly getting under control (7) Diabetic peripheral neuropathy: Patient has a history of diabetic neuropathy and retinopathy. (8) Ulcer of left calf: Chronic and seems stable. Plan Please schedule the cardiac relative vision tomorrow. If the hemoglobin/hematocrit is not stable, we may have to postpone the procedure. Attestations Medical Necessity Statement*: Patient requires continued hospital stay for close monitoring and further management Coding Level of Care Code 96289 Diagnoses Acute blood loss anemia D62 Non-ST elevated myocardial infarction (non-STEMI) I21.4 CKD (chronic kidney disease) stage 3, GFR 30-59 ml/min N18.30 Cerebral venous thrombosis G08 Hypertension I10 Type 2 diabetes mellitus E11.9 Diabetic peripheral neuropathy E11.42 Ulcer of left calf L97.229
[2022-08-23] MEDS: pantoprazole 40 mg SDV IVP (21:03)
[2022-08-23] MEDS: atorvastatin 40 mg Tablet PO (21:04)
[2022-08-23] MEDS: quetiapine 25 mg Tablet PO (21:04)
[2022-08-23] MEDS: LORazepam 1 mg Tablet 0.5 MG PO (21:04)
[2022-08-23] MEDS: insulin glargine 100 units/1 mL 30 UNIT SUBCUT (21:05)
[2022-08-24] VITALS (8 sets, daily range): BP systolic 133–154; BP diastolic 71–87; PULSE 67–104; RESP 13–22; TEMP 36.8–37.4; O2SAT 96–99
[2022-08-24 03:39] LABS: Basophils # 0.1 10^3/uL (0.0-0.1); Basophils % 0.9 %; Eosinophils # 0.2 10^3/uL (0.0-0.8); Eosinophils % 3.5 %; Hematocrit 26.5 % (42.0-52.0); Hemoglobin 8.7 g/dL (11.7-16.6); Lymphocytes # 1.2 10^3/uL (0.8-4.8); Lymphocytes % 20.7 %; Mean Corpuscular HGB Conc 32.8 g/dL (30.0-36.0); Mean Corpuscular Hemoglobin 29.8 pg (28.0-34.0); Mean Corpuscular Volume 90.8 fl (80-94); Mean Platelet Volume 8.6 fL (7.4-10.4); Monocytes # 0.5 10^3/uL (0.2-0.9); Monocytes % 9.2 %; Neutrophils # 3.67 10^3/uL (1.8-7.7); Neutrophils % 65.2 %; Nucleated Red Blood Cells % 0 %; Platelet Count 205 10^3/cmm (130-400); Red Blood Count 2.92 10^6/uL (4.1-5.3); Red Cell Distribution Width 15.5 % (12.1-15.1); White Blood Count 5.6 10^3/uL (4.0-10.0)
[2022-08-24 04:01] LABS: Blood Urea Nitrogen 15 mg/dL (8-23); Calcium 8.6 mg/dL (8.5-10.5); Carbon Dioxide 23 mmol/L (22-29); Chloride 106 mmol/L (98-107); Creatinine Clr Calc Pharmacy 0; Glucose 124 mg/dL (65-115); Osmolality Calculated 290 mOsm/kg (285-295); Sodium 139 mmol/L (136-145)
[2022-08-24 06:09] LABS: Glucose Point of Care 116 mg/dL (70-110)
[2022-08-24] MEDS: levothyroxine 25 mcg Tablet PO (06:28)
[2022-08-24] MEDS: sucralfate 1 gm/10 mL Oral Liq UDC PO ×3 (06:28→21:08)
[2022-08-24] MEDS: hyDRALAzine 50 mg Tablet PO ×3 (06:28→22:28)
[2022-08-24] MEDS: gabapentin 100 mg Capsule 200 MG PO (08:47)
[2022-08-24] MEDS: pantoprazole 40 mg SDV IVP ×2 (08:47→21:09)
[2022-08-24] MEDS: PARoxetine 20 mg Tablet 10 MG PO (08:47)
[2022-08-24] MEDS: carvedilol 6.25 mg Tablet PO ×2 (08:47→17:24)
[2022-08-24] MEDS: FUROsemide 40 mg Tablet PO (08:47)
[2022-08-24] MEDS: NIFEdipine ER (24 hr) 30 mg Tablet 60 MG PO (08:47)
--- NOTE | 2022-08-24 09:57 | XACV_ITS ---
Exam Room: [facility] Ht: 188 cm Wt: 124 kg BSA: 2.59 m2 Gender: Male : 1950 Any Known Allergies: Penicillins Exam Priority: Routine Procedure(s): Procedure Description: Diagnostic procedure Procedure Description: PCI procedure Procedure Description: Left Heart Catheterization Procedure Description: Drug Eluting Coronary Stent Procedure Description: PTCA Procedure Description: Coronary Angiography Indejrit OVIEDO; Diagnostic Cath Status: Elective Diagnostic Findings * Left main is a medium caliber vessel with no significant stenotic lesions. * The left anterior descending artery is a medium caliber vessel which appears to taper off to his LV apex. The mid LAD was found to have 50 to 60% irregular tubular narrowing. The distal LAD after the second diagonal branch was found to have a focal stenosis of around 85%. Rest of the vessel was found to have minimal intimal irregularities. The first diagonal branch was found to have a tubular narrowing of around 40% proximally. * The left circumflex artery is a small to medium caliber nondominant vessel with no significant obstructive lesions. * The right coronary artery is a relatively large caliber dominant vessel with a posterior takeoff. Minimal intimal irregularities are noted in the distal artery including the PLV and PDA branches. No significant stenotic lesions were noted. PCI Status: Urgent PCI Indication: NSTE - ACS Interventional Findings * Procedure detail: We engaged the left main artery with XB 3.5 guide catheter.IV heparin was administered to maintain ACT above 250 S. 0.014 run-through guidewire was used to cross the stenosis and was put in distal vessel. We predilated the distal LAD stenosis with 2.25 x 8 mm semicompliant balloon. This was followed by placement of 2.5 x 15 mm resolute Sophia drug-eluting stent. At this time angiogram showed excellent stent expansion, MARY-3 flow and no residual stenosis. We then report IFR wire across mid LAD stenosis after normalization. iFR value of 0.96 was obtained. This was nonischemic. It was decided to treat mid LAD stenosis medically. Guidewire and guide catheter were removed. Patient left the Dry Box Tender in a stable condition.. * Distal Left Anterior Descendin% stenosis treated with a AB TREK 2.25X8 RX BALLOON, and MDT R GER 2.5X15 OMAR. 0% residual stenosis, MARY: 3 flow. Decision for PCI with Surgical Consult: Yes Conclusions 1. 72-year-old white male with a history of hypertension, type 2 diabetes, dyslipidemia and chronic kidney disease presenting with unstable angina symptoms. Clinical features of a non-ST elevation myocardial infarction. For further evaluation of his coronary status, a cardiac catheterization was recommended. Patient underwent left heart catheterization with left and right coronary angiogram today. Findings are as follows. 2. 1. Normal left main 2. High-grade lesion in the distal left anterior descending artery. 50 to 60% tubular irregular narrowing in the mid LAD. 3. Nondominant left circumflex artery with no significant lesions. 4. Large dominant right coronary artery with minimal intimal irregularities. The artery has a posterior takeoff. 5. Normal LVEDP of 14 mmHg . LV gram was not performed because of the chronic kidney disease. 3. I reviewed and discussed the cardiac catheterization data with Dr. Del Cid. It was thought to be appropriate to consider PCI of the distal LAD lesion. Possible IFR of the mid LAD lesion . Dr. Del Cid took over further management of this patient at this point. 4. Successful revascularization of distal LAD with OMAR x1. IFR of mid LAD stenosis did not reveal ischemia. Medical management for that. 5. Distal Left Anterior Descending was treated with a Balloon, and Drug Eluting Stent. Recommendations * Aggressive risk factor modification. * Dual antiplatelet therapy with aspirin and Plavix for at least 1 year. * High intensity statin therapy. * Outpatient cardiology follow-up in 4 weeks. Interventional RX Recommendation: PCI w/o planned CABG Diagnostic RX Recommendation: PCI w/o planned CABG Anticoagulation: Heparin LV EDP: 14 mmHg Left Ventriculography Findings: * LV gram was not performed because of the concern of the dye overload. Pressures Phase:Rest AO : 108 / 54 ( 77 ) @ 2:13:00 PM 97 / 70 ( 82 ) @ 2:14:00 PM 106 / 104 ( 85 ) @ 2:17:00 PM 128 / 68 ( 96 ) @ 2:38:00 PM LV : 125 / -3 / 14 @ 2:13:00 PM 116 / -1 / 14 @ 2:13:00 PM Valves Phase:DefaultPhase AV : 2.0 @ 3:11:48 PM 2.0 @ 3:11:48 PM AV Mean Gradient: 4.0 @ 3:11:48 PM Clinical Evaluation EBL: 5mL-10mL Procedural Details Procedure Consent Obtained. Admit Source: Out Patient. Pre-Procedure Time Out. Identified patient by full name and date of as verbalized by the patient/guarantor. Does the consent match the physician's order: Yes. Accurate & Complete Informed Consent: Yes. Inpatient/Outpatient History & Physical on Chart: Yes. If H&P is completed, is and addenduem needed: No; If yes, is the addendum complete: N/A. Visualize and Verify Site with Patient/Guarantor: N/A. Relevant Radiology Images available: N/A. The risks, benefits, and alternatives of sedation and/or procedure were discussed by physician. The patient agrees to continue. Procedure started. [facility] Clinical Fraility Score: 3: Managing Well. Chest Pain Symptom Assessment: Typical Angina Symptoms. Dry Box Tender Indications: nstemi. Cardiovascular Instability: No,. Correct patient, site and procedure confirmed by cath team. Current diagnosis: NSTEMI. PERRLA. 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 Lungs clear x 5 lobes. IV Site on Arrival: 20 gauge in the right anticubital. IV Fluids: 0.9% NaCl at KVO. 200 mL infused prior to curb and gutter laborer. Pre Procedural Pulses: bilateral dorsalis pedis was 2+. Pre Procedural Pulses: bilateral radial was 2+. Oxygen started at 2liters/min via nasal canula. right groin was prepped with chloroprep then draped in the usual sterile fashion. right radial was prepped with chloroprep then draped in the usual sterile fashion. Physician notified. Baseline sample Acquired. HR: 80 BPM. Physician arrived. Physician scrubbed in. Immediate Pre-Procedure Time Out. Correct Patient: Yes; Correct Procedure: Yes; Correct Site: Yes; Correct Patient Position: Yes; Correct Supplies: Yes; Dried Flammable Prep: Yes; Blood Products Available: N/A;. Lidocaine 1% infiltrated to the right radial. Arterial access obtained. A 5 malaysian Adalid catheter in over wire. EDP Sample taken: LV 125/-4,14; HR: 66 BPM; SpO2: 98%. Pullback taken: LV 116/-2,14; AO 108/54(77); Mean: 4mmHg, Peak to Peak: 2mmHg, SEP: 14sec/min; HR: 67 BPM; SpO2: 98%. Multiple views taken of left coronary artery. Catheter redirected to the RCA. Catheter removed over the exchange wire. A 5 malaysian JR4 catheter in over wire. Dr Del Cid called to review films. Catheter removed over the exchange wire. A 5 malaysian 3DRC catheter in over wire. Multiple views taken of right coronary artery. Physicians to review cine films. Side port of sheath attached to Normal Saline flush at KVO to maintain patency. Dr Del Cid scrubbed in. Catheter out over wire. 6 malaysian XB 3.5 guide catheter was inserted over the wire. Runthrough guidewire was advanced through the guide catheter to lesion in the distal LAD. Balloon inserted to lesion in the distal LAD. Inflation number : 1 A AB TREK 2.25X8 RX BALLOON was prepped and advanced across the Dist LAD , then inflated to 8 JUAN for 0:17 seconds. Balloon out. ACT drawn. Results 277 seconds. Therapeutic limits - pre-heparin administration 90-150 seconds and monitoring heparin during a vascular procedure >250 seconds. Inflation Number : 2 A NATA Shaffer GER 2.5X15 OMAR -Lot Number# [id number] exp date 07/26/2024 was prepped and advanced across the Dist LAD. The stent was deployed at 12 JUAN for 0:22 seconds. Pressure wire inserted. Runthrough wire out. Pressure wire out. Guide catheter out. ACT drawn. Results 220 seconds. Therapeutic limits - pre-heparin administration 90-150 seconds and monitoring heparin during a vascular procedure >250 seconds. PERRLA. 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 No VTE prophylaxis required. Post-op diagnosis: mid to distal moderate stenosis s/p pci 1 stent. Moderate stenosis to prox LAD. Complications: none. Estimated blood loss: 5mL-10mL. Responsiveness - Normal response to verbal stimuli; alert and oriented, PERRLA. Airway - Unaffected, no intervention required; spontaneous ventilation. Circulation: W/N/L, pulses unchanged. Nausea/Vomiting: No. Medication's Wasted: Nitro = 49.6 mg. Medication's Wasted: Other = versed 2 mg. Total IV fluids: 310 mL. A TR Band was successful obtaining hemostatsis at the Right Radial artery insertion site. Medication's Wasted: Heparin = 2000 units. Procedure completed. Patient transferred by wheelchair to 1st floor. Vital chart was stopped. Access Site Site: Right Radial artery Sheath Size: 6 Fr Hemostasis Method: TR Band Hemostasis Success: Successful Procedure Medications Start: 2:03 PM Stop: 2:03 PM Medication: Versed Amount: 1 mg Route: I.V. Start: 2:03 PM Stop: 2:03 PM Medication: Fentanyl Amount: 50 mcg Route: I.V. Start: 2:07 PM Stop: 2:07 PM Medication: Versed Amount: 1 mg Route: I.V. Start: 2:09 PM Stop: 2:09 PM Medication: Verapamil Amount: 5 mg Route: I.A. Start: 2:10 PM Stop: 2:10 PM Medication: Nitrogylcerin Amount: 200 mcg Route: I.A. Start: 2:12 PM Stop: 2:12 PM Medication: Heparin Amount: 5000 units Route: I.V. Start: 2:12 PM Stop: 2:12 PM Medication: Fentanyl Amount: 50 mcg Route: I.V. Start: 2:16 PM Stop: 2:16 PM Medication: 0.9% Saline Amount: 250 ml Route: I.V. bolus Start: 2:33 PM Stop: 2:33 PM Medication: Heparin Amount: 5000 units Route: I.V. Start: 2:41 PM Stop: 2:41 PM Medication: Heparin Amount: 1000 units Route: I.V. Start: 2:53 PM Stop: 2:53 PM Medication: Nitrogylcerin Amount: 200 mcg Route: I.C. Start: 2:58 PM Stop: 2:58 PM Medication: Plavix Amount: 600 mg Route: P.O. Start: 2:53 PM Stop: 2:53 PM Medication: Heparin Amount: 1000 units Route: I.V. Start: 3:08 PM Stop: 3:08 PM Medication: Heparin Amount: 2000 units Route: I.V. I, the attending physician, have reviewed and verified all procedure medications. Yes, all medications given per verbal order History/Risk Factors Hypertension: Yes Dyslipidemia: No Peripheral Arterial Disease (PAD): No Myocardial Infarction (WV): No Obesity: Yes Tobacco Use: Never Prior Interventions PCI: Yes CABG: Yes Valve Surgery: No Report Signatures Interventional Workflow Finalized by Rudi Del Cid MD on 08/27/2022 12:30 PM Diagnostic Workflow Finalized by Dr Len Jansen MD [facility] on 08/24/2022 09:25 PM
[2022-08-24] MEDS: sodium chloride 0.9% 1,000 ML 100 ML IV (10:36)
[2022-08-24] MEDS: primidone 50 mg Tablet PO ×2 (11:29→23:26)
[2022-08-24 12:47] LABS: Glucose Point of Care 150 mg/dL (70-110)
--- NOTE | 2022-08-24 13:08 | PM.PN ---
Subjective Subjective: No new complaints today. Awaiting cardiac cath. Hemoglobin is stable at 8.7. Creatinine is at 1.4. Denies any chest pain at this present time. Medications: Reviewed: Yes Medication Review Details: Current Medications Acetaminophen (Acetaminophen 325 Mg Tablet) 650 mg PO Q6H PRN PRN Reason: Mild/Mod Pain Or Temp >/= 101 Last Admin: 08/21/22 05:58 Dose: 650 mg Hydrocodone Bitart/Acetaminophen (Hydrocodone-Acetaminophen 10-325 Mg Tablet) 1 tab PO Q8H PRN PRN Reason: MODERATE PAIN Last Admin: 08/23/22 11:45 Dose: 1 tab Aspirin (Aspirin 325 Mg Tablet) 325 mg PO ONCE ONE Stop: 08/23/22 20:57 Atorvastatin Calcium (Atorvastatin 40 Mg Tablet) 40 mg PO BEDTIME PENDING SALE TO [facility] Last Admin: 08/22/22 21:16 Dose: 40 mg Benzocaine (Cetylpyridinium Lozenge) 1 each MUCOUS MEM ONCE PRN PRN Reason: SORE THROAT Bisacodyl (Bisacodyl 5 Mg Tablet) 10 mg PO DAILY PRN; Protocol PRN Reason: Constipation (see protocol) Carvedilol (Carvedilol 6.25 Mg Tablet) 6.25 mg PO BID PENDING SALE TO [facility] Last Admin: 08/23/22 17:11 Dose: 6.25 mg Clopidogrel Bisulfate (Clopidogrel 75 Mg Tablet) 75 mg PO DAILY PENDING SALE TO [facility] Last Admin: 08/22/22 08:22 Dose: Not Given Dextrose (Dextrose 50% Syringe 50 Ml) 25 ml IVP ONCE PRN; Protocol PRN Reason: hypoglycemia protocol Dextrose (Dextrose 50% Syringe 50 Ml) 50 ml IVP PRN PRN; Protocol PRN Reason: hypoglycemia protocol Diphenhydramine HCl (Diphenhydramine 50 Mg Capsule) 50 mg PO ONCE ONE Stop: 08/23/22 20:57 Fentanyl (Fentanyl 50 Mcg/Ml Inj 2ml) 50 mcg IVP ONCE PRN PRN Reason: Preop or postop pain Furosemide (Furosemide 40 Mg Tablet) 40 mg PO DAILY PENDING SALE TO [facility] Last Admin: 08/22/22 08:18 Dose: 40 mg Gabapentin (Gabapentin 100 Mg Capsule) 200 mg PO DAILY PENDING SALE TO [facility] Last Admin: 08/22/22 08:20 Dose: 200 mg Glucagon (Glucagon 1 Mg/Ml Inj 1 Ml) 1 mg IM ONCE PRN; Protocol PRN Reason: Adult Acute Hypoglycemia Prot. Hydralazine HCl (Hydralazine 50 Mg Tablet) 50 mg PO Q8H PENDING SALE TO [facility] Last Admin: 08/23/22 13:26 Dose: 50 mg Hydromorphone HCl (Hydromorphone 1 Mg/Ml Inj 1 Ml) 0.5 mg IVP ONCE PRN PRN Reason: PAIN Last Admin: 08/23/22 16:55 Dose: 0.5 mg Dextrose (D5w) 500 mls @ 100 mls/hr IV ONCE PRN; Protocol PRN Reason: Adult Acute Hypoglycemia Prot Sodium Chloride (Sodium Chloride 0.9%) 1,000 mls @ 50 mls/hr IV .Q20H ONE Stop: 08/24/22 16:55 Insulin Glargine (Insulin Glargine 100 Units/1 Ml) 30 unit SUBCUT BID@10,22 PENDING SALE TO [facility] Last Admin: 08/22/22 21:49 Dose: 30 unit Insulin Human Lispro (Insulin Lispro 100 Unit/1 Ml) 0 unit SUBCUT BEDTIME PENDING SALE TO [facility]; Protocol Last Admin: 08/22/22 22:58 Dose: Not Given Insulin Human Lispro (Insulin Lispro 100 Unit/1 Ml) 0 unit SUBCUT TIDWM PENDING SALE TO [facility]; Protocol Last Admin: 08/23/22 17:23 Dose: 8 unit Levothyroxine Sodium (Levothyroxine 25 Mcg Tablet) 25 mcg PO QAM PENDING SALE TO [facility] Last Admin: 08/23/22 07:07 Dose: Not Given Lorazepam (Lorazepam 1 Mg Tablet) 0.5 mg PO BEDTIME PRN PRN Reason: anxiety Last Admin: 08/21/22 20:09 Dose: 0.5 mg Morphine Sulfate (Morphine 4 Mg/Ml Sdv 1 Ml) 4 mg IVP Q4H PRN PRN Reason: SEVERE PAIN Nifedipine (Nifedipine Er (24 Hr) 30 Mg Tablet) 60 mg PO DAILY PENDING SALE TO [facility] Last Admin: 08/22/22 08:20 Dose: 60 mg Nitroglycerin (Nitroglycerin 1 Gm/Inch Oint Pkt) 1 inch TOPICAL Q6H PENDING SALE TO [facility] Last Admin: 08/23/22 13:26 Dose: 1 inch Non-Formulary Medication (Cyanocobalamin (Vitamin B-12) [Vitamin B-12]) 50 mcg PO DAILY PENDING SALE TO [facility] Ondansetron HCl (Ondansetron 2 Mg/Ml Sdv 2 Ml) 4 mg IVP Q8H PRN PRN Reason: vomiting, or N/V if npo Ondansetron HCl (Ondansetron 2 Mg/Ml Sdv 2 Ml) 4 mg IVP ONCE PRN PRN Reason: NAUSEA AND VOMITING Ondansetron HCl (Ondansetron 2 Mg/Ml Sdv 2 Ml) 4 mg IVP Q15M PRN PRN Reason: Nausea/Vomiting PACU PHASE II Pantoprazole Sodium (Pantoprazole 40 Mg Sdv) 40 mg IVP Q12H PENDING SALE TO [facility] Last Admin: 08/22/22 21:15 Dose: 40 mg Paroxetine HCl (Paroxetine 20 Mg Tablet) 10 mg PO DAILY PENDING SALE TO [facility] Last Admin: 08/22/22 08:19 Dose: 10 mg Primidone (Primidone 50 Mg Tablet) 50 mg PO BID@00,12 PENDING SALE TO [facility] Last Admin: 08/23/22 11:46 Dose: 50 mg Quetiapine Fumarate (Quetiapine 25 Mg Tablet) 25 mg PO BEDTIME PENDING SALE TO [facility] Last Admin: 08/22/22 22:59 Dose: Not Given Sucralfate (Sucralfate 1 Gm/10 Ml Oral Liq Udc) 1 gm PO AC&BEDTIME PENDING SALE TO [facility] Last Admin: 08/23/22 17:11 Dose: 1 gm Vitals/I&O/Wt Last Vital Signs Temp 99.4 F 08/24/22 04:00 Pulse 67 08/24/22 07:35 Resp 13 08/24/22 07:35 BP 154/87 08/24/22 07:35 Pulse Ox 96 08/24/22 07:35 O2 Del Method 08/24/22 04:00 08/23/22 08/24/22 08/24/22 22:59 06:59 14:59 Intake Total 650 / 1890 240 / 2130 0 / 0 Output Total 400 / 1050 750 / 1800 450 / 450 Balance 250 / 840 -510 / 330 -450 / -450 Weight last 48 hrs Weight 124.556 kg Weight 0 g Physical Exam Narrative: General: No acute distress, AO x3 HEENT: PERRLA, pupils bilaterally equal and reactive, pallors not present Chest: Normal vesicular breath sounds, no added sounds, equal good air entry bilaterally CVS: S1-S2 regular, no murmurs, no tachycardia, no gallops, no rubs Abdomen: Soft, nontender, no organomegaly, bowel sounds present Neuro: No focal deficits, no facial deformity, AO x3, power 5/5 in all limbs Data 08/24/22 03:14 08/24/22 03:14 A&P Assessment and plan (1) Acute anemia: (2) Melanotic stools: (3) Familial tremor: (4) GERD (gastroesophageal reflux disease): (5) Type 2 diabetes mellitus: (6) Hypothyroidism: (7) Hypertension: (8) CHF (congestive heart failure), NYHA class III: (9) Cerebral venous thrombosis: (10) Non-ST elevated myocardial infarction (non-STEMI): (11) Diabetic retinopathy: (12) Chronic anticoagulation: (13) CKD (chronic kidney disease) stage 3, GFR 30-59 ml/min: (14) Ulcer of left calf: Plan 72-year-old male currently admitted with NSTEMI, with hospital course complicated by anemia, hemoglobin at 6.8. # NSTEMI: Patient was initially started on ACS protocol with anticoagulation, Plavix and aspirin, however thereafter course was complicated by development of anemia with hemoglobin dropped to 6.8. FOBT positive Underwent upper and lower GI endoscopy to evaluate for any active bleeding. Nonbleeding gastric ulcers were encountered on upper GI endoscopy which were clipped prophylactically. Colonoscopy showed diverticulosis without any active bleeding. Could not be completed up to distal ascending colon due to poor prep. He is currently on Protonix 40 mg IV every 12 hours and sucralfate 1 g p.o. twice daily. Eliquis has additionally been discontinued since admission. He is planned for a coronary angiogram this afternoon. # Partial cerebral venous thrombosis diagnosed in June of this year. He was originally planned to be on Eliquis for at least 6 months, however Eliquis has now been discontinued and given the presence of gastric ulcer would likely need to remain off. Cause overall unclear but he also had strep mitis oralis bacteremia 1/4 bottles at that time which was treated with 4 weeks of iv ceftriaxone. No meningitis at that time. Patient has appt with neurology on Saturday # CKD: cr at recent best at 1.4 # Diastolic CHF: Low-dose Lasix to be continued # Left calf ulcer: Healing well # Acute GI blood loss anemia: Macrocytic s/p PRBC transfusion this admission Full code Cardiac diet N.p.o. after midnight DVT prophylaxis: Contraindicated Attestations Medical Necessity Statement*: planned cardiac cath today Coding Level of Care Code Acute Code for Chg Fwd Diagnoses Acute anemia D64.9 Melanotic stools K92.1 Familial tremor G25.0 GERD (gastroesophageal reflux disease) K21.9 Type 2 diabetes mellitus E11.9 Hypothyroidism E03.9 Hypertension I10 CHF (congestive heart failure), NYHA class III I50.9 Cerebral venous thrombosis G08 Non-ST elevated myocardial infarction (non-STEMI) I21.4 Diabetic retinopathy E11.319 Chronic anticoagulation Z79.01 CKD (chronic kidney disease) stage 3, GFR 30-59 ml/min N18.30 Ulcer of left calf L97.229
[2022-08-24] MEDS: diphenhydrAMINE 50 mg Capsule PO (13:40)
[2022-08-24] MEDS: aspirin 325 mg Tablet PO (13:40)
--- NOTE | 2022-08-24 13:45 | P.PN_ITS ---
Subjective Subjective: The patient is feeling okay no chest pain or shortness of breath. Hemoglobin hematocrit seems to be improving. No evidence of bleeding. The BUN/creatinine ratio also is better Medications: Medication Review Details: Current Medications Acetaminophen (Acetaminophen 325 Mg Tablet) 650 mg PO Q6H PRN PRN Reason: Mild/Mod Pain Or Temp >/= 101 Last Admin: 08/21/22 05:58 Dose: 650 mg Hydrocodone Bitart/Acetaminophen (Hydrocodone-Acetaminophen 10-325 Mg Tablet) 1 tab PO Q8H PRN PRN Reason: MODERATE PAIN Last Admin: 08/23/22 11:45 Dose: 1 tab Aspirin (Aspirin 325 Mg Tablet) 325 mg PO ONCE ONE Stop: 08/24/22 14:01 Last Admin: 08/24/22 13:40 Dose: 325 mg Atorvastatin Calcium (Atorvastatin 40 Mg Tablet) 40 mg PO BEDTIME [facility] Last Admin: 08/23/22 21:04 Dose: 40 mg Benzocaine (Cetylpyridinium Lozenge) 1 each MUCOUS MEM ONCE PRN PRN Reason: SORE THROAT Bisacodyl (Bisacodyl 5 Mg Tablet) 10 mg PO DAILY PRN; Protocol PRN Reason: Constipation (see protocol) Carvedilol (Carvedilol 6.25 Mg Tablet) 6.25 mg PO BID [facility] Last Admin: 08/24/22 08:47 Dose: 6.25 mg Clopidogrel Bisulfate (Clopidogrel 75 Mg Tablet) 75 mg PO DAILY [facility] Last Admin: 08/22/22 08:22 Dose: Not Given Dextrose (Dextrose 50% Syringe 50 Ml) 25 ml IVP ONCE PRN; Protocol PRN Reason: hypoglycemia protocol Dextrose (Dextrose 50% Syringe 50 Ml) 50 ml IVP PRN PRN; Protocol PRN Reason: hypoglycemia protocol Diphenhydramine HCl (Diphenhydramine 50 Mg Capsule) 50 mg PO ONCE ONE Stop: 08/24/22 14:01 Last Admin: 08/24/22 13:40 Dose: 50 mg Fentanyl (Fentanyl 50 Mcg/Ml Inj 2ml) 50 mcg IVP ONCE PRN PRN Reason: Preop or postop pain Furosemide (Furosemide 40 Mg Tablet) 40 mg PO DAILY [facility] Last Admin: 08/24/22 08:47 Dose: 40 mg Gabapentin (Gabapentin 100 Mg Capsule) 200 mg PO DAILY [facility] Last Admin: 08/24/22 08:47 Dose: 200 mg Glucagon (Glucagon 1 Mg/Ml Inj 1 Ml) 1 mg IM ONCE PRN; Protocol PRN Reason: Adult Acute Hypoglycemia Prot. Hydralazine HCl (Hydralazine 50 Mg Tablet) 50 mg PO Q8H [facility] Last Admin: 08/24/22 13:40 Dose: 50 mg Hydromorphone HCl (Hydromorphone 1 Mg/Ml Inj 1 Ml) 0.5 mg IVP ONCE PRN PRN Reason: PAIN Last Admin: 08/23/22 16:55 Dose: 0.5 mg Dextrose (D5w) 500 mls @ 100 mls/hr IV ONCE PRN; Protocol PRN Reason: Adult Acute Hypoglycemia Prot Sodium Chloride (Sodium Chloride 0.9%) 1,000 mls @ 50 mls/hr IV .Q20H ONE Stop: 08/25/22 09:59 Last Admin: 08/24/22 10:36 Dose: 100 mls/hr Insulin Glargine (Insulin Glargine 100 Units/1 Ml) 30 unit SUBCUT BID@10,22 [facility] Last Admin: 08/24/22 07:59 Dose: Not Given Insulin Human Lispro (Insulin Lispro 100 Unit/1 Ml) 0 unit SUBCUT BEDTIME [facility]; Protocol Last Admin: 08/23/22 21:05 Dose: 3 unit Insulin Human Lispro (Insulin Lispro 100 Unit/1 Ml) 0 unit SUBCUT TIDWM [facility]; Protocol Last Admin: 08/24/22 11:23 Dose: Not Given Levothyroxine Sodium (Levothyroxine 25 Mcg Tablet) 25 mcg PO QAM [facility] Last Admin: 08/24/22 06:28 Dose: 25 mcg Lorazepam (Lorazepam 1 Mg Tablet) 0.5 mg PO BEDTIME PRN PRN Reason: anxiety Last Admin: 08/23/22 21:04 Dose: 0.5 mg Morphine Sulfate (Morphine 4 Mg/Ml Sdv 1 Ml) 4 mg IVP Q4H PRN PRN Reason: SEVERE PAIN Nifedipine (Nifedipine Er (24 Hr) 30 Mg Tablet) 60 mg PO DAILY [facility] Last Admin: 08/24/22 08:47 Dose: 60 mg Nitroglycerin (Nitroglycerin 1 Gm/Inch Oint Pkt) 1 inch TOPICAL Q6H [facility] Last Admin: 08/24/22 13:27 Dose: Not Given Non-Formulary Medication (Cyanocobalamin (Vitamin B-12) [Vitamin B-12]) 50 mcg PO DAILY [facility] Ondansetron HCl (Ondansetron 2 Mg/Ml Sdv 2 Ml) 4 mg IVP Q8H PRN PRN Reason: vomiting, or N/V if npo Ondansetron HCl (Ondansetron 2 Mg/Ml Sdv 2 Ml) 4 mg IVP ONCE PRN PRN Reason: NAUSEA AND VOMITING Ondansetron HCl (Ondansetron 2 Mg/Ml Sdv 2 Ml) 4 mg IVP Q15M PRN PRN Reason: Nausea/Vomiting PACU PHASE II Pantoprazole Sodium (Pantoprazole 40 Mg Sdv) 40 mg IVP Q12H [facility] Last Admin: 08/24/22 08:47 Dose: 40 mg Paroxetine HCl (Paroxetine 20 Mg Tablet) 10 mg PO DAILY [facility] Last Admin: 08/24/22 08:47 Dose: 10 mg Primidone (Primidone 50 Mg Tablet) 50 mg PO BID@00,12 [facility] Last Admin: 08/24/22 11:29 Dose: 50 mg Quetiapine Fumarate (Quetiapine 25 Mg Tablet) 25 mg PO BEDTIME [facility] Last Admin: 08/23/22 21:04 Dose: 25 mg Sucralfate (Sucralfate 1 Gm/10 Ml Oral Liq Udc) 1 gm PO AC&BEDTIME [facility] Last Admin: 08/24/22 10:19 Dose: Not Given Vitals/I&O/Wt Last Vital Signs Temp 99.4 F 08/24/22 04:00 Pulse 67 08/24/22 07:35 Resp 13 08/24/22 07:35 BP 154/87 08/24/22 07:35 Pulse Ox 96 08/24/22 07:35 O2 Del Method 08/24/22 04:00 08/23/22 08/24/22 08/24/22 22:59 06:59 14:59 Intake Total 650 / 1890 240 / 2130 0 / 0 Output Total 400 / 1050 750 / 1800 450 / 450 Balance 250 / 840 -510 / 330 -450 / -450 Weight last 48 hrs Weight 274 lb 9.6 oz Weight 0 oz Physical Exam Narrative: GENERAL: The patient is alert and oriented times three. Not in any acute distress. HEENT: No significant pallor, icterus or lymphadenopathy.Oral cavity: There are no mucous membrane lesions. NECK: Trachea appears to be central. No masses noted. No JVD or thyromegaly appreciated. RESPIRATORY: Chest is symmetrical. No intercostals muscle retraction or any accessory muscle activation. There is no chest wall tenderness. Breath sounds are heard bilaterally. No rales or rhonchi heard. No evidence of any consolidation. BREASTS: Deferred. HEART: The heart sounds are normal. No S3 or S4. No significant murmurs. No pericardial rub ABDOMEN: No vessel pulsations or distention. No tenderness. No organomegaly appreciated. Bowel sounds are normally heard. : Deferred. RECTAL: Deferred. LYMPHATIC: No lymphadenopathy noted in the neck. EXTREMITIES: 1+ edema of the left lower extremity. This is chronic and stable MUSCULOSKELETAL: No acute joint deformities or swelling SKIN: There are no significant rashes or ecchymosis NEUROPSYCHIATRIC: The patient is alert and oriented x3. Appears to be in a good mood. No tremors or rigidity noted. Data 08/24/22 03:14 08/24/22 03:14 Other Labs: Laboratory Last Values WBC 5.6 10^3/uL (4.0-10.0) 08/24/22 03:14 RBC 2.92 10^6/uL (4.1-5.3) L 08/24/22 03:14 Hgb 8.7 g/dL (11.7-16.6) L 08/24/22 03:14 Hct 26.5 % (42.0-52.0) L 08/24/22 03:14 MCV 90.8 fl (80-94) 08/24/22 03:14 MCH 29.8 pg (28.0-34.0) 08/24/22 03:14 MCHC 32.8 g/dL (30.0-36.0) 08/24/22 03:14 RDW 15.5 % (12.1-15.1) H 08/24/22 03:14 Plt Count 205 10^3/cmm (130-400) 08/24/22 03:14 MPV 8.6 fL (7.4-10.4) 08/24/22 03:14 Neut % (Auto) 65.2 % 08/24/22 03:14 Lymph % (Auto) 20.7 % 08/24/22 03:14 Stephens % (Auto) 9.2 % 08/24/22 03:14 Eos % (Auto) 3.5 % 08/24/22 03:14 Baso % (Auto) 0.9 % 08/24/22 03:14 Reticulocyte % (Auto) 2.9 % (0.5-2.0) H 08/21/22 03:41 Neut # (Auto) 3.67 10^3/uL (1.8-7.7) 08/24/22 03:14 Lymph # (Auto) 1.2 10^3/uL (0.8-4.8) 08/24/22 03:14 Stephens # (Auto) 0.5 10^3/uL (0.2-0.9) 08/24/22 03:14 Eos # (Auto) 0.2 10^3/uL (0.0-0.8) 08/24/22 03:14 Baso # (Auto) 0.1 10^3/uL (0.0-0.1) 08/24/22 03:14 Nucleated RBC % (auto) 0 % 08/24/22 03:14 Nucleated RBCs # 0.0 /100WBC 08/24/22 03:14 APTT 30.8 SECONDS (23.9-36.7) D 08/22/22 16:25 Sodium 139 mmol/L (136-145) 08/24/22 03:14 Potassium 4.0 mmol/L (3.5-5.1) 08/24/22 03:14 Chloride 106 mmol/L (98-107) 08/24/22 03:14 Carbon Dioxide 23 mmol/L (22-29) 08/24/22 03:14 Anion Gap 14.0 (5-19) 08/24/22 03:14 BUN 15 mg/dL (8-23) 08/24/22 03:14 Creatinine 1.4 mg/dL (0.7-1.2) H 08/24/22 03:14 GFR Calculation Not Reportable 08/24/22 03:14 Glucose 124 mg/dL (65-115) H 08/24/22 03:14 POC Glucose 150 mg/dL (70-110) H 08/24/22 12:44 Calculated Osmolality 290 mOsm/kg (285-295) 08/24/22 03:14 Calcium 8.6 mg/dL (8.5-10.5) 08/24/22 03:14 Phosphorus 3.4 mg/dL (2.5-4.5) 08/21/22 03:41 Magnesium 2.1 mg/dL (1.7-2.3) 08/21/22 03:41 Iron 81 ug/dL (59-158) 08/21/22 03:41 TIBC 204 mcg/dl 08/21/22 03:41 % Saturation 39.7 % (20-50) 08/21/22 03:41 Unsat Iron Binding 123 ug/dL (112-347) 08/21/22 03:41 Total Bilirubin 0.2 mg/dL (0.15-1.2) 08/20/22 12:20 AST 14 U/L (0-40) 08/20/22 12:20 ALT 11 U/L (0-41) 08/20/22 12:20 Alkaline Phosphatase 110 U/L (40-130) 08/20/22 12:20 Troponin T Baseline 137 ng/L (0-15) H* 08/20/22 12:20 Troponin T 120 Minute 122.6 ng/L (0-15) H 08/20/22 14:28 Delta Troponin T -14.4 ABS# (0-10) L 08/20/22 14:28 Troponin T Hi Sens 6Hr 133.1 ng/L (0-15) H 08/20/22 20:07 Troponin T Hi Sens 6Hr Delta -3.9 ng/L (0-12) L 08/20/22 20:07 NT-Pro-B Natriuret Pep 316 pg/mL (0-125) H 08/20/22 12:20 Total Protein 6.3 g/dL (6.6-8.7) L 08/20/22 12:20 Albumin 3.4 g/dL (3.5-5.2) L 08/20/22 12:20 Globulin 2.9 g/dL (1.3-4.6) 08/20/22 12:20 Triglycerides 133 mg/dL (0-150) 08/21/22 03:41 Cholesterol 189 mg/dL (0-200) 08/21/22 03:41 LDL Cholesterol, Calc 124 mg/dL (50-129) 08/21/22 03:41 HDL Cholesterol 38 mg/dL (60-100) L 08/21/22 03:41 LDL/HDL Ratio 3.26 RATIO (0.00-3.22) H 08/21/22 03:41 Cholesterol/HDL Ratio 4.97 mg/dL (1.0-5.00) 08/21/22 03:41 Vitamin B12 391 pg/mL (232-1245) 08/21/22 03:41 Folate 4.1 ng/mL (4.5-32.2) L 08/21/22 03:41 Blood Type O Negative 08/22/22 10:05 Rho(D) Type Negative 08/22/22 10:05 Antibody Screen Negative 08/22/22 10:05 Crossmatch See Detail 08/22/22 10:05 A&P Assessment and plan (1) Acute blood loss anemia: Patient is status post blood transfusion x3. Patient status post clipping of the prepyloric ulcer. No active bleeding (2) Non-ST elevated myocardial infarction (non-STEMI): The ventricular arrhythmia he is improving. We will continue on the current medications. Cardiac catheterization today. (3) CKD (chronic kidney disease) stage 3, GFR 30-59 ml/min: The BUN/creatinine has significantly improved. (4) Cerebral venous thrombosis: We may restart the anticoagulation after the angiogram (5) Hypertension: Blood pressure significantly improved. (6) Type 2 diabetes mellitus: The blood glucose level seems to be slowly getting under control (7) Diabetic peripheral neuropathy: Patient has a history of diabetic neuropathy and retinopathy. (8) Ulcer of left calf: Chronic and almost healed. Plan Cardiac catheterization today. The risk and benefits of the procedure were explained to the patient in detail. The risk of bleeding, hematoma, vascular injury, myocardial infarction, myocardial perforation, malignant cardiac arrhythmias ,CVA, renal failure and other concomitant complications were explained in detail. In view of his chronic kidney disease, he carries a higher risk for contrast-induced nephropathy. Patient understood this well and consented to proceed. Attestations Medical Necessity Statement*: Patient requires continued hospital stay for close monitoring and further management Coding Level of Care Code 96492 Diagnoses Acute blood loss anemia D62 Non-ST elevated myocardial infarction (non-STEMI) I21.4 CKD (chronic kidney disease) stage 3, GFR 30-59 ml/min N18.30 Cerebral venous thrombosis G08 Hypertension I10 Type 2 diabetes mellitus E11.9 Diabetic peripheral neuropathy E11.42 Ulcer of left calf L97.229
--- NOTE | 2022-08-24 13:50 | W.PM.OPSUD ---
Surgery/Procedure H&P Update DATE OF PROCEDURE: August 24, 2022 DATE H&P PERFORMED: 08/22/22 H&P UPDATE INFORMATION: I have reviewed H&P completed within last 30 days, I have examined patient prior to procedure and No changes to prior documentation PREOP DIAGNOSIS: Non-ST elevation myocardial infarction/unstable angina PRIMARY INDICATION FOR PROCEDURE: Non-ST ovation myocardial infarction/unstable angina/multiple risk factors for coronary artery disease PLANNED PROCEDURE: Operation Date: 08/23/22 08:00 Proposed Procedures p EGD(Not Applicable) - Toney Dewitt DO s Colonoscopy(Not Applicable) - Toney Dewitt DO Operation Date: 08/24/22 15:00 Proposed Procedures p Cardiac Catheterization(Left) - Len Jansen MD PATIENT REASSESSED PRIOR TO SEDATION, WITH NO CHANGE NOTED: Yes PHYSICAL EXAM: alert, oriented x 3, clear to auscultation bilaterally and regular rate & rhythm AIRWAY EVAL/ANESTHESIA PLAN: normal airway, see other exam findings, ASA III, Monitored Anesthesia, Local Anesthesia, Risks, benefits & alternatives of sedation and/or procedure discussed and Patient agrees to continue as planned ADDITIONAL INFORMATION: Patient also is known to have frequent ventricular arrhythmia.
--- NOTE | 2022-08-24 14:17 | PC.NURSE ---
pt off floor for [facility]
[2022-08-24] MEDS: acetaminophen 325 mg Tablet 650 MG PO ×2 (16:30→23:30)
[2022-08-24 16:41] LABS: Glucose Point of Care 204 mg/dL (70-110)
[2022-08-24] MEDS: insulin lispro 100 unit/1 mL SUBCUT ×2 (17:23→22:29)
[2022-08-24 21:03] LABS: Glucose Point of Care 207 mg/dL (70-110)
[2022-08-24] MEDS: quetiapine 25 mg Tablet PO (21:08)
[2022-08-24] MEDS: atorvastatin 40 mg Tablet PO (21:08)
[2022-08-24] MEDS: nitroglycerin 1 gm/inch oint Pkt 1 INCH TOPICAL (21:09)
[2022-08-24] MEDS: insulin glargine 100 units/1 mL 30 UNIT SUBCUT (22:29)
[2022-08-25] VITALS (7 sets, daily range): BP systolic 133–142; BP diastolic 57–85; PULSE 72–88; RESP 20–23; TEMP 36.8–37.2; O2SAT 96–99
[2022-08-25] MEDS: nitroglycerin 1 gm/inch oint Pkt 1 INCH TOPICAL ×2 (03:14→09:11)
[2022-08-25 06:21] LABS: Glucose Point of Care 123 mg/dL (70-110)
[2022-08-25] MEDS: hyDRALAzine 50 mg Tablet PO (06:22)
[2022-08-25] MEDS: levothyroxine 25 mcg Tablet PO (06:22)
[2022-08-25] MEDS: sucralfate 1 gm/10 mL Oral Liq UDC PO ×2 (06:23→11:38)
--- NOTE | 2022-08-25 07:17 | PM.PN ---
Subjective Subjective: Patient is stable. No chest pain. Renal function is stable. Vitals/I&O/Wt Last Vital Signs Temp 99.0 F 08/25/22 04:00 Pulse 88 08/25/22 04:00 Resp 20 H 08/25/22 04:00 BP 133/75 08/25/22 04:00 Pulse Ox 99 08/25/22 04:00 O2 Del Method 08/25/22 00:00 08/24/22 08/25/22 08/25/22 22:59 06:59 14:59 Intake Total 1200 / 1200 760 / 1960 Output Total 700 / 2210 400 / 2610 Balance 500 / -1010 360 / -650 Weight last 48 hrs Weight 274 lb 12.8 oz Weight 274 lb 9.6 oz Physical Exam Narrative: GENERAL: Patient is alert, awake and oriented x3. [] NECK: No jugular vein distension. [] HEENT: No cyanosis. No icterus. No pallor. [] HEART: Regular S1 and S2. No murmur, rub or gallop. [] LUNGS: Clear to auscultate bilaterally. [] CENTRAL NERVOUS SYSTEM: Grossly nonfocal. [] EXTREMITIES: Lower extremities with 1+ edema bilaterally. Pulses palpable in the lower extremities, both dorsalis pedis and posterior tibial. [] Data 08/24/22 03:14 08/24/22 03:14 A&P Assessment and plan (1) Acute blood loss anemia: Patient is status post blood transfusion x3. Patient status post clipping of the prepyloric ulcer. No active bleeding (2) Non-ST elevated myocardial infarction (non-STEMI): Patient's coronary angiogram demonstrated severe distal LAD stenosis that underwent successful revascularization with OMAR x1. Continue dual antiplatelet therapy with aspirin and Plavix. (3) CKD (chronic kidney disease) stage 3, GFR 30-59 ml/min: LV function is stable. (4) Cerebral venous thrombosis: We may restart the anticoagulation after the angiogram (5) Hypertension: Blood pressure significantly improved. (6) Type 2 diabetes mellitus: The blood glucose level seems to be slowly getting under control (7) Diabetic peripheral neuropathy: Patient has a history of diabetic neuropathy and retinopathy. (8) Ulcer of left calf: Chronic and almost healed. Plan Patient is stable. Renal function is unchanged. Patient is stable to be discharged from cardiology standpoint. Attestations Medical Necessity Statement*: Care expected to cross 2 midnights. Coding Level of Care Code Acute Code for Chg Fwd Diagnoses Acute blood loss anemia D62 Non-ST elevated myocardial infarction (non-STEMI) I21.4 CKD (chronic kidney disease) stage 3, GFR 30-59 ml/min N18.30 Cerebral venous thrombosis G08 Hypertension I10 Type 2 diabetes mellitus E11.9 Diabetic peripheral neuropathy E11.42 Ulcer of left calf L97.229
[2022-08-25 08:00] LABS: Basophils # 0.1 10^3/uL (0.0-0.1); Eosinophils # 0.3 10^3/uL (0.0-0.8); Hematocrit 27.7 % (42.0-52.0); Hemoglobin 8.9 g/dL (11.7-16.6); Mean Corpuscular HGB Conc 32.1 g/dL (30.0-36.0); Mean Corpuscular Hemoglobin 29.3 pg (28.0-34.0); Mean Corpuscular Volume 91.1 fl (80-94); Mean Platelet Volume 9.1 fL (7.4-10.4); Monocytes # 0.5 10^3/uL (0.2-0.9); Monocytes % 8.6 %; Neutrophils # 3.45 10^3/uL (1.8-7.7); Nucleated Red Blood Cells % 0 %; Platelet Count 219 10^3/cmm (130-400); Red Blood Count 3.04 10^6/uL (4.1-5.3); Red Cell Distribution Width 15.6 % (12.1-15.1); White Blood Count 5.2 10^3/uL (4.0-10.0)
[2022-08-25 08:15] LABS: Anion Gap 14.6 (5-19); Blood Urea Nitrogen 15 mg/dL (8-23); Calcium 8.4 mg/dL (8.5-10.5); Carbon Dioxide 22 mmol/L (22-29); Chloride 105 mmol/L (98-107); Glucose 116 mg/dL (65-115); Osmolality Calculated 288 mOsm/kg (285-295); Potassium 3.6 mmol/L (3.5-5.1); Sodium 138 mmol/L (136-145)
[2022-08-25] MEDS: FUROsemide 40 mg Tablet PO (09:09)
[2022-08-25] MEDS: gabapentin 100 mg Capsule 200 MG PO (09:09)
[2022-08-25] MEDS: pantoprazole 40 mg SDV IVP (09:10)
[2022-08-25] MEDS: PARoxetine 20 mg Tablet 10 MG PO (09:10)
[2022-08-25] MEDS: aspirin 81 mg EC Tablet PO (09:10)
[2022-08-25] MEDS: NIFEdipine ER (24 hr) 30 mg Tablet 60 MG PO (09:10)
[2022-08-25] MEDS: carvedilol 6.25 mg Tablet PO (09:10)
[2022-08-25] MEDS: insulin glargine 100 units/1 mL 30 UNIT SUBCUT (09:11)
--- NOTE | 2022-08-25 10:26 | P.DS_ITS ---
Discharge Providers Date of Admission: 08/20/22 16:33 Date of Discharge: August 25, 2022 Attending Provider at Admission: Linda Frost MD Attending Provider at Discharge: Nona Hinton MD Primary Care Provider: Dulce Maria Daly MD Diagnoses at Discharge Discharge Diagnosis (1) Acute blood loss anemia: Status: Acute (2) Non-ST elevated myocardial infarction (non-STEMI): Status: Acute (3) CKD (chronic kidney disease) stage 3, GFR 30-59 ml/min: Status: Chronic (4) Cerebral venous thrombosis: Status: Acute (5) Hypertension: Status: Chronic (6) Type 2 diabetes mellitus: Status: Chronic (7) Diabetic peripheral neuropathy: Status: Chronic (8) Ulcer of left calf: Status: Acute Reason for Visit Reason for Visit: Chest Pain, Numbness in hands Hospital Course Hospital Course 72-year-old male who presented to hospital with chest pain, he was diagnosed with NSTEMI, he had been on Eliquis for possible non occlusive cerebral venous thrombosis which was diagnosed in June 2022. He was started on ACS protocol, however during hospitalization he became anemic, hemoglobin dropped to 6.8, general surgery was consulted once he was found to be FOBT positive. He underwent EGD and Colonoscopy. EGD revealed large gastric ulcer without acute bleeding which was clipped prophylactically. Also noted to have diverticulosis on colonoscopy without active bleeding. Scope could not be competed beyond ascending colon due to poor prep. After active bleeding was ruled out he underwent coronory angiogram on 08/24 and underwent OMAR x 1 into distal LAD. He is being diagnosed on DAPT with ASA and plavix. Eliquis has been discontinued at this time as risk of bleeding from his gastric ulcer outweights the risk of clot progression from a possible non occlusive cerebral thrombosis, especially in the setting of also starting DAPT. He has a follow up appointment with neurology on Saturday at [facility] where anticoagulation can be further addressed. Follow up with cardiology [facility] in one week and then Dr. jansen in one month. Physical Exam Narrative: General: No acute distress, AO x3 HEENT: PERRLA, pupils bilaterally equal and reactive, pallors not present Chest: Normal vesicular breath sounds, no added sounds, equal good air entry bilaterally CVS: S1-S2 regular, no murmurs, no tachycardia, no gallops, no rubs Abdomen: Soft, nontender, no organomegaly, bowel sounds present Neuro: No focal deficits, no facial deformity, AO x3, power 5/5 in all limbs Discharge Data Studies Completed and Pending Completed Studies During Hospitalization Category Date Time Status XR chest 1V portable [id number] Stat Exams 08/20/22 12:15 Completed CV. echo limited [id number] Routine Ultrasound 08/20/22 17:05 Completed Pending at discharge Category Date Time Status [employer] request for service Routine Exams 08/24/22 09:57 Taken Radiology Impressions Chest X-Ray 08/20/22 12:15 Impression: Atherosclerosis. Laboratory Results WBC 5.2 10^3/uL (4.0-10.0) 08/25/22 07:39 RBC 3.04 10^6/uL (4.1-5.3) L 08/25/22 07:39 Hgb 8.9 g/dL (11.7-16.6) L 08/25/22 07:39 Hct 27.7 % (42.0-52.0) L 08/25/22 07:39 MCV 91.1 fl (80-94) 08/25/22 07:39 MCH 29.3 pg (28.0-34.0) 08/25/22 07:39 MCHC 32.1 g/dL (30.0-36.0) 08/25/22 07:39 RDW 15.6 % (12.1-15.1) H 08/25/22 07:39 Plt Count 219 10^3/cmm (130-400) 08/25/22 07:39 MPV 9.1 fL (7.4-10.4) 08/25/22 07:39 Neut % (Auto) 66.0 % 08/25/22 07:39 Lymph % (Auto) 19.0 % 08/25/22 07:39 Piatt % (Auto) 8.6 % 08/25/22 07:39 Eos % (Auto) 5.0 % 08/25/22 07:39 Baso % (Auto) 1.0 % 08/25/22 07:39 Reticulocyte % (Auto) 2.9 % (0.5-2.0) H 08/21/22 03:41 Neut # (Auto) 3.45 10^3/uL (1.8-7.7) 08/25/22 07:39 Lymph # (Auto) 1.0 10^3/uL (0.8-4.8) 08/25/22 07:39 Piatt # (Auto) 0.5 10^3/uL (0.2-0.9) 08/25/22 07:39 Eos # (Auto) 0.3 10^3/uL (0.0-0.8) 08/25/22 07:39 Baso # (Auto) 0.1 10^3/uL (0.0-0.1) 08/25/22 07:39 Nucleated RBC % (auto) 0 % 08/25/22 07:39 Nucleated RBCs # 0.0 /100WBC 08/25/22 07:39 APTT 30.8 SECONDS (23.9-36.7) D 08/22/22 16:25 Sodium 138 mmol/L (136-145) 08/25/22 07:39 Potassium 3.6 mmol/L (3.5-5.1) 08/25/22 07:39 Chloride 105 mmol/L (98-107) 08/25/22 07:39 Carbon Dioxide 22 mmol/L (22-29) 08/25/22 07:39 Anion Gap 14.6 (5-19) 08/25/22 07:39 BUN 15 mg/dL (8-23) 08/25/22 07:39 Creatinine 1.3 mg/dL (0.7-1.2) H 08/25/22 07:39 GFR Calculation Not Reportable 08/25/22 07:39 Glucose 116 mg/dL (65-115) H 08/25/22 07:39 POC Glucose 123 mg/dL (70-110) H 08/25/22 06:15 Calculated Osmolality 288 mOsm/kg (285-295) 08/25/22 07:39 Calcium 8.4 mg/dL (8.5-10.5) L 08/25/22 07:39 Phosphorus 3.4 mg/dL (2.5-4.5) 08/21/22 03:41 Magnesium 2.1 mg/dL (1.7-2.3) 08/21/22 03:41 Iron 81 ug/dL (59-158) 08/21/22 03:41 TIBC 204 mcg/dl 08/21/22 03:41 % Saturation 39.7 % (20-50) 08/21/22 03:41 Unsat Iron Binding 123 ug/dL (112-347) 08/21/22 03:41 Total Bilirubin 0.2 mg/dL (0.15-1.2) 08/20/22 12:20 AST 14 U/L (0-40) 08/20/22 12:20 ALT 11 U/L (0-41) 08/20/22 12:20 Alkaline Phosphatase 110 U/L (40-130) 08/20/22 12:20 Troponin T Baseline 137 ng/L (0-15) H* 08/20/22 12:20 Troponin T 120 Minute 122.6 ng/L (0-15) H 08/20/22 14:28 Delta Troponin T -14.4 ABS# (0-10) L 08/20/22 14:28 Troponin T Hi Sens 6Hr 133.1 ng/L (0-15) H 08/20/22 20:07 Troponin T Hi Sens 6Hr Delta -3.9 ng/L (0-12) L 08/20/22 20:07 NT-Pro-B Natriuret Pep 316 pg/mL (0-125) H 08/20/22 12:20 Total Protein 6.3 g/dL (6.6-8.7) L 08/20/22 12:20 Albumin 3.4 g/dL (3.5-5.2) L 08/20/22 12:20 Globulin 2.9 g/dL (1.3-4.6) 08/20/22 12:20 Triglycerides 133 mg/dL (0-150) 08/21/22 03:41 Cholesterol 189 mg/dL (0-200) 08/21/22 03:41 LDL Cholesterol, Calc 124 mg/dL (50-129) 08/21/22 03:41 HDL Cholesterol 38 mg/dL (60-100) L 08/21/22 03:41 LDL/HDL Ratio 3.26 RATIO (0.00-3.22) H 08/21/22 03:41 Cholesterol/HDL Ratio 4.97 mg/dL (1.0-5.00) 08/21/22 03:41 Vitamin B12 391 pg/mL (232-1245) 08/21/22 03:41 Folate 4.1 ng/mL (4.5-32.2) L 08/21/22 03:41 Blood Type O Negative 08/22/22 10:05 Rho(D) Type Negative 08/22/22 10:05 Antibody Screen Negative 08/22/22 10:05 Crossmatch See Detail 08/22/22 10:05 Vitals Last Vital Signs Temp 98.8 F 08/25/22 07:58 Pulse 73 08/25/22 08:27 Resp 20 H 08/25/22 04:00 BP 140/57 08/25/22 08:27 Pulse Ox 96 08/25/22 08:27 O2 Del Method 08/25/22 00:00 Discharge Plan Discharge Patient Disposition: Home Condition: Stable Prescriptions: New atorvastatin 40 mg Tablet 40 mg PO BEDTIME 30 Days Qty: 30 0RF aspirin 81 mg Tablet,Delayed Release (Dr/Ec) 81 mg PO DAILY 30 Days Qty: 30 0RF sucralfate 1 gram tablet 1 g PO BID 28 Days Qty: 56 0RF clopidogrel 75 mg Tablet 75 mg PO DAILY 30 Days Qty: 30 0RF pantoprazole [Protonix] 40 mg tablet,delayed release (DR/EC) 40 mg PO BID 28 Days Qty: 56 0RF Continued Tresiba U-100 Insulin 100 unit/mL solution 45 unit SUBCUT BID@12,00 levothyroxine 25 mcg capsule 25 mcg PO DAILY@00 Seroquel 25 mg tablet 25 mg PO BEDTIME Qty: 30 2RF paroxetine HCl [Paxil] 10 mg tablet 10 mg PO DAILY Qty: 30 2RF primidone 50 mg tablet 50 mg PO BID@00,12 Qty: 60 5RF famotidine 40 mg tablet 40 mg PO DAILY@00 nifedipine 60 mg tablet extended release 24hr 60 mg PO DAILY Qty: 30 0RF hydralazine 50 mg tablet 50 mg PO TID Qty: 90 0RF insulin aspart U-100 [Novolog FlexPen U-100 Insulin] 100 unit/mL (3 mL) insulin pen See Rx Instructions .ROUTE .COMPLEX Rx Instructions: per sliding scale Vitamin B-12 50 mcg Tablet 50 mcg PO DAILY cholecalciferol (vitamin D3) [Vitamin D3] 25 mcg (1,000 unit) Capsule 25 mcg PO DAILY furosemide 40 mg tablet 40 mg PO DAILY Qty: 60 2RF Bactrim DS 800-160 mg Tablet 1 tab PO BID gabapentin 100 mg Capsule 200 mg PO DAILY hydrocodone-acetaminophen 10-325 mg tablet 1 tab PO Q8H PRN (Reason: Pain) Ativan 1 mg tablet 1 mg PO BEDTIME PRN (Reason: anxiety) Rx Instructions: 1 tablets at bedtime and 1 tablets daily as needed for severe anxiety Changed carvedilol 3.125 mg tablet 6.25 mg PO BID Qty: 180 1RF Rx Instructions: must administer with a meal/food Discontinued lansoprazole [Prevacid] 15 mg capsule,delayed release(DR/EC) 15 mg PO DAILY@1200 Eliquis 5 mg Tablet 2.5 mg PO BID@0900,2100 Qty: 180 3RF Discharge Orders: Discharge Order (Routine); Ordered 08/25/22 Ordered By: Nona Hinton Referrals: Dulce Maria Daly MD [Primary Care Provider] - Tigist Siddiqui FNP [Nurse Practitioner] - 1 week Len Jansen MD [Physician] - 1 month Discharge Diet: Cardiac Discharge Activity: Resume usual activity Patient Instructions: GI Discharge Instructions, Opioid Safety Activity Restrictions/Additional Instructions: Eliquis has been held at discharge due to anemia during your admission course and discovery of gastric ulcer on endoscopy. Please follow-up with your neurologist on August 28 as scheduled already to discuss regarding need for further anticoagulation. Continue aspirin and Plavix at least over the next year. Monitor your stools for any bleeding. Report to ER in case of any noted bleeding. Discharge Attestations Time Spent in Discharge Care*: greater than 30 min Status at Discharge: Cognitive status at discharge: cognitively intact , Behavioral status at discharge: cooperative , Quality Metrics Clinical Quality Measures [ No reported AMI, CVA or VTE this stay] Coding Level of Care Code Acute Code for Chg Fwd Diagnoses Acute blood loss anemia D62 Non-ST elevated myocardial infarction (non-STEMI) I21.4 CKD (chronic kidney disease) stage 3, GFR 30-59 ml/min N18.30 Cerebral venous thrombosis G08 Hypertension I10 Type 2 diabetes mellitus E11.9 Diabetic peripheral neuropathy E11.42 Ulcer of left calf L97.229
--- NOTE | 2022-08-25 10:53 | PC.SOCIAL ---
IMM Updated Updated pt on IMM. No questions voiced. Provided pt a copy. Initialed, dated, & timed copy in chart.
[2022-08-25 11:01] LABS: Glucose Point of Care 225 mg/dL (70-110)
[2022-08-25] MEDS: insulin lispro 100 unit/1 mL SUBCUT (11:41)
[2022-08-25] MEDS: clopidogrel 75 mg Tablet PO (12:18)
[2022-08-25] MEDS: primidone 50 mg Tablet PO (12:18)
--- NOTE | 2022-08-25 12:30 | PC.NURSE ---
new rx called in to pt's preferred pharmacy called [facility] [place] to verify meds sent via electronic.called other new Rx and dr villar notified to that pt needs Lasix refill since he is out. dr villar ok to get him a one time refill of his home lasix. pharmacy called in.
== END 2022-08-25 13:00 | disposition home or self-care (01) | DRG 246 ==
LOC: ER 15:16 → CSU 16:34
PROVIDERS: Internal Medicine; Internal Medicine Cardiovascular Disease; Surgery; Admitting Provider Hospitalist; Emergency Provider Family Medicine; PCP Family Medicine; Visit Provider Student in an Organized Health Care Education/Training Program
PROC: 0DJ08ZZ Inspection of Upper Intestinal Tract, Via Natural or Artificial Opening Endoscopic (ICD-10-PCS; CPT 43235; principal; 2022-08-23 08:00)
PROC: 0DJD8ZZ Inspection of Lower Intestinal Tract, Via Natural or Artificial Opening Endoscopic (ICD-10-PCS; CPT 45378; 2022-08-23 08:00)
PROC: 027034Z Dilation of Coronary Artery, One Artery with Drug-eluting Intraluminal Device, Percutaneous Approach (ICD-10-PCS; principal; 2022-08-24 15:00)
DX: I21.4 Non-ST elevation (NSTEMI) myocardial infarction (principal); K25.4 Chronic or unspecified gastric ulcer with hemorrhage; I13.0 Hypertensive heart and chronic kidney disease with heart failure and stage 1 through stage 4 chronic kidney disease, or unspecified chronic kidney disease; I50.32 Chronic diastolic (congestive) heart failure; L97.229 Non-pressure chronic ulcer of left calf with unspecified severity; K57.30 Diverticulosis of large intestine without perforation or abscess without bleeding; E11.22 Type 2 diabetes mellitus with diabetic chronic kidney disease; N18.30 Chronic kidney disease, stage 3 unspecified; E11.42 Type 2 diabetes mellitus with diabetic polyneuropathy; E11.319 Type 2 diabetes mellitus with unspecified diabetic retinopathy without macular edema; Z86.73 Personal history of transient ischemic attack (TIA), and cerebral infarction without residual deficits; I25.110 Atherosclerotic heart disease of native coronary artery with unstable angina pectoris; Z79.4 Long term (current) use of insulin; Z79.891 Long term (current) use of opiate analgesic; K21.9 Gastro-esophageal reflux disease without esophagitis; I49.3 Ventricular premature depolarization; D63.1 Anemia in chronic kidney disease; F41.9 Anxiety disorder, unspecified; G47.33 Obstructive sleep apnea (adult) (pediatric); Z99.89 Dependence on other enabling machines and devices; F32.9 Major depressive disorder, single episode, unspecified; E03.9 Hypothyroidism, unspecified; G25.0 Essential tremor; D50.0 Iron deficiency anemia secondary to blood loss (chronic)
CPT/HCPCS: 36415; 36416; 36430; 43255; 45378; 71045; 80048; 80053; 80061; 82274; 82607; 82746; 82962; 83540; 83550; 83735; 83880; 84100; 84484; 85014; 85018; 85025; 85045; 85347; 85730; 86850; 86900; 86920; 93005; 93308; 93458; 93571; 96365; 96372; 96375; 99152; 99153; 99285; C1725; C1769; C1874; C1887; C1894; C9113; C9600; J1170; J1644; J1815; J2250; J2270; J2370; J2704; J3010; J3490; J7030; P9016; Q0163; Q9956; Q9967

== ENCOUNTER → 2022-09-25 10:22 | Outpatient (BNVA) | payer MEDICARE, SELFPAY | PROVIDERS: PCP Family Medicine; Visit Provider Nurse Practitioner Family | DX: I25.10 Atherosclerotic heart disease of native coronary artery without angina pectoris (principal); I13.0 Hypertensive heart and chronic kidney disease with heart failure and stage 1 through stage 4 chronic kidney disease, or unspecified chronic kidney disease; E11.22 Type 2 diabetes mellitus with diabetic chronic kidney disease; N18.30 Chronic kidney disease, stage 3 unspecified; I50.9 Heart failure, unspecified; Z79.4 Long term (current) use of insulin | CPT/HCPCS: 99214 ==

== ENCOUNTER → 2022-12-13 10:57 | Outpatient (BNVA) | payer MEDICARE, SELFPAY | PROVIDERS: PCP Family Medicine; Visit Provider Specialist | DX: I25.10 Atherosclerotic heart disease of native coronary artery without angina pectoris (principal); E78.5 Hyperlipidemia, unspecified; I13.0 Hypertensive heart and chronic kidney disease with heart failure and stage 1 through stage 4 chronic kidney disease, or unspecified chronic kidney disease; E11.22 Type 2 diabetes mellitus with diabetic chronic kidney disease; N18.30 Chronic kidney disease, stage 3 unspecified; I50.9 Heart failure, unspecified; Z79.4 Long term (current) use of insulin | CPT/HCPCS: 99214 ==

== ENCOUNTER → 2023-08-22 09:52 | Outpatient (BNVA) | payer MEDICARE, SELFPAY | PROVIDERS: PCP Family Medicine; Visit Provider Family Medicine | DX: E11.9 Type 2 diabetes mellitus without complications (principal); E03.9 Hypothyroidism, unspecified; I50.9 Heart failure, unspecified; N40.0 Benign prostatic hyperplasia without lower urinary tract symptoms; Z12.5 Encounter for screening for malignant neoplasm of prostate | CPT/HCPCS: 80053; 80061; 83036; 84153; 84439; 84443; 85025 ==

== ENCOUNTER 2023-10-16 05:16 | Inpatient (IN) | payer MEDICARE, SELFPAY ==
[2023-10-16] VITALS (72 sets, daily range): BP systolic 120–200; BP diastolic 64–103; PULSE 71–107; RESP 9–39; TEMP 36.4–36.8; O2SAT 86–100; BMI 36.6
--- NOTE | 2023-10-16 05:21 | ECG_ITS ---
[facility] Test Date: 2023-10-16 Pat Name: Brittny Londono Department: Room: Gender: Male Metal [employer]: : 1950 Requested By: Ralph Brian Order Number: [id number] Anoop MD: Len Jansen M.D. Measurements Intervals [place] Rate: 88 P: 66 IA: 184 QRS: 3 QRSD: 97 T: 27 QT: 349 QTc: 423 Interpretive Statements SINUS RHYTHM Compared to ECG 08/20/2022 17:56:37 Myocardial infarct finding no longer present Electronically Signed On 10-16-2023 18:29:16 CDT by Len Jansen M.D. [email or web address]
--- NOTE | 2023-10-16 05:32 | ED_ITS ---
Documented by User: Ralph Brian DO 10/16/23 23:43 HPI - Nausea/Vomiting/Diarrhea 2 General: Chief complaint: Nausea/Vomiting/Diarrhea Stated complaint: N/V, weakness Time Seen by Provider: 10/16/23 05:20 History of Present Illness: Patient presents to the ER via EMS with complaints of feeling unwell since yesterday and vomiting multiple times this morning and the last 2 hours and having dark red blood in his emesis. Patient does have a history of a GI bleed from a gastric ulcer that needed clipped last time he was in the hospital. Patient is on Plavix, aspirin, and he says he only takes stomach medicine such as Tums when he needs it. Patient denies chest pain, shortness of breath fevers chills coughs abdominal pain. Patient's last stay he was also diagnosed with a non-STEMI and had a stent placed. Patient sees Tigist Siddiqui and Dr. Wu. Review of Systems 2 General: Reports: 10 or more systems reviewed and unremarkable except in HPI and below PFSH ED 2 PFSH: Medical History Carpal tunnel syndrome, bilateral Atherosclerosis of coronary artery CKD (chronic kidney disease) stage 3, GFR 30-59 ml/min Major depressive disorder HAZEL on CPAP Sigmoid diverticulosis History of echocardiogram 06/2022 EF 71%, normal LV size and function, grade I/IV diastolic dysfunction, no wall motion abnormalities History of Holter monitoring 09/2020 predominant rhythm sinus rhythm to sinus tachycardia with frequent ventricular ectopy, range 60-163 bpm Anxiety Diabetic peripheral neuropathy Diabetic retinopathy Non-ST elevated myocardial infarction (non-STEMI) Streptococcal bacteremia 06/2022, streptococcus mitis oralis, treated with 4 weeks IV ceftriaxone Cerebral venous thrombosis CHF (congestive heart failure), NYHA class III Frequent PVCs Hypertension Hypothyroidism 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 Type 2 diabetes mellitus GERD (gastroesophageal reflux disease) with hiatal hernia Familial tremor Surgical History Status post excisional debridement (06/2020) for right foot gas gangrene, followed at wound care until healed History of hand surgery History of colonoscopy History of hernia surgery Family History Father Palpitations Stroke Denies family history of Diabetes CAD (coronary artery disease) Hypertension Social History Smoking and tobacco/nicotine status: never used tobacco/nicotine Alcohol intake: current Alcohol intake frequency: holidays/special occasions only Substance/Drug Use: never Household members: spouse Marital status: Current occupational status: retired Physical Exam 2 Const: COMMON NORMALS: no acute distress, average body habitus, patient oriented x3, no limitations, healthy appearing, alert and well nourished HENMT: COMMON NORMALS: normocephalic, atraumatic, hearing grossly normal bilaterally, external ears normal, Normal external nose present, moist oral mucous membranes and oropharynx normal HEAD & SCALP: normocephalic and atraumatic NOSE: Normal external nose present EXTERNAL EAR: Yes external ears normal Neck/C-Spine: COMMON NORMALS: full ROM, no lymphadenopathy, supple, no meningeal signs, no JVD and Thyroid normal THYROID: Thyroid normal Chest: COMMONS NORMALS: normal inspection of the chest and normal palpation of entire chest wall Resp: COMMON NORMALS: normal respiratory effort, No retractions, No use of accessory muscles and clear to auscultation bilaterally AUSCULTATION: clear to auscultation bilaterally Cardio: COMMON NORMALS: no JVD, regular rate, regular rhythm, S1 normal heart sound present, S2 normal heart sound present, No gallops present (Cardio), No clicks present (Cardio), No murmurs present (Cardio) and No rub (Cardio) R ATE: regular rate RHYTHM: regular rhythm HEART SOUNDS: S1 normal heart sound present and S2 normal heart sound present GI: COMMON NORMALS: Normal to inspection, nondistended, normoactive bowel sounds present, Soft to palpation, non-tender, No hepatosplenomegaly present and no masses PALPATION: Yes Soft to palpation and Yes No hepatosplenomegaly present Extremity: NARRATIVE EXTREMITY EXAM: Negative edema bilateral lower extremities Neuro: COMMON NORMALS: patient oriented x3 SENSORIUM/ORIENTATION: Yes alert MENINGEAL SIGNS: Yes no meningeal signs Course 2 Vital Signs: Vital signs: Vital Signs Temperature 98.2 F 10/18/23 11:44 Pulse Rate 75 10/18/23 11:44 Respiratory Rate 18 10/18/23 11:44 Blood Pressure 163/81 10/18/23 11:44 Pulse Oximetry 98 10/18/23 11:44 Oxygen Delivery Me thod Room Air 10/18/23 08:00 MDM - Nausea/Vomiting/Diarrhea Medical Decision Making Care transferred over at shift change. Lab Data 10/18/23 13:32 10/18/23 05:25 Radiology Impressions Chest X-Ray 10/16/23 11:49 IMPRESSION: No acute findings. Laboratory Results WBC 15.59 10^3/uL (3.29-11.43) H 10/16/23 05:30 RBC 2.54 10^6/uL (3.85-5.65) L 10/16/23 05:30 Hgb 8.10 g/dL (11.27-16.99) L 10/16/23 05:30 Hct 24.5 % (37-53) L 10/16/23 05:30 MCV 96.5 fl (82-101) 10/16/23 05:30 MCH 31.9 pg (27-33) 10/16/23 05:30 MCHC 33.1 g/dL (30-55) 10/16/23 05:30 RDW 13.9 % (12.1-15.1) 10/16/23 05:30 Plt Count 303 10^3/cmm (157-399) 10/16/23 05:30 MPV 9.4 fL (7.4-10.4) 10/16/23 05:30 Neut % (Auto) 78.4 % 10/16/23 05:30 Lymph % (Auto) 11.2 % 10/16/23 05:30 Liberty % (Auto) 6.2 % 10/16/23 05:30 Eos % (Auto) 1.2 % 10/16/23 05:30 Baso % (Auto) 0.8 % 10/16/23 05:30 Neut # (Auto) 12.23 10^3/uL (1.8-7.7) H 10/16/23 05:30 Lymph # (Auto) 1.8 10^3/uL (0.8-4.8) 10/16/23 05:30 Liberty # (Auto) 1.0 10^3/uL (0.2-0.9) H 10/16/23 05:30 Eos # (Auto) 0.2 10^3/uL (0.0-0.8) 10/16/23 05:30 Baso # (Auto) 0.1 10^3/uL (0.0-0.1) 10/16/23 05:30 Nucleated RBC % (auto) 0.4 % 10/16/23 05:30 Nucleated RBCs # 0.1 /100WBC 10/16/23 05:30 PT 13.80 SECONDS (12.1-14.9) 10/16/23 05:30 INR 1.03 (0.8-1.2) 10/16/23 05:30 Sodium 142 mmol/L (136-145) 10/16/23 08:06 Potassium 5.2 mmol/L (3.5-5.1) H 10/16/23 08:06 Chloride 105 mmol/L (98-107) 10/16/23 08:06 Carbon Dioxide 24 mmol/L (22-29) 10/16/23 08:06 Anion Gap 18.2 (5-19) 10/16/23 08:06 BUN 69 mg/dL (8-23) H 10/16/23 08:06 Creatinine 1.8 mg/dL (0.7-1.2) H 10/16/23 08:06 GFR Calculation Not Reportable 10/16/23 08:06 Glucose 199 mg/dL (65-115) H 10/16/23 08:06 POC Glucose 213 mg/dL (70-110) H 10/16/23 07:44 Calculated Osmolality 320 mOsm/kg (285-295) H 10/16/23 08:06 Calcium 9.3 mg/dL (8.5-10.5) 10/16/23 08:06 Magnesium 2.0 mg/dL (1.7-2.3) 10/16/23 08:06 Total Bilirubin 0.5 mg/dL (0.15-1.2) 10/16/23 05:30 AST 21 U/L (0-40) 10/16/23 05:30 ALT 29 U/L (0-41) 10/16/23 05:30 Alkaline Phosphatase 81 U/L (40-130) 10/16/23 05:30 NT-Pro-B Natriuret Pep 205 pg/mL (0-125) H 10/16/23 05:30 Total Protein 5.5 g/dL (6.6-8.7) L 10/16/23 05:30 Albumin 3.5 g/dL (3.5-5.2) 10/16/23 05:30 Globulin 2.0 g/dL (1.3-4.6) 10/16/23 05:30 Blood Type O Negative 10/16/23 05:30 Rho(D) Type Rh negative 10/16/23 05:30 Antibody Screen Negative 10/16/23 05:30 Crossmatch See Detail 10/16/23 05:30 All radiology interpretation(s) finalized by discharge Discharge Plan Discharge Patient Disposition: Admitted As Inpatient Admit Provider: Mahesh Finch Clinical Impression: Acute blood loss anemia, Acute upper gastrointestinal bleeding, Acute kidney injury superimposed on chronic kidney disease, Acute hyperkalemia Condition: Stable Discharge Diet: Cardiac and Diabetic Discharge Activity: Increase activity as tolerated Sign Out Sign Out Data: Patient Sign Out occurred on 10/16/23 at 05:56. Patient's care was discussed, and care was transferred from Ralph Brian DO to Kelvin Cooley DO. Coding Level of Care Code ED Blood Donor Unit Assistant for Chg Fwd Documented by User: Kelvin Cooley DO 10/25/23 06:37 HPI - Nausea/Vomiting/Diarrhea 2 General: Chief complaint: Nausea/Vomiting/Diarrhea Stated complaint: N/V, weakness Time Seen by Provider: 10/16/23 05:20 [facility] ED 2 PFS: Medical History Carpal tunnel syndrome, bilateral Atherosclerosis of coronary artery CKD (chronic kidney disease) stage 3, GFR 30-59 ml/min Major depressive disorder HAZEL on CPAP Sigmoid diverticulosis History of echocardiogram 06/2022 EF 71%, normal LV size and function, grade I/IV diastolic dysfunction, no wall motion abnormalities History of Holter monitoring 09/2020 predominant rhythm sinus rhythm to sinus tachycardia with frequent ventricular ectopy, range 60-163 bpm Anxiety Diabetic peripheral neuropathy Diabetic retinopathy Non-ST elevated myocardial infarction (non-STEMI) Streptococcal bacteremia 06/2022, streptococcus mitis oralis, treated with 4 weeks IV ceftriaxone Cerebral venous thrombosis CHF (congestive heart failure), NYHA class III Frequent PVCs Hypertension Hypothyroidism 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 Type 2 diabetes mellitus GERD (gastroesophageal reflux disease) with hiatal hernia Familial tremor Surgical History Status post excisional debridement (06/2020) for right foot gas gangrene, followed at wound care until healed History of hand surgery History of colonoscopy History of hernia surgery Family History Father Palpitations Stroke Denies family history of Diabetes CAD (coronary artery disease) Hypertension Social History Smoking and tobacco/nicotine status: never used tobacco/nicotine Alcohol intake: current Alcohol intake frequency: holidays/special occasions only Substance/Drug Use: never Household members: spouse Marital status: Current occupational status: retired Course 2 Vital Signs: Vital signs: Vital Signs Temperature 98.2 F 10/18/23 11:44 Pulse Rate 75 10/18/23 11:44 Respiratory Rate 18 10/18/23 11:44 Blood Pressure 163/81 10/18/23 11:44 Pulse Oximetry 98 10/18/23 11:44 Oxygen Delivery Me thod Room Air 10/18/23 08:00 MDM - Nausea/Vomiting/Diarrhea Medical Decision Making Care transferred over at shift change. Care assumed at change of shift upper GI bleed with a history of coronary artery disease on Plavix. He has had a fair amount of blood loss hemoglobin is 7.5 transfuse 1 unit. He also has a mild acute kidney injury with hyperkalemia. Treatment initiated.. Discussed with hospitalist orders written consult general surgery. Medical Records I reviewed the patient's medical records. Lab Data I reviewed the patient's lab results. 10/18/23 13:32 10/18/23 05:25 Radiology Impressions Chest X-Ray 10/16/23 11:49 IMPRESSION: No acute findings. Laboratory Results WBC 15.59 10^3/uL (3.29-11.43) H 10/16/23 05:30 RBC 2.54 10^6/uL (3.85-5.65) L 10/16/23 05:30 Hgb 8.10 g/dL (11.27-16.99) L 10/16/23 05:30 Hct 24.5 % (37-53) L 10/16/23 05:30 MCV 96.5 fl (82-101) 10/16/23 05:30 MCH 31.9 pg (27-33) 10/16/23 05:30 MCHC 33.1 g/dL (30-55) 10/16/23 05:30 RDW 13.9 % (12.1-15.1) 10/16/23 05:30 Plt Count 303 10^3/cmm (157-399) 10/16/23 05:30 MPV 9.4 fL (7.4-10.4) 10/16/23 05:30 Neut % (Auto) 78.4 % 10/16/23 05:30 Lymph % (Auto) 11.2 % 10/16/23 05:30 Liberty % (Auto) 6.2 % 10/16/23 05:30 Eos % (Auto) 1.2 % 10/16/23 05:30 Baso % (Auto) 0.8 % 10/16/23 05:30 Neut # (Auto) 12.23 10^3/uL (1.8-7.7) H 10/16/23 05:30 Lymph # (Auto) 1.8 10^3/uL (0.8-4.8) 10/16/23 05:30 Liberty # (Auto) 1.0 10^3/uL (0.2-0.9) H 10/16/23 05:30 Eos # (Auto) 0.2 10^3/uL (0.0-0.8) 10/16/23 05:30 Baso # (Auto) 0.1 10^3/uL (0.0-0.1) 10/16/23 05:30 Nucleated RBC % (auto) 0.4 % 10/16/23 05:30 Nucleated RBCs # 0.1 /100WBC 10/16/23 05:30 PT 13.80 SECONDS (12.1-14.9) 10/16/23 05:30 INR 1.03 (0.8-1.2) 10/16/23 05:30 Sodium 142 mmol/L (136-145) 10/16/23 08:06 Potassium 5.2 mmol/L (3.5-5.1) H 10/16/23 08:06 Chloride 105 mmol/L (98-107) 10/16/23 08:06 Carbon Dioxide 24 mmol/L (22-29) 10/16/23 08:06 Anion Gap 18.2 (5-19) 10/16/23 08:06 BUN 69 mg/dL (8-23) H 10/16/23 08:06 Creatinine 1.8 mg/dL (0.7-1.2) H 10/16/23 08:06 GFR Calculation Not Reportable 10/16/23 08:06 Glucose 199 mg/dL (65-115) H 10/16/23 08:06 POC Glucose 213 mg/dL (70-110) H 10/16/23 07:44 Calculated Osmolality 320 mOsm/kg (285-295) H 10/16/23 08:06 Calcium 9.3 mg/dL (8.5-10.5) 10/16/23 08:06 Magnesium 2.0 mg/dL (1.7-2.3) 10/16/23 08:06 Total Bilirubin 0.5 mg/dL (0.15-1.2) 10/16/23 05:30 AST 21 U/L (0-40) 10/16/23 05:30 ALT 29 U/L (0-41) 10/16/23 05:30 Alkaline Phosphatase 81 U/L (40-130) 10/16/23 05:30 NT-Pro-B Natriuret Pep 205 pg/mL (0-125) H 10/16/23 05:30 Total Protein 5.5 g/dL (6.6-8.7) L 10/16/23 05:30 Albumin 3.5 g/dL (3.5-5.2) 10/16/23 05:30 Globulin 2.0 g/dL (1.3-4.6) 10/16/23 05:30 Blood Type O Negative 10/16/23 05:30 Rho(D) Type Rh negative 10/16/23 05:30 Antibody Screen Negative 10/16/23 05:30 Crossmatch See Detail 10/16/23 05:30 Critical Care Time 2 Critical Care Time: Critical Care Time: Yes Total Critical Care Time: 40 Attestation: The high probability of a clinically significant, sudden or life threatening deterioration of the patient's cardiovascular GI renal system(s) required my full and direct attention, intervention and personal management. The critical care time is as shown. This time is in addition to time spent performing any reported procedures but includes the following: [x] Data and vital sign review and interpretation [x] Patient assessment, examination and intervention [x] Documentation [x] Medication orders and management Discharge Plan Discharge Patient Disposition: Admitted As Inpatient Admit Provider: Mahesh Finch Clinical Impression: Acute blood loss anemia, Acute upper gastrointestinal bleeding, Acute kidney injury superimposed on chronic kidney disease, Acute hyperkalemia Condition: Stable Discharge Diet: Cardiac and Diabetic Discharge Activity: Increase activity as tolerated Sign Out Sign Out Data: Patient Sign Out occurred on 10/16/23 at 05:56. Patient's care was discussed, and care was transferred from Ralph Brian DO to Kelvin Cooley DO. Coding Level of Care Code ED Blood Donor Unit Assistant for Avis Orellana
[2023-10-16] MEDS: ondansetron 2 mg/ML SDV 2 mL 8 MG IVP (05:37)
[2023-10-16 05:38] LABS: Basophils # 0.1 10^3/uL (0.0-0.1); Basophils % 0.8 %; Eosinophils # 0.2 10^3/uL (0.0-0.8); Eosinophils % 1.2 %; Hematocrit 24.5 % (37-53); Lymphocytes # 1.8 10^3/uL (0.8-4.8); Lymphocytes % 11.2 %; Mean Corpuscular HGB Conc 33.1 g/dL (30-55); Mean Corpuscular Hemoglobin 31.9 pg (27-33); Mean Corpuscular Volume 96.5 fl (82-101); Mean Platelet Volume 9.4 fL (7.4-10.4); Monocytes % 6.2 %; Neutrophils # 12.23 10^3/uL (1.8-7.7); Neutrophils % 78.4 %; Nucleated Red Blood Cells # 0.1 /100WBC; Nucleated Red Blood Cells % 0.4 %; Platelet Count 303 10^3/cmm (157-399); Red Blood Count 2.54 10^6/uL (3.85-5.65); Red Cell Distribution Width 13.9 % (12.1-15.1); White Blood Count 15.59 10^3/uL (3.29-11.43)
[2023-10-16] MEDS: pantoprazole 40 mg SDV IVP ×2 (05:38→18:18)
[2023-10-16 05:50] LABS: INR 1.03 (0.8-1.2)
[2023-10-16 06:07] LABS: Alanine Aminotransferase 29 U/L (0-41); Albumin Level 3.5 g/dL (3.5-5.2); Alkaline Phosphatase 81 U/L (40-130); Anion Gap 21.5 (5-19); Aspartate Amino Transferase 21 U/L (0-40); Blood Urea Nitrogen 63 mg/dL (8-23); Calcium 8.5 mg/dL (8.5-10.5); Carbon Dioxide 19 mmol/L (22-29); Chloride 105 mmol/L (98-107); Creatinine Clr Calc Pharmacy 56.1276; Glucose 237 mg/dL (65-115); NT Pro B Type Natriuretic Pept 205 pg/mL (0-125); Osmolality Calculated 314 mOsm/kg (285-295); Sodium 139 mmol/L (136-145); Total Bilirubin 0.5 mg/dL (0.15-1.2); Total Protein 5.5 g/dL (6.6-8.7)
[2023-10-16 06:18] LABS: Potassium 6.5 mmol/L (3.5-5.1)
[2023-10-16] MEDS: albuterol 2.5 mg/3 mL Neb 10 MG INHALATION (06:36)
[2023-10-16] MEDS: insulin regular-human 100 units/1 mL 10 UNIT IVP (06:42)
[2023-10-16] MEDS: calcium chloride 10% Syr 10 mL 1 GM IVP (06:44)
[2023-10-16] MEDS: sodium bicarbonate 150 MEQ in dextrose 5% 250 ML 500 MEQ IV (07:03)
[2023-10-16] MEDS: sodium polystyrene sulfonate 15 gm/60 mL Btl PO (07:43)
[2023-10-16 08:10] LABS: Glucose Point of Care 213 mg/dL (70-110)
[2023-10-16 08:31] LABS: Anion Gap 18.2 (5-19); Blood Urea Nitrogen 69 mg/dL (8-23); Calcium 9.3 mg/dL (8.5-10.5); Carbon Dioxide 24 mmol/L (22-29); Chloride 105 mmol/L (98-107); Creatinine Clr Calc Pharmacy 53.0094; Glucose 199 mg/dL (65-115); Osmolality Calculated 320 mOsm/kg (285-295); Potassium 5.2 mmol/L (3.5-5.1); Sodium 142 mmol/L (136-145)
[2023-10-16] MEDS: ondansetron 2 mg/ML SDV 2 mL 4 MG IVP (08:49)
--- NOTE | 2023-10-16 09:59 | P.CONIM_ITS ---
Providers/Reason For Consult 2 Consulting Physician/Specialty*: General surgery Reason for Consult*: Upper GI bleeding Attending Physician: Mahesh Finch MD Primary Care Provider: Dulce Maria Daly MD History of Present Illness History of Present Illness Brittny Lnodono is a 73 year old male with history of previous upper GI bleeding treated by endoscopy in 2022 where he was found to have 2 gastric ulcers. He presents today with coffee-ground emesis and malaise. Hemoglobin done in the emergency department was 8 which is 4 points lower than his baseline. Denies abdominal pain denies fever chills or any other signs or symptoms concerning for perforation Review of Systems 2 Narrative: The point review of systems done and negative otherwise noted on HPI Medications/Allergies Home Medications Medication Instructions Recorded Confirmed Last Taken Type cholecalciferol (vitamin D3) 25 25 mcg PO DAILY 06/24/22 10/16/23 10/15/23 History mcg (1,000 unit) capsule (Vitamin D3) cyanocobalamin (vitamin B-12) 50 50 mcg PO DAILY 06/24/22 10/16/23 10/15/23 History mcg tablet (Vitamin B-12) gabapentin 100 mg capsule 200 mg PO DAILY 08/20/22 10/16/23 10/15/23 History furosemide 40 mg tablet 40 mg PO DAILY #90 tabs 09/25/22 10/16/23 10/16/23 Rx aspirin 81 mg tablet,delayed 81 mg PO DAILY 12/13/22 10/16/23 10/15/23 History release (Adult Aspirin Regimen) atorvastatin 40 mg tablet 40 mg PO DAILY 12/13/22 10/16/23 10/15/23 History hydralazine 50 mg tablet 50 mg PO DAILY 08/22/23 10/16/23 10/15/23 History insulin aspart U-100 100 unit/mL 8 unit (0.08 mL) SUBCUT TID PRN 08/22/23 10/16/23 10/15/23 Rx (3 mL) subcutaneous pen (Novolog elevated glucose #15 mL FlexPen U-100 Insulin aspart) insulin degludec 100 unit/mL 48 unit (0.48 mL) SUBCUT BID #10 mL 08/23/23 10/16/23 10/15/23 Rx subcutaneous solution (Tresiba U-100 Insulin) primidone 50 mg tablet 100 mg (2 x 50 mg) PO BID@00,12 09/12/23 10/16/23 10/15/23 Rx #60 tabs carvedilol 6.25 mg tablet 6.25 mg PO BID 10/16/23 10/16/23 10/15/23 History clopidogrel 75 mg tablet 75 mg PO DAILY 10/16/23 10/16/23 10/15/23 History levothyroxine 137 mcg tablet 137 mcg PO DAILY 10/16/23 10/16/23 10/15/23 History lorazepam 1 mg tablet (Ativan) See Rx Instructions .Route 10/16/23 10/16/23 Unknown History .COMPLEX PRN anxiety nifedipine 60 mg tablet,extended 60 mg PO DAILY 10/16/23 10/16/23 10/15/23 History release 24 hr paroxetine HCl 30 mg tablet 30 mg PO DAILY 10/16/23 10/16/23 10/15/23 History quetiapine 200 mg tablet (Seroquel) 200 mg PO BEDTIME 10/16/23 10/16/23 10/15/23 History Allergies Allergy/AdvReac Type Severity Reaction Status Date / Time Penicillins Allergy Intermediate rash Verified 09/12/23 13:48 PFSH Acute 2 PFSH: Medical History Carpal tunnel syndrome, bilateral Atherosclerosis of coronary artery CKD (chronic kidney disease) stage 3, GFR 30-59 ml/min Major depressive disorder HAZEL on CPAP Sigmoid diverticulosis History of echocardiogram 06/2022 EF 71%, normal LV size and function, grade I/IV diastolic dysfunction, no wall motion abnormalities History of Holter monitoring 09/2020 predominant rhythm sinus rhythm to sinus tachycardia with frequent ventricular ectopy, range 60-163 bpm Anxiety Diabetic peripheral neuropathy Diabetic retinopathy Non-ST elevated myocardial infarction (non-STEMI) Streptococcal bacteremia 06/2022, streptococcus mitis oralis, treated with 4 weeks IV ceftriaxone Cerebral venous thrombosis CHF (congestive heart failure), NYHA class III Frequent PVCs Hypertension Hypothyroidism 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 Type 2 diabetes mellitus GERD (gastroesophageal reflux disease) with hiatal hernia Familial tremor Surgical History Status post excisional debridement (06/2020) for right foot gas gangrene, followed at wound care until healed History of hand surgery History of colonoscopy History of hernia surgery Family History Father Palpitations Stroke Denies family history of Diabetes CAD (coronary artery disease) Hypertension Social History Smoking and tobacco/nicotine status: never used tobacco/nicotine Alcohol intake: current Alcohol intake frequency: holidays/special occasions only Substance/Drug Use: never Household members: spouse Marital status: Current occupational status: retired Vitals/I&O/Wt Last Vital Signs Temp 97.6 F 10/16/23 05:17 Pulse 96 10/16/23 08:52 Resp 18 10/16/23 06:36 BP 134/64 10/16/23 08:52 Pulse Ox 98 10/16/23 08:52 O2 Del Method Room Air 10/16/23 08:52 10/15/23 10/16/23 10/16/23 22:59 06:59 14:59 Intake Total 400 / 400 Balance 400 / 400 Weight last 48 hrs Weight 285 lb Physical Exam 2 Narrative: General : Patient is well developed , no acute distress, oriented x3 Head : Normal cephalic, a-traumatic. Nose : Mucous membranes are without erythema. Lungs : Equal chest rise bilaterally, no use of accessory muscles, trachea is midline. CV : Rate and rhythm are normal. Abdomen : Soft, ND, NT, no g/r/m Extremities : No edema. Upper extremities are normal bilaterally. Back : non-tender to palpation, no CVA tenderness. Data 10/16/23 05:30 10/16/23 08:06 A&P Assessment and plan (1) Chronic anticoagulation: (2) Acute blood loss anemia: (3) Upper GI bleeding: Plan After a complete history, physical examination and review of all available clinical data the following is my assessment. Patient does have symptoms concerning for acute upper GI bleeding. I think upper endoscopy is indicated after the patient received initial resuscitation and PPI therapy. There is no abdominal pain or other concerning symptoms. The plan will be to proceed with upper endoscopy tomorrow morning. In the interim patient will be receiving resuscitation by the medical team with IV fluids, blood products as needed and he will be placed on twice a day PPI. We will also hold dual antiplatelet therapy. I have discussed all the risk and benefits of the procedure with the patient including the risk of perforation of the esophagus, stomach, duodenum which may require surgical intervention and transferred to a higher level of care. I have also explained to the patient that there is risk to injure the soft tissue of the mouth pharynx and there may be a chance of rebleeding even after intervention which may require transfer to higher level of care for GI evaluation. Patient shows understanding and wishes to proceed Coding Level of Care Code 62546 Diagnoses Chronic anticoagulation Z79.01 Acute blood loss anemia D62 Upper GI bleeding K92.2
[2023-10-16 10:48] LABS: Basophils # 0.1 10^3/uL (0.0-0.1); Basophils % 0.6 %; Eosinophils % 0.1 %; Hematocrit 23.4 % (37-53); Lymphocytes # 1.8 10^3/uL (0.8-4.8); Lymphocytes % 12.4 %; Mean Corpuscular HGB Conc 32.1 g/dL (30-55); Mean Corpuscular Hemoglobin 31.4 pg (27-33); Mean Corpuscular Volume 97.9 fl (82-101); Mean Platelet Volume 9.6 fL (7.4-10.4); Monocytes # 0.6 10^3/uL (0.2-0.9); Monocytes % 4.2 %; Neutrophils # 12.11 10^3/uL (1.8-7.7); Neutrophils % 81.4 %; Nucleated Red Blood Cells # 0.1 /100WBC; Nucleated Red Blood Cells % 0.4 %; Platelet Count 284 10^3/cmm (157-399); Red Blood Count 2.39 10^6/uL (3.85-5.65); White Blood Count 14.88 10^3/uL (3.29-11.43)
--- NOTE | 2023-10-16 11:42 | P.HP_ITS ---
Providers/Chief Complaint 2 Admitting Physician: Mahesh Finch MD Primary Care Provider: Dulce Maria Daly MD Chief Complaint: N/V, weakness History of Present Illness Brittny Londono is a 73 year old male presenting to the hospital with coffee- ground emesis. He reports he had about 4 episodes of emesis between 10-10 30 last night. No black stools or tarry stools. Some abdominal discomfort which she describes as a nauseous feeling in his upper stomach. No fever, recent illness. He does take Plavix and aspirin, and he is over 1 year since his previous coronary stenting. Reports no anti-inflammatory use. Nobody ill around him. When he had his coronary stenting, he had a GI bleed as well and abnormality was found in the stomach and an Endo Clip was placed. Anemia, and an elevated potassium was noted in the emergency department. He received sodium bicarb, Kayexalate, insulin, glucose, calcium chloride. Review of Systems 2 General: Reports: 10 or more systems reviewed and unremarkable except in HPI and below Card: Denies: chest pain Resp: Denies: dyspnea GI: Reports: abdominal pain, nausea and coffee ground emesis; Denies: change in stool character or hematochezia Medications/Allergies Home Medications Medication Instructions Recorded Confirmed Last Taken Type cholecalciferol (vitamin D3) 25 25 mcg PO DAILY 06/24/22 10/16/23 10/15/23 History mcg (1,000 unit) capsule (Vitamin D3) cyanocobalamin (vitamin B-12) 50 50 mcg PO DAILY 06/24/22 10/16/23 10/15/23 History mcg tablet (Vitamin B-12) gabapentin 100 mg capsule 200 mg PO DAILY 08/20/22 10/16/23 10/15/23 History furosemide 40 mg tablet 40 mg PO DAILY #90 tabs 09/25/22 10/16/23 10/16/23 Rx aspirin 81 mg tablet,delayed 81 mg PO DAILY 12/13/22 10/16/23 10/15/23 History release (Adult Aspirin Regimen) atorvastatin 40 mg tablet 40 mg PO DAILY 12/13/22 10/16/23 10/15/23 History hydralazine 50 mg tablet 50 mg PO DAILY 08/22/23 10/16/23 10/15/23 History insulin aspart U-100 100 unit/mL 8 unit (0.08 mL) SUBCUT TID PRN 08/22/23 10/16/23 10/15/23 Rx (3 mL) subcutaneous pen (Novolog elevated glucose #15 mL FlexPen U-100 Insulin aspart) insulin degludec 100 unit/mL 48 unit (0.48 mL) SUBCUT BID #10 mL 08/23/23 10/16/23 10/15/23 Rx subcutaneous solution (Tresiba U-100 Insulin) primidone 50 mg tablet 100 mg (2 x 50 mg) PO BID@00,12 09/12/23 10/16/23 10/15/23 Rx #60 tabs carvedilol 6.25 mg tablet 6.25 mg PO BID 10/16/23 10/16/23 10/15/23 History clopidogrel 75 mg tablet 75 mg PO DAILY 10/16/23 10/16/23 10/15/23 History levothyroxine 137 mcg tablet 137 mcg PO DAILY 10/16/23 10/16/23 10/15/23 History lorazepam 1 mg tablet (Ativan) See Rx Instructions .Route 10/16/23 10/16/23 Unknown History .COMPLEX PRN anxiety nifedipine 60 mg tablet,extended 60 mg PO DAILY 10/16/23 10/16/23 10/15/23 History release 24 hr paroxetine HCl 30 mg tablet 30 mg PO DAILY 10/16/23 10/16/23 10/15/23 History quetiapine 200 mg tablet (Seroquel) 200 mg PO BEDTIME 10/16/23 10/16/23 10/15/23 History Allergies Allergy/AdvReac Type Severity Reaction Status Date / Time Penicillins Allergy Intermediate rash Verified 09/12/23 13:48 PFSH Acute 2 PFSH: Medical History Carpal tunnel syndrome, bilateral Atherosclerosis of coronary artery CKD (chronic kidney disease) stage 3, GFR 30-59 ml/min Major depressive disorder HAZEL on CPAP Sigmoid diverticulosis History of echocardiogram 06/2022 EF 71%, normal LV size and function, grade I/IV diastolic dysfunction, no wall motion abnormalities History of Holter monitoring 09/2020 predominant rhythm sinus rhythm to sinus tachycardia with frequent ventricular ectopy, range 60-163 bpm Anxiety Diabetic peripheral neuropathy Diabetic retinopathy Non-ST elevated myocardial infarction (non-STEMI) Streptococcal bacteremia 06/2022, streptococcus mitis oralis, treated with 4 weeks IV ceftriaxone Cerebral venous thrombosis CHF (congestive heart failure), NYHA class III Frequent PVCs Hypertension Hypothyroidism 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 Type 2 diabetes mellitus GERD (gastroesophageal reflux disease) with hiatal hernia Familial tremor Surgical History Status post excisional debridement (06/2020) for right foot gas gangrene, followed at wound care until healed History of hand surgery History of colonoscopy History of hernia surgery Family History Father Palpitations Stroke Denies family history of Diabetes CAD (coronary artery disease) Hypertension Social History Smoking and tobacco/nicotine status: never used tobacco/nicotine Alcohol intake: current Alcohol intake frequency: holidays/special occasions only Substance/Drug Use: never Household members: spouse Marital status: Current occupational status: retired Vitals/I&O/Wt Last Vital Signs Temp 97.6 F 10/16/23 05:17 Pulse 96 10/16/23 08:52 Resp 18 10/16/23 06:36 BP 134/64 10/16/23 08:52 Pulse Ox 98 10/16/23 08:52 O2 Del Method Room Air 10/16/23 08:52 10/15/23 10/16/23 10/16/23 22:59 06:59 14:59 Intake Total 400 / 400 Balance 400 / 400 Weight last 48 hrs Weight 129.274 kg Physical Exam 2 Narrative: General exam is a white male, no distress HEENT: Atraumatic normocephalic. Pupils equally round. Oropharynx clear. Neck is supple no lymphadenopathy or thyromegaly Cardiovascular regular rate and rhythm without murmur, no S3 or S4 Lungs clear no wheezing or crackles Abdomen is soft. Slight tenderness epigastric area. No obvious organomegaly exam is deferred EXTR no cyanosis clubbing edema, cap refill brisk Skin no rash Neuro no obvious focal deficits. Data 10/16/23 10:40 10/16/23 08:06 Other Labs: Initial potassium 6.5 now 5.2. LFTs are normal Calcium and albumin are normal BNP 205 EKG by my read demonstrates normal sinus rhythm, normal axis, no acute changes A&P Assessment and plan (1) Upper GI bleeding: Patient with coffee-ground emesis, significant anemia Protonix 40 mg IV every 12 hours Surgery consult for possible endoscopy Avoid any anticoagulants Hold aspirin and Plavix currently, but will want to restart aspirin as soon as possible, likely tomorrow if no active bleeding. (2) Acute blood loss anemia: Transfuse 1 unit of packed red blood cells. He is less than 8 with significant coronary disease on last angiogram, and potentially still actively bleeding Reevaluate with hemoglobin 1 hour following transfusion. (3) Acute kidney injury: Hydration Hold many of his blood pressure medications in the face of GI bleeding Hold Lasix Hold Neurontin Avoid renal toxic medication Bladder scan If does not improve consider renal ultrasound (4) Type 2 diabetes mellitus: Sliding scale insulin Consistent carb diet when diet is initiated. N.p.o. for now. (5) Hyperkalemia: Patient presents with significant hyperkalemia Hold any potassium products He has received appropriate treatment for potassium Repeat potassium following blood transfusion Plan Coronary artery disease. Patient with history of coronary disease with stenting slightly over 1 year ago, currently maintained on Plavix and aspirin. Restart aspirin tomorrow, so long as nothing precludes this with active bleeding evaluation. Continue statin, beta-ward. Multiple other medical problems as outlined in past medical history Full code SCDs for DVT prophylaxis, pharmacological prophylaxis is contraindicated secondary to GI bleeding. High risk for decompensation of this patient with significant hyperkalemia requiring intervention with calcium, insulin and glucose, bicarb, etc., acute blood loss anemia, and possible ongoing GI bleed. History of significant coronary disease. Attestations 2 Medical Necessity Statement*: Will require greater than 2 midnight stay for evaluation and treatment of acute blood loss anemia, acute kidney injury, significant hyperkalemia, with GI bleeding. Critical Care Time: The high probability of a clinically significant, sudden or life threatening deterioration of the patient's [renal, electrolyte, hematologic, GI] system(s) required my full and direct attention, intervention and personal management. The critical care time is as shown. This time is in addition to time spent performing any reported procedures but includes the following: [x] Data and vital sign review and interpretation [x] Patient assessment, examination and intervention [x] Documentation [x] Medication orders and management Critical Care Time (min): 57 Coding Level of Care Code Critical Care >/= 30 minutes Critical care time (in minutes): 57 The high probability of a clinically significant, sudden or life threatening deterioration, as referenced in this documentation, required my full and direct attention, intervention and personal management. The critical care time shown is in addition to time spent performing any reported separately billable procedures and includes the following: [x] Data and vital sign review and interpretation [x ] Patient assessment, examination and intervention [x] Medication orders and management [x] Patient/Family updates as able [x] Care Coordination and Documentation. Diagnoses Upper GI bleeding K92.2 Acute blood loss anemia D62 Acute kidney injury N17.9 Type 2 diabetes mellitus E11.9 Hyperkalemia E87.5
--- NOTE | 2023-10-16 11:49 | XRR_ITS ---
PROCEDURE INFORMATION: Exam: XR Chest Exam date and time: 10/16/2023 12:13 PM Age: 73 years old Clinical indication: Other: Abd pain; Prior surgery; Surgery date: 6+ months; Surgery type: Sternal repair; Additional info: Abdominal pain TECHNIQUE: Imaging protocol: Radiologic exam of the chest. Views: 1 view. COMPARISON: CR XR chest 1V portable [id number] 08/20/2022 12:25 PM FINDINGS: Lungs: Unremarkable. No consolidation or mass. Pleural spaces: Unremarkable. No pleural effusion. No pneumothorax. Heart/Mediastinum: Unremarkable. No cardiomegaly. Bones/joints: Metallic plates and screws are noted in the sternum. No bony abnormality noted. XR/XR chest 1V portable [id number] IMPRESSION: No acute findings.
[2023-10-16 12:33] LABS: Glucose Point of Care 310 mg/dL (70-110)
[2023-10-16] MEDS: primidone 50 mg Tablet 100 MG PO (13:09)
[2023-10-16] MEDS: insulin lispro 100 unit/1 mL SUBCUT ×3 (13:09→20:44)
[2023-10-16 17:17] LABS: Add Urine Microscopic? NO; Charge for UA Resulting for Rev
[2023-10-16 17:19] LABS: Glucose Point of Care 290 mg/dL (70-110)
[2023-10-16 17:25] LABS: Bilirubin Urine Neg (Negative); Blood Urine Neg (Negative); Glucose Urine UA 4+ (Normal); Ketones Urine 1+ (Negative); Leukocyte Esterase Urine Negative (Negative); Nitrate Urine Negative (Negative); Protein Urine Neg (Negative); Urine Appearance Clear (CLEAR); Urine Color Yellow (Yellow); Urobilinogen Urine Norm (Negative); pH Urine 5 (5-7)
[2023-10-16] MEDS: carvedilol 6.25 mg Tablet PO (18:18)
[2023-10-16 18:37] LABS: Hematocrit 25.7 % (37-53)
[2023-10-16 18:38] LABS: Blood Urea Nitrogen 74 mg/dL (8-23); Calcium 8.4 mg/dL (8.5-10.5); Carbon Dioxide 21 mmol/L (22-29); Chloride 105 mmol/L (98-107); Creatinine Clr Calc Pharmacy 59.6355; Glucose 291 mg/dL (65-115); Osmolality Calculated 319 mOsm/kg (285-295); Sodium 138 mmol/L (136-145)
[2023-10-16 18:46] LABS: Anion Gap 17.3 (5-19); Potassium 5.3 mmol/L (3.5-5.1)
[2023-10-16 20:39] LABS: Glucose Point of Care 257 mg/dL (70-110)
[2023-10-16] MEDS: acetaminophen 325 mg Tablet 650 MG PO (20:43)
[2023-10-17] VITALS (61 sets, daily range): BP systolic 116–174; BP diastolic 58–103; PULSE 41–91; RESP 10–43; TEMP 36.1–37.1; O2SAT 89–100; BMI 36.6
[2023-10-17] MEDS: primidone 50 mg Tablet 100 MG PO ×3 (00:35→23:21)
[2023-10-17] MEDS: sodium chloride 0.9% 1,000 ML 100 ML IV (00:38)
[2023-10-17 04:10] LABS: Basophils # 0.1 10^3/uL (0.0-0.1); Basophils % 0.7 %; Eosinophils % 0.3 %; Hematocrit 22.1 % (37-53); Lymphocytes # 1.5 10^3/uL (0.8-4.8); Lymphocytes % 14.7 %; Mean Corpuscular HGB Conc 33.9 g/dL (30-55); Mean Corpuscular Hemoglobin 31.5 pg (27-33); Mean Corpuscular Volume 92.9 fl (82-101); Mean Platelet Volume 9.2 fL (7.4-10.4); Monocytes # 0.9 10^3/uL (0.2-0.9); Monocytes % 8.4 %; Neutrophils # 7.77 10^3/uL (1.8-7.7); Nucleated Red Blood Cells # 0.1 /100WBC; Nucleated Red Blood Cells % 0.5 %; Platelet Count 244 10^3/cmm (157-399); Red Blood Count 2.38 10^6/uL (3.85-5.65); Red Cell Distribution Width 15.2 % (12.1-15.1); White Blood Count 10.35 10^3/uL (3.29-11.43)
[2023-10-17 04:40] LABS: Alanine Aminotransferase 19 U/L (0-41); Albumin Level 3.4 g/dL (3.5-5.2); Alkaline Phosphatase 67 U/L (40-130); Anion Gap 15.4 (5-19); Aspartate Amino Transferase 13 U/L (0-40); Blood Urea Nitrogen 67 mg/dL (8-23); Calcium 8.8 mg/dL (8.5-10.5); Carbon Dioxide 23 mmol/L (22-29); Chloride 109 mmol/L (98-107); Creatinine Clr Calc Pharmacy 56.1276; Globulin 2.1 g/dL (1.3-4.6); Glucose 170 mg/dL (65-115); Osmolality Calculated 319 mOsm/kg (285-295); Potassium 4.4 mmol/L (3.5-5.1); Sodium 143 mmol/L (136-145); Total Bilirubin 0.8 mg/dL (0.15-1.2); Total Protein 5.5 g/dL (6.6-8.7)
[2023-10-17] MEDS: pantoprazole 40 mg SDV IVP ×2 (05:56→17:32)
[2023-10-17 07:42] LABS: Glucose Point of Care 201 mg/dL (70-110)
[2023-10-17] MEDS: carvedilol 6.25 mg Tablet PO ×2 (08:06→17:32)
[2023-10-17] MEDS: levothyroxine 137 mcg Tablet PO (08:06)
[2023-10-17] MEDS: NIFEdipine ER (24 hr) 30 mg Tablet 60 MG PO (08:06)
[2023-10-17] MEDS: insulin lispro 100 unit/1 mL SUBCUT ×4 (08:07→21:05)
[2023-10-17] MEDS: PARoxetine 20 mg Tablet 30 MG PO (08:07)
[2023-10-17] MEDS: atorvastatin 40 mg Tablet PO (08:07)
--- NOTE | 2023-10-17 09:06 | W.PM.OPSUD ---
Surgery/Procedure H&P Update DATE OF PROCEDURE: October 17, 2023 DATE H&P PERFORMED: 10/16/23 H&P UPDATE INFORMATION: I have reviewed H&P completed within last 30 days, I have examined patient prior to procedure, No changes to prior documentation and H&P is in [facility] EMR on date indicated PLANNED PROCEDURE: Operation Date: 10/17/23 11:40 Proposed Procedures p EGD(Not Applicable) - Juan Echeverria MD
--- NOTE | 2023-10-17 10:19 | P.ANESASSM_ITS ---
Pre-Anesthetic Assessment Height/Weight: Height 1.88 m Weight 129.274 kg Temp Pulse Resp BP Pulse Ox O2 Del Method 98.8 F 77 19 H 155/95 98 Room Air 10/17/23 07:44 10/17/23 06:00 10/17/23 06:00 10/17/23 06:00 10/17/23 06:00 10/17/23 06:00 Preop Diagnosis: GI bleed Operation Date: 10/17/23 11:40 Proposed Procedures p EGD(Not Applicable) - Juan Echeverria MD Familial anesthetic complications: none Was Beta Cristopher taken within 24 hours: Yes Was Clonidine taken within 24 hours: N/A Last intake: sip with meds this AM, hasnt eaten solids in 2 days Social No alcohol and No tobacco Exam alert and oriented x 3 Airway Submandibular: within normal limits Cervical ROM: within normal limits Mallampati: Class I Dentition: false (uppers) Pulmonary Sleep Apnea (cpap) CV/HEM Arrythmia, Coronary Artery Disease (1 stent placed in june 15) and Hypertension Kidney Stones Hepatic None reported GI Gastroesophageal Reflux Disease Metabolic Diabetes Mellitus, Hyperlipidemia, Morbid Obesity and Thyroid Disease Musc/sk Lower Back Pain and Osteoarthritis/DJD Neuropsych Anxiety and Cerebrovascular Accident (May 2023, couldnt find words, verbalize ) Anesthetic Plan ASA status: 3 Anesthesia: Anesthesia Evaluation, General and MAC Medications/Allergies Home Medications Medication Instructions Recorded Confirmed Last Taken Type cholecalciferol (vitamin D3) 25 25 mcg PO DAILY 06/24/22 10/16/23 10/15/23 History mcg (1,000 unit) capsule (Vitamin D3) cyanocobalamin (vitamin B-12) 50 50 mcg PO DAILY 06/24/22 10/16/23 10/15/23 History mcg tablet (Vitamin B-12) gabapentin 100 mg capsule 200 mg PO DAILY 08/20/22 10/16/23 10/15/23 History furosemide 40 mg tablet 40 mg PO DAILY #90 tabs 09/25/22 10/16/23 10/16/23 Rx aspirin 81 mg tablet,delayed 81 mg PO DAILY 12/13/22 10/16/23 10/15/23 History release (Adult Aspirin Regimen) atorvastatin 40 mg tablet 40 mg PO DAILY 12/13/22 10/16/23 10/15/23 History hydralazine 50 mg tablet 50 mg PO DAILY 08/22/23 10/16/23 10/15/23 History insulin aspart U-100 100 unit/mL 8 unit (0.08 mL) SUBCUT TID PRN 08/22/23 10/16/23 10/15/23 Rx (3 mL) subcutaneous pen (Novolog elevated glucose #15 mL FlexPen U-100 Insulin aspart) insulin degludec 100 unit/mL 48 unit (0.48 mL) SUBCUT BID #10 mL 08/23/23 10/16/23 10/15/23 Rx subcutaneous solution (Tresiba U-100 Insulin) primidone 50 mg tablet 100 mg (2 x 50 mg) PO BID@00,12 09/12/23 10/16/23 10/15/23 Rx #60 tabs carvedilol 6.25 mg tablet 6.25 mg PO BID 10/16/23 10/16/23 10/15/23 History clopidogrel 75 mg tablet 75 mg PO DAILY 10/16/23 10/16/23 10/15/23 History levothyroxine 137 mcg tablet 137 mcg PO DAILY 10/16/23 10/16/23 10/15/23 History lorazepam 1 mg tablet (Ativan) See Rx Instructions .Route 10/16/23 10/16/23 Unknown History .COMPLEX PRN anxiety nifedipine 60 mg tablet,extended 60 mg PO DAILY 10/16/23 10/16/23 10/15/23 History release 24 hr paroxetine HCl 30 mg tablet 30 mg PO DAILY 10/16/23 10/16/23 10/15/23 History quetiapine 200 mg tablet (Seroquel) 200 mg PO BEDTIME 10/16/23 10/16/23 10/15/23 History Allergies Allergy/AdvReac Type Severity Reaction Status Date / Time Penicillins Allergy Intermediate rash Verified 09/12/23 13:48 Current Medications Generic Name Dose Route Start Last Admin Trade Name Freq PRN Reason Stop Dose Admin Acetaminophen 650 mg 10/16/23 11:52 10/16/23 20:43 Acetaminophen 325 Mg Tablet PO 650 mg Q6H PRN Administration MILD PAIN Atorvastatin Calcium 40 mg 10/17/23 09:00 10/17/23 08:07 Atorvastatin 40 Mg Tablet PO 40 mg DAILY SPEEDY Administration Carvedilol 6.25 mg 10/16/23 18:00 10/17/23 08:06 Carvedilol 6.25 Mg Tablet PO 6.25 mg BID SPEEDY Administration Sodium Chloride 1,000 mls @ 100 mls/hr 10/16/23 10:45 10/17/23 00:38 Sodium Chloride 0.9% IV 100 mls/hr .Q10H SPEEDY Administration Sodium Chloride 1,000 mls @ 30 mls/hr 10/16/23 11:25 10/16/23 17:09 Sodium Chloride 0.9% IV 10/17/23 11:24 Not Given .Q24H ONE Insulin Human Lispro 0 unit 10/16/23 12:00 10/17/23 08:07 Insulin Lispro 100 Unit/1 Ml SUBCUT 8 unit WM&BEDTIME SPEEDY Administration Protocol Levothyroxine Sodium 137 mcg 10/17/23 09:00 10/17/23 08:06 Levothyroxine 137 Mcg Tablet PO 137 mcg DAILY SPEEDY Administration Nifedipine 60 mg 10/17/23 09:00 10/17/23 08:06 Nifedipine Er (24 Hr) 30 Mg Tablet PO 60 mg DAILY SPEEDY Administration Pantoprazole Sodium 40 mg 10/16/23 17:00 10/17/23 05:56 Pantoprazole 40 Mg Sdv IVP 40 mg Q12H SPEEDY Administration Paroxetine HCl 30 mg 10/17/23 09:00 10/17/23 08:07 Paroxetine 20 Mg Tablet PO 30 mg DAILY SPEEDY Administration Primidone 100 mg 10/16/23 12:00 10/17/23 00:35 Primidone 50 Mg Tablet PO 100 mg BID@00,12 SPEEDY Administration Quetiapine Fumarate 200 mg 10/16/23 21:00 10/16/23 20:43 Quetiapine 100 Mg Tablet PO Not Given BEDTIME SPEEDY PFSH Anesthesia Medical History Carpal tunnel syndrome, bilateral Atherosclerosis of coronary artery CKD (chronic kidney disease) stage 3, GFR 30-59 ml/min Major depressive disorder HAZEL on CPAP Sigmoid diverticulosis History of echocardiogram 06/2022 EF 71%, normal LV size and function, grade I/IV diastolic dysfunction, no wall motion abnormalities History of Holter monitoring 09/2020 predominant rhythm sinus rhythm to sinus tachycardia with frequent ventricular ectopy, range 60-163 bpm Anxiety Diabetic peripheral neuropathy Diabetic retinopathy Non-ST elevated myocardial infarction (non-STEMI) Streptococcal bacteremia 06/2022, streptococcus mitis oralis, treated with 4 weeks IV ceftriaxone Cerebral venous thrombosis CHF (congestive heart failure), NYHA class III Frequent PVCs Hypertension Hypothyroidism 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 Type 2 diabetes mellitus GERD (gastroesophageal reflux disease) with hiatal hernia Familial tremor Surgical History Status post excisional debridement (06/2020) for right foot gas gangrene, followed at wound care until healed History of hand surgery History of colonoscopy History of hernia surgery Family History Father Palpitations Stroke Denies family history of Diabetes CAD (coronary artery disease) Hypertension Social History Smoking and tobacco/nicotine status: never used tobacco/nicotine Alcohol intake: current Alcohol intake frequency: holidays/special occasions only Substance/Drug Use: never Household members: spouse Marital status: Current occupational status: retired Data Anesthesia 10/17/23 03:55 10/17/23 03:55 Short CBC 10/16/23 10/16/23 10/16/23 Range/Units 05:30 10:40 18:05 WBC 15.59 H 14.88 H (3.29-11.43) 10^3/uL Hgb 8.10 L 7.50 L 8.20 L (11.27-16.99) g/dL Hct 24.5 L 23.4 L 25.7 L (37-53) % MCV 96.5 97.9 (82-101) fl Plt Count 303 284 (157-399) 10^3/cmm Neut % (Auto) 78.4 81.4 % Neut # (Auto) 12.23 H 12.11 H (1.8-7.7) 10^3/uL 10/17/23 Range/Units 03:55 WBC 10.35 (3.29-11.43) 10^3/uL Hgb 7.50 L (11.27-16.99) g/dL Hct 22.1 L (37-53) % MCV 92.9 D (82-101) fl Plt Count 244 (157-399) 10^3/cmm Neut % (Auto) 75.0 % Neut # (Auto) 7.77 H (1.8-7.7) 10^3/uL BMP 10/16/23 10/16/23 10/16/23 05:30 08:06 18:05 Sodium 139 142 138 Potassium 6.5 H* 5.2 H 5.3 H Chloride 105 105 105 Carbon Dioxide 19 L 24 21 L BUN 63 H 69 H 74 H Creatinine 1.7 H 1.8 H 1.6 H Glucose 237 H 199 H 291 H Calcium 8.5 9.3 8.4 L 10/17/23 03:55 Sodium 143 Potassium 4.4 Chloride 109 H Carbon Dioxide 23 BUN 67 H Creatinine 1.7 H Glucose 170 H Calcium 8.8 Cardiac Enzymes 10/16/23 Range/Units 05:30 NT-Pro-B Natriuret Pep 205 H (0-125) pg/mL Liver Function 10/16/23 10/17/23 Range/Units 05:30 03:55 Total Bilirubin 0.5 0.8 (0.15-1.2) mg/dL AST 21 13 (0-40) U/L ALT 29 19 (0-41) U/L Alkaline Phosphatase 81 67 (40-130) U/L Albumin 3.5 3.4 L (3.5-5.2) g/dL Urine 10/16/23 Range/Units 15:30 Urine Color Yellow (Yellow) Urine Appearance Clear (CLEAR) Urine pH 5 (5-7) Ur Specific [place] 1.020 (1.005-1.030) Urine Protein Neg (Negative) Urine Glucose (UA) 4+ H (Normal) Urine Ketones 1+ H (Negative) Urine Nitrate Negative (Negative) Urine Bilirubin Neg (Negative) Ur Leukocyte Esterase Negative (Negative) Blood Bank 10/16/23 05:30 Blood Type O Negative Rho(D) Type Rh negative Antibody Screen Negative Coags 10/16/23 05:30 PT 13.80 INR 1.03 Cardiac Studies: 2 Echocardiogram 06/24/22 Echocardiogram Limited Views 08/20/22 Echocardiogram Ultrasound 10/07/20 Holter Monitor 09/22/20
--- NOTE | 2023-10-17 10:20 | P.PN_ITS ---
Subjective 2 Subjective: Brittny reports he is doing okay. No vomiting overnight. No black or tarry stools. He is ready for his EGD. His abdominal discomfort is gone. Medications: Reviewed: Yes Vitals/I&O/Wt Last Vital Signs Temp 97 F L 10/17/23 10:17 Pulse 70 10/17/23 10:17 Resp 20 H 10/17/23 10:17 BP 174/94 10/17/23 10:17 Pulse Ox 100 10/17/23 10:17 O2 Del Method Room Air 10/17/23 10:17 10/16/23 10/17/23 10/17/23 22:59 06:59 14:59 Intake Total 250 / 650 Output Total 1050 / 1050 575 / 1625 Balance -800 / -400 -575 / -975 Weight last 48 hrs Weight 129.274 kg Weight 129.274 kg Weight 129.274 kg Physical Exam 2 Narrative: General exam is a white male, no distress Neck is supple no lymphadenopathy or thyromegaly Cardiovascular regular rate and rhythm without murmur, no S3 or S4 Lungs clear no wheezing or crackles Abdomen is soft. Slight tenderness epigastric area. No obvious organomegaly EXTR no cyanosis clubbing edema, cap refill brisk Data 10/17/23 03:55 10/17/23 03:55 A&P Assessment and plan (1) Upper GI bleeding: Patient with coffee-ground emesis, significant anemia Continue Protonix 40 mg IV every 12 hours Surgery consult for possible endoscopy. This is planned for today Avoid any anticoagulants Hold aspirin and Plavix currently, but will want to restart aspirin as soon as possible, hopefully today following procedure when diet is started (2) Acute blood loss anemia: Transfuse 1 unit of packed red blood cells on October 15. Hemoglobin 7.5 today, but no evidence of active bleeding. Repeat hemoglobin around 1 PM (3) Acute kidney injury: Improved. Reduce hydration May restart nifedipine for blood pressure Continue to hold Lasix Continue to hold Neurontin Avoid renal toxic medication (4) Type 2 diabetes mellitus: Sliding scale insulin Consistent carb diet when diet is initiated. N.p.o. for now. (5) Hyperkalemia: Patient presents with significant hyperkalemia. This is resolved Hold any potassium products Plan Coronary artery disease. Patient with history of coronary disease with stenting slightly over 1 year ago, currently maintained on Plavix and aspirin. Restart aspirin today if possible with active bleeding evaluation. Continue statin, beta-ward. Multiple other medical problems as outlined in past medical history Full code SCDs for DVT prophylaxis, pharmacological prophylaxis is contraindicated secondary to GI bleeding. Likely transfer out of ICU today. Attestations 2 Medical Necessity Statement*: Needs continued hospitalization, for evaluation of GI bleeding with EGD. Possible transfer out of ICU today. Needs continued hospitalization for close monitoring of hemoglobin and this patient with coronary disease and recent GI bleeding. Diagnoses Upper GI bleeding K92.2 Acute blood loss anemia D62 Acute kidney injury N17.9 Type 2 diabetes mellitus E11.9 Hyperkalemia E87.5 Time Spent (min) 24
[2023-10-17] MEDS: sodium chloride 0.9% 1,000 ML 30 ML IV (10:45)
--- NOTE | 2023-10-17 11:16 | PM.MISC ---
Miscellaneous Note Purpose of Documentation: Update on patient care Note: Upper endoscopy was done today. 2 ulcers in the prepyloric region were demonstrated. The ulcers were not bleeding, no acute intervention was necessary, the margins of the ulcers were biopsied for pathology. Patient should continue on high-dose PPI and Carafate for 4 to 6 weeks and after that we will plan to return for elective endoscopy to obtain additional biopsies. Patient can be restarted on aspirin if hemoglobin is stable and there is no evidence of bleeding may consider restart Plavix. I will follow-up in the clinic in 2 weeks.
--- NOTE | 2023-10-17 11:52 | ANE.PACU2 ---
Inpatient post-anesthesia follow up: Airway intact: Yes Vital signs: Temperature 97.3 F Pulse Rate 76 Respiratory Rate 18 Blood Pressure 131/64 Pulse Oximetry 100 Oxygen Delivery Me thod Room Air Oxygen Flow Rate Fraction of Inspir ed Oxygen Hydration adequate: Yes Nausea and vomiting: No Pain level: 1 Mental status: Baseline
[2023-10-17 13:14] LABS: Hematocrit 22.3 % (37-53)
[2023-10-17 17:14] LABS: Glucose Point of Care 259 mg/dL (70-110)
[2023-10-17] MEDS: sucralfate 1 gm/10 mL Oral Liq UDC PO ×2 (17:32→20:59)
[2023-10-17 18:59] LABS: Glucose Point of Care 176 mg/dL (70-110)
--- NOTE | 2023-10-17 20:12 | PC.NURSE ---
Report given to Tracee PETTY, Patient transferred to [facility] via wheelchair. Belongings brought to room with patient. vitals stable. No bleeding/ vomiting/ or dark stools since returned from endoscopy.
[2023-10-17] MEDS: acetaminophen 325 mg Tablet 650 MG PO (20:59)
[2023-10-17] MEDS: quetiapine 100 mg Tablet 200 MG PO (20:59)
[2023-10-17] MEDS: aspirin 81 mg EC Tablet PO (20:59)
[2023-10-17 21:00] LABS: Glucose Point of Care 255 mg/dL (70-110)
[2023-10-18] VITALS (9 sets, daily range): BP systolic 120–163; BP diastolic 59–81; PULSE 60–79; RESP 16–18; TEMP 36.5–36.8; O2SAT 94–98
[2023-10-18] MEDS: pantoprazole 40 mg SDV IVP (04:25)
[2023-10-18 05:36] LABS: Basophils % 0.6 %; Eosinophils # 0.2 10^3/uL (0.0-0.8); Eosinophils % 2.8 %; Lymphocytes # 1.3 10^3/uL (0.8-4.8); Lymphocytes % 21.2 %; Mean Corpuscular HGB Conc 32.7 g/dL (30-55); Mean Corpuscular Hemoglobin 31.4 pg (27-33); Mean Corpuscular Volume 96.1 fl (82-101); Mean Platelet Volume 9.2 fL (7.4-10.4); Monocytes # 0.4 10^3/uL (0.2-0.9); Neutrophils # 4.29 10^3/uL (1.8-7.7); Neutrophils % 67.9 %; Nucleated Red Blood Cells % 0.3 %; Platelet Count 216 10^3/cmm (157-399); Red Blood Count 2.07 10^6/uL (3.85-5.65); Red Cell Distribution Width 15.5 % (12.1-15.1); White Blood Count 6.32 10^3/uL (3.29-11.43)
[2023-10-18 05:55] LABS: Anion Gap 12.1 (5-19); Blood Urea Nitrogen 44 mg/dL (8-23); Calcium 8.6 mg/dL (8.5-10.5); Carbon Dioxide 24 mmol/L (22-29); Chloride 111 mmol/L (98-107); Creatinine Clr Calc Pharmacy 64.0452; Glucose 198 mg/dL (65-115); Osmolality Calculated 313 mOsm/kg (285-295); Potassium 4.1 mmol/L (3.5-5.1); Sodium 143 mmol/L (136-145)
[2023-10-18 06:00] LABS: Hematocrit 19.9 % (37-53)
[2023-10-18] MEDS: sucralfate 1 gm/10 mL Oral Liq UDC PO ×2 (06:12→11:57)
[2023-10-18 06:41] LABS: Glucose Point of Care 230 mg/dL (70-110)
[2023-10-18] MEDS: atorvastatin 40 mg Tablet PO (08:18)
[2023-10-18] MEDS: NIFEdipine ER (24 hr) 30 mg Tablet 60 MG PO (08:18)
[2023-10-18] MEDS: levothyroxine 137 mcg Tablet PO (08:18)
[2023-10-18] MEDS: carvedilol 6.25 mg Tablet PO (08:18)
[2023-10-18] MEDS: PARoxetine 20 mg Tablet 30 MG PO (08:18)
[2023-10-18] MEDS: insulin lispro 100 unit/1 mL SUBCUT ×2 (08:23→11:57)
[2023-10-18] MEDS: aspirin 81 mg EC Tablet PO (08:23)
--- NOTE | 2023-10-18 08:54 | P.PN_ITS ---
Subjective 2 Subjective: Mr. Fay reports that he is feeling much improved today, he says he has no difficulty breathing, no difficulty ambulating, and his shortness of breath and fatigue has improved markedly. He has been eating breakfast this morning, with no concerns for nausea. He reports he has edema, but this is baseline for him. No acute events overnight, no vomiting overnight, no indications of GI bleed, no dark or tarry stools. Medications: Reviewed: Yes Vitals/I&O/Wt Last Vital Signs Temp 98.0 F 10/18/23 07:31 Pulse 79 10/18/23 08:00 Resp 16 10/18/23 07:31 BP 136/59 10/18/23 07:31 Pulse Ox 97 10/18/23 08:00 O2 Del Method Room Air 10/18/23 08:00 10/17/23 10/18/23 10/18/23 22:59 06:59 14:59 Intake Total 1340 / 1800 100 / 1900 240 / 240 Output Total 975 / 975 Balance 365 / 825 100 / 925 240 / 240 Weight last 48 hrs Weight 288 lb 12.8 oz Weight 285 lb Weight 285 lb Physical Exam 2 Narrative: General: Comfortable appearing male, resting in bed, eating breakfast, conversing appropriately. HEENT: Head atraumatic, normocephalic, PERRL, neck supple thyromegaly noted. CV: Regular rate and rhythm, S1-S2 noted, no murmurs rubs or gallops noted. Pulm: Clear to auscultation bilaterally. GI: Abdomen soft, nontender, obese, bowel sounds normal all quadrants. Extremities: Capillary refill less than 2 seconds. +1 edema noted bilateral lower extremities. Data 10/18/23 05:25 10/18/23 05:25 Other Labs: Initial potassium 6.5 now 5.2. LFTs are normal Calcium and albumin are normal BNP 205 EKG by my read demonstrates normal sinus rhythm, normal axis, no acute changes Hemoglobin: 6.5 this morning. A&P Assessment and plan (1) Upper GI bleeding: Patient with coffee-ground emesis, significant anemia Continue Protonix 40 mg IV every 12 hours Surgery consult for possible endoscopy. This is planned for today Avoid any anticoagulants Continue to hold aspirin and Plavix currently, but will want to restart aspirin as soon as possible. Diet has been started, patient tolerating appropriately, no dark or tarry stools. Hemoglobin was 6.5 this morning. Will transfuse 1 unit and continue to monitor. (2) Acute blood loss anemia: Transfuse 1 unit of packed red blood cells on October 15. Hemoglobin 7.5 today, but no evidence of active bleeding. Hemoglobin 6.5 this morning. Will transfuse 1 unit. Continue to monitor. (3) Acute kidney injury: Improved. Reduce hydration May restart nifedipine for blood pressure Continue to hold Lasix Continue to hold Neurontin Avoid renal toxic medication (4) Type 2 diabetes mellitus: Sliding scale insulin Consistent carb diet when diet is initiated. Progressing diet as tolerated. (5) Hyperkalemia: Patient presents with significant hyperkalemia. This is resolved Hold any potassium products Plan Coronary artery disease. Patient with history of coronary disease with stenting slightly over 1 year ago, currently maintained on Plavix and aspirin. Restart aspirin today if possible with active bleeding evaluation. Continue statin, beta-ward. Multiple other medical problems as outlined in past medical history Full code SCDs for DVT prophylaxis, pharmacological prophylaxis is contraindicated secondary to GI bleeding. Likely transfer out of ICU today. Coding Level of Care Code Acute Code for Chg Fwd Diagnoses Upper GI bleeding K92.2 Acute blood loss anemia D62 Acute kidney injury N17.9 Type 2 diabetes mellitus E11.9 Hyperkalemia E87.5
--- NOTE | 2023-10-18 09:17 | PC.CHAP ---
Pastoral Care Encounter/Spiritual Assessment Type of Contact [] Declined national account manager visit [] Patient/Family/Request visit [] Outpatient visit [] Follow-up visit [] Physician referral [] Code/Alert [x] Routine visit [] Staff referral [] Actively dying [] Patient sleeping [] Family support [] [] Out of room [] Palliative care [] [] Receiving care in room [] Pre-surgical visit [] Trauma [] Long length of stay [] ICU visit [] Other: Relational/Emotional Strength [x] Patient feels connected with others/family/visitors/staff [] Distress [] Loneliness/isolation [] Abandonment Spirituality of Patient [x] Person of Minnie [] Attends Mormonism of their Minnie [x] Believes in Prayer [] Reads Bible or Quaker materials [] There are Spiritual issues to be addressed Tinning Machine Set Up Operator Interventions [x] Prayer [x] Active listening [] Non-anxious presence [x] Spiritual/emotional support [] Crisis/trauma care [] Spiritual counseling [] Bereavement support [] Provided bereavement packet [] Provided Bible/devotional materials [] Provided toy/stuffed animal, coloring book to patient or family member [] Provided Communion [] Anointing/[place] [] Salvation [x] Completed spiritual assessment [] Other: Impact on Illness or Injury [] Angry [] Fearful [] Anxious [] Often cries [] Exhaustion [] Unable to work [] Unable to attend yazdanism [] Unable to walk/stand [] Unable to read [] Unable to drive [] Unable to eat/drink [] Unable to sleep [] Unable to be with family [] Patient intubated [] Other: Summary Time spent with patient 5 min
--- NOTE | 2023-10-18 11:05 | P.PN_ITS ---
Subjective 2 Subjective: Patient seen and examined at the bedside this morning, he is doing very well, tolerating diet no significant abdominal pain, denies having bowel movement since he was admitted to the hospital. Vitals/I&O/Wt Last Vital Signs Temp 97.8 F 10/18/23 09:23 Pulse 78 10/18/23 09:23 Resp 16 10/18/23 09:23 BP 131/73 10/18/23 09:23 Pulse Ox 97 10/18/23 09:22 O2 Del Method Room Air 10/18/23 08:00 10/17/23 10/18/23 10/18/23 22:59 06:59 14:59 Intake Total 1340 / 1800 100 / 1900 240 / 240 Output Total 975 / 975 Balance 365 / 825 100 / 925 240 / 240 Weight last 48 hrs Weight 288 lb 12.8 oz Weight 285 lb Weight 285 lb Physical Exam 2 GI: OTHER: Abdomen is soft, nontender, nondistended. Data 10/18/23 05:25 10/18/23 05:25 A&P Assessment and plan (1) Acute upper gastrointestinal bleeding: Plan This 73-year-old male who was admitted with upper GI bleeding. EGD done yesterday showed 2 ulcerations on the stomach with no evidence of active bleeding. He is clinically doing very well, we discussed the results of endoscopy and we plan to repeat endoscopy in 4 to 6 weeks. In the interim he is on a stain twice a day PPI as well as Carafate. We did discuss that his hemoglobin has continued to trend down. I suspect this is residual from his initial bleeding as it has been trending down in a daily basis as well as awakening the platelet count indicating that probably noted patient is hydrated hemoglobin level most likely will stabilize. Due to the drop to less than 7 after discussion with medical team they have decided to proceed with transfusion of 1 unit of PRBCs. I agree with this plan. If hemoglobin stable by tomorrow he can be discharged. If there is concern for additional bleeding may consider to do CT a of the abdomen pelvis to evaluate for any other sources of active bleeding. Attestations 2 Medical Necessity Statement*: Per medical team Coding Level of Care Code Acute Code for [facility] Fwd Diagnoses Acute upper gastrointestinal bleeding K92.2
[2023-10-18 11:35] LABS: Glucose Point of Care 230 mg/dL (70-110)
[2023-10-18] MEDS: primidone 50 mg Tablet 100 MG PO (11:57)
[2023-10-18] MEDS: FUROsemide 10 mg/mL SDV 2mL 20 MG IVP (11:57)
--- NOTE | 2023-10-18 12:38 | PC.SOCIAL ---
IMM Update pg 2 of IMM updated and reviewed w/ patient. Copy provided and copy dated, initialed and placed in chart.
--- NOTE | 2023-10-18 12:39 | PC.SOCIAL ---
IMM Update pg 2 of IMM updated and reviewed w/ patient. Copy provided and copy dated, initialed and placed in chart.
[2023-10-18 13:47] LABS: Hematocrit 24.4 % (37-53)
--- NOTE | 2023-10-18 13:57 | PM.DCS ---
Discharge Providers Date of Admission: 10/16/23 09:29 Date of Discharge: October 18, 2023 Attending Provider at Admission: Mahesh Finch MD Attending Provider at Discharge: Mahesh Finch MD Primary Care Provider: Dulce Maria Daly MD Diagnoses at Discharge Discharge Diagnosis (1) Acute upper gastrointestinal bleeding: Status: Acute Reason for Visit Reason for Visit: N/V, weakness Hospital Course Hospital Course Patient is a 73-year-old white male who presented to the hospital weakness, nausea vomiting and coffee-ground emesis. He was found to have significant anemia consistent with upper GI bleeding. He was transfused 1 unit of packed red blood cells and general surgery was consulted for possible endoscopy. He was placed on Protonix IV. Plavix and aspirin were held as his coronary stenting was over 1 year ago. On endoscopy he was found to have a gastric ulcer, that was not currently bleeding at the time of endoscopy. A large hiatal hernia was also noted. Carafate was added to his regimen. The rest of his course of hospital stay he had no evidence clinically of bleeding. His hemoglobin did drift down to less than 7 and he was transfused another unit of packed red blood cells on October 17. With the ability to tolerate a diet, no clinical evidence of bleeding, he was discharged to home after transfusion on October 17. Discharge hemoglobin was 8.1. He was encouraged to follow-up with his doctor in 3 to 5 days, and have a CBC done at that time. He is to return for any concerns. He will also follow-up with general surgery in approximately 1 to 2 weeks. He was given opportunity to ask questions and agreed with the plan. Low-dose aspirin was restarted for his coronary disease. Physical Exam Narrative: General exam no distress Neck is supple no lymphadenopathy thyromegaly Cardiovascular regular rate and rhythm, no murmur Lungs clear Abdomen soft Extremities no sinus clubbing edema. Discharge Data Studies Completed and Pending Completed Studies During Hospitalization Category Date Time Status XR chest 1V portable [id number] Routine Exams 10/16/23 11:49 Completed Pending at discharge Category Date Time Status Pathology: Surgical [PTH] Routine Pth 10/17/23 11:07 Received Radiology Impressions Chest X-Ray 10/16/23 11:49 IMPRESSION: No acute findings. Laboratory Results WBC 6.32 10^3/uL (3.29-11.43) 10/18/23 05:25 RBC 2.07 10^6/uL (3.85-5.65) L 10/18/23 05:25 Hgb 8.10 g/dL (11.27-16.99) L 10/18/23 13:32 Hct 24.4 % (37-53) L 10/18/23 13:32 MCV 96.1 fl (82-101) 10/18/23 05:25 MCH 31.4 pg (27-33) 10/18/23 05:25 MCHC 32.7 g/dL (30-55) 10/18/23 05:25 RDW 15.5 % (12.1-15.1) H 10/18/23 05:25 Plt Count 216 10^3/cmm (157-399) 10/18/23 05:25 MPV 9.2 fL (7.4-10.4) 10/18/23 05:25 Neut % (Auto) 67.9 % 10/18/23 05:25 Lymph % (Auto) 21.2 % 10/18/23 05:25 [place] % (Auto) 7.0 % 10/18/23 05:25 Eos % (Auto) 2.8 % 10/18/23 05:25 Baso % (Auto) 0.6 % 10/18/23 05:25 Neut # (Auto) 4.29 10^3/uL (1.8-7.7) 10/18/23 05:25 Lymph # (Auto) 1.3 10^3/uL (0.8-4.8) 10/18/23 05:25 [place] # (Auto) 0.4 10^3/uL (0.2-0.9) 10/18/23 05:25 Eos # (Auto) 0.2 10^3/uL (0.0-0.8) 10/18/23 05:25 Baso # (Auto) 0.0 10^3/uL (0.0-0.1) 10/18/23 05:25 Nucleated RBC % (auto) 0.3 % 10/18/23 05:25 Nucleated RBCs # 0.0 /100WBC 10/18/23 05:25 PT 13.80 SECONDS (12.1-14.9) 10/16/23 05:30 INR 1.03 (0.8-1.2) 10/16/23 05:30 Sodium 143 mmol/L (136-145) 10/18/23 05:25 Potassium 4.1 mmol/L (3.5-5.1) 10/18/23 05:25 Chloride 111 mmol/L (98-107) H 10/18/23 05:25 Carbon Dioxide 24 mmol/L (22-29) 10/18/23 05:25 Anion Gap 12.1 (5-19) 10/18/23 05:25 BUN 44 mg/dL (8-23) H 10/18/23 05:25 Creatinine 1.5 mg/dL (0.7-1.2) H 10/18/23 05:25 GFR Calculation Not Reportable 10/18/23 05:25 Glucose 198 mg/dL (65-115) H 10/18/23 05:25 POC Glucose 230 mg/dL (70-110) H 10/18/23 11:25 Calculated Osmolality 313 mOsm/kg (285-295) H 10/18/23 05:25 Calcium 8.6 mg/dL (8.5-10.5) 10/18/23 05:25 Magnesium 2.0 mg/dL (1.7-2.3) 10/17/23 03:55 Total Bilirubin 0.8 mg/dL (0.15-1.2) 10/17/23 03:55 AST 13 U/L (0-40) 10/17/23 03:55 ALT 19 U/L (0-41) 10/17/23 03:55 Alkaline Phosphatase 67 U/L (40-130) 10/17/23 03:55 NT-Pro-B Natriuret Pep 205 pg/mL (0-125) H 10/16/23 05:30 Total Protein 5.5 g/dL (6.6-8.7) L 10/17/23 03:55 Albumin 3.4 g/dL (3.5-5.2) L 10/17/23 03:55 Globulin 2.1 g/dL (1.3-4.6) 10/17/23 03:55 Urine Color Yellow (Yellow) 10/16/23 15:30 Urine Appearance Clear (CLEAR) 10/16/23 15:30 Urine pH 5 (5-7) 10/16/23 15:30 Ur Specific [place] 1.020 (1.005-1.030) 10/16/23 15:30 Urine Protein Neg (Negative) 10/16/23 15:30 Urine Glucose (UA) 4+ (Normal) H 10/16/23 15:30 Urine Ketones 1+ (Negative) H 10/16/23 15:30 Urine Blood Neg (Negative) 10/16/23 15:30 Urine Nitrate Negative (Negative) 10/16/23 15:30 Urine Bilirubin Neg (Negative) 10/16/23 15:30 Urine Urobilinogen Norm mg/dL (Negative) 10/16/23 15:30 Ur Leukocyte Esterase Negative (Negative) 10/16/23 15:30 Blood Type O Negative 10/16/23 05:30 Rho(D) Type Rh negative 10/16/23 05:30 Antibody Screen Negative 10/16/23 05:30 Crossmatch See Detail 10/16/23 05:30 Vitals Last Vital Signs Temp 98.2 F 10/18/23 11:44 Pulse 75 10/18/23 11:44 Resp 18 10/18/23 11:44 BP 163/81 10/18/23 11:44 Pulse Ox 98 10/18/23 11:44 O2 Del Method Room Air 10/18/23 08:00 Discharge Plan Discharge Patient Disposition: Home Condition: Stable Prescriptions: New sucralfate 100 mg/mL Suspension 1 g PO AC&BEDTIME Qty: 1000 0RF pantoprazole [Protonix] 40 mg tablet,delayed release (DR/EC) 40 mg PO BID Qty: 60 0RF Continued furosemide 40 mg tablet 40 mg PO DAILY Qty: 90 3RF aspirin [Adult Aspirin Regimen] 81 mg tablet,delayed release (DR/EC) 81 mg PO DAILY atorvastatin 40 mg tablet 40 mg PO DAILY hydralazine 50 mg tablet 50 mg PO DAILY insulin aspart U-100 [Novolog FlexPen U-100 Insulin] 100 unit/mL (3 mL) insulin pen 8 unit SUBCUT TID PRN (Reason: elevated glucose) Qty: 15 3RF Rx Instructions: follow sliding scale primidone 50 mg tablet 100 mg PO BID@00,12 Qty: 60 1RF Tresiba U-100 Insulin 100 unit/mL solution 48 unit SUBCUT BID Qty: 10 3RF Rx Instructions: take at 7am and 7pm Vitamin B-12 50 mcg Tablet 50 mcg PO DAILY cholecalciferol (vitamin D3) [Vitamin D3] 25 mcg (1,000 unit) Capsule 25 mcg PO DAILY gabapentin 100 mg Capsule 200 mg PO DAILY levothyroxine 137 mcg tablet 137 mcg PO DAILY carvedilol 6.25 mg tablet 6.25 mg PO BID Seroquel 200 mg tablet 200 mg PO BEDTIME nifedipine 60 mg tablet extended release 24hr 60 mg PO DAILY paroxetine HCl 30 mg tablet 30 mg PO DAILY Ativan 1 mg tablet See Rx Instructions .ROUTE .COMPLEX PRN (Reason: anxiety) Rx Instructions: Take 1 tablet at bedtime and 1 tablet daily as needed for severe anxiety. Discontinued clopidogrel 75 mg tablet 75 mg PO DAILY Discharge Orders: Discharge Order (Routine); Ordered 10/18/23 Ordered By: Mahesh Finch Referrals: Juan Echeverria MD [Physician] - 2 weeks Dulce Maria Daly MD [Primary Care Provider] - 10/23/23 2:00 pm (CBC on follow-up) Discharge Diet: Cardiac and Diabetic Discharge Activity: Increase activity as tolerated Patient Instructions: GI Discharge Instructions, Opioid Safety Activity Restrictions/Additional Instructions: Take all medicine as prescribed Follow-up with primary care provider in 3 to 5 days CBC on follow-up Return for any concerns. Discharge Attestations Time Spent in Discharge Care*: greater than 30 min Status at Discharge: Cognitive status at discharge: cognitively intact, Behavioral status at discharge: cooperative, Quality Metrics Clinical Quality Measures [ No reported AMI, CVA or VTE this stay] Coding Level of Care Code 91586 Total time (in minutes) for Discharge: 39 Diagnoses Acute upper gastrointestinal bleeding K92.2
== END 2023-10-18 16:48 | disposition home or self-care (01) | DRG 378 ==
LOC: ER 09:08 → ICU 09:30 → MEDSURG 10-17 20:38
PROVIDERS: Emergency Medicine; Surgery; Admitting Provider Internal Medicine; Emergency Provider Family Medicine; PCP Family Medicine; Visit Provider Internal Medicine
PROC: 0DJ08ZZ Inspection of Upper Intestinal Tract, Via Natural or Artificial Opening Endoscopic (ICD-10-PCS; CPT 43235; principal; 2023-10-17 11:40)
DX: K29.01 Acute gastritis with bleeding (principal); D62 Acute posthemorrhagic anemia; I13.0 Hypertensive heart and chronic kidney disease with heart failure and stage 1 through stage 4 chronic kidney disease, or unspecified chronic kidney disease; N17.9 Acute kidney failure, unspecified; K44.9 Diaphragmatic hernia without obstruction or gangrene; I25.10 Atherosclerotic heart disease of native coronary artery without angina pectoris; E11.22 Type 2 diabetes mellitus with diabetic chronic kidney disease; N18.30 Chronic kidney disease, stage 3 unspecified; E11.42 Type 2 diabetes mellitus with diabetic polyneuropathy; E11.319 Type 2 diabetes mellitus with unspecified diabetic retinopathy without macular edema; G47.33 Obstructive sleep apnea (adult) (pediatric); F41.9 Anxiety disorder, unspecified; E03.9 Hypothyroidism, unspecified; K21.9 Gastro-esophageal reflux disease without esophagitis; E87.5 Hyperkalemia; I25.2 Old myocardial infarction; Z79.01 Long term (current) use of anticoagulants; Z79.82 Long term (current) use of aspirin; Z79.4 Long term (current) use of insulin; Z87.11 Personal history of peptic ulcer disease; Z95.5 Presence of coronary angioplasty implant and graft
CPT/HCPCS: 36415; 36416; 36430; 43239; 71045; 80048; 80053; 81003; 82962; 83735; 83880; 85014; 85018; 85025; 85610; 86850; 86900; 86920; 88305; 93005; 94640; 96361; 96372; 96374; 96375; 96376; 99285; C9113; J1815; J1940; J2405; J2704; J3490; J7030; J7060; J7613; P9040

== ENCOUNTER → 2023-11-12 15:17 | Outpatient (BNVA) | payer MEDICARE, SELFPAY | PROVIDERS: PCP Family Medicine; Visit Provider Surgery | DX: Z09 Encounter for follow-up examination after completed treatment for conditions other than malignant neoplasm (principal) | CPT/HCPCS: 99213 ==

== ENCOUNTER 2023-12-17 07:07 | Day surgery (SDC) | payer MEDICARE, SELFPAY ==
--- NOTE | 2023-12-17 06:01 | W.PM.OPSFHP ---
Same Day Surgery H&P Indication for Procedure/HPI DATE OF PROCEDURE: December 17, 2023 CHIEF COMPLAINT/INDICATIONFOR SURGICAL PROCEDURE: history of gastric ulcer PREOP DIAGNOSIS: history of gastric ulcer PLANNED PROCEDURE: Operation Date: 12/17/23 08:20 Proposed Procedures p EGD 91243, D64.9, K92.1, D62, K21.9(Not Applicable) - Juan Echeverria MD Medications/Allergies* Home Medications Medication Instructions Recorded Confirmed Type cholecalciferol (vitamin D3) 25 25 mcg PO DAILY 06/24/22 12/12/23 History mcg (1,000 unit) capsule (Vitamin D3) cyanocobalamin (vitamin B-12) 50 50 mcg PO DAILY 06/24/22 12/12/23 History mcg tablet (Vitamin B-12) gabapentin 100 mg capsule 200 mg PO DAILY 08/20/22 12/12/23 History aspirin 81 mg tablet,delayed 81 mg PO DAILY 12/13/22 12/12/23 History release (Adult Aspirin Regimen) atorvastatin 40 mg tablet 40 mg PO DAILY 12/13/22 12/12/23 History hydralazine 50 mg tablet 50 mg PO DAILY 08/22/23 12/12/23 History carvedilol 6.25 mg tablet 6.25 mg PO BID 10/16/23 12/12/23 History levothyroxine 137 mcg tablet 137 mcg PO DAILY 10/16/23 12/12/23 History lorazepam 1 mg tablet (Ativan) See Rx Instructions .Route 10/16/23 12/12/23 History .COMPLEX PRN anxiety nifedipine 60 mg tablet,extended 60 mg PO DAILY 10/16/23 12/12/23 History release 24 hr (Procardia XL) quetiapine 200 mg tablet (Seroquel) 200 mg PO BEDTIME 10/16/23 12/12/23 History Allergies/Adverse Reactions Allergy/AdvReac Type Severity Reaction Status Date / Time Penicillins Allergy Intermediate rash Verified 12/12/23 12:35 Pertinent History/Comorbid Conditions* Medical History (Updated 10/25/23 @ 06:37 by Kelvin Cooley DO) Upper GI bleeding Carpal tunnel syndrome, bilateral Atherosclerosis of coronary artery CKD (chronic kidney disease) stage 3, GFR 30-59 ml/min Major depressive disorder HAZEL on CPAP Sigmoid diverticulosis History of echocardiogram 06/2022 EF 71%, normal LV size and function, grade I/IV diastolic dysfunction, no wall motion abnormalities History of Holter monitoring 09/2020 predominant rhythm sinus rhythm to sinus tachycardia with frequent ventricular ectopy, range 60-163 bpm Anxiety Diabetic peripheral neuropathy Diabetic retinopathy Non-ST elevated myocardial infarction (non-STEMI) Streptococcal bacteremia 06/2022, streptococcus mitis oralis, treated with 4 weeks IV ceftriaxone Cerebral venous thrombosis CHF (congestive heart failure), NYHA class III Frequent PVCs Hypertension Hypothyroidism 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 Type 2 diabetes mellitus GERD (gastroesophageal reflux disease) with hiatal hernia Familial tremor Surgical History (Updated 08/20/22 @ 15:28 by Linda Frost MD) Status post excisional debridement (06/2020) for right foot gas gangrene, followed at wound care until healed History of hand surgery History of colonoscopy History of hernia surgery Family History (Updated 09/21/20 @ 13:34 by Yohana Padilla RN) Palpitations Father Stroke Father Denies family history of Diabetes CAD (coronary artery disease) Hypertension Social History Smoking and tobacco/nicotine status: never used tobacco/nicotine Alcohol intake: current Alcohol intake frequency: holidays/special occasions only Substance/Drug Use: never Household members: spouse Marital status: Current occupational status: retired Pertinent Exam Findings alert, oriented x 3, clear to auscultation bilaterally and regular rate & rhythm Recommendations Surgery/Procedure today Coding Level of Care Code Acute Code for Chg Fwsal
[2023-12-17 07:28] VITALS: BP 159/94; PULSE 55; RESP 18; TEMP 36.3; O2SAT 95; BMI 37.8
[2023-12-17] MEDS: sodium chloride 0.9% 1,000 ML 30 ML IV (07:35)
[2023-12-17 07:38] LABS: Glucose Point of Care 258 mg/dL (70-110)
--- NOTE | 2023-12-17 07:51 | ANES.PREANE2 ---
Pre-Anesthetic Assessment Height/Weight: Height 1.88 m Weight 133.81 kg Temp Pulse Resp BP Pulse Ox O2 Del Method 97.3 F L 55 L 18 159/94 95 Room Air 12/17/23 07:28 12/17/23 07:28 12/17/23 07:28 12/17/23 07:28 12/17/23 07:28 12/17/23 07:28 Preop Diagnosis: history of gastric ulcer Operation Date: 12/17/23 08:20 Proposed Procedures p EGD 63618, D64.9, K92.1, D62, K21.9(Not Applicable) - Juan Echeverria MD Familial anesthetic complications: None Was Beta Cristopher taken within 24 hours: Yes Was Clonidine taken within 24 hours: N/A Last intake: Intake Last Liquid Date 12/16/23 Last Liquid Time 22:00 Last Solid Date 12/16/23 Last Solid Time 22:00 Social No alcohol and No tobacco Exam alert, oriented x 3, clear to auscultation bilaterally and regular rate & rhythm Airway Mallampati: Class II Dentition: false Pulmonary Sleep Apnea CV/HEM Coronary Artery Disease (stents in 2022), Congestive Heart Failure and Hypertension Chronic Renal Insufficiency Metabolic Diabetes Mellitus and Hyperlipidemia Anesthetic Plan ASA status: 3 Anesthesia: MAC Risk of > 500 ml blood loss (7ml/kg in children): No Medications/Allergies Home Medications Medication Instructions Recorded Confirmed Last Taken Type cholecalciferol (vitamin D3) 25 25 mcg PO DAILY 06/24/22 12/12/23 12/16/23 History mcg (1,000 unit) capsule (Vitamin D3) cyanocobalamin (vitamin B-12) 50 50 mcg PO DAILY 06/24/22 12/12/23 12/16/23 History mcg tablet (Vitamin B-12) gabapentin 100 mg capsule 200 mg PO DAILY 08/20/22 12/12/23 12/16/23 History furosemide 40 mg tablet 40 mg PO DAILY #90 tabs 09/25/22 12/12/23 12/09/23 Rx aspirin 81 mg tablet,delayed 81 mg PO DAILY 12/13/22 12/12/23 12/11/23 History release (Adult Aspirin Regimen) atorvastatin 40 mg tablet 40 mg PO DAILY 12/13/22 12/12/23 12/16/23 History hydralazine 50 mg tablet 50 mg PO DAILY 08/22/23 12/12/23 12/16/23 History insulin aspart U-100 100 unit/mL 8 unit (0.08 mL) SUBCUT TID PRN 08/22/23 12/12/23 12/16/23 Rx (3 mL) subcutaneous pen (Novolog elevated glucose #15 mL FlexPen U-100 Insulin aspart) insulin degludec 100 unit/mL 48 unit (0.48 mL) SUBCUT BID #10 mL 08/23/23 12/12/23 12/15/23 Rx subcutaneous solution (Tresiba U-100 Insulin) carvedilol 6.25 mg tablet 6.25 mg PO BID 10/16/23 12/12/23 12/16/23 History levothyroxine 137 mcg tablet 137 mcg PO DAILY 10/16/23 12/12/23 12/16/23 History lorazepam 1 mg tablet (Ativan) See Rx Instructions .Route 10/16/23 12/17/23 3 Weeks Ago History .COMPLEX PRN anxiety ~11/26/23 nifedipine 60 mg tablet,extended 60 mg PO DAILY 10/16/23 12/12/23 12/16/23 History release 24 hr (Procardia XL) quetiapine 200 mg tablet (Seroquel) 200 mg PO BEDTIME 10/16/23 12/12/23 12/16/23 History pantoprazole 40 mg tablet,delayed 40 mg PO BID 30 days #60 tabs 11/12/23 12/12/23 12/16/23 Rx release (Protonix) sucralfate 100 mg/mL oral 1 g (10 mL) PO AC&BEDTIME #1,000 mL 11/12/23 12/12/23 12/16/23 Rx suspension paroxetine HCl 30 mg tablet 30 mg PO DAILY #30 tabs 11/15/23 12/12/23 12/16/23 Rx primidone 50 mg tablet 100 mg (2 x 50 mg) PO BID@00,12 12/05/23 12/12/23 12/16/23 Rx #60 tabs Allergies Allergy/AdvReac Type Severity Reaction Status Date / Time Penicillins Allergy Intermediate rash Verified 12/12/23 12:35 [facility] Anesthesia Medical History Upper GI bleeding Carpal tunnel syndrome, bilateral Atherosclerosis of coronary artery CKD (chronic kidney disease) stage 3, GFR 30-59 ml/min Major depressive disorder HAZEL on CPAP Sigmoid diverticulosis History of echocardiogram 06/2022 EF 71%, normal LV size and function, grade I/IV diastolic dysfunction, no wall motion abnormalities History of Holter monitoring 09/2020 predominant rhythm sinus rhythm to sinus tachycardia with frequent ventricular ectopy, range 60-163 bpm Anxiety Diabetic peripheral neuropathy Diabetic retinopathy Non-ST elevated myocardial infarction (non-STEMI) Streptococcal bacteremia 06/2022, streptococcus mitis oralis, treated with 4 weeks IV ceftriaxone Cerebral venous thrombosis CHF (congestive heart failure), NYHA class III Frequent PVCs Hypertension Hypothyroidism 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 Type 2 diabetes mellitus GERD (gastroesophageal reflux disease) with hiatal hernia Familial tremor Surgical History Status post excisional debridement (06/2020) for right foot gas gangrene, followed at wound care until healed History of hand surgery History of colonoscopy History of hernia surgery Family History Father Palpitations Stroke Denies family history of Diabetes CAD (coronary artery disease) Hypertension Social History Smoking and tobacco/nicotine status: never used tobacco/nicotine Alcohol intake: current Alcohol intake frequency: holidays/special occasions only Substance/Drug Use: never Household members: spouse Marital status: Current occupational status: retired Data Anesthesia Cardiac Studies: Echocardiogram 06/24/22 Echocardiogram Limited Views 08/20/22 Echocardiogram Ultrasound 10/07/20 Holter Monitor 09/22/20
[2023-12-17 08:21] VITALS: BP 123/76; PULSE 66; RESP 14; TEMP 36.4; O2SAT 96
[2023-12-17 08:31] VITALS: BP 124/69; PULSE 67; RESP 16; O2SAT 95
[2023-12-17 08:39] VITALS: BP 157/86; PULSE 65; RESP 16; O2SAT 97
--- NOTE | 2023-12-17 09:10 | ANE.PACU2 ---
Inpatient post-anesthesia follow up: Airway intact: Yes Vital signs: Temperature 97.5 F Pulse Rate 65 Respiratory Rate 16 Blood Pressure 157/86 Pulse Oximetry 97 Oxygen Delivery Me thod Room Air Oxygen Flow Rate Fraction of Inspir ed Oxygen Hydration adequate: Yes Nausea and vomiting: No Pain level: 1 Mental status: Baseline
== END 2023-12-17 09:11 | disposition home or self-care (01) ==
PROVIDERS: PCP Family Medicine; Visit Provider Surgery
PROC: 0DJ08ZZ Inspection of Upper Intestinal Tract, Via Natural or Artificial Opening Endoscopic (ICD-10-PCS; CPT 43235; principal; 2023-12-17 08:20)
DX: D64.9 Anemia, unspecified (principal); K92.1 Melena; D62 Acute posthemorrhagic anemia; K21.9 Gastro-esophageal reflux disease without esophagitis; Z87.11 Personal history of peptic ulcer disease; I25.10 Atherosclerotic heart disease of native coronary artery without angina pectoris; Z95.5 Presence of coronary angioplasty implant and graft; I11.0 Hypertensive heart disease with heart failure; I50.9 Heart failure, unspecified; E11.9 Type 2 diabetes mellitus without complications; E78.5 Hyperlipidemia, unspecified; Z79.82 Long term (current) use of aspirin; Z79.4 Long term (current) use of insulin; G47.33 Obstructive sleep apnea (adult) (pediatric); E03.9 Hypothyroidism, unspecified; F41.9 Anxiety disorder, unspecified
CPT/HCPCS: 36416; 43235; 82962; J2704; J7030

== ENCOUNTER 2023-12-30 03:12 | Observation (INO) | payer MEDICARE, SELFPAY ==
[2023-12-30] VITALS (109 sets, daily range): BP systolic 73–208; BP diastolic 53–121; PULSE 56–91; RESP 11–29; TEMP 36.4–36.9; O2SAT 83–100; BMI 37.8; BMI 33.9
--- NOTE | 2023-12-30 03:58 | CTR_ITS ---
PROCEDURE INFORMATION: Exam: CTA Head With Contrast, Arteriography Exam date and time: 12/30/2023 4:14 AM Age: 73 years old Clinical indication: Stroke-like symptoms; Altered mental status/memory loss; Additional info: EMS arrival for initial C/O chest pain. Upon exam patient acutely confused and unable to answer questions appropriately. Hypertensive over 200 systolic. states last known well time of 1500 hours yesterday. History of prior CVA. TECHNIQUE: Imaging protocol: Computed tomographic angiography of the head with contrast. Exam focused on the arteries. 3D rendering (Not supervised by radiologist): MIP and/or 3D reconstructed images were created by the technologist. Radiation optimization: All CT scans at this facility use at least one of these dose optimization techniques: automated exposure control; mA and/or kV adjustment per patient size (includes targeted exams where dose is matched to clinical indication); or iterative reconstruction. Contrast material: OMNI 350; Contrast volume: 100 ml; Contrast route: INTRAVENOUS (IV); COMPARISON: CT head wo con* [id number] 12/30/2023 4:11 AM RADIATION DOSE METRICS: Total DLP (mGy-cm): 387.89 FINDINGS: ANTERIOR CIRCULATION: Right internal carotid artery: Intracranial segment is patent with no significant stenosis. No aneurysm. Right middle cerebral artery: No occlusion or significant stenosis. No aneurysm. Right anterior cerebral artery: No occlusion or significant stenosis. No aneurysm. Left internal carotid artery: There is mild stenosis of the cavernous segment of the left internal carotid artery secondary to calcified plaque. Left middle cerebral artery: No occlusion or significant stenosis. No aneurysm. Left anterior cerebral artery: No occlusion or significant stenosis. No aneurysm. POSTERIOR CIRCULATION: Right vertebral artery: No occlusion or significant stenosis. No aneurysm. Left vertebral artery: No occlusion or significant stenosis. No aneurysm. Basilar artery: No occlusion or significant stenosis. No aneurysm. Right posterior cerebral artery: No occlusion or significant stenosis. No aneurysm. Left posterior cerebral artery: No occlusion or significant stenosis. No aneurysm. Brain: No definite mass, mass effect, or midline shift. Cerebral ventricles: No ventriculomegaly. Bones/joints: Unremarkable. No acute fracture. Soft tissues: Unremarkable. PROCEDURE INFORMATION: Exam: CTA Neck With Contrast Exam date and time: 12/30/2023 4:14 AM Age: 73 years old Clinical indication: Stroke-like symptoms; Altered mental status/memory loss; Additional info: EMS arrival for initial C/O chest pain. Upon exam patient acutely confused and unable to answer questions appropriately. Hypertensive over 200 systolic. states last known well time of 1500 hours yesterday. History of prior CVA. TECHNIQUE: Imaging protocol: Computed tomographic angiography of the neck with contrast. Exam focused on the cervical segments of the vasculature. 3D rendering (Not supervised by radiologist): MIP and/or 3D reconstructed images were created by the technologist. Radiation optimization: All CT scans at this facility use at least one of these dose optimization techniques: automated exposure control; mA and/or kV adjustment per patient size (includes targeted exams where dose is matched to clinical indication); or iterative reconstruction. Contrast material: OMNI 350; Contrast volume: 100 ml; Contrast route: INTRAVENOUS (IV); COMPARISON: CT head wo con* [id number] 12/30/2023 4:11 AM RADIATION DOSE METRICS: Total DLP (mGy-cm): 1320.38 FINDINGS: Right common carotid artery: No stenosis. No dissection or occlusion. There is mild plaque at the carotid bulb and bifurcation. Right internal carotid artery: No stenosis of the extracranial segment. No dissection or occlusion. Right external carotid artery: No occlusion or stenosis of the origin. Left common carotid artery: No stenosis. No dissection or occlusion. There is mild plaque at the carotid bulb and bifurcation. Left internal carotid artery: No stenosis of the extracranial segment. No dissection or occlusion. Left external carotid artery: No occlusion or stenosis of the origin. Right vertebral artery: No stenosis. No dissection or occlusion. Left vertebral artery: No stenosis. No dissection or occlusion. Soft tissues: Normal. No significant soft tissue swelling. Bones/joints: No acute fracture. CT/CT angio headneck* [id number] IMPRESSION: Mild left internal carotid artery stenosis. Otherwise patent [id number]. IMPRESSION: No stenosis or occlusion. REFERENCES: NASCET CRITERIA. The degree of stenosis in the cervical segment of the internal carotid artery is based on NASCET criteria. Normal is no stenosis. Mild is less than 50% stenosis. Moderate is 50-69% stenosis. Severe is 70% to 99% stenosis. Total occlusion is no detectable patent lumen.
--- NOTE | 2023-12-30 03:58 | ECG_ITS ---
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 Measurements Intervals [place] Rate: 70 P: 55 ID: [id number] QRS: 10 QRSD: 85 T: 21 QT: 396 QTc: 428 Interpretive Statements SINUS RHYTHM Compared to ECG 10/16/2023 05:21:00 No significant changes Electronically Signed On 12-30-2023 12:03:43 CDT by Rudi Del Cid M.D. [id number]
--- NOTE | 2023-12-30 03:58 | XRR_ITS ---
PROCEDURE INFORMATION: Exam: XR Chest Exam date and time: 12/30/2023 4:01 AM Age: 73 years old Clinical indication: Chest pressure; Prior surgery; Surgery date: 6+ months; Surgery type: Spinal; Patient HX: EMS arrival for chest pain; Additional info: Cp TECHNIQUE: Imaging protocol: Radiologic exam of the chest. Views: 1 view. COMPARISON: CR XR chest 1V portable [id number] 10/16/2023 12:13 PM FINDINGS: Lungs: Unremarkable. No consolidation. Pleural spaces: Unremarkable. No pleural effusion. No pneumothorax. Heart/Mediastinum: Unremarkable. No cardiomegaly. Bones/joints: Sternal fixation plates are again noted. XR/XR chest 1V portable [id number] IMPRESSION: No acute findings.
--- NOTE | 2023-12-30 03:58 | CTR_ITS ---
PROCEDURE INFORMATION: Exam: CT Head Without Contrast Exam date and time: 12/30/2023 4:11 AM Age: 73 years old Clinical indication: Stroke-like symptoms; Altered mental status/memory loss; Additional info: EMS arrival for initial C/O chest pain. Upon exam patient acutely confused and unable to answer questions appropriately. Hypertensive over 200 systolic. states last known well time of 1500 hours yesterday. History of prior CVA. TECHNIQUE: Imaging protocol: Computed tomography of the head without contrast. Radiation optimization: All CT scans at this facility use at least one of these dose optimization techniques: automated exposure control; mA and/or kV adjustment per patient size (includes targeted exams where dose is matched to clinical indication); or iterative reconstruction. Other technique: STROKE PROTOCOL was implemented. COMPARISON: MR venography head wo [id number] 06/25/2022 10:27 AM RADIATION DOSE METRICS: Total DLP (mGy-cm): 1320.38 FINDINGS: Brain: There is no evidence of acute parenchymal hemorrhage, extra-axial collection, or acute infarction. There is no mass effect, midline shift, or downward herniation. Cerebral ventricles: No ventriculomegaly. Paranasal sinuses: Visualized sinuses are unremarkable. No fluid levels. Mastoid air cells: Visualized mastoid air cells are well aerated. Bones: Unremarkable. No acute fracture. Soft tissues: Unremarkable. CT/CT head wo con* [id number] IMPRESSION: No acute intracranial abnormality. ASSESSMENT: ASPECTS ([place] Stroke Program Early CT Score) is 10.
[2023-12-30 04:07] LABS: Basophils # 0.1 10^3/uL (0.0-0.1); Eosinophils # 0.2 10^3/uL (0.0-0.8); Eosinophils % 2.5 %; Lymphocytes # 1.4 10^3/uL (0.8-4.8); Lymphocytes % 19.9 %; Mean Corpuscular HGB Conc 34.5 g/dL (30-55); Mean Corpuscular Hemoglobin 29.7 pg (27-33); Mean Platelet Volume 9.6 fL (7.4-10.4); Monocytes # 0.5 10^3/uL (0.2-0.9); Monocytes % 7.2 %; Nucleated Red Blood Cells % 0 %; Platelet Count 265 10^3/cmm (157-399); Red Blood Count 4.65 10^6/uL (3.85-5.65); Red Cell Distribution Width 12.8 % (12.1-15.1); White Blood Count 6.82 10^3/uL (3.29-11.43)
[2023-12-30 04:20] LABS: Lactic Sepsis W/Reflex 3.4 mmol/L (0.5-2.2)
[2023-12-30] MEDS: iohexol 350 mg/mL 500 mL Btl (per mL) IV (04:21)
[2023-12-30 04:22] LABS: Troponin(5th) Baseline 90 ng/L (0-15)
[2023-12-30 04:29] LABS: INR 0.91 (0.8-1.2); Partial Thromboplastin Time 28.2 SECONDS (23.9-36.7)
[2023-12-30 04:32] LABS: Alanine Aminotransferase 18 U/L (0-41); Albumin Level 4.2 g/dL (3.5-5.2); Alkaline Phosphatase 130 U/L (40-130); Anion Gap 19.7 (5-19); Aspartate Amino Transferase 14 U/L (0-40); Blood Urea Nitrogen 21 mg/dL (8-23); Calcium 9.7 mg/dL (8.5-10.5); Carbon Dioxide 21 mmol/L (22-29); Chloride 99 mmol/L (98-107); Globulin 2.5 g/dL (1.3-4.6); Glucose 366 mg/dL (65-115); NT Pro B Type Natriuretic Pept 286 pg/mL (0-125); Osmolality Calculated 298 mOsm/kg (285-295); Potassium 4.7 mmol/L (3.5-5.1); Sodium 135 mmol/L (136-145); Total Bilirubin 0.5 mg/dL (0.15-1.2); Total Protein 6.7 g/dL (6.6-8.7)
[2023-12-30 04:34] LABS: Creatinine Clr Calc Pharmacy 69.3789
[2023-12-30] MEDS: hyDRALAzine 20 mg/mL INJ 1 mL 10 MG IVP ×2 (04:56→12:42)
[2023-12-30 05:18] LABS: Add Urine Microscopic? YES; Bilirubin Urine Neg (Negative); Blood Urine Neg (Negative); Glucose Urine UA 4+ (Normal); Ketones Urine 1+ (Negative); Leukocyte Esterase Urine Negative (Negative); Nitrate Urine Negative (Negative); Protein Urine Trace (Negative); Urine Appearance Clear (CLEAR); Urine Color Yellow (Yellow); Urobilinogen Urine Neg (Negative); pH Urine 9 (5-7)
[2023-12-30 05:19] LABS: Add Urine Culture? No
--- NOTE | 2023-12-30 05:46 | W.ED.CHESTPA ---
HPI - Chest Pain General: Chief Complaint: Chest Pain Stated Complaint: pain chest or abd pt is ams Time Seen by Provider: 12/30/23 03:52 History of Present Illness: 73-year-old male patient with a history of stroke and coronary disease. He presents with headache, some chest discomfort, and altered mental status. He is tearful on exam. His blood pressure was high at home. He remains high here. He complains of headache and chest discomfort. He is not short of breath. He does at times complain of belly pain. No history of fever. Associated symptoms: Deny dyspnea, fever(s), palpitations or vomiting Review of Systems Const: Denies: fever(s) Eyes: Denies: change in vision or blurry vision Card: Reports: chest pain; Denies: palpitations Resp: Denies: dyspnea GI: Denies: vomiting Neuro: Reports: headache(s), confusion and behavioral changes; Denies: numbness in extremities PFSH ED PFSH: Medical History Upper GI bleeding Carpal tunnel syndrome, bilateral Atherosclerosis of coronary artery CKD (chronic kidney disease) stage 3, GFR 30-59 ml/min Major depressive disorder HAZEL on CPAP Sigmoid diverticulosis History of echocardiogram 06/2022 EF 71%, normal LV size and function, grade I/IV diastolic dysfunction, no wall motion abnormalities History of Holter monitoring 09/2020 predominant rhythm sinus rhythm to sinus tachycardia with frequent ventricular ectopy, range 60-163 bpm Anxiety Diabetic peripheral neuropathy Diabetic retinopathy Non-ST elevated myocardial infarction (non-STEMI) Streptococcal bacteremia 06/2022, streptococcus mitis oralis, treated with 4 weeks IV ceftriaxone Cerebral venous thrombosis CHF (congestive heart failure), NYHA class III Frequent PVCs Hypertension Hypothyroidism 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 Type 2 diabetes mellitus GERD (gastroesophageal reflux disease) with hiatal hernia Familial tremor Surgical History Status post excisional debridement (06/2020) for right foot gas gangrene, followed at wound care until healed History of hand surgery History of colonoscopy History of hernia surgery Family History Father Palpitations Stroke Denies family history of Diabetes CAD (coronary artery disease) Hypertension Social History Smoking and tobacco/nicotine status: never used tobacco/nicotine Alcohol intake: current Alcohol intake frequency: holidays/special occasions only Substance/Drug Use: never Household members: spouse Marital status: Current occupational status: retired Course Vital Signs: Vital signs: Vital Signs Temperature 97.6 F 12/30/23 19:00 Pulse Rate 72 12/30/23 21:00 Respiratory Rate 14 12/30/23 21:00 Blood Pressure 164/95 12/30/23 21:00 Pulse Oximetry 98 12/30/23 21:00 Oxygen Delivery Me thod Room Air 12/30/23 19:00 MDM - Chest Pain Medical Decision Making The patient has no localizing symptoms or signs of stroke. He does have mild altered mental status, but answers most questions appropriately. His blood pressure was quite high on initial presentation, as high as 220 systolic. He was given a dose of hydralazine with some improvement. He is also given morphine and Zofran with improvement in his blood pressure as well. Valproic acid has been ordered for potential atypical migraine. There is a chance this could be hypertensive urgency/emergency, so nicardipine drip has been ordered, but has not been necessary as yet, as blood pressures currently improved. Will see if symptoms mental status changes improve with improvement in the headache. Head CT and CT angio were negative. Headache is improved but not resolved. His mental status is not baseline. WBC is normal and CRP is as well. Potential for infectious causes given this and afebrile status would be considered low. Potential persists for hypertensive urgency or emergency. The patient does have a remote history of venous sinus clot formation. And he's not currently on anticoagulation due to a history of blood loss anemia from GI bleeding. Well I'm sure the patient. Will continue to treat blood pressure, further testing is necessary, hospitalist is aware. Lab Data 12/30/23 03:36 12/30/23 03:36 Radiology Impressions Chest X-Ray 12/30/23 03:58 IMPRESSION: No acute findings. Head CT 12/30/23 03:58 IMPRESSION: No acute intracranial abnormality. ASSESSMENT: ASPECTS ([place] Stroke Program Early CT Score) is 10. Head/Neck CTA 12/30/23 03:58 IMPRESSION: Mild left internal carotid artery stenosis. Otherwise patent [id number]. IMPRESSION: No stenosis or occlusion. REFERENCES: NASCET CRITERIA. The degree of stenosis in the cervical segment of the internal carotid artery is based on NASCET criteria. Normal is no stenosis. Mild is less than 50% stenosis. Moderate is 50-69% stenosis. Severe is 70% to 99% stenosis. Total occlusion is no detectable patent lumen. Head MRI 12/30/23 07:54 IMPRESSION: 1. No evidence of restricted diffusion to suggest acute ischemia. 2. Mild small vessel changes with moderate parenchymal volume loss. 3. No hemosiderin on the susceptibly weighted images. 4. No other acute findings. Head/Brain Mag Res Venography 12/30/23 07:54 IMPRESSION: No evidence of dural sinus thrombosis Laboratory Results WBC 6.82 10^3/uL (3.29-11.43) 12/30/23 03:36 RBC 4.65 10^6/uL (3.85-5.65) 12/30/23 03:36 Hgb 13.80 g/dL (11.27-16.99) 12/30/23 03:36 Hct 40.0 % (37-53) 12/30/23 03:36 MCV 86.0 fl (82-101) 12/30/23 03:36 MCH 29.7 pg (27-33) 12/30/23 03:36 MCHC 34.5 g/dL (30-55) 12/30/23 03:36 RDW 12.8 % (12.1-15.1) 12/30/23 03:36 Plt Count 265 10^3/cmm (157-399) 12/30/23 03:36 MPV 9.6 fL (7.4-10.4) 12/30/23 03:36 Neut % (Auto) 69.0 % 12/30/23 03:36 Lymph % (Auto) 19.9 % 12/30/23 03:36 [place] % (Auto) 7.2 % 12/30/23 03:36 Eos % (Auto) 2.5 % 12/30/23 03:36 Baso % (Auto) 1.0 % 12/30/23 03:36 Neut # (Auto) 4.70 10^3/uL (1.8-7.7) 12/30/23 03:36 Lymph # (Auto) 1.4 10^3/uL (0.8-4.8) 12/30/23 03:36 [place] # (Auto) 0.5 10^3/uL (0.2-0.9) 12/30/23 03:36 Eos # (Auto) 0.2 10^3/uL (0.0-0.8) 12/30/23 03:36 Baso # (Auto) 0.1 10^3/uL (0.0-0.1) 12/30/23 03:36 Nucleated RBC % (auto) 0 % 12/30/23 03:36 Nucleated RBCs # 0.0 /100WBC 12/30/23 03:36 PT 12.50 SECONDS (12.1-14.9) 12/30/23 03:36 INR 0.91 (0.8-1.2) 12/30/23 03:36 APTT 28.2 SECONDS (23.9-36.7) 12/30/23 03:36 Sodium 135 mmol/L (136-145) L 12/30/23 03:36 Potassium 4.7 mmol/L (3.5-5.1) 12/30/23 03:36 Chloride 99 mmol/L (98-107) 12/30/23 03:36 Carbon Dioxide 21 mmol/L (22-29) L 12/30/23 03:36 Anion Gap 19.7 (5-19) H 12/30/23 03:36 BUN 21 mg/dL (8-23) 12/30/23 03:36 Creatinine 1.4 mg/dL (0.7-1.2) H 12/30/23 03:36 GFR Calculation Not Reportable 12/30/23 03:36 Glucose 366 mg/dL (65-115) H 12/30/23 03:36 Calculated Osmolality 298 mOsm/kg (285-295) H 12/30/23 03:36 Lactic Acid 3.4 mmol/L (0.5-2.2) H 12/30/23 03:36 Lactic Acid (Sepsis) 3.1 mmol/L (0.5-2.2) H 12/30/23 06:25 Calcium 9.7 mg/dL (8.5-10.5) 12/30/23 03:36 Magnesium 1.7 mg/dL (1.7-2.3) 12/30/23 03:36 Total Bilirubin 0.5 mg/dL (0.15-1.2) 12/30/23 03:36 AST 14 U/L (0-40) 12/30/23 03:36 ALT 18 U/L (0-41) 12/30/23 03:36 Alkaline Phosphatase 130 U/L (40-130) 12/30/23 03:36 Troponin T Baseline 90 ng/L (0-15) H 12/30/23 03:36 Troponin T 120 Minute 89.00 ng/L (0-15) H 12/30/23 06:00 Delta Troponin T -1.00 ABS# (0-10) L 12/30/23 06:00 C-Reactive Protein 3.0 mg/L (0.0-4.9) 12/30/23 03:36 NT-Pro-B Natriuret Pep 286 pg/mL (0-125) H 12/30/23 03:36 Total Protein 6.7 g/dL (6.6-8.7) 12/30/23 03:36 Albumin 4.2 g/dL (3.5-5.2) 12/30/23 03:36 Globulin 2.5 g/dL (1.3-4.6) 12/30/23 03:36 TSH 2.70 uIU/mL (0.27-4.20) 12/30/23 03:36 Urine Color Yellow (Yellow) 12/30/23 04:55 Urine Appearance Clear (CLEAR) 12/30/23 04:55 Urine pH 9 (5-7) H 12/30/23 04:55 Ur Specific [place] 1.010 (1.005-1.030) 12/30/23 04:55 Urine Protein Trace (Negative) 12/30/23 04:55 Urine Glucose (UA) 4+ (Normal) H 12/30/23 04:55 Urine Ketones 1+ (Negative) H 12/30/23 04:55 Urine Blood Neg (Negative) 12/30/23 04:55 Urine Nitrate Negative (Negative) 12/30/23 04:55 Urine Bilirubin Neg (Negative) 12/30/23 04:55 Urine Urobilinogen Neg mg/dL (Negative) 12/30/23 04:55 Ur Leukocyte Esterase Negative (Negative) 12/30/23 04:55 Urine RBC None /hpf (0-2) 12/30/23 04:55 Urine WBC None /hpf (0-5) 12/30/23 04:55 Ur Squamous Epith Cells None /hpf (0-5) 12/30/23 04:55 Amorphous Sediment Not Reportable 12/30/23 04:55 Urine Bacteria None /hpf (NONE) 12/30/23 04:55 All radiology interpretation(s) finalized by discharge Discharge Plan Discharge Patient Disposition: Admitted As Inpatient Admit Provider: Elena Swain Clinical Impression: Acute encephalopathy, Hypertensive urgency, Chest pain Condition: Stable Coding Level of Care Code ED Double Ending Machine Operator for Avis Orellana
[2023-12-30 05:52] LABS: Reflex Lactate Order REFLEX LACTIC ORDERD
[2023-12-30] MEDS: ondansetron 2 mg/ML SDV 2 mL 4 MG IVP (05:53)
[2023-12-30] MEDS: morphine 4 mg/mL SDV 1 mL IVP (05:55)
[2023-12-30] MEDS: valproic acid inj 500 MG in sodium chloride 0.9% 50 ML 55 MG IV (05:58)
--- NOTE | 2023-12-30 05:58 | ECG_ITS ---
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 Measurements Intervals [place] Rate: 86 P: 55 HI: 189 QRS: -6 QRSD: 95 T: 26 QT: 377 QTc: 452 Interpretive Statements SINUS RHYTHM WITH FREQUENT VENTRICULAR PREMATURE COMPLEXES IN A BIGEMINAL PATTERN MODERATE ST DEPRESSION [0.05+ mV ST DEPRESSION] Compared to ECG 12/30/2023 03:25:21 Ventricular premature complex(es) now present ST (T wave) deviation now present Electronically Signed On 12-30-2023 12:06:03 CDT by Rudi Del Cid M.D. [id number]
[2023-12-30 06:45] LABS: Lactic Acid level (Lactate) 3.1 mmol/L (0.5-2.2)
--- NOTE | 2023-12-30 07:54 | MR_ITS ---
WS: [id number] MRI HEAD WITHOUT CONTRAST TECHNIQUE: Sagittal T1, T2 axial, T2 axial FLAIR, axial and coronal T1 images, axial susceptibility w eighted imaging, axial diffusion weighted images, and coronal T2 images were obtained. CLINICAL INFORMATION: headache, encephalopathy, history of sinus venous thrombosis COMPARISON: MRI 06/25/2022 FINDINGS: Some images degraded by motion. No evidence of restricted diffusion to suggest acute ischemia. Ventricular system and basal cisterns are patent. Mild small vessel changes. Moderate parenchymal volume loss. No hemosiderin on the suscep tibly weighted images. Normal optic chiasm and pituitary infundibulum. No other acute findings. MR/MR head wo con* [id number] IMPRESSION: 1. No evidence of restricted diffusion to suggest acute ischemia. 2. Mild small vessel changes with moderate parenchymal volume loss. 3. No hemosiderin on the susceptibly weighted images. 4. No other acute findings.
--- NOTE | 2023-12-30 07:54 | MR_ITS ---
WS: [id number] MR VENOGRAPHY HEAD WITHOUT INDICATION: History of sinus thrombosis. Headache encephalopathy. TECHNIQUE: 2D and 3D [id number] imaging obtained with maximum intensity projection images. FINDINGS: Normal sagittal sinus. RIGHT dominant sigmoid and transverse sinuses. Smaller LEFT sigmoid and transverse sinus appear patent. Normal straight sinus and internal cerebral veins. No evidence of dural sinus thrombosis today. MR/[place] [id number] IMPRESSION: No evidence of dural sinus thrombosis
--- NOTE | 2023-12-30 07:57 | PM.HP ---
Providers/Chief Complaint Admitting Physician: Elena Swain MD Primary Care Provider: Rj Alcala MD Chief Complaint: pain chest or abd pt is ams History of Present Illness Brittny Londono is a 73 year old male with history of sinus venous thrombosis, coronary disease status post stent 08/16 and previous bypass surgery, chronic kidney disease, CHF, diabetes, multiple other medical problems who presents to the emergency department with history of 1 day of illness. Apparently around 8:30 PM on Saturday he reported he was not feeling good, at 11:30 PM he was crying and not responding appropriately. He could walk but was not verbally interacting with his . She eventually gathered that he might be having some kind of pain and brought him to the emergency department. She reports he has Asberger's so sometimes he will have emotional episodes. He has no history of fever, vomiting, diarrhea. He does have history of GI bleeding with an EGD done after the bleeding demonstrating healed gastric ulcer disease. During my interview with him I could not delineate whether he was having significant pain. He was repeating the word today multiple times when trying to relate his symptoms. He did not appear to be any in any discomfort. He appeared significantly frustrated not able to communicate well. He could answer no and yes on occasion but it was difficult to tell if this was correct. Occasionally he would say a sentence that was more intelligible. He could follow directions without any concern. I called his for the supplemental history above. He did report chest, abdomen, head pain when I interviewed him but the accuracy of this was difficult to gather. In the emergency department he was noted to be significantly hypertensive. Hydralazine was given and blood pressures improved. Nicardipine was ordered but not yet started. Review of Systems General: Reports: 10 or more systems reviewed and unremarkable except in HPI and below Card: Reports: chest pain Resp: Denies: dyspnea GI: Reports: abdominal pain Medications/Allergies Home Medications Medication Instructions Recorded Confirmed Last Taken Type cholecalciferol (vitamin D3) 25 25 mcg PO DAILY 06/24/22 12/30/23 12/29/23 History mcg (1,000 unit) capsule (Vitamin D3) cyanocobalamin (vitamin B-12) 50 50 mcg PO DAILY 06/24/22 12/30/23 12/29/23 History mcg tablet (Vitamin B-12) gabapentin 100 mg capsule 200 mg PO DAILY 08/20/22 12/30/23 12/29/23 History furosemide 40 mg tablet 40 mg PO DAILY #90 tabs 09/25/22 12/30/23 12/29/23 Rx aspirin 81 mg tablet,delayed 81 mg PO DAILY 12/13/22 12/30/23 12/29/23 History release (Adult Aspirin Regimen) atorvastatin 40 mg tablet 40 mg PO DAILY 12/13/22 12/30/23 12/29/23 History hydralazine 50 mg tablet 50 mg PO DAILY PRN UNKNOWN 08/22/23 12/30/23 12/16/23 History insulin degludec 100 unit/mL 48 unit (0.48 mL) SUBCUT BID #10 mL 08/23/23 12/30/23 12/29/23 Rx subcutaneous solution (Tresiba U-100 Insulin) carvedilol 6.25 mg tablet 6.25 mg PO BID 10/16/23 12/30/23 12/29/23 History levothyroxine 137 mcg tablet 137 mcg PO DAILY 10/16/23 12/30/23 12/29/23 History lorazepam 1 mg tablet (Ativan) See Rx Instructions .Route 10/16/23 12/30/23 3 Weeks Ago History .COMPLEX PRN anxiety ~11/26/23 nifedipine 60 mg tablet,extended 60 mg PO DAILY 10/16/23 12/30/23 12/29/23 History release 24 hr (Procardia XL) quetiapine 200 mg tablet (Seroquel) 200 mg PO BEDTIME 10/16/23 12/30/23 12/29/23 History paroxetine HCl 30 mg tablet 30 mg PO DAILY #30 tabs 11/15/23 12/30/23 12/29/23 Rx primidone 50 mg tablet 100 mg (2 x 50 mg) PO BID@00,12 12/05/23 12/30/23 12/29/23 Rx #60 tabs pantoprazole 40 mg tablet,delayed 40 mg PO DAILY 30 days #30 tabs 12/17/23 12/30/23 12/29/23 Rx release clopidogrel 75 mg tablet 75 mg PO DAILY 12/30/23 12/30/23 12/29/23 History sildenafil 100 mg tablet 50 - 100 mg PO DAILY PRN Erectile 12/30/23 12/30/23 Unknown History Dysfunction sucralfate 1 gram tablet 1 g PO QID 12/30/23 12/30/23 12/29/23 History Allergies Allergy/AdvReac Type Severity Reaction Status Date / Time Penicillins Allergy Intermediate rash Verified 12/12/23 12:35 PFSH Acute PFSH: Medical History Upper GI bleeding Carpal tunnel syndrome, bilateral Atherosclerosis of coronary artery CKD (chronic kidney disease) stage 3, GFR 30-59 ml/min Major depressive disorder HAZEL on CPAP Sigmoid diverticulosis History of echocardiogram 06/2022 EF 71%, normal LV size and function, grade I/IV diastolic dysfunction, no wall motion abnormalities History of Holter monitoring 09/2020 predominant rhythm sinus rhythm to sinus tachycardia with frequent ventricular ectopy, range 60-163 bpm Anxiety Diabetic peripheral neuropathy Diabetic retinopathy Non-ST elevated myocardial infarction (non-STEMI) Streptococcal bacteremia 06/2022, streptococcus mitis oralis, treated with 4 weeks IV ceftriaxone Cerebral venous thrombosis CHF (congestive heart failure), NYHA class III Frequent PVCs Hypertension Hypothyroidism 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 Type 2 diabetes mellitus GERD (gastroesophageal reflux disease) with hiatal hernia Familial tremor Surgical History Status post excisional debridement (06/2020) for right foot gas gangrene, followed at wound care until healed History of hand surgery History of colonoscopy History of hernia surgery Family History Father Palpitations Stroke Denies family history of Diabetes CAD (coronary artery disease) Hypertension Social History Smoking and tobacco/nicotine status: never used tobacco/nicotine Alcohol intake: current Alcohol intake frequency: holidays/special occasions only Substance/Drug Use: never Household members: spouse Marital status: Current occupational status: retired Vitals/I&O/Wt Last Vital Signs Temp 98.5 F 12/30/23 03:19 Pulse 56 L 12/30/23 07:40 Resp 27 H 12/30/23 06:02 BP 140/87 12/30/23 07:40 Pulse Ox 100 12/30/23 07:40 O2 Del Method Room Air 12/30/23 06:02 12/29/23 12/30/23 12/30/23 22:59 06:59 14:59 Intake Total 55 / 55 Balance 55 / 55 Weight last 48 hrs Weight 133.81 kg Physical Exam Narrative: General exam is a white male, who can answer a few yes or no questions but keeps saying today repetitively when trying to give a more complicated answer. He follows some instructions, but seems confused at times. HEENT: Atraumatic normocephalic. Extraocular movements are intact oropharynx is clear Neck is supple no lymphadenopathy thyromegaly Cardiovascular regular in rhythm without murmur, no S3-S4, frequent premature beats are noted. Lungs clear no wheezing or crackles Abdomen is soft nontender with positive bowel sounds. No obvious organomegaly exams deferred Extremities no sinus clubbing edema, cap refill brisk Neuro: No facial droop, no extraocular movement abnormalities, no visual field defects, no strength deficits, no cerebellar dysfunction. He does appear somewhat confused, and is repeating statements. Data 12/30/23 03:36 12/30/23 03:36 Other Labs: PT and PTT are normal Lactic acid 3 point 4 repeat 3.1 Anion gap 19.7 LFTs are normal Troponin 90 with repeat of 89 Albumin and calcium normal Urinalysis negative I have ordered a TSH and magnesium level Micro: Microbiology 12/30/23 06:00 Blood Culture - Preliminary Blood SPECIMEN COLLECTED 12/30/23 06:00 Blood Culture - Preliminary Blood SPECIMEN COLLECTED A&P Assessment and plan (1) Acute encephalopathy: Patient presents with acute encephalopathy. Etiology is to be determined. Differential diagnosis includes conversion disorder, venous sinus thrombosis. Stroke is less likely considering negative CT head negative CTA of the head and neck but not completely excluded if acute. He has a history of partial venous sinus thrombosis 1 year ago giving similar symptoms. At this point post expeditiously rule out CVA and venous sinus thrombosis. Stat MRI head without contrast as well as MRV will be done. At this point as he has no paresis, conversion disorder is possibility, he seems significantly anxious, he has had Ativan at home in the past for anxiety but is currently out of the prescription according to , I will give him Ativan 0.5 mg IV prior to MRI as well as to preventive maintenance coordinator his response. (2) Elevated troponin: Patient has significantly elevated troponin but without trend. This is likely type II elevation. Continue his aspirin, Plavix, high intensity statin Consider outpatient nuclear stress test. Last intervention from a coronary artery standpoint was 1 year ago with LAD stenting with a drug-eluting stent. He complains of pain in his head chest and abdomen but I am not sure if this is accurate. I will need to redelineate his history when his encephalopathy is clearing. Further plans will be made following this. Check echocardiogram to make sure her EF is not reduced (3) Type 2 diabetes mellitus: Patient with type 2 diabetes, on chronic insulin Will give one half his usual dose of insulin along with sliding scale I do not believe he has DKA currently but will continue to follow his electrolytes closely. He did not have a serum ketones when he came in. Anion gap was only 19. He has type 2 diabetes. He has had no vomiting. (4) Hypertensive urgency: Concern of hypertensive urgency when he arrived. Current blood pressure systolic is 157 after doses of hydralazine. This could have contributed to his encephalopathy, but I am doubtful it is the only cause. Restart his home medications this morning and follow blood pressure closely Note that nicardipine has been ordered but not given. Will continue to follow closely. Plan History of hypothyroidism. Check TSH secondary to mental status changes History of Asperger's disease. This likely complicates his clinical presentation. Multiple other medical problems as outlined in his past medical history Full code currently Lovenox for DVT prophylaxis was interviewed as well on the phone, to provide supplemental history in this patient who has encephalopathy and unable to give accurate history on his own. Attestations Medical Necessity Statement*: Will need less than 2 midnight stay for evaluation and treatment of confusion/encephalopathy Diagnoses Acute encephalopathy G93.40 Elevated troponin R79.89 Type 2 diabetes mellitus E11.9 Hypertensive urgency I16.0 Time Spent (min) 54
--- NOTE | 2023-12-30 08:17 | USCV_ITS ---
Brittny Londono Age: 73 Gender: M : 1950 Exam Date: 12/30/2023 14:29 Ordering Phys: Mahesh Finch MD Technologist: CT Exam Location: [facility] [place]_ Indication: Trop, cp BP: 144 / 72 HR: 76 Rhythm: Sinus Technical Quality: Adequate MEASUREMENTS (Male / Female) Normal Values 2D ECHO LVOT Diameter 2.5 cm LV Ejection Fraction MOD 2C 67.7 % LV Ejection Fraction 2C AL 69.0 % LA Diameter 3.9 cm RA Systolic Volume 4C AL 34.4 ml RA Systolic Volume 4C MOD 35.9 ml LA Sys Volume AL 94.2 cm cubed LA Sys Volume Index AL 37.9 cm cubed/m squared Aorta at Sinotubular Diameter 2.8 cm M-MODE LA Ao Ratio MM 1.4 AV Cusp Separation MM 2.4 cm DOPPLER AV Peak Velocity 149.0 cm/s LVOT Peak Velocity 85.0 cm/s AV Area Cont Eq vti 2.9 cm squared AV Area Cont Eq pk 2.7 cm squared MV Peak Velocity 111.0 cm/s MV Area PHT 2.7 cm squared Mitral E to A Ratio 0.6 TV Peak E Velocity 59.0 cm/s Right Atrial Pressure 3.0 mmHg PV Peak Velocity 109.0 cm/s FINDINGS Left Ventricle Moderate left ventricular hypertrophy. Normal LV size ejection fraction of 68%.no regional wall motion abnormalities. Grade I/IV diastolic dysfunction (abnormal relaxation filling pattern), normal to mildly elevated filling pressures. Right Ventricle The right ventricle is normal in size and function. Right Atrium The right atrium is normal in size. Left Atrium The left atrium is normal in size. Mitral Valve No gross abnormalities noted Aortic Valve No gross abnormalities noted Tricuspid Valve No gross abnormalities noted Pulmonic Valve Pulmonic valve not well visualized. Pericardium Trivial pericardial effusion. Aorta Normal ascending aorta dimension. IVC The inferior vena cava appears normal. CONCLUSIONS Moderate left ventricular hypertrophy. Normal LV size ejection fraction of 68%.no regional wall motion abnormalities. Grade I/IV diastolic dysfunction (abnormal relaxation filling pattern), normal to mildly elevated filling pressures. Thickened aortic valve. No other significant lesions in the valve. Normal cardiac chamber sizes. Trace of pericardial effusion There are no intracardiac masses. Compared to the previous study from 08/20/2022, there may not be a significant change Dr Len Jansen MD FACC (Electronically Signed) Final Date: 30 December 2023 17:35 S
[2023-12-30] MEDS: aspirin 81 mg EC Tablet PO (08:44)
[2023-12-30] MEDS: pantoprazole DR 40 mg Tablet PO (08:44)
[2023-12-30] MEDS: carvedilol 6.25 mg Tablet PO ×2 (08:44→17:49)
[2023-12-30] MEDS: levothyroxine 137 mcg Tablet PO (08:44)
[2023-12-30] MEDS: PARoxetine 20 mg Tablet 30 MG PO (08:44)
[2023-12-30] MEDS: NIFEdipine ER (24 hr) 30 mg Tablet 60 MG PO (08:44)
[2023-12-30] MEDS: gabapentin 100 mg Capsule 200 MG PO (08:44)
[2023-12-30] MEDS: clopidogrel 75 mg Tablet PO (08:44)
[2023-12-30] MEDS: sucralfate 1 gm Tablet PO ×4 (08:44→20:48)
[2023-12-30] MEDS: atorvastatin 40 mg Tablet PO (08:44)
[2023-12-30] MEDS: enoxaparin 40 mg/0.4 mL Syringe SUBCUT (08:45)
[2023-12-30 08:54] LABS: Magnesium 1.7 mg/dL (1.7-2.3)
[2023-12-30] MEDS: sodium chloride 0.45% 1,000 ML 75 ML IV ×2 (09:19→23:07)
[2023-12-30] MEDS: LORazepam 2 mg/mL INJ 1 mL 0.5 MG IVP (09:24)
--- NOTE | 2023-12-30 09:58 | ECG_ITS ---
[facility] Test Date: 2023-12-30 Pat Name: Brittny Londono Department: Room: ICU02 Gender: Male Nursing Service Director: : 1950 Requested By: Geremias Sanchez Order Number: [id number] Anoop MD: Rudi Del Cid M.D. Measurements Intervals [place] Rate: 70 P: 60 NH: 185 QRS: -9 QRSD: 95 T: 33 QT: 405 QTc: 438 Interpretive Statements SINUS RHYTHM INFERIOR MYOCARDIAL INFARCTION , PROBABLY OLD [40+ ms Q WAVE AND/OR ST/T ABNORMALITY IN II/aVF] Compared to ECG 12/30/2023 07:01:25 Myocardial infarct finding now present Ventricular premature complex(es) no longer present ST (T wave) deviation no longer present Electronically Signed On 12-30-2023 12:05:52 CDT by Rudi Del Cid M.D. [id number]
[2023-12-30 10:34] LABS: Troponin 5 6HR 106.7 ng/L (0-15); Troponin 5 6HR Delta 16.7 ng/L (0-12)
[2023-12-30] MEDS: insulin glargine 100 units/1 mL 20 UNIT SUBCUT ×2 (11:17→17:49)
[2023-12-30 11:20] LABS: Glucose Point of Care 402 mg/dL (70-110)
[2023-12-30] MEDS: insulin lispro 100 unit/1 mL SUBCUT ×3 (12:19→20:49)
[2023-12-30] MEDS: primidone 50 mg Tablet 100 MG PO ×2 (12:19→23:16)
[2023-12-30] MEDS: acetaminophen 325 mg Tablet 650 MG PO (12:25)
[2023-12-30] MEDS: hyDRALAzine 50 mg Tablet 25 MG PO ×2 (15:11→20:48)
[2023-12-30] MEDS: cyclobenzaprine 10 mg Tablet PO (15:11)
[2023-12-30 17:12] LABS: Glucose Point of Care 271 mg/dL (70-110)
--- NOTE | 2023-12-30 18:33 | PC.NURSE ---
Patient arrived to ICU room 2 at 0800, see documented vitals, patient alert and oriented to location, self, situation however was having long pauses while peaking and would often apologize while answering questions. Blood pressure elevated, Dr. Redding verbal order to keep Nicardipine drip on hold till PO AM meds given and BP assessed thereafter. 1015:Patient transported to [facility] via wheelchair, on RA, uneventful. 1039:Returned to ICU room 2,patient resting in bed with alarm on, patient educated on alarm use; And purpose of IV, SCD, and cardiac monitoring as well as BP monitoring. 1237:Dr. Finch contacted for patient status update and update on elevated blood pressure. Orders for hydralazine given and followed. 1427: Verbal order from for one time dose of flexeril received, and followed. 1836:Patient resting in bed with no requests or complaints at this time, consuming evening meal. Overall uneventful shift, see charted vitals and MAR. Patient's , Amy called unit and was given update, will call again after her workday for update, plans to visit in AM.
[2023-12-30 20:46] LABS: Glucose Point of Care 222 mg/dL (70-110)
[2023-12-30] MEDS: quetiapine 100 mg Tablet 200 MG PO (20:49)
[2023-12-31 04:00] VITALS: BP 162/89; PULSE 64; RESP 18; TEMP 36.7; O2SAT 96
[2023-12-31 04:52] VITALS: BMI 34.7
[2023-12-31 05:44] LABS: Basophils # 0.1 10^3/uL (0.0-0.1); Basophils % 1.1 %; Eosinophils # 0.3 10^3/uL (0.0-0.8); Hematocrit 36.4 % (37-53); Lymphocytes # 1.4 10^3/uL (0.8-4.8); Lymphocytes % 25.2 %; Mean Corpuscular Hemoglobin 28.8 pg (27-33); Mean Corpuscular Volume 87.5 fl (82-101); Mean Platelet Volume 9.4 fL (7.4-10.4); Monocytes # 0.5 10^3/uL (0.2-0.9); Monocytes % 9.2 %; Neutrophils # 3.28 10^3/uL (1.8-7.7); Neutrophils % 59.1 %; Nucleated Red Blood Cells % 0 %; Platelet Count 240 10^3/cmm (157-399); Red Blood Count 4.16 10^6/uL (3.85-5.65); Red Cell Distribution Width 13.2 % (12.1-15.1); White Blood Count 5.55 10^3/uL (3.29-11.43)
[2023-12-31 05:59] VITALS: PULSE 66
[2023-12-31 06:09] LABS: Alanine Aminotransferase 12 U/L (0-41); Albumin Level 3.5 g/dL (3.5-5.2); Alkaline Phosphatase 96 U/L (40-130); Anion Gap 17.1 (5-19); Aspartate Amino Transferase 13 U/L (0-40); Blood Urea Nitrogen 22 mg/dL (8-23); Calcium 8.8 mg/dL (8.5-10.5); Carbon Dioxide 22 mmol/L (22-29); Chloride 106 mmol/L (98-107); Globulin 2.3 g/dL (1.3-4.6); Glucose 132 mg/dL (65-115); Magnesium 1.9 mg/dL (1.7-2.3); Osmolality Calculated 297 mOsm/kg (285-295); Potassium 4.1 mmol/L (3.5-5.1); Sodium 141 mmol/L (136-145); Total Bilirubin 0.3 mg/dL (0.15-1.2); Total Protein 5.8 g/dL (6.6-8.7)
[2023-12-31 06:20] LABS: Creatinine Clr Calc Pharmacy 61.9548
[2023-12-31 06:46] LABS: Glucose Point of Care 154 mg/dL (70-110)
--- NOTE | 2023-12-31 06:54 | NMCV_ITS ---
NM day perf SPECT r/s* [id number] Brittny Londono Age: 73 Gender: M : 1950 Exam Date: 12/31/2023 06:54 Ordering Phys: Mahesh Finch MD Technologist: Exam Location: [facility] Indications: Confusion, memory loss, ectopy STRESS TEST Please see separate stress test report in [facility] for full findings IMAGE PROTOCOL Rest/Stress 1 Lexiscan Day Radiopharmaceutical Dose (mCi) Administration Site Administered by Rest: Tc-99m 10.8 IV Rafa Gomez, LEI Sestamibi Stress:Tc-99m 33.0 IV LEI Huff Sestamibi Rest: 31-Dec-2023 60 Discovery 630 Stress: 31-Dec-2023 30 Discovery 630 0.4mg Lexiscan. Images obtained in supine and prone position. SPECT RESULTS Technical Quality: Good Raw Data Analysis: Normal Image Corrections: No attenuation or motion correction applied Summed Stress Score: 0 Summed Rest Score: 1 Summed Difference Score: 0 PERFUSION FINDINGS SPECT images demonstrate homogeneous tracer distribution throughout the myocardium. FUNCTIONAL RESULTS (calculated via Gated SPECT) Stress Image LV EF (%): 65 Stress EDV (mL):98 TID: 0.82 Stress ESV (mL):34 FUNCTIONAL FINDINGS: There is normal left ventricular systolic function. IMPRESSIONS 1. Normal myocardial perfusion imaging with no evidence of ischemia. 2. LV systolic function is normal Rudi Del Cid MD (Electronically Signed) Final Date: 31 December 2023 16:52 S
--- NOTE | 2023-12-31 06:54 | ECG_ITS ---
[facility] Test Date: 2023-12-31 Pat Name: Brittny Londono Department: Room: 251 Gender: Male Manager Agriculture: : 1950 Requested By: Mahesh Dupont Order Number: [id number] Reading MD: Interpretive Statements Lung unchanged pre/post procedure; Intraprocedure shortess of breath; Symptoms resoled by discharge [id number]
[2023-12-31 07:42] VITALS: BP 176/81; PULSE 64; RESP 15; TEMP 36.6; O2SAT 96
[2023-12-31] MEDS: clopidogrel 75 mg Tablet PO (07:51)
[2023-12-31] MEDS: NIFEdipine ER (24 hr) 30 mg Tablet 60 MG PO (07:51)
[2023-12-31] MEDS: PARoxetine 20 mg Tablet 30 MG PO (07:52)
[2023-12-31] MEDS: sucralfate 1 gm Tablet PO ×2 (07:52→12:53)
[2023-12-31] MEDS: gabapentin 100 mg Capsule 200 MG PO (07:52)
[2023-12-31] MEDS: atorvastatin 40 mg Tablet PO (07:52)
[2023-12-31] MEDS: pantoprazole DR 40 mg Tablet PO (07:52)
[2023-12-31] MEDS: hyDRALAzine 50 mg Tablet PO (07:52)
[2023-12-31] MEDS: aspirin 81 mg EC Tablet PO (07:52)
[2023-12-31] MEDS: enoxaparin 40 mg/0.4 mL Syringe SUBCUT (07:53)
[2023-12-31] MEDS: insulin lispro 100 unit/1 mL SUBCUT (07:53)
[2023-12-31] MEDS: carvedilol 6.25 mg Tablet PO (07:53)
[2023-12-31 08:00] VITALS: BP 176/81; PULSE 64; RESP 15; TEMP 36.6
[2023-12-31] MEDS: levothyroxine 137 mcg Tablet PO (08:21)
--- NOTE | 2023-12-31 09:19 | PC.CHAP ---
Pastoral Care Encounter/Spiritual Assessment Type of Contact [] Declined maintenance mechanic 2nd shift visit [] Patient/Family/Request visit [] Outpatient visit [] Follow-up visit [] Physician referral [] Code/Alert [] Routine visit [] Staff referral [] Actively dying [] Patient sleeping [] Family support [] [] Out of room [] Palliative care [] [x] Receiving care in room [] Pre-surgical visit [] Trauma [] Long length of stay [] ICU visit [] Other: Relational/Emotional Strength [] Patient feels connected with others/family/visitors/staff [] Distress [] Loneliness/isolation [] Abandonment Spirituality of Patient [] Person of Minnie [] Attends Baptism of their Minnie [] Believes in Prayer [] Reads Bible or Yazdanism materials [] There are Spiritual issues to be addressed Community Association Manager Interventions [] Prayer [] Active listening [] Non-anxious presence [] Spiritual/emotional support [] Crisis/trauma care [] Spiritual counseling [] Bereavement support [] Provided bereavement packet [] Provided Bible/devotional materials [] Provided toy/stuffed animal, coloring book to patient or family member [] Provided Communion [] Anointing/[place] [] Salvation [] Completed spiritual assessment [] Other: Impact on Illness or Injury [] Angry [] Fearful [] Anxious [] Often cries [] Exhaustion [] Unable to work [] Unable to attend episcopalian [] Unable to walk/stand [] Unable to read [] Unable to drive [] Unable to eat/drink [] Unable to sleep [] Unable to be with family [] Patient intubated [] Other: Summary Time spent with patient
[2023-12-31] MEDS: regadenoson 0.4 Mg/5 ml Syringe IVP (11:19)
[2023-12-31 11:29] VITALS: BP 142/61; PULSE 76
[2023-12-31] MEDS: primidone 50 mg Tablet 100 MG PO (12:52)
--- NOTE | 2023-12-31 13:16 | PM.DCS ---
Discharge Providers Date of Admission: 12/30/23 07:59 Date of Discharge: December 31, 2023 Attending Provider at Admission: Mahesh Finch MD Attending Provider at Discharge: Mahesh Finch MD Primary Care Provider: Rj Alcala MD Diagnoses at Discharge Discharge Diagnosis (1) Acute encephalopathy: Status: Acute (2) Elevated troponin: Status: Acute (3) Type 2 diabetes mellitus: Status: Chronic (4) Hypertensive urgency: Status: Acute Reason for Visit Reason for Visit: pain chest or abd pt is ams Hospital Course Hospital Course Patient is a 73-year-old white male with history of coronary artery disease, Asperger's disease, diabetes, hypertension who presented to the hospital with difficulty with mentation, slowness, confusion. He was reporting pain in his head chest and belly but history was somewhat inconsistent at times. He had a history of 1 year ago having a venous sinus thrombosis. CT and CTA head and neck were done in the emergency department showing no abnormalities. As blood pressure was significantly high IV blood pressure medication in the form of hydralazine was given, and his home blood pressure medication started. Nicardipine was ordered but ultimately blood pressure came down some and it was not needed. During his hospital course an MRI and MRV was done which showed no evidence of sinus venous thrombosis or stroke. Troponin was measured and third troponin showed significant delta. This was thought to be secondary to markedly elevated blood pressures, but a nuclear stress test was ordered for December 30. He also received adjustment of his home medications including addition of hydralazine and up titration of this. With these changes blood pressure is under better control. He was back to his baseline mental status. A nuclear stress test was performed which demonstrated no reversible ischemia. It was thought he could discharge home and follow-up with his primary care provider as well as cardiology. He will continue his Plavix, aspirin, statin. Hydralazine is added for blood pressure and he should continue his other blood pressure medications of carvedilol and nifedipine. Sildenafil should be discontinued. He was given an opportunity to ask questions and agreed with the plan. Physical Exam Narrative: General exam no distress Neck is supple Cardiovascular regular in rhythm without murmur Lungs clear Abdomen soft Extremities no sinus clubbing edema Neuro no obvious focal deficits Discharge Data Studies Completed and Pending Completed Studies During Hospitalization Category Date Time Status CT angio head neck [CT angio headneck* 21001/00428] Cat Scan 12/30/23 03:[address] head wo con* [id number] Stat Cat Scan 12/30/23 03:58 Completed Cardiac Stress Test MIBI [Sestamibi Stress Test Request Exams 12/31/23 06:54 Draft ] Routine XR chest 1V portable [id number] Stat Exams 12/30/23 03:58 Completed MR head wo con* [id number] Routine MRI 12/30/23 07:54 Completed MRV [[place] [id number]] Routine MRI 12/30/23 07:54 Completed CV. echo complete* [id number] Routine Ultrasound 12/30/23 08:17 Completed Pending at discharge Category Date Time Status Blood Culture Stat Lab 12/30/23 06:00 Results NM day perf SPECT r/s* [id number] Routine Nuc Med 12/31/23 06:54 Taken Radiology Impressions Chest X-Ray 12/30/23 03:58 IMPRESSION: No acute findings. Head CT 12/30/23 03:58 IMPRESSION: No acute intracranial abnormality. ASSESSMENT: ASPECTS ([place] Stroke Program Early CT Score) is 10. Head/Neck CTA 12/30/23 03:58 IMPRESSION: Mild left internal carotid artery stenosis. Otherwise patent [id number]. IMPRESSION: No stenosis or occlusion. REFERENCES: NASCET CRITERIA. The degree of stenosis in the cervical segment of the internal carotid artery is based on NASCET criteria. Normal is no stenosis. Mild is less than 50% stenosis. Moderate is 50-69% stenosis. Severe is 70% to 99% stenosis. Total occlusion is no detectable patent lumen. Head MRI 12/30/23 07:54 IMPRESSION: 1. No evidence of restricted diffusion to suggest acute ischemia. 2. Mild small vessel changes with moderate parenchymal volume loss. 3. No hemosiderin on the susceptibly weighted images. 4. No other acute findings. Head/Brain Mag Res Venography 12/30/23 07:54 IMPRESSION: No evidence of dural sinus thrombosis Laboratory Results WBC 5.55 10^3/uL (3.29-11.43) 12/31/23 04:38 RBC 4.16 10^6/uL (3.85-5.65) 12/31/23 04:38 Hgb 12.00 g/dL (11.27-16.99) 12/31/23 04:38 Hct 36.4 % (37-53) L 12/31/23 04:38 MCV 87.5 fl (82-101) 12/31/23 04:38 MCH 28.8 pg (27-33) 12/31/23 04:38 MCHC 33.0 g/dL (30-55) 12/31/23 04:38 RDW 13.2 % (12.1-15.1) 12/31/23 04:38 Plt Count 240 10^3/cmm (157-399) 12/31/23 04:38 MPV 9.4 fL (7.4-10.4) 12/31/23 04:38 Neut % (Auto) 59.1 % 12/31/23 04:38 Lymph % (Auto) 25.2 % 12/31/23 04:38 [place] % (Auto) 9.2 % 12/31/23 04:38 Eos % (Auto) 5.0 % 12/31/23 04:38 Baso % (Auto) 1.1 % 12/31/23 04:38 Neut # (Auto) 3.28 10^3/uL (1.8-7.7) 12/31/23 04:38 Lymph # (Auto) 1.4 10^3/uL (0.8-4.8) 12/31/23 04:38 [place] # (Auto) 0.5 10^3/uL (0.2-0.9) 12/31/23 04:38 Eos # (Auto) 0.3 10^3/uL (0.0-0.8) 12/31/23 04:38 Baso # (Auto) 0.1 10^3/uL (0.0-0.1) 12/31/23 04:38 Nucleated RBC % (auto) 0 % 12/31/23 04:38 Nucleated RBCs # 0.0 /100WBC 12/31/23 04:38 PT 12.50 SECONDS (12.1-14.9) 12/30/23 03:36 INR 0.91 (0.8-1.2) 12/30/23 03:36 APTT 28.2 SECONDS (23.9-36.7) 12/30/23 03:36 Sodium 141 mmol/L (136-145) 12/31/23 04:38 Potassium 4.1 mmol/L (3.5-5.1) 12/31/23 04:38 Chloride 106 mmol/L (98-107) 12/31/23 04:38 Carbon Dioxide 22 mmol/L (22-29) 12/31/23 04:38 Anion Gap 17.1 (5-19) 12/31/23 04:38 BUN 22 mg/dL (8-23) 12/31/23 04:38 Creatinine 1.5 mg/dL (0.7-1.2) H 12/31/23 04:38 GFR Calculation Not Reportable 12/31/23 04:38 Glucose 132 mg/dL (65-115) H 12/31/23 04:38 POC Glucose 154 mg/dL (70-110) H 12/31/23 06:44 Calculated Osmolality 297 mOsm/kg (285-295) H 12/31/23 04:38 Lactic Acid 3.4 mmol/L (0.5-2.2) H 12/30/23 03:36 Lactic Acid (Sepsis) 3.1 mmol/L (0.5-2.2) H 12/30/23 06:25 Calcium 8.8 mg/dL (8.5-10.5) 12/31/23 04:38 Magnesium 1.9 mg/dL (1.7-2.3) 12/31/23 04:38 Total Bilirubin 0.3 mg/dL (0.15-1.2) 12/31/23 04:38 AST 13 U/L (0-40) 12/31/23 04:38 ALT 12 U/L (0-41) 12/31/23 04:38 Alkaline Phosphatase 96 U/L (40-130) 12/31/23 04:38 Troponin T Baseline 90 ng/L (0-15) H 12/30/23 03:36 Troponin T 120 Minute 89.00 ng/L (0-15) H 12/30/23 06:00 Delta Troponin T -1.00 ABS# (0-10) L 12/30/23 06:00 Troponin T Hi Sens 6Hr 106.7 ng/L (0-15) H 12/30/23 10:04 Troponin T Hi Sens 6Hr Delta 16.7 ng/L (0-12) H* 12/30/23 10:04 C-Reactive Protein 3.0 mg/L (0.0-4.9) 12/30/23 03:36 NT-Pro-B Natriuret Pep 286 pg/mL (0-125) H 12/30/23 03:36 Total Protein 5.8 g/dL (6.6-8.7) L 12/31/23 04:38 Albumin 3.5 g/dL (3.5-5.2) 12/31/23 04:38 Globulin 2.3 g/dL (1.3-4.6) 12/31/23 04:38 TSH 2.70 uIU/mL (0.27-4.20) 12/30/23 03:36 Urine Color Yellow (Yellow) 12/30/23 04:55 Urine Appearance Clear (CLEAR) 12/30/23 04:55 Urine pH 9 (5-7) H 12/30/23 04:55 Ur Specific [place] 1.010 (1.005-1.030) 12/30/23 04:55 Urine Protein Trace (Negative) 12/30/23 04:55 Urine Glucose (UA) 4+ (Normal) H 12/30/23 04:55 Urine Ketones 1+ (Negative) H 12/30/23 04:55 Urine Blood Neg (Negative) 12/30/23 04:55 Urine Nitrate Negative (Negative) 12/30/23 04:55 Urine Bilirubin Neg (Negative) 12/30/23 04:55 Urine Urobilinogen Neg mg/dL (Negative) 12/30/23 04:55 Ur Leukocyte Esterase Negative (Negative) 12/30/23 04:55 Urine RBC None /hpf (0-2) 12/30/23 04:55 Urine WBC None /hpf (0-5) 12/30/23 04:55 Ur Squamous Epith Cells None /hpf (0-5) 12/30/23 04:55 Amorphous Sediment Not Reportable 12/30/23 04:55 Urine Bacteria None /hpf (NONE) 12/30/23 04:55 Vitals Last Vital Signs Temp 97.9 F 12/31/23 08:00 Pulse 76 12/31/23 11:29 Resp 15 12/31/23 08:00 BP 142/61 07/09/24 11:29 Pulse Ox 96 12/31/23 07:42 O2 Del Method Room Air 12/31/23 07:42 Discharge Plan Discharge Patient Disposition: Home Condition: Stable Prescriptions: New hydralazine 50 mg Tablet 50 mg PO TID Qty: 90 0RF Continued furosemide 40 mg tablet 40 mg PO DAILY Qty: 90 3RF aspirin [Adult Aspirin Regimen] 81 mg tablet,delayed release (DR/EC) 81 mg PO DAILY atorvastatin 40 mg tablet 40 mg PO DAILY Tresiba U-100 Insulin 100 unit/mL solution 48 unit SUBCUT BID Qty: 10 3RF Rx Instructions: take at 7am and 7pm paroxetine HCl 30 mg tablet 30 mg PO DAILY Qty: 30 2RF primidone 50 mg tablet 100 mg PO BID@00,12 Qty: 60 1RF Vitamin B-12 50 mcg Tablet 50 mcg PO DAILY cholecalciferol (vitamin D3) [Vitamin D3] 25 mcg (1,000 unit) Capsule 25 mcg PO DAILY gabapentin 100 mg Capsule 200 mg PO DAILY levothyroxine 137 mcg tablet 137 mcg PO DAILY carvedilol 6.25 mg tablet 6.25 mg PO BID quetiapine [Seroquel] 200 mg tablet 200 mg PO BEDTIME nifedipine [Procardia XL] 60 mg tablet extended release 24hr 60 mg PO DAILY lorazepam [Ativan] 1 mg tablet See Rx Instructions .ROUTE .COMPLEX PRN (Reason: anxiety) Rx Instructions: Take 1 tablet at bedtime and 1 tablet daily as needed for severe anxiety. pantoprazole 40 mg tablet,delayed release (DR/EC) 40 mg PO DAILY 30 Days Qty: 30 12RF sucralfate 1 gram tablet 1 g PO QID clopidogrel 75 mg tablet 75 mg PO DAILY Discontinued hydralazine 50 mg tablet 50 mg PO DAILY PRN (Reason: UNKNOWN) sildenafil 100 mg tablet 50 - 100 mg PO DAILY PRN (Reason: Erectile Dysfunction) Discharge Orders: Discharge Order (Routine); Ordered 12/31/23 Ordered By: Mahesh Finch Referrals: Tigist Siddiqui FNP [Nurse Practitioner] - 2 weeks Rj Alcala MD [Primary Care Provider] - 4-7 days Discharge Diet: Cardiac and Diabetic Discharge Activity: Increase activity as tolerated Patient Instructions: Opioid Safety Activity Restrictions/Additional Instructions: Take all medicine as prescribed Follow-up with primary care provider 3 to 5 days Follow-up with cardiology 2 weeks secondary to elevated troponin Return for any concerns Discharge Attestations Time Spent in Discharge Care*: greater than 30 min Status at Discharge: Cognitive status at discharge: cognitively intact, Behavioral status at discharge: cooperative, Quality Metrics Clinical Quality Measures [ No reported AMI, CVA or VTE this stay] Coding Level of Care Code 84931 Total time (in minutes) for Discharge: 46 Diagnoses Acute encephalopathy G93.40 Elevated troponin R79.89 Type 2 diabetes mellitus E11.9 Hypertensive urgency I16.0
--- NOTE | 2023-12-31 14:37 | NUR.SHIFT ---
Discharge Note Patient discharged to home via POV accompanied by spouse. Discharge instructions reviewed with patient and/or customer service representative. Mobile pharmacy medications and/or prescriptions provided. Belongings/home medications returned.
[2023-12-31 14:38] VITALS: BP 142/61; PULSE 76
== END 2023-12-31 14:39 | disposition home or self-care (01) ==
LOC: ER 05:50 → ICU 07:57 → MEDSURG 12-31 06:40
PROVIDERS: Admitting Provider Internal Medicine; Emergency Provider Emergency Medicine; PCP Family Medicine; Visit Provider Internal Medicine
DX: G93.40 Encephalopathy, unspecified (principal); R79.89 Other specified abnormal findings of blood chemistry; E11.9 Type 2 diabetes mellitus without complications; I16.0 Hypertensive urgency; I25.10 Atherosclerotic heart disease of native coronary artery without angina pectoris; F84.5 Asperger's syndrome; I10 Essential (primary) hypertension; Z95.5 Presence of coronary angioplasty implant and graft; Z95.1 Presence of aortocoronary bypass graft; G47.33 Obstructive sleep apnea (adult) (pediatric); E03.9 Hypothyroidism, unspecified; I25.2 Old myocardial infarction; E11.42 Type 2 diabetes mellitus with diabetic polyneuropathy
CPT/HCPCS: 36415; 36416; 70450; 70496; 70498; 70544; 70551; 71045; 78452; 80053; 81001; 82962; 83605; 83735; 83880; 84443; 84484; 85025; 85610; 85730; 86140; 87040; 93005; 93017; 93306; 96365; 96366; 96367; 96372; 96375; 99285; A9500; G0378; J0360; J1650; J1815; J2060; J2270; J2405; J2785; J3490; Q9967

== ENCOUNTER → 2024-02-06 15:23 | Outpatient (BNVA) | payer MEDICARE, SELFPAY | PROVIDERS: PCP Family Medicine; Visit Provider Family Medicine | DX: E11.9 Type 2 diabetes mellitus without complications (principal) | CPT/HCPCS: 80053; 83036; 84439; 84443; 85025 ==

== ENCOUNTER → 2024-03-19 14:05 | Outpatient (BNVA) | payer MEDICARE, SELFPAY | PROVIDERS: PCP Family Medicine; Visit Provider Internal Medicine Cardiovascular Disease | DX: I25.10 Atherosclerotic heart disease of native coronary artery without angina pectoris (principal); I67.4 Hypertensive encephalopathy; I50.32 Chronic diastolic (congestive) heart failure; E78.2 Mixed hyperlipidemia | CPT/HCPCS: 99214 ==

== ENCOUNTER 2024-07-22 07:55 | Outpatient (CLI) | payer MEDICARE, SELFPAY ==
--- NOTE | 2024-07-22 | ECG_ITS ---
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 Interpretive Statements LEXISCAN: Procedure: At the baseline, the blood pressure was 166/96 mmHg with a heart rate of 65 bpm. The electrocardiogram showed normal sinus rhythm, normal axis with normal ST and T's. The Lexiscan was infused over a period of 20 seconds. A total of 0.4 mg of Lexiscan was infused. The stress phase was continued for a total of 5 minutes. Heart rate was at the end of stress phase was 67 bpm and a blood pressure of 166/89 mmHg. The EKG at the peak infusion revealed normal sinus rhythm with no significant ST-T wave changes. Sestamibi was injected 20 seconds after the Lexiscan infusion. Blood pressure at the end of recovery phase was 167/98 mmHg with a heart rate of 65 bpm. Conclusion: 1. Normal EKG response to Lexiscan infusion 2. No Lexiscan induced chest pain or cardiac arrhythmia. 3. Normal blood pressure and heart rate response. 4. Sestamibi/sestamibi perfusion scan pending; see separate report. Electronically Signed On 07-25-2024 23:48:13 [employer] by Rudi Del Cid M.D. [email or web address]
[2024-07-22 08:00] VITALS: BMI 36.6
--- NOTE | 2024-07-22 08:01 | NMCV_ITS ---
NM day perf SPECT r/s* [id number] Brittny Londono Age: 73 Gender: M : 1950 Exam Date: 07/22/2024 09:12 Ordering Phys: Reggie Bowles Technologist: LEI Felix Exam Location: [facility] Indications: cp STRESS TEST Please see separate stress test report in [facility] for full findings IMAGE PROTOCOL Rest/Stress 1 Lexiscan Day Radiopharmaceutical Dose (mCi) Administration Site Administered by Rest: Tc-99m 10.3 IV Tiana Martin, WIRE STRANDER Sestamibi Stress:Tc-99m 32.5 IV Tiana Cohengle, WIRE STRANDER Sestamibi Rest: 22-Jul-2024 60 Discovery 630 Stress: 22-Jul-2024 30 Discovery 630 0.4mg Lexiscan. Images obtained in supine and prone position. SPECT RESULTS Technical Quality: Good Raw Data Analysis: Normal Image Corrections: No attenuation or motion correction applied Summed Stress Score: 4 Summed Rest Score: 0 Summed Difference Score: 4 PERFUSION FINDINGS SPECT images demonstrate homogeneous tracer distribution throughout the myocardium. FUNCTIONAL RESULTS (calculated via Gated SPECT) Stress Image LV EF (%): 59 Stress EDV (mL):109 TID: 1 Stress ESV (mL):45 FUNCTIONAL FINDINGS: There is normal left ventricular systolic function. IMPRESSIONS There appeared to be fixed perfusion defect of the basal inferior wall in the absence of wall motion abnormality it may represent artifact. This study is negative for ischemia. Glenroy Mullen MD (Electronically Signed) Final Date: 22 July 2024 15:22 Amended: 22 July 2024 15:30 C
[2024-07-22] MEDS: regadenoson 0.4 Mg/5 ml Syringe IVP (09:38)
[2024-07-22 09:54] VITALS: BP 167/98; PULSE 64
== END 2024-07-22 07:56 | disposition home or self-care (01) ==
LOC: CDL 07:57
PROVIDERS: PCP Family Medicine; Visit Provider Family Medicine
DX: R07.9 Chest pain, unspecified (principal); R93.89 Abnormal findings on diagnostic imaging of other specified body structures
CPT/HCPCS: 36415; 78452; 93017; 96374; A9500; J2785

== ENCOUNTER → 2025-06-10 14:43 | Outpatient (BNVA) | payer MEDICARE, SELFPAY | PROVIDERS: PCP Family Medicine; Visit Provider Orthopaedic Surgery | DX: M48.062 Spinal stenosis, lumbar region with neurogenic claudication (principal) | CPT/HCPCS: 72110; 99204 ==